=== PATIENT | male | born 1970 | race Caucasian/White ===

== ENCOUNTER 2024-03-01 21:15 | Emergency (ER) | payer OTHER, SELFPAY ==
[2024-03-01 21:24] VITALS: BP 170/100; PULSE 75; TEMP 37; O2SAT 98; BMI 40.7
--- NOTE | 2024-03-01 21:37 | ECG_ITS ---
[facility] Test Date: 2024-03-01 Pat Name: ANKIT BENITES Department: Room: - Gender: Male [employer] Man: : 1970 Requested By: [id number] Order Number: [id number] Reading MD: DANIEL WEAVER Measurements Intervals [place] Rate: 72 P: 50 CA: 170 QRS: 35 QRSD: 88 T: 45 QT: 350 QTc: 375 Interpretive Statements 1100 Sinus rhythm 9110 normal ECG No previous ECG available for comparison Electronically Signed On 03-02-2024 7:02:10 EDT by DANIEL WEAVER
--- NOTE | 2024-03-01 21:38 | ED_ITS ---
Documented by User: TIN Menon 03/01/24 21:42 HPI HPI - General Adult General Chief complaint: Upper Respiratory Infection Stated complaint: Upper Respiratory Infection Time Seen by Provider: 03/01/24 21:18 Source: patient Mode of arrival: walk-in Limitations: no limitations History of Present Illness HPI narrative: Patient is a 54-year-old male with a history of diabetes who presents to the emergency department for 3-day history of cough, congestion, sputum production, shortness of breath and chest pain. He denies any objective fevers, vomiting or diarrhea. He has no peripheral edema. He states his primary concern is that he cannot catch his breath. He denies any history of COPD, asthma or emphysema. No medications taken Prior to arrival except for Mucinex without improvement. He takes oral diabetic agents, no insulin. He denies any history of the symptoms previously. Related Data Home Medications ?Medication ?Instructions ?Recorded ?Confirmed glimepiride 2 mg tablet 2 mg PO DAILY 03/01/24 03/01/24 nabumetone 500 mg tablet 500 mg PO BID 03/01/24 03/01/24 sitagliptin phosphate 50 1 tab PO DAILY 03/01/24 03/01/24 mg-metformin 1,000 mg tablet (Janumet) Allergies Allergy/AdvReac Type Severity Reaction Status Date / Time Penicillins Allergy Intermediate Hives Verified 03/01/24 21:29 Opioid HPI Opioid Management Most Recent Opioid Data: Last Pain Scale 4 03/01/24 21:53 Last ED Pain Assessment 03/01/24 21:53 Review of Systems ROS Constitutional Denies: fever or chills Ears, nose, mouth, and throat Reports: nasal congestion; Denies: throat pain Cardiovascular Reports: chest pain Respiratory Reports: shortness of breath, cough, wheezing and change in phlegm color Gastrointestinal Denies: nausea, vomiting or diarrhea Musculoskeletal Denies: back pain Integumentary/Breast Denies: rash Neurological Denies: headache Hematologic/Lymphatic Denies: easy bruising or easy bleeding Exam Narrative Exam Narrative: Gen.: Awake, alert, in no distress Head: Normocephalic, atraumatic ENT: Moist mucous membranes Respiratory: No respiratory distress, Tachypnea with expiratory wheezing globally, scattered rhonchi Cardio: Regular rate and rhythm Extremities: Moves extremities equally, no pedal edema Psych: Normal mood and affect Neuro: No focal neuro deficit Skin: Warm, dry, intact Constitutional Vital Signs, click to edit/add: Last Vital Signs Temp 98.6 F 03/01/24 21:24 Pulse 77 03/01/24 22:04 Resp 20 03/01/24 22:04 BP 170/100 H 03/01/24 21:24 Pulse Ox 96 03/01/24 22:04 O2 Del Method Room Air 03/01/24 22:04 Course Vital Signs Vital signs: Vital Signs Temperature 98.6 F 03/01/24 21:24 Pulse Rate 75 03/01/24 21:24 Respiratory Rate 20 03/01/24 21:24 Blood Pressure 170/100 H 03/01/24 21:24 Pulse Oximetry 98 03/01/24 21:24 Oxygen Delivery Method Room Air 03/01/24 21:24 Temperature 98.6 F 03/01/24 21:24 Pulse Rate 77 03/01/24 22:04 Respiratory Rate 20 03/01/24 22:04 Blood Pressure 170/100 H 03/01/24 21:24 Pulse Oximetry 96 03/01/24 22:04 Oxygen Delivery Method Room Air 03/01/24 22:04 Medical Decision Making MDM Narrative Medical decision making narrative: 214: Patient with an unremarkable EKG, stable vital signs on arrival to the ER, he is not in any respiratory distress. Breathing treatments, IV Solu-Medrol, fluids were ordered for the patient in addition to lab studies, respiratory panel. Imaging is pending on results of D-dimer. Patient is turned over to attending physician at this time for lab results and disposition. Medical Records Medical records reviewed: Yes I reviewed the patient's medical records Lab Data Lab results reviewed: Yes I reviewed the patient's lab results Labs: Lab Results 03/01/24 03/01/24 Range/Units 21:39 21:55 WBC 14.9 H (4.0-11.0) 10^3/uL RBC 5.50 (4.70-6.10) 10^6/uL Hgb 15.2 (14.0-18.0) g/dL Hct 47.5 (42.0-54.0) % MCV 86.4 (80.0-94.0) fL MCH 27.6 (25.9-34.0) pg MCHC 32.0 (29.9-35.2) g/dL RDW 13.1 (11.0-15.0) % Plt Count 258 (150-450) 10^3/uL MPV 10.6 (9.5-13.5) fL Neut % (Auto) 77.5 H (43.0-75.0) % Lymph % (Auto) 8.0 L (20.5-60.0) % Cecil % (Auto) 9.9 (1.7-12.0) % Eos % (Auto) 4.0 (0.9-7.0) % Baso % (Auto) 0.3 (0.2-2.0) % Neut # (Auto) 11.6 H (1.4-6.5) 10^3/uL Lymph # (Auto) 1.2 (1.2-3.8) 10^3/uL Cecil # (Auto) 1.5 H (0.3-0.8) 10^3/uL Eos # (Auto) 0.6 (0.0-0.7) 10^3/uL Baso # (Auto) 0.1 (0.0-0.1) 10^3/uL Abs Immat Gran (auto) 0.05 H (0.00-0.03) 10^3/uL Imm/Tot Granulo (auto) 0.3 (0.0-0.5) % PT 10.5 (9.0-11.6) sec INR 0.99 D-Dimer 0.57 (<=0.59) mg/L FEU VBG pH 7.385 (7.330-7.430) VBG pCO2 46.9 (40.0-52.0) mmHg Sodium 139 (136-145) mmol/L Potassium 4.0 (3.5-5.1) mmol/L Chloride 103 (98-107) mmol/L Carbon Dioxide 28.2 (21.0-32.0) mmol/L Anion Gap 11.8 BUN 10.0 (7.0-18.0) mg/dL Creatinine 0.82 (0.70-1.30) mg/dL Est GFR ( Amer) >60 (>=60) Est GFR (Non-Af Amer) >60 (>=60) BUN/Creatinine Ratio 12.2 Glucose 131 H (74-106) mg/dL Lactate 1.3 (0.4-2.0) mmol/L Calcium 9.9 (8.5-10.1) mg/dL Total Bilirubin 0.6 (0.2-1.0) mg/dL AST 17 (15-37) U/L ALT 29 (16-63) U/L Alkaline Phosphatase 81 (46-116) U/L Troponin I High Sens 9.8 (4.0-76.1) pg/mL NT-Pro-B Natriuret Pep 61.0 (<=900.0) pg/mL Total Protein 7.8 (6.4-8.2) g/dL Albumin 4.1 (3.4-5.0) g/dL Globulin 3.7 g/dL Albumin/Globulin Ratio 1.1 Procalcitonin <0.05 (0.00-0.50) ng/mL Adenovirus (PCR) Not detected (NOT DETECTE) C. pneumoniae DNA (PCR) Not detected (NOT DETECTE) Coronavirus Type OC43 Not detected (NOT DETECTE) Coronavirus Type HKU1 Not detected (NOT DETECTE) Coronavirus Type 229E Not detected (NOT DETECTE) Coronavirus Type NL63 Not detected (NOT DETECTE) Human Metapneumovir PCR Not detected (NOT DETECTE) M. pneumoniae (PCR) Not detected (NOT DETECTE) Parainfluenza PCR Not detected (NOT DETECTE) Parainfluenza 2 (PCR) Not detected (NOT DETECTE) Parainfluenza 3 (PCR) Not detected (NOT DETECTE) Parainfluenza 4 (PCR) Not detected (NOT DETECTE) RSV (RT-PCR) Not detected (NOT DETECTE) Entero/Rhino (PCR) Detected A (NOT DETECTE) SARS-CoV-2 (PCR) Not detected (NOT DETECTE) Bordetella pertussis (PCR) Not detected (NOT DETECTE) B parapertussis DNA PCR Not detected (NOT DETECTE) Influenza Type A (PCR) Not detected (NOT DETECTE) Influenza Type B (PCR) Not detected (NOT DETECTE) ECG Data Attestation: I personally reviewed and interpreted this ECG as follows: (Normal sinus rhythm at a rate of 72, no acute ST elevation or ectopy. EKG reviewed by attending physician) Discharge Plan Discharge Stand Alone Forms: Portal Instructions Chief Complaint: Upper Respiratory Infection Clinical Impression: Shortness of breath, Upper respiratory infection Patient Disposition: Home, Self-Care Time of Disposition Decision: 23:38 Condition: Good Prescriptions / Home Meds: No Action glimepiride 2 mg tablet 2 mg PO DAILY nabumetone 500 mg tablet 500 mg PO BID Janumet 50-1,000 mg tablet 1 tab PO DAILY Print Language: Armenian Additional Instructions: Your respiratory panel was positive for Rhino/Entero virus. Use medications as directed until gone. Drink plenty of fluids, return to the ER for worsening symptoms, increasing shortness of breath or any concerns. Referrals: Physician,Non-Staff, [Primary Care Provider] - 1 week Documented by User: Malissa Chacko MD 03/01/24 23:45 HPI HPI - General Adult General Chief complaint: Upper Respiratory Infection Stated complaint: Upper Respiratory Infection Time Seen by Provider: 03/01/24 21:18 Related Data Home Medications ?Medication ?Instructions ?Recorded ?Confirmed glimepiride 2 mg tablet 2 mg PO DAILY 03/01/24 03/01/24 nabumetone 500 mg tablet 500 mg PO BID 03/01/24 03/01/24 sitagliptin phosphate 50 1 tab PO DAILY 03/01/24 03/01/24 mg-metformin 1,000 mg tablet (Janumet) Allergies Allergy/AdvReac Type Severity Reaction Status Date / Time Penicillins Allergy Intermediate Hives Verified 03/01/24 21:29 Opioid HPI Opioid Management Most Recent Opioid Data: Last Pain Scale 4 03/01/24 21:53 Last ED Pain Assessment 03/01/24 21:53 Exam Constitutional Vital Signs, click to edit/add: Last Vital Signs Temp 98.6 F 03/01/24 21:24 Pulse 77 03/01/24 22:04 Resp 20 03/01/24 22:04 BP 170/100 H 03/01/24 21:24 Pulse Ox 96 03/01/24 22:04 O2 Del Method Room Air 03/01/24 22:04 Course Vital Signs Vital signs: Vital Signs Temperature 98.6 F 03/01/24 21:24 Pulse Rate 75 03/01/24 21:24 Respiratory Rate 20 03/01/24 21:24 Blood Pressure 170/100 H 03/01/24 21:24 Pulse Oximetry 98 03/01/24 21:24 Oxygen Delivery Method Room Air 03/01/24 21:24 Temperature 98.6 F 03/01/24 21:24 Pulse Rate 77 03/01/24 22:04 Respiratory Rate 20 03/01/24 22:04 Blood Pressure 170/100 H 03/01/24 21:24 Pulse Oximetry 96 03/01/24 22:04 Oxygen Delivery Method Room Air 03/01/24 22:04 Medical Decision Making MDM Narrative Medical decision making narrative: 2140: Patient with an unremarkable EKG, stable vital signs on arrival to the ER, he is not in any respiratory distress. Breathing treatments, IV Solu-Medrol, fluids were ordered for the patient in addition to lab studies, respiratory panel. Imaging is pending on results of D-dimer. Patient is turned over to attending physician at this time for lab results and disposition. This 54-year-old male, nonsmoker, was seen and evaluated in conjunction with the physician assistant speech language pathologist. Please refer to her full H and P. In brief he presents for evaluation of 3 days of cough, chest congestion with productive greenish phlegm. He has some mild discomfort in the left side of his chest. This is a 72 bpm with no acute changes. An IV was placed and he was medicated with IV fluids and steroids. He received a breathing treatment. On reevaluation he states he is feeling better and is breathing better than he has been able to breathe in the past several days. He has an elevated white count of 14.9 with a stable hemoglobin. He has a normal lactic acid. He has a normal blood gas. Troponin and d-dimer are both normal. Chest x-ray was ordered after the d-dimer result was normal. Chest x-ray was reviewed by radiology and is negative for acute findings. A respiratory panel was positive for rhino/enterovirus. This was discussed with the patient and his . He will be discharged home after being given an albuterol MDI in the emergency department with prescriptions for Bromfed-DM, prednisone for the next 5 days and Zithromax Z-ARLYN. Lab Data Labs: Lab Results 03/01/24 03/01/24 Range/Units 21:39 21:55 WBC 14.9 H (4.0-11.0) 10^3/uL RBC 5.50 (4.70-6.10) 10^6/uL Hgb 15.2 (14.0-18.0) g/dL Hct 47.5 (42.0-54.0) % MCV 86.4 (80.0-94.0) fL MCH 27.6 (25.9-34.0) pg MCHC 32.0 (29.9-35.2) g/dL RDW 13.1 (11.0-15.0) % Plt Count 258 (150-450) 10^3/uL MPV 10.6 (9.5-13.5) fL Neut % (Auto) 77.5 H (43.0-75.0) % Lymph % (Auto) 8.0 L (20.5-60.0) % Cecil % (Auto) 9.9 (1.7-12.0) % Eos % (Auto) 4.0 (0.9-7.0) % Baso % (Auto) 0.3 (0.2-2.0) % Neut # (Auto) 11.6 H (1.4-6.5) 10^3/uL Lymph # (Auto) 1.2 (1.2-3.8) 10^3/uL Cecil # (Auto) 1.5 H (0.3-0.8) 10^3/uL Eos # (Auto) 0.6 (0.0-0.7) 10^3/uL Baso # (Auto) 0.1 (0.0-0.1) 10^3/uL Abs Immat Gran (auto) 0.05 H (0.00-0.03) 10^3/uL Imm/Tot Granulo (auto) 0.3 (0.0-0.5) % PT 10.5 (9.0-11.6) sec INR 0.99 D-Dimer 0.57 (<=0.59) mg/L FEU VBG pH 7.385 (7.330-7.430) VBG pCO2 46.9 (40.0-52.0) mmHg Sodium 139 (136-145) mmol/L Potassium 4.0 (3.5-5.1) mmol/L Chloride 103 (98-107) mmol/L Carbon Dioxide 28.2 (21.0-32.0) mmol/L Anion Gap 11.8 BUN 10.0 (7.0-18.0) mg/dL Creatinine 0.82 (0.70-1.30) mg/dL Est GFR ( Amer) >60 (>=60) Est GFR (Non-Af Amer) >60 (>=60) BUN/Creatinine Ratio 12.2 Glucose 131 H (74-106) mg/dL Lactate 1.3 (0.4-2.0) mmol/L Calcium 9.9 (8.5-10.1) mg/dL Total Bilirubin 0.6 (0.2-1.0) mg/dL AST 17 (15-37) U/L ALT 29 (16-63) U/L Alkaline Phosphatase 81 (46-116) U/L Troponin I High Sens 9.8 (4.0-76.1) pg/mL NT-Pro-B Natriuret Pep 61.0 (<=900.0) pg/mL Total Protein 7.8 (6.4-8.2) g/dL Albumin 4.1 (3.4-5.0) g/dL Globulin 3.7 g/dL Albumin/Globulin Ratio 1.1 Procalcitonin <0.05 (0.00-0.50) ng/mL Adenovirus (PCR) Not detected (NOT DETECTE) C. pneumoniae DNA (PCR) Not detected (NOT DETECTE) Coronavirus Type OC43 Not detected (NOT DETECTE) Coronavirus Type HKU1 Not detected (NOT DETECTE) Coronavirus Type 229E Not detected (NOT DETECTE) Coronavirus Type NL63 Not detected (NOT DETECTE) Human Metapneumovir PCR Not detected (NOT DETECTE) M. pneumoniae (PCR) Not detected (NOT DETECTE) Parainfluenza PCR Not detected (NOT DETECTE) Parainfluenza 2 (PCR) Not detected (NOT DETECTE) Parainfluenza 3 (PCR) Not detected (NOT DETECTE) Parainfluenza 4 (PCR) Not detected (NOT DETECTE) RSV (RT-PCR) Not detected (NOT DETECTE) Entero/Rhino (PCR) Detected A (NOT DETECTE) SARS-CoV-2 (PCR) Not detected (NOT DETECTE) Bordetella pertussis (PCR) Not detected (NOT DETECTE) B parapertussis DNA PCR Not detected (NOT DETECTE) Influenza Type A (PCR) Not detected (NOT DETECTE) Influenza Type B (PCR) Not detected (NOT DETECTE) Discharge Plan Discharge Stand Alone Forms: Portal Instructions Chief Complaint: Upper Respiratory Infection Clinical Impression: Shortness of breath, Upper respiratory infection Patient Disposition: Home, Self-Care Time of Disposition Decision: 23:38 Condition: Good Prescriptions / Home Meds: No Action glimepiride 2 mg tablet 2 mg PO DAILY nabumetone 500 mg tablet 500 mg PO BID Janumet 50-1,000 mg tablet 1 tab PO DAILY Print Language: Armenian Additional Instructions: Your respiratory panel was positive for Rhino/Entero virus. Use medications as directed until gone. Drink plenty of fluids, return to the ER for worsening symptoms, increasing shortness of breath or any concerns. Referrals: Physician,Non-Staff, MD [Primary Care Provider] - 1 week
[2024-03-01 21:54] VITALS: O2SAT 97
[2024-03-01] MEDS: 0.9 % SODIUM CHLORIDE 1,000 ML 999 ML IV (21:56)
[2024-03-01] MEDS: METHYLPREDNISOLONE SOD SUCC PF 125 MG/2 ML VIAL IVP (21:56)
[2024-03-01] MEDS: ALBUTEROL SULFATE 2.5 MG/3 ML VIAL NEB IH (22:03)
[2024-03-01 22:04] VITALS: PULSE 77; O2SAT 96
[2024-03-01 22:11] LABS: Adenovirus NOT DETECTED (NOT DETECTE); Bordetella parapertussis NOT DETECTED (NOT DETECTE); Coronavirus 229E NOT DETECTED (NOT DETECTE); Coronavirus HKU1 NOT DETECTED (NOT DETECTE); Coronavirus NL63 NOT DETECTED (NOT DETECTE); Coronavirus OC43 NOT DETECTED (NOT DETECTE); Human Metapneumovirus NOT DETECTED (NOT DETECTE); Influenza A NOT DETECTED (NOT DETECTE); Influenza B NOT DETECTED (NOT DETECTE); Mycoplasma pneumoniae NOT DETECTED (NOT DETECTE); Parainfluenza Virus 1 NOT DETECTED (NOT DETECTE); Parainfluenza Virus 2 NOT DETECTED (NOT DETECTE); Parainfluenza Virus 3 NOT DETECTED (NOT DETECTE); Parainfluenza Virus 4 NOT DETECTED (NOT DETECTE); Respiratory Syncytial Virus NOT DETECTED (NOT DETECTE); SARS-CoV-2 NOT DETECTED (NOT DETECTE)
[2024-03-01 22:17] LABS: PCO2 VBG 46.9 mmHg (40.0-52.0); pH VBG 7.385 (7.330-7.430)
[2024-03-01 22:17] LABS: Basophils Absolute Auto 0.1 10^3/uL (0.0-0.1); Basophils Percent Auto 0.3 % (0.2-2.0); Eosinophils Absolute Auto 0.6 10^3/uL (0.0-0.7); Hematocrit 47.5 % (42.0-54.0); Hemoglobin 15.2 g/dL (14.0-18.0); Immature Granulocytes Abs Auto 0.05 10^3/uL (0.00-0.03); Immature Granulocytes Pct Auto 0.3 % (0.0-0.5); Lymphocytes Absolute Auto 1.2 10^3/uL (1.2-3.8); Mean Corpuscular Hemoglobin 27.6 pg (25.9-34.0); Mean Corpuscular Volume 86.4 fL (80.0-94.0); Mean Platelet Volume 10.6 fL (9.5-13.5); Monocytes Absolute Auto 1.5 10^3/uL (0.3-0.8); Monocytes Percent Auto 9.9 % (1.7-12.0); Neutrophils Absolute Auto 11.6 10^3/uL (1.4-6.5); Neutrophils Percent Auto 77.5 % (43.0-75.0); Platelet Count 258 10^3/uL (150-450); Red Cell Distribution Width 13.1 % (11.0-15.0); White Blood Count 14.9 10^3/uL (4.0-11.0)
[2024-03-01 22:33] LABS: D Dimer 0.57 mg/L FEU (<=0.59); INR 0.99; Prothrombin Time 10.5 sec (9.0-11.6)
[2024-03-01 22:35] LABS: Lactate/Lactic Acid 1.3 mmol/L (0.4-2.0)
--- NOTE | 2024-03-01 22:47 | XR_ITS ---
[address] [address] Patient Name: ANKIT BENITES MRN: [id number] date: 1970 Sex: M Assigned Patient Location: ER Current Patient Location: ER Accession/Order Number: [id number] Exam Date: 03/01/2024 23:00 Report Date: 03/01/2024 23:21 At the request of: RAMIREZ MARKER Procedure: XR chest 2V EXAM: XR chest 2V HISTORY: cpugh, sob COMPARISON: None FINDINGS/IMPRESSION: 1. Lungs are clear 2. No pneumothorax. No pleural effusion. 3. Heart size and mediastinal contours are normal 4. No acute osseous abnormality 5. Upper abdominal bowel gas pattern is nonspecific. Electronically authenticated by: FAY WILLIAM Date: 03/01/2024 23:21
[2024-03-01 22:59] LABS: Alanine Aminotransferase 29 U/L (16-63); Albumin Globulin Ratio 1.1; Albumin Level 4.1 g/dL (3.4-5.0); Alkaline Phosphatase 81 U/L (46-116); Anion Gap 11.8; Aspartate Amino Transferase 17 U/L (15-37); BUN Creatinine Ratio 12.2; Bilirubin Total 0.6 mg/dL (0.2-1.0); Calcium 9.9 mg/dL (8.5-10.1); Carbon Dioxide 28.2 mmol/L (21.0-32.0); Chloride 103 mmol/L (98-107); Estimated GFR (African America >60 (>=60); Estimated GFR (Non-African Ame >60 (>=60); Globulin 3.7 g/dL; Glucose 131 mg/dL (74-106); Sodium 139 mmol/L (136-145); Total Protein 7.8 g/dL (6.4-8.2); Troponin I High Sensitivity 9.8 pg/mL (4.0-76.1)
[2024-03-01 23:02] LABS: PROCALCITONIN <0.05 ng/mL (0.00-0.50)
[2024-03-01 23:16] LABS: Human Rhinovirus/Enterovirus DETECTED (NOT DETECTE)
[2024-03-01] MEDS: ALBUTEROL SULFATE 200 PUFF/6.7 GM INHALER IH (23:48)
== END 2024-03-02 00:02 | disposition home or self-care (01) ==
PROVIDERS: Physician Assistant; Emergency Provider Emergency Medicine
DX: J06.9 Acute upper respiratory infection, unspecified (principal); R06.02 Shortness of breath; Z20.822 Contact with and (suspected) exposure to COVID-19; E11.9 Type 2 diabetes mellitus without complications; Z79.899 Other long term (current) drug therapy
CPT/HCPCS: 0202U; 36415; 71046; 80053; 82800; 83605; 83880; 84145; 84484; 85025; 85378; 85610; 87040; 93005; 94640; 96374; 99285; J2919

== ENCOUNTER 2024-07-04 11:22 | Outpatient (OUT) | payer SELFPAY ==
--- NOTE | 2024-07-04 11:27 | XR_ITS ---
[address] [address] Patient Name: ANKIT BENITES MRN: [id number] date: 1970 Sex: M Assigned Patient Location: [facility] Current Patient Location: [facility] Accession/Order Number: [id number] Exam Date: 07/04/2024 11:40 Report Date: 07/04/2024 13:06 At the request of: KATERINA STONE Procedure: XR chest 2V EXAM: CHEST 2 VIEWS HISTORY: Left Sided Chest Pain, Left Arm Pain TECHNIQUE: PA and lateral views chest. COMPARISON: 03/01/2024. FINDINGS: Low lung volumes. There is no focal lung consolidation, pleural effusion or pneumothorax. Pulmonary vasculature is within normal limits. The cardiomediastinal silhouette is normal. Degenerative changes of the thoracic spine. XR/XR chest 2V IMPRESSION: 1. Expiratory chest without acute cardiopulmonary disease. 2. Normal heart size. Electronically authenticated by: TIGRE KELLY Date: 07/04/2024 13:06
== END 2024-07-04 11:23 | disposition home or self-care (01) ==
LOC: RAD 11:24
PROVIDERS: PCP Nurse Practitioner; Visit Provider Nurse Practitioner
DX: R07.89 Other chest pain (principal); M79.622 Pain in left upper arm
CPT/HCPCS: 71046

== ENCOUNTER 2024-10-19 08:16 | Outpatient (OUT) | payer OTHER, SELFPAY ==
--- NOTE | 2024-10-19 | ECG_ITS ---
[facility] Test Date: 2024-10-19 Pat Name: ANKIT BENITES Department: Room: - Gender: Male [employer]: : 1970 Requested By: [id number] Order Number: [id number] Reading MD: DANIEL WEAVER Measurements Intervals [place] Rate: 69 P: 58 SC: 180 QRS: 60 QRSD: 90 T: 60 QT: 350 QTc: 375 Interpretive Statements SINUS RHYTHM LOW QRS VOLTAGE IN PRECORDIAL LEADS [QRS DEFLECTION < 1.0 mV IN CHEST LEADS] Compared to ECG 03/01/2024 21:32:16 Low QRS voltage now present Electronically Signed On 10-20-2024 8:53:04 EST by DANIEL WEAVER
--- OUTSIDE RECORDS SUMMARY | 2024-10-19 08:22 | XMS_ITS | CCD ---
Author Organization [facility] Care Team Providers Care Supervisor Hydrochloric Area Name Role Phone HOUSE, DR ROBERTS Primary Care Unavailable [place], DR JACQUES Montes Consulting Unavailable LINN, DR ROBERTS Admitting Unavailable LINN, DR ROBERTS Attending Unavailable LINN, DR ROBERTS Consulting Unavailable LINN, DR ROBERTS Primary Care Unavailable LINN, DR ROBERTS Admitting Unavailable HOUSE, DR ROBERTS Attending Unavailable HOUSE, DR ROBERTS Consulting Unavailable Brittney, Brianna L Primary Care Physician [phone] Brittney, Brianna L Attending Unavailable Brittney, Brianna L Admitting Unavailable Brittney, DANCE HALL HOST/HOSTESS Brianna L Attending Unavailable Brittney, DANCE HALL HOST/HOSTESS Brianna L Attending Unavailable Brittney, DANCE HALL HOST/HOSTESS Brinana L Attending Unavailable Brittney, DANCE HALL HOST/HOSTESS Brianna L Attending Unavailable Brittney, DANCE HALL HOST/HOSTESS Brianna L Admitting Unavailable Brittney, Brianna L Attending Unavailable Brittney, Brianna L Attending Unavailable Brittney, Brianna L Attending Unavailable Brittney, Brianna L Attending Unavailable Brittney, Brianna L Admitting Unavailable Brittney, Brianna L Attending Unavailable Brittney, Brianna L Attending Unavailable Brittney, Brianna L Attending Unavailable Allergies Allergy Classification Reported Allergen(s) Allergy Type Date of Onset Reaction(s) Facility Penicillins (antibiotic) (1 source) Penicillins; Translations: [penicillins] Drug Allergy Bleeding from nose (finding) [facility] [place] (1 source) Aspirin Drug Allergy [facility] (4 sources) Penicillins; Translations: [penicillins] Propensity to adverse reactions (disorder) Bleeding from nose (finding) [facility] Repository Medications Current Medications Medication Drug Class(es) Dates Sig (Normalized) Sig (Original) atorvastatin 40 mg oral tablet (1 source) HMG-CoA Reductase Inhibitor Start: 05-11-2024 take 1 tablet by mouth once daily atorvastatin 40 mg Tab 40 mg = 1 tab(s), Oral, Daily, # 90 tab(s), Refills(s) 1, Pharmacy: [facility], 177.5, cm, 05/07/24 13:15:00 EDT, Height/Length Dosing, 152.2, kg, 05/07/24 13:15:00 EDT, Weight Dosing Start Date: 05/11/24 Status: Ordered glimepiride 2 mg oral tablet (2 sources) Sulfonylurea Start: 05-07-2024 take 1 tablet by mouth twice daily glimepiride 2 mg Tab 2 mg = 1 tab(s), Oral, BID, # 180 tab(s), Refills(s) 1, Pharmacy: [facility], 177.5, cm, 05/07/24 13:15:00 EDT, Height/Length Dosing, 152.2, kg, 05/07/24 13:15:00 EDT, Weight Dosing Start Date: 05/07/24 Status: Ordered meloxicam 15 mg oral tablet (2 sources) Nonsteroidal Anti-inflammatory Drug Start: 08-29-2024 take 1 tablet by mouth once daily meloxicam 15 mg Tab 15 mg = 1 tab(s), Oral, Daily, # 30 tab(s), Refills(s) 3, Pharmacy: [facility], 178, cm, 08/29/24 17:23:00 EDT, Height/Length Dosing, 151.2, kg, 08/29/24 17:23:00 EDT, Weight Dosing Start Date: 08/29/24 Status: Ordered Start: 05-07-2024 take 1 tablet by [facility] once daily meloxicam 15 mg Tab 15 mg = 1 tab(s), Oral, Daily, # 30 tab(s), Refills(s) 0, Pharmacy: [facility], 177.5, cm, 05/07/24 13:15:00 EDT, Height/Length Dosing, 152.2, kg, 05/07/24 13:15:00 EDT, Weight Dosing Start Date: 05/07/24 Status: Ordered metFORMIN hydrochloride 1000 mg oral tablet (1 source) Biguanide Start: 08-29-2024 End: 08-24-2025 take 1 tablet by mouth twice daily metformin 1000 mg Tab 1,000 mg = 1 tab(s), Oral, BID, X 90 day(s), # 180 tab(s), Refills(s) 3, Pharmacy: [facility], 178, cm, 08/29/24 17:23:00 EDT, Height/Length Dosing, 151.2, kg, 08/29/24 17:23:00 EDT, Weight Dosing Start Date: 08/29/24 Stop Date: 08/24/25 Status: Ordered metFORMIN hydrochloride 1000 mg / SITagliptin 50 mg oral tablet (1 source) Biguanide, Dipeptidyl Peptidase 4 Inhibitor Start: 05-07-2024 Janumet 50 mg/1000 mg oral tablet 1 tab(s), Oral, BID, 90 tab(s), Refill(s) 1, TAKE 1 TABLET BY MOUTH TWICE DAILY, [facility], 177.5, cm, 05/07/24 13:15:00 EDT, Height/Length Dosing, 152.2, kg, 05/07/24 13:15:00 EDT, Weight Dosing Start Date: 05/07/24 Status: Ordered methylPREDNISolone 4 mg oral tablet (1 source) Corticosteroid Start: 05-07-2024 End: 05-13-2024 Medrol 4 mg Tab = 1 packet(s), Oral, As Directed, as directed on package labeling, X 6 day(s), # 21 tab(s), Refills(s) 0, Pharmacy: [facility], 177.5, cm, 05/07/24 13:15:00 EDT, Height/Length Dosing, 152.2, kg, 05/07/24 13:15:00 EDT, Weight Dosing Start Date: 05/07/24 Stop Date: 05/13/24 Status: Ordered Completed/Discontinued Medications Medication Drug Class(es) Dates Sig (Normalized) Sig (Original) fluconazole 150 mg oral tablet (1 source) Azole Antifungal Start: 05-07-2024 take 4 tablets by mouth once Diflucan 150 mg Tab 150 mg = 1 tab(s), Oral, Once, take 1 tab on day 1 and one tab on day 4, # 2 tab(s), Refills(s) 1, Pharmacy: [facility], 177.5, cm, 05/07/24 13:15:00 EDT, Height/Length Dosing, 152.2, kg, 05/07/24 13:15:00 EDT, Weight Dosing Start Date: 05/07/24 Status: Ordered nystatin [id number] unt/ml topical cream (2 sources) Polyene Antifungal Start: 07-23-2024 nystatin Top 100,000 units/g Crm 15 gram See Instructions, 30 gm, Refill(s) 1, APPLY TO THE AFFECTED AREA(S) topically TWICE DAILY, [facility], 178, cm, 07/09/24 8:51:00 EDT, Height/Length Dosing, 150, kg, 07/09/24 8:51:00 EDT, Weight Dosing Start Date: 07/23/24 Status: Ordered Start: 05-07-2024 nystatin Top 1 00,000 units/g Crm 15 gram 1 marie, Topical, BID, 30 gram, Refill(s) 1, [facility], 177.5, cm, 05/07/24 13:15:00 EDT, Height/Length Dosing, 152.2, kg, 05/07/24 13:15:00 EDT, Weight Dosing Start Date: 05/07/24 Status: Ordered Problems Problem Classification Problem Date Documented Date Episodic/Chronic Diabetes mellitus without complication (6 sources) Type 2 diabetes mellitus without complications; Translations: [Type 2 diabetes mellitus] Onset: 01-29-2022 Chronic Essential hypertension (1 source) Essential (primary) hypertension; Translations: [ESSENTIAL PRIMARY HYPERTENSION] Onset: 02-03-2022 Chronic Mycoses (2 sources) Candidiasis 05-07-2024 Episodic Nonspecific chest pain (2 sources) Chest pain 05-07-2024 Episodic Osteoarthritis (2 sources) Bilateral primary osteoarthritis of knee; Translations: [Unspecified osteoarthritis, unspecified site] Onset: 02-03-2022 Chronic Other non-traumatic joint disorders (4 sources) Pain in right knee; Translations: [PAIN IN RIGHT KNEE] Onset: 10-22-2022 Episodic Other non-traumatic joint disorders (1 source) Pain in left knee; Translations: [PAIN IN LEFT KNEE] Onset: 10-27-2022 Episodic Other nutritional; endocrine; and metabolic disorders (2 sources) Body mass index 40+ - severely obese 05-07-2024 Chronic Other nutritional; endocrine; and metabolic disorders (1 source) Weight gain 07-09-2024 Episodic Other skin disorders (2 sources) Eruption 05-07-2024 Episodic Unclassified (2 sources) Pain of left shoulder region 05-07-2024 Unclassified (5 sources) Patient encounter status 05-07-2024 Results Test Name Value Interpretation Reference Range Facility [facility] Medicine Office/Clini c Noteon 09-26-2024 Family Medicine Office/Clinic Note [facility] Medicine Office/Clinic Note HPI Staff Ankit is a 54 year old male presenting with SOB Onset: A few weeks Pt states he will have tightness to upper left chest with tingling feeling going up into left shoulder. Feeling short of breath often with doing little to no exertion. Has chest x-rays on 07/04/24 History of Present Illness pt c/o tightness of left upper chest and shortness of breath Review of Systems PHQ Score Initial Depression Screen Score: 1 SCORE Physical Exam Vitals & Measurements HR: 70(Peripheral) RR: 18 BP: 140/88 SpO2: 98% HT: 67 in HT: 170.0 cm WT: 158.1 kg WT: 348.55 lb BMI: 54.71 General: alert, no acute distress ENMT: oral mucosa moist, no pharyngeal erythema or exudate Cardiovascular: regular rate and rhythm, normal peripheral perfusion Respiratory: Lungs CTA, respirations non labored Extremities: no deformity, no trauma Neurological: oriented x 4, LOC appropriate for age, CN II-XII intact, motor strength equal & normal bilaterally, speech normal Assessment/Plan 1. Left-sided chest pain (R07.9: Chest pain, unspecified) pt still having left sided chest pain that shoots up his left shoulder. will order EKG and ECHO. will refer to cardiology. pt states I know I am over weight but this shortness of breath is nothing he has ever experienced before. would like to discuss weight loss at next visit. Ordered: fluconazole, 150 mg = 1 tab(s), Oral, Once, take 1 tab on day one and 1 tab on day four, # 2 tab(s), Refills(s) 1, Pharmacy: [facility], 170, cm, 09/26/24 8:58:00 EST, Height/Length Dosing, 158.1, kg, 09/26/24 8:58:00 EST, Weight Dosing [facility] [place] 2. Shortness of breath (R06.02: Shortness of breath) pt c/o worsening SOB. he can not do anything without getting short of breath. if he is cleared by cardiology . may consider referral to pulmonology Ordered: fluconazole, 150 mg = 1 tab(s), Oral, Once, take 1 tab on day one and 1 tab on day four, # 2 tab(s), Refills(s) 1, Pharmacy: [facility], 170, cm, 09/26/24 8:58:00 EST, Height/Length Dosing, 158.1, kg, 09/26/24 8:58:00 EST, Weight Dosing [facility] [place] 3. BMI 50.0-59.9, adult (Z68.43: Body mass index [BMI] 50.0-59.9, adult) BMI education given Ordered: fluconazole, 150 mg = 1 tab(s), Oral, Once, take 1 tab on day one and 1 tab on day four, # 2 tab(s), Refills(s) 1, Pharmacy: [facility], 170, cm, 09/26/24 8:58:00 EST, Height/Length Dosing, 158.1, kg, 09/26/24 8:58:00 EST, Weight Dosing [facility] [place] 4. Non-smoker (Z78.9: Other specified health status) continue not smokiing Ordered: fluconazole, 150 mg = 1 tab(s), Oral, Once, take 1 tab on day one and 1 tab on day four, # 2 tab(s), Refills(s) 1, Pharmacy: [facility], 170, cm, 09/26/24 8:58:00 EST, Height/Length Dosing, 158.1, kg, 09/26/24 8:58:00 EST, Weight Dosing [facility] [place] Orders: nystatin topical, See Instructions, 30 gm, Refill(s) 1, APPLY TO THE AFFECTED AREA(S) topically TWICE DAILY, [facility], 178, cm, 07/09/24 8:51:00 EDT, Height/Length Dosing, 150, kg, 07/09/24 8:51:00 EDT, Weight Dosing predniSONE, See Instructions, TAKE 1 TABLET BY MOUTH TWICE DAILY FOR 5 DAYS, # 10 EA, Refills(s) 1, Pharmacy: [facility], 170, cm, 09/26/24 8:58:00 EST, Height/Length Dosing, 158.1, kg, 09/26/24 8:58:00 EST, Weight Dosing Follow-up No qualifying data available Problem List/Past Medical History Ongoing Candidiasis Constricting chest pain often radiating down left arm Diabetes type 2, controlled Encounter for weight management Left shoulder pain Left-sided chest pain Morbid obesity with BMI of 45.0-49.9, adult Prostate cancer screening Rash Screening for hyperlipidemia Shortness of breath Weight gain Historical No qualifying data Procedure/Surgical History Surgery. Medications atorvastatin 40 mg Tab, 40 mg= 1 tab(s), Oral, Daily, 1 refills Diflucan 150 mg Tab, 150 mg= 1 tab(s), Oral, Once, 1 refills glimepiride 2 mg Tab, 2 mg= 1 tab(s), Oral, BID, 1 refills meloxicam 15 mg Tab, 15 mg= 1 tab(s), Oral, Daily, 3 refills metformin 1000 mg Tab, 1000 mg= 1 tab(s), Oral, BID, 3 refills phentermine 37.5 mg Tab, 1 tab(s), Oral, Daily, Not taking: would like to discuss restarting meidcation predniSONE 20 mg Tab, See Instructions, 1 refills Allergies penicillins (Epistaxis) Social History Alcohol Never., 08/29/2024 Substance Abuse Never., 08/29/2024 Tobacco Never (less than 100 in lifetime) Tobacco Use:. Never Smokeless Tobacco Use:., 08/29/2024 Family History Diabetes mellitus type 2: Sister. Normal [facility] Comment on above: Result Comment: Elec tronically Signed By: Brianna Li\.br\Date and Time Signed: 09/26/24 09:59 EST Reminderson 08-31-2024 Reminders Reminders From: Brianna Li To: B - Clinical; Sent: 08/31/2024 08:36:32 EDT Show up: 08/31/2024 08:36:00 EDT Subject: Ambulatory Reminder Due Date/Time: 09/01/2024 08:35:00 EDT HGAB1C is 7.1 he would benefit from taking injectables that we talked about at his last visit. did he find out if his insurance will cover any of them? This will help with weight loss as well. Results: Date Result Name Ind Value Ref Range 08/29/2024 17:53 Hgb A1C % ((H)) 7.1 % ( - <=5.9) From: Jessica Wallace M.A. ([facility] - Clinical) To: Brianna Li; Sent: 08/31/2024 11:48:25 EDT Show up: 08/31/2024 11:45:00 EDT Subject: RE: Ambulatory Reminder Verbalizes understanding, he said he is still waiting to hear back from the insurance for the injectables Normal [facility] Family Medicine Office/Clini c Noteon 08-30-2024 Family Medicine Office/Clinic Note Family Medicine Office/Clinic Note Chief Complaint Medication Refills HPI Staff Pt presents today for medication refills. Patient is here for follow up on Diabetes. How often are you checking your blood sugars? _yes? What are your average readings?_? 126 Are you compliant with your diet? yes? Do you exercise? yes? Are you compliant with your medications or having difficulty affording your medications? no? Do you have any of the following symptoms? Vision problems? no? Lightheadedness? no? Paresthesias, Ulcerations or sores? no? Refill on metformin & meloxicam History of Present Illness pt presents today for DM follow up. will check HGAB1C today Review of Systems PHQ Score Initial Depression Screen Score: 1 SCORE Physical Exam Vitals & Measurements T: 36.2 ?C(Tympanic) HR: 76(Peripheral) RR: 16 BP: 128/76 SpO2: 97% HT: 70 in HT: 178 cm WT: 151.2 kg WT: 332.64 lb BMI: 47.72 General: alert, no acute distress ENMT: oral mucosa moist, no pharyngeal erythema or exudate Cardiovascular: regular rate and rhythm, normal peripheral perfusion Respiratory: Lungs CTA, respirations non labored Extremities: no deformity, no trauma Neurological: oriented x 4, LOC appropriate for age, CN II-XII intact, motor strength equal & normal bilaterally, speech normal Assessment/Plan 1. Diabetes type 2, controlled (E11.9: Type 2 diabetes mellitus without complications) will check HGBA1C today. had to stop janumet at last visit and start metformin. pt will call insurance to see if they will cover any injectable meds. to help control BS. Will send refills. pt is considering referral to diabetic education for guidance for diabetic diet while working [place] the road. RTC 3 months Ordered: fluconazole, 150 mg = 1 tab(s), Oral, Once, take 1 tab on day 1 and one tab on day 4, # 2 tab(s), Refills(s) 1, Pharmacy: [facility], 177.5, cm, 05/07/24 13:15:00 EDT, Height/Length Dosing, 152.2, kg, 05/07/24 13:15:00 EDT, Weight Dosing meloxicam, 15 mg = 1 tab(s), Oral, Daily, # 30 tab(s), Refills(s) 3, Pharmacy: [facility], 178, cm, 08/29/24 17:23:00 EDT, Height/Length Dosing, 151.2, kg, 08/29/24 17:23:00 EDT, Weight Dosing meloxicam, 15 mg = 1 tab(s), Oral, Daily, # 30 tab(s), Refills(s) 0, Pharmacy: [facility], 178, cm, 07/09/24 8:51:00 EDT, Height/Length Dosing, 150, kg, 07/09/24 8:51:00 EDT, Weight Dosing metformin, 1,000 mg = 1 tab(s), Oral, BID, # 180 tab(s), Refills(s) 0, Pharmacy: [facility], 178, cm, 07/09/24 8:51:00 EDT, Height/Length Dosing, 150, kg, 07/09/24 8:51:00 EDT, Weight Dosing metformin, 1,000 mg = 1 tab(s), Oral, BID, X 90 day(s), # 180 tab(s), Refills(s) 3, Pharmacy: [facility], 178, cm, 08/29/24 17:23:00 EDT, Height/Length Dosing, 151.2, kg, 08/29/24 17:23:00 EDT, Weight Dosing phentermine, 37.5 mg = 1 tab(s), Oral, Daily, # 30 tab(s), Refills(s) 0, Pharmacy: [facility], 178, cm, 07/09/24 8:51:00 EDT, Height/Length Dosing, 150, kg, 07/09/24 8:51:00 EDT, Weight Dosing HgbA1c 2. Body mass index [BMI] 45.0-49.9, adult (Z68.42: Body mass index [BMI] 45.0-49.9, adult) BMI education given Ordered: fluconazole, 150 mg = 1 tab(s), Oral, Once, take 1 tab on day 1 and one tab on day 4, # 2 tab(s), Refills(s) 1, Pharmacy: [facility], 177.5, cm, 05/07/24 13:15:00 EDT, Height/Length Dosing, 152.2, kg, 05/07/24 13:15:00 EDT, Weight Dosing meloxicam, 15 mg = 1 tab(s), Oral, Daily, # 30 tab(s), Refills(s) 3, Pharmacy: [facility], 178, cm, 08/29/24 17:23:00 EDT, Height/Length Dosing, 151.2, kg, 08/29/24 17:23:00 EDT, Weight Dosing meloxicam, 15 mg = 1 tab(s), Oral, Daily, # 30 tab(s), Refills(s) 0, Pharmacy: [facility], 178, cm, 07/09/24 8:51:00 EDT, Height/Length Dosing, 150, kg, 07/09/24 8:51:00 EDT, Weight Dosing metformin, 1,000 mg = 1 tab(s), Oral, BID, # 180 tab(s), Refills(s) 0, Pharmacy: [facility], 178, cm, 07/09/24 8:51:00 EDT, Height/Length Dosing, 150, kg, 07/09/24 8:51:00 EDT, Weight Dosing metformin, 1,000 mg = 1 tab(s), Oral, BID, X 90 day(s), # 180 tab(s), Refills(s) 3, Pharmacy: [facility], 178, cm, 08/29/24 17:23:00 EDT, Height/Length Dosing, 151.2, kg, 08/29/24 17:23:00 EDT, Weight Dosing phentermine, 37.5 mg = 1 tab(s), Oral, Daily, # 30 tab(s), Refills(s) 0, Pharmacy: [facility], 178, cm, 07/09/24 8:51:00 EDT, Height/Length Dosing, 150, kg, 07/09/24 8:51:00 EDT, Weight Dosing 3. Morbid obesity with BMI of 45.0-49.9, adult (E66.01: Morbid (severe) obesity due to excess calories) see above Ordered: fluconazole, 150 mg = 1 tab(s), Oral, Once, take 1 tab on day 1 and one tab on day 4, # 2 tab(s), Refills(s) 1, Pharmacy: [facility], 177.5, cm, 05/07/24 13:15:00 EDT, Height/Length Dosing, 152.2, kg, 05/07/24 13:15:00 EDT, Weight Dosing meloxicam, 15 mg = 1 tab(s), Oral, Daily, # 30 tab(s), Refills(s) 3, Pharmacy: [facility] (more content not included)... Normal [facility] Comment on above: Result Comment: Elec tronically Signed By: Brianna Li\.br\Date and Time Signed: 08/30/24 14:37 EDT [id number] 08-30-2024 HbA1c (Bld) [Mass fraction] 7.1 % High <=5.9 [facility] Comment on above: Performed By: #### [id number] #### [facility] [address] [place] [address] Ambulatory Visit Summaryon 0 07-09-2024 Ambulatory Visit Summary Ambulatory Visit Summary ANKIT BENITES :1970 Visit Date:07/09/2024 Ambulatory Visit Instructions Your Diagnosis Diabetes type 2, controlled Weight gain Your Care Team Attending Physician - Brianna Li Primary Care Physician - Brianna Li This Is Your Medications List atorvastatin (atorvastatin 40 mg Tab) fluconazole (Diflucan 150 mg Tab) glimepiride (glimepiride 2 mg Tab) meloxicam (meloxicam 15 mg Tab) nystatin topical (nystatin Top 100,000 units/g Crm 15 gram) [Image Removed: STOP]Stop taking these medications metformin-sitagliptin (Janumet 50 mg/1000 mg oral tablet) Procedures Performed Surgery. Discharge Vitals Temperature (Oral) 35.9 ?C Heart Rate (Peripheral) 74 Respiratory Rate 16 Blood Pressure 138/88 Height 178 cm Height 70 in Weight 150 kg Weight 330 lb BMI 47.34 What to do next Scheduled Follow-Up Appointments Tuesday 8:40 AM EDT With: Brianan Li Where: [place] [id number]- Medications What How Much When Why Instructions Unchanged atorvastatin (atorvastatin 40 mg Tab) 1 Tablets By Mouth Every day Unchanged fluconazole (Diflucan 150 mg Tab) 1 Tablets By Mouth Once Diabetes type 2, controlled Constricting chest pain often radiating down left arm Rash Candidiasis Left shoulder pain Prostate cancer screening Screening for hyperlipidemia BMI 45.0-49.9, adult Morbid obesity with BMI of 45.0-49.9, adult Non-smoker take 1 tab on day 1 and one tab on day 4 Unchanged glimepiride (glimepiride 2 mg Tab) 1 Tablets By Mouth 2 times a day Unchanged meloxicam (meloxicam 15 mg Tab) 1 Tablets By Mouth Every day Diabetes type 2, controlled Constricting chest pain often radiating down left arm Rash Candidiasis Left shoulder pain Prostate cancer screening Screening for hyperlipidemia BMI 45.0-49.9, adult Morbid obesity with BMI of 45.0-49.9, adult Non-smoker Unchanged nystatin topical (nystatin Top 100,000 units/ g Crm 15 gram) 1 Application Topical 2 times a day Diabetes type 2, controlled Constricting chest pain often radiating down left arm Rash Candidiasis Left shoulder pain Prostate cancer screening Screening for hyperlipidemia BMI 45.0-49.9, adult Morbid obesity with BMI of 45.0-49.9, adult Non-smoker What How Much When Comments Stop Taking metformin-sitagliptin (Janumet 50 mg/ 1000 mg oral tablet) 1 Tablets By Mouth 2 times a day TAKE 1 TABLET BY MOUTH TWICE DAILY Allergies penicillins (Epistaxis) Problems Ongoing - Any problem that you are currently receiving treatment for. Candidiasis Constricting chest pain often radiating down left arm Diabetes type 2, controlled Left shoulder pain Morbid obesity with BMI of 45.0-49.9, adult Prostate cancer screening Rash Screening for hyperlipidemia Weight gain Patient Survey You may receive a survey via text or e-mail asking about your office visit. Please share your experience with us by completing your survey. We appreciate your feedback and thank you for choosing us for your care. Normal [facility] Family Medicine Office/Clini c Noteon 07-09-2024 Family Medicine Office/Clinic Note Family Medicine Office/Clinic Note Chief Complaint Med Refills HPI Staff Pt presents today for medication refills. Hgb A1C %: 6.7 % High (05/07/24 13:56:00) Started on atorvastatin at time of last encounter. Pt states he is losing health insurance & would like cheaper option of Janumet. NEG CXR 07/04/24 History of Present Illness pt presents today needing refills on diabetes meds. would also like to discuss weight gain Review of Systems PHQ Score Initial Depression Screen Score: 0 SCORE Physical Exam Vitals & Measurements T: 35.9 ?C(Oral) HR: 74(Peripheral) RR: 16 BP: 138/88 SpO2: 97% HT: 70 in HT: 178 cm WT: 150 kg WT: 330 lb BMI: 47.34 General: alert, no acute distress ENMT: oral mucosa moist, no pharyngeal erythema or exudate Cardiovascular: regular rate and rhythm, normal peripheral perfusion Respiratory: Lungs CTA, respirations non labored Extremities: no deformity, no trauma Neurological: oriented x 4, LOC appropriate for age, CN II-XII intact, motor strength equal & normal bilaterally, speech normal Assessment/Plan 1. Diabetes type 2, controlled (E11.9: Type 2 diabetes mellitus without complications) pt is not able to afford janumet. will send in metformin. will be due for HGBA1C in 3 months. Ordered: metformin, 1,000 mg = 1 tab(s), Oral, BID, # 180 tab(s), Refills(s) 0, Pharmacy: [facility], 178, cm, 07/09/24 8:51:00 EDT, Height/Length Dosing, 150, kg, 07/09/24 8:51:00 EDT, Weight Dosing phentermine, 37.5 mg = 1 tab(s), Oral, Daily, # 30 tab(s), Refills(s) 0, Pharmacy: [facility], 178, cm, 07/09/24 8:51:00 EDT, Height/Length Dosing, 150, kg, 07/09/24 8:51:00 EDT, Weight Dosing E&M of Est. Patient Straight Fwd 10-19 Min [id number] 2. Weight gain (R63.5: Abnormal weight gain) discussed starting adipex to help with weight gain. medication agreement signed. OARRS report reviewed. RTC 4 weeks Ordered: metformin, 1,000 mg = 1 tab(s), Oral, BID, # 180 tab(s), Refills(s) 0, Pharmacy: [facility], 178, cm, 07/09/24 8:51:00 EDT, Height/Length Dosing, 150, kg, 07/09/24 8:51:00 EDT, Weight Dosing phentermine, 37.5 mg = 1 tab(s), Oral, Daily, # 30 tab(s), Refills(s) 0, Pharmacy: [facility], 178, cm, 07/09/24 8:51:00 EDT, Height/Length Dosing, 150, kg, 07/09/24 8:51:00 EDT, Weight Dosing E&M of Est. Patient Straight Fwd 10-19 Min [id number] 3. BMI 45.0-49.9, adult, (Z68.42: Body mass index [BMI] 45.0-49.9, adult)Body mass index [BMI] 45.0-49.9, adult BMI education given Ordered: metformin, 1,000 mg = 1 tab(s), Oral, BID, # 180 tab(s), Refills(s) 0, Pharmacy: [facility], 178, cm, 07/09/24 8:51:00 EDT, Height/Length Dosing, 150, kg, 07/09/24 8:51:00 EDT, Weight Dosing phentermine, 37.5 mg = 1 tab(s), Oral, Daily, # 30 tab(s), Refills(s) 0, Pharmacy: [facility], 178, cm, 07/09/24 8:51:00 EDT, Height/Length Dosing, 150, kg, 07/09/24 8:51:00 EDT, Weight Dosing 4. Morbid obesity with BMI of 45.0-49.9, adult (E66.01: Morbid (severe) obesity due to excess calories) see above Ordered: metformin, 1,000 mg = 1 tab(s), Oral, BID, # 180 tab(s), Refills(s) 0, Pharmacy: [facility], 178, cm, 07/09/24 8:51:00 EDT, Height/Length Dosing, 150, kg, 07/09/24 8:51:00 EDT, Weight Dosing phentermine, 37.5 mg = 1 tab(s), Oral, Daily, # 30 tab(s), Refills(s) 0, Pharmacy: [facility], 178, cm, 07/09/24 8:51:00 EDT, Height/Length Dosing, 150, kg, 07/09/24 8:51:00 EDT, Weight Dosing 5. Non-smoker (Z78.9: Other specified health status) continue not smoking Ordered: metformin, 1,000 mg = 1 tab(s), Oral, BID, # 180 tab(s), Refills(s) 0, Pharmacy: [facility], 178, cm, 07/09/24 8:51:00 EDT, Height/Length Dosing, 150, kg, 07/09/24 8:51:00 EDT, Weight Dosing phentermine, 37.5 mg = 1 tab(s), Oral, Daily, # 30 tab(s), Refills(s) 0, Pharmacy: [facility], 178, cm, 07/09/24 8:51:00 EDT, Height/Length Dosing, 150, kg, 07/09/24 8:51:00 EDT, Weight Dosing Follow-up No qualifying data available Problem List/Past Medical History Ongoing Candidiasis Constricting chest pain often radiating down left arm Diabetes type 2, controlled Left shoulder pain Morbid obesity with BMI of 45.0-49.9, adult Prostate cancer screening Rash Screening for hyperlipidemia Weight gain Historical No qualifying data Procedure/Surgical History Surgery. Medications atorvastatin 40 mg Tab, 40 mg= 1 tab(s), Oral, Daily, 1 refills Diflucan 150 mg Tab, 150 mg= 1 tab(s), Oral, Once, 1 refills glimepiride 2 mg Tab, 2 mg= 1 tab(s), Oral, BID, 1 refills meloxicam 15 mg Tab, 15 mg= 1 tab(s), Oral, Daily metformin 1000 mg Tab, 1000 mg= 1 tab(s), Oral, BID nystatin Top 100,000 units/g Crm 15 gram, 1 marie, Topical, BID, 1 refills phentermine 37.5 mg Tab, 37.5 mg= 1 tab(s), Oral, Daily Allergies penicillins (Epistaxis) Social History Tobacco Never (less than 100 in lifetime) Tobacco Use: (more content not included)... Normal [facility] Comment on above: Result Comment: Elec tronically Signed By: Brianna Li\.br\Date and Time Signed: 07/09/24 10:07 EDT Reminderson 05-11-2024 Reminders Reminders From: Brianna Li To: B - Clinical; Sent: 05/08/2024 07:47:31 EDT Show up: 05/08/2024 07:47:00 EDT Subject: Ambulatory Reminder Due Date/Time: 05/09/2024 07:46:00 EDT HGBA1C is 6.7. Cholesterol and triglycerides are elevated. should consider starting a statin. If he is ok with starting it, I will send to pharmacy Results: Date Result Name Ind Value Ref Range 05/07/2024 13:56 WBC 8.2 E9/L (4.0 - 11.0) 05/07/2024 13:56 RBC 5.3 E12/L (4.3 - 5.9) 05/07/2024 13:56 HGB 15.0 gm/dL (13.5 - 17.5) 05/07/2024 13:56 Hct 44.3 % (37.7 - 49.0) 05/07/2024 13:56 MCV 83.2 fL (80.0 - 100.0) 05/07/2024 13:56 MCH 28.2 pg (27.0 - 34.0) 05/07/2024 13:56 MCHC 33.9 gm/dL (31.4 - 36.0) 05/07/2024 13:56 RDW 13.3 % (10.9 - 14.2) 05/07/2024 13:56 Platelet 242.0 E9/L (150.0 - 500.0) 05/07/2024 13:56 MPV 9.0 fL (6.4 - 10.8) 05/07/2024 13:56 Neutro Auto 65.7 % (36.0 - 75.0) 05/07/2024 13:56 Lymph Auto 20.9 % (14.0 - 50.0) 05/07/2024 13:56 Pima Auto 8.1 % (4.0 - 14.0) 05/07/2024 13:56 Eos Auto 4.8 % (0.0 - 8.0) 05/07/2024 13:56 Basophil Auto 0.5 % (0.0 - 2.0) 05/07/2024 13:56 Neutro Absolute 5.4 E9/L (2.0 - 7.5) 05/07/2024 13:56 Lymph Absolute 1.7 E9/L (1.0 - 4.0) 05/07/2024 13:56 Pima Absolute 0.7 E9/L (0.2 - 1.0) 05/07/2024 13:56 Eos Absolute 0.4 E9/L (0.0 - 0.5) 05/07/2024 13:56 Basophil Absolute 0.0 E9/L (0.0 - 0.2) 05/07/2024 13:56 Glucose Lvl 174 mg/dL (55 - 199) 05/07/2024 13:56 BUN 15 mg/dL (5 - 21) 05/07/2024 13:56 Creatinine 0.8 mg/dL (0.5 - 1.3) 05/07/2024 13:56 eGFR 105 mL/min/1.73 m2 (>=59 - ) 05/07/2024 13:56 BUN/Creat Ratio 19 (10 - 20) 05/07/2024 13:56 Sodium Lvl 138 mmol/L (135 - 145) 05/07/2024 13:56 Potassium Lvl 4.2 mmol/L (3.5 - 5.3) 05/07/2024 13:56 Chloride 102 mmol/L (101 - 111) 05/07/2024 13:56 CO2 29 mmol/L (21 - 31) 05/07/2024 13:56 AGAP 11 mEq/L (6 - 16) 05/07/2024 13:56 Calcium Lvl 9.5 mg/dL (8.9 - 11.1) 05/07/2024 13:56 Alk Phos 65 Int._Unit/L (21 - 98) 05/07/2024 13:56 ALT 21 Int._Unit/L (6 - 46) 05/07/2024 13:56 AST 17 Int._Unit/L (5 - 43) 05/07/2024 13:56 Total Protein 7.0 gm/dL (6.0 - 7.8) 05/07/2024 13:56 Albumin Lvl 4.4 gm/dL (3.3 - 5.0) 05/07/2024 13:56 Globulin 2.6 gm/dL (1.4 - 4.0) 05/07/2024 13:56 A/G Ratio 1.7 (1.1 - 2.2) 05/07/2024 13:56 Bili Total 0.6 mg/dL (0.0 - 1.1) 05/07/2024 13:56 Hgb A1C % ((H)) 6.7 % ( - <=5.9) 05/07/2024 13:56 Chol ((H)) 248 mg/dL (120 - 200) 05/07/2024 13:56 Trig ((H)) 288 mg/dL ( - <=149) 05/07/2024 13:56 HDL 39 mg/dL 05/07/2024 13:56 LDL Direct ((H)) 164 mg/dL ( - <=129) 05/07/2024 13:56 VLDL ((H)) 58 mg/dL (7 - 40) 05/07/2024 13:56 TSH 1.20 mcIU/mL (0.34 - 5.60) 05/07/2024 13:56 PSA Scrn Tot. 0.4 ng/mL (0.1 - 3.5) 05/07/2024 16:17 CRP 0.4 mg/dL ( - <=1.9) LVM for patient to return call, please advise patient of message below LVM for patient to return call Pt called back. he is aware and agreeable to taking a statin drug. Would like a 90 day supply sent to [facility] in [place]. Please advise if you would like for me to propose a med. From: La Krause (B - Clinical) To: Brianna Li; Sent: 05/11/2024 14:28:31 EDT Show up: 05/11/2024 14:28:00 EDT Subject: RE: Ambulatory Reminder Normal [facility] UZIEL w/Reflex if POSon 2023 Nuclear Ab Ql (S) Negative Invalid Interpretation Code Negative [facility] Comment on above: Result Comment: Perf ormed at: [facility] [address] [id number] PhD Brett Thompson Performed By: #### 1 [id number] #### [facility] [address] [place] [address] [id number] 05-08-2024 HbA1c (Bld) [Mass fraction] 6.7 % High <=5.9 [facility] Comment on above: Performed By: #### 7 [id number] #### [facility] [address] [place] [address] Reminderson 05-08-2024 Reminders - From: Brianna Li To: [facility] - Clinical; Sent: 05/08/2024 07:47:31 EDT Show up: 05/08/2024 07:47:00 EDT Subject: Ambulatory Reminder Due Date/Time: 05/09/2024 07:46:00 EDT HGBA1C is 6.7. Cholesterol and triglycerides are elevated. should consider starting a statin. If he is ok with starting it, I will send to pharmacy Results: Date Result Name Ind Value Ref Range 05/07/2024 13:56 WBC 8.2 E9/L (4.0 - 11.0) 05/07/2024 13:56 RBC 5.3 E12/L (4.3 - 5.9) 05/07/2024 13:56 HGB 15.0 gm/dL (13.5 - 17.5) 05/07/2024 13:56 Hct 44.3 % (37.7 - 49.0) 05/07/2024 13:56 MCV 83.2 fL (80.0 - 100.0) 05/07/2024 13:56 MCH 28.2 pg (27.0 - 34.0) 05/07/2024 13:56 MCHC 33.9 gm/dL (31.4 - 36.0) 05/07/2024 13:56 RDW 13.3 % (10.9 - 14.2) 05/07/2024 13:56 Platelet 242.0 E9/L (150.0 - 500.0) 05/07/2024 13:56 MPV 9.0 fL (6.4 - 10.8) 05/07/2024 13:56 Neutro Auto 65.7 % (36.0 - 75.0) 05/07/2024 13:56 Lymph Auto 20.9 % (14.0 - 50.0) 05/07/2024 13:56 Pima Auto 8.1 % (4.0 - 14.0) 05/07/2024 13:56 Eos Auto 4.8 % (0.0 - 8.0) 05/07/2024 13:56 Basophil Auto 0.5 % (0.0 - 2.0) 05/07/2024 13:56 Neutro Absolute 5.4 E9/L (2.0 - 7.5) 05/07/2024 13:56 Lymph Absolute 1.7 E9/L (1.0 - 4.0) 05/07/2024 13:56 Pima Absolute 0.7 E9/L (0.2 - 1.0) 05/07/2024 13:56 Eos Absolute 0.4 E9/L (0.0 - 0.5) 05/07/2024 13:56 Basophil Absolute 0.0 E9/L (0.0 - 0.2) 05/07/2024 13:56 Glucose Lvl 174 mg/dL (55 - 199) 05/07/2024 13:56 BUN 15 mg/dL (5 - 21) 05/07/2024 13:56 Creatinine 0.8 mg/dL (0.5 - 1.3) 05/07/2024 13:56 eGFR 105 mL/min/1.73 m2 (>=59 - ) 05/07/2024 13:56 BUN/Creat Ratio 19 (10 - 20) 05/07/2024 13:56 Sodium Lvl 138 mmol/L (135 - 145) 05/07/2024 13:56 Potassium Lvl 4.2 mmol/L (3.5 - 5.3) 05/07/2024 13:56 Chloride 102 mmol/L (101 - 111) 05/07/2024 13:56 CO2 29 mmol/L (21 - 31) 05/07/2024 13:56 AGAP 11 mEq/L (6 - 16) 05/07/2024 13:56 Calcium Lvl 9.5 mg/dL (8.9 - 11.1) 05/07/2024 13:56 Alk Phos 65 Int._Unit/L (21 - 98) 05/07/2024 13:56 ALT 21 Int._Unit/L (6 - 46) 05/07/2024 13:56 AST 17 Int._Unit/L (5 - 43) 05/07/2024 13:56 Total Protein 7.0 gm/dL (6.0 - 7.8) 05/07/2024 13:56 Albumin Lvl 4.4 gm/dL (3.3 - 5.0) 05/07/2024 13:56 Globulin 2.6 gm/dL (1.4 - 4.0) 05/07/2024 13:56 A/G Ratio 1.7 (1.1 - 2.2) 05/07/2024 13:56 Bili Total 0.6 mg/dL (0.0 - 1.1) 05/07/2024 13:56 Hgb A1C % ((H)) 6.7 % ( - <=5.9) 05/07/2024 13:56 Chol ((H)) 248 mg/dL (120 - 200) 05/07/2024 13:56 Trig ((H)) 288 mg/dL ( - <=149) 05/07/2024 13:56 HDL 39 mg/dL 05/07/2024 13:56 LDL Direct ((H)) 164 mg/dL ( - <=129) 05/07/2024 13:56 VLDL ((H)) 58 mg/dL (7 - 40) 05/07/2024 13:56 TSH 1.20 mcIU/mL (0.34 - 5.60) 05/07/2024 13:56 PSA Scrn Tot. 0.4 ng/mL (0.1 - 3.5) 05/07/2024 16:17 CRP 0.4 mg/dL ( - <=1.9) LVM for patient to return call, please advise patient of message below Normal [facility] CBC w/ Auto Diffon 4 Basophils/100 WBC (Bld) 0.5 % Normal 0.0-2.0 [facility] Comment on above: Performed By: #### 2 [id number] #### [facility] [address] [place] [address] Basophils/Leukocytes Auto (Bld) [Pure # fraction] 0.0 E9/L Normal 0.0-0.2 [facility] Comment on above: Performed By: #### 2 [id number] #### [facility] [address] [place] [address] Eosinophils (Bld) [#/Vol] 0.4 E9/L Normal 0.0-0.5 [facility] Comment on above: Performed By: #### 2 [id number] #### [facility] [address] [place] [address] Eosinophils/100 WBC (Bld) 4.8 % Normal 0.0-8.0 [facility] Comment on above: Performed By: #### 2 [id number] #### [facility] [address] [place] [address] Erythrocyte distribution width (RBC) [Ratio] 13.3 % Normal 10.9-14.2 [facility] Comment on above: Performed By: #### 2 [id number] #### [facility] [address] [place] [address] Hematocrit (Bld) [Volume fraction] 44.3 % Normal 37.7-49.0 [facility] Comment on above: Performed By: #### 2 [id number] #### [facility] [address] [place] [address] Hemoglobin (Bld) [Mass/Vol] 15.0 g/dL Normal 13.5-17.5 [facility] Comment on above: Performed By: #### 2 [id number] #### [facility] [address] [place] [address] Lymphocytes (Bld) [#/Vol] 1.7 E9/L Normal 1.0-4.0 [facility] Comment on above: Performed By: #### 2 [id number] #### [facility] [address] [place] [address] Lymphocytes/100 WBC (Bld) 20.9 % Normal 14.0-50.0 [facility] Comment on above: Performed By: #### 2 [id number] #### [facility] [address] [place] [address] MCH (RBC) [Entitic mass] 28.2 pg Normal 27.0-34.0 [facility] Comment on above: Performed By: #### 2 [id number] #### [facility] [address] [place] [address] MCHC (RBC) [Mass/Vol] 33.9 g/dL Normal 31.4-36.0 [facility] Comment on above: Performed By: #### 2 [id number] #### [facility] [address] [place] [address] MCV (RBC) [Entitic vol] 83.2 fL Normal 80.0-100.0 [facility] Comment on above: Performed By: #### 2 [id number] #### [facility] [address] [place] [address] Monocytes (Bld) [#/Vol] 0.7 E9/L Normal 0.2-1.0 [facility] Comment on above: Performed By: #### 2 [id number] #### [facility] [address] [place] [address] Neutrophils (Bld) [#/Vol] 5.4 E9/L Normal 2.0-7.5 [facility] Comment on above: Performed By: #### 2 [id number] #### [facility] [address] [place] [address] Neutrophils/100 WBC (Bld) 65.7 % Normal 36.0-75.0 [facility] Comment on above: Performed By: #### 2 [id number] #### [facility] [address] [place] [address] Platelet mean volume (Bld) [Entitic vol] 9.0 fL Normal 6.4-10.8 [facility] Comment on above: Performed By: #### 2 [id number] #### [facility] [address] [place] [address] Platelets (Bld) [#/Vol] 242.0 E9/L Normal 150.0-500.0 [facility] Comment on above: Performed By: #### 2 [id number] #### [facility] [address] [place] [address] RBC (Bld) [#/Vol] 5.3 E12/L Normal 4.3-5.9 [facility] Comment on above: Performed By: #### 2 [id number] #### [facility] [address] [place] [address] WBC corrected for nucl RBC Auto (Bld) [#/Vol] 8.2 E9/L Normal 4.0-11.0 [facility] Comment on above: Performed By: #### 2 [id number] #### [facility] [address] [place] [address] CHEMISTRYOrdered By: SYSTEM SYSTEM on 05-07-2024 CRP [Mass/Vol] 0.4 mg/dL Normal <=1.9mg/dL [facility] em Albumin [Mass/Vol] 4.4 g/dL Normal 3.3 - 5.0 gm/dL [facility] Albumin/Globulin [Mass ratio] 1.7 {ratio} Normal 1.1 - 2.2 [facility] ALP [Catalytic activity/Vol] 65 [iU]/d Normal 21 - 98 Int._Unit/L [facility] ALT No additional P-5'-P [Catalytic activity/Vol] 21 [iU]/d Normal 6 - 46 Int._Unit/L [facility] Anion gap [Moles/Vol] 11 mmol/L Normal 6 - 16 mEq/L R emisol Chem AST [Catalytic activity/Vol] 17 [iU]/d Normal 5 - 43 Int._Unit/L [facility] Bilirubin [Mass/Vol] 0.6 mg/dL Normal 0.0 - 1 .1 mg/dL [facility] Calcium [Mass/Vol] 9.5 mg/dL Normal 8.9 - 11. 1 mg/dL [facility] Chloride [Moles/Vol] 102 mmol/L Normal 101 - 1 11 mmol/L [facility] Cholesterol [Mass/Vol] 248 mg/dL High 120 - 200 mg/dL [facility] Cholesterol in HDL [Mass/Vol] 39 mg/dL Invalid Interpretation Code [facility] Comment on above: Result Comment: '>= 60 LOW RISK' '<= 40 HIGH RISK' Cholesterol in LDL [Mass/Vol] 164 mg/dL High <=129mg/dL [facility] Cholesterol in VLDL [Mass/Vol] 58 mg/dL High 7 - 40 mg/dL [facility] CO2 [Moles/Vol] 29 mmol/L Normal 21 - 31 mmol/L [facility] Creatinine [Mass/Vol] 0.8 mg/dL Normal 0.5 - 1.3 mg/dL [facility] eGFR 105 mL/min/1.73 m2 Normal >=59mL/mi n/1 .73 m2 [facility] Globulin (S) [Mass/Vol] 2.6 g/dL Normal 1.4 - 4.0 gm/dL [facility] Glucose [Mass/Vol] 174 mg/dL Normal 55 - 199 mg/dL [facility] Potassium [Moles/Vol] 4.2 mmol/L Normal 3.5 - 5.3 mmol/L [facility] Prostate specific Ag [Mass/Vol] 0.4 ng/mL Normal 0.1 - 3.5 ng/mL [facility] Comment on above: Interpretive Data: T he concentration of PSA determined by different manufacturers can vary due to differences in assay methods and reagent specificity. Values obtained from different assay methods cannot be used interchangeably. The methodology used for this result was chemiluminescence using [employer] PSA reagent. Protein [Mass/Vol] 7.0 g/dL Normal 6.0 - 7.8 gm/dL [facility] Sodium [Moles/Vol] 138 mmol/L Normal 135 - 145 mmol/L [facility] Triglyceride [Mass/Vol] 288 mg/dL High <=149mg/dL [facility] TSH Qn 1.20 m[IU]/L Normal 0.34 - 5.60 mcIU/mL [facility] Urea nitrogen [Mass/Vol] 15 mg/dL Normal 5 - 21 mg/dL [facility] Urea nitrogen/Creatinine [Mass ratio] 19 mg/mg Normal 10 - 20 [facility] CHEMISTRYOrdered By: Edmund booker on 05-07-2024 HbA1c (Bld) [Mass fraction] 6.7 % High <=5.9% [facility] ChemAutoSS CMPon 05-07-2024 Albumin [Mass/Vol] 4.4 g/dL Normal 3.3-5.0 [facility] Comment on above: Performed By: #### 2 [id number] #### [facility] [address] [place] [address] Albumin/Globulin (S) [Mass conc ratio] 1.7 Normal 1.1-2.2 [facility] Comment on above: Performed By: #### 2 [id number] #### [facility] [address] [place] [address] ALP [Catalytic activity/Vol] 65 Int._Unit/L Normal 21-98 [facility] Comment on above: Performed By: #### 2 [id number] #### [facility] [address] [place] [address] ALT No additional P-5'-P [Catalytic activity/Vol] 21 Int._Unit/L Normal 6-46 [facility] Comment on above: Performed By: #### 2 [id number] #### [facility] [address] [place] [address] Anion gap [Moles/Vol] 11 mmol/L Normal 6-16 [facility] Comment on above: Performed By: #### 2 [id number] #### [facility] [address] [place] [address] AST [Catalytic activity/Vol] 17 Int._Unit/L Normal 5-43 [facility] Comment on above: Performed By: #### 2 [id number] #### [facility] [address] [place] [address] Bilirubin [Mass/Vol] 0.6 mg/dL Normal 0.0-1.1 [facility] Comment on above: Performed By: #### 2 [id number] #### [facility] [address] [place] [address] Calcium [Mass/Vol] 9.5 mg/dL Normal 8.9-11.1 [facility] Comment on above: Performed By: #### 2 [id number] #### [facility] [address] [place] [address] Chloride [Moles/Vol] 102 mmol/L Normal 101-111 [facility] Comment on above: Performed By: #### 2 [id number] #### [facility] [address] [place] [address] CO2 [Moles/Vol] 29 mmol/L Normal 21-31 [facility] Comment on above: Performed By: #### 2 [id number] #### [facility] [address] [place] [address] Creatinine [Mass/Vol] 0.8 mg/dL Normal 0.5-1.3 [facility] Comment on above: Performed By: #### 2 [id number] #### [facility] [address] [place] [address] Globulin (S) [Mass/Vol] 2.6 g/dL Normal 1.4-4.0 [facility] Comment on above: Performed By: #### 2 [id number] #### [facility] [address] [place] [address] Glucose [Mass/Vol] 174 mg/dL Normal 55-199 [facility] Comment on above: Performed By: #### 2 [id number] #### [facility] [address] [place] [address] Potassium [Moles/Vol] 4.2 mmol/L Normal 3.5-5.3 [facility] Comment on above: Performed By: #### 2 [id number] #### [facility] [address] [place] [address] Protein [Mass/Vol] 7.0 g/dL Normal 6.0-7.8 [facility] Comment on above: Performed By: #### 2 [id number] #### [facility] [address] [place] [address] Sodium [Moles/Vol] 138 mmol/L Normal 135-145 [facility] Comment on above: Performed By: #### 2 [id number] #### [facility] [address] [place] [address] Urea nitrogen [Mass/Vol] 15 mg/dL Normal 5-21 [facility] Comment on above: Performed By: #### 2 [id number] #### [facility] [address] [place] [address] Urea nitrogen/Creatinine [Mass ratio] 19 No Units Normal 10-20 [facility] Comment on above: Performed By: #### 2 [id number] #### [facility] [address] [place] [address] CRPon 05-07-2024 CRP [Mass/Vol] 0.4 mg/dL Normal <=1.9 [facility] Comment on above: Performed By: #### 2 [id number] #### [facility] [address] [place] [address] Family Medicine Office/Clini c Noteon 05-07-2024 Family Medicine Office/Clinic Note HPI Staff Ankit is a 54 year old male presenting to establish care Establish Care: History: Any previous diagnosis: Diabetes History of seeing any specialist: When was your last doctors visit: Last provider: Dr Flores Any recent labs: over a year ago Health Maintenance UTD: Colonoscopy: no PSA: no Acute: Current issues/complaints: Pt was in [facility] 1.5-2 months ago Dx Rhinovirus he had left chest pain would radiate up and then down into left arm he was told not to worry about it. Pt continues to have intermittent pain with numbness Pt has been without all medication for 3 weeks. He states had got OTC metformin from [place] taking 250mg daily. pt states check blood sugar once a week History of Present Illness pt presents today to establish care. needs refills on DM meds Review of Systems PHQ Score Initial Depression Screen Score: 0 SCORE Physical Exam Vitals & Measurements HR: 78(Peripheral) RR: 18 BP: 128/84 HT: 70 in HT: 177.5 cm WT: 152.2 kg WT: 334.84 lb BMI: 48.31 General: alert, no acute distress ENMT: oral mucosa moist, no pharyngeal erythema or exudate Cardiovascular: regular rate and rhythm, normal peripheral perfusion Respiratory: Lungs CTA, respirations non labored Extremities: no deformity, no trauma Neurological: oriented x 4, LOC appropriate for age, CN II-XII intact, motor strength equal & normal bilaterally, speech normal Assessment/Plan 1. Diabetes type 2, controlled (E11.9: Type 2 diabetes mellitus without complications) pt has been out of diabetes meds for 3-4 weeks. will check labs today. pt is not sure what his last HGAB1C was. BS run 120-130 at home. pt did get metformin from [place] and has been taking that for the last couple of weeks. Ordered: fluconazole, 150 mg = 1 tab(s), Oral, Once, take 1 tab on day 1 and one tab on day 4, # 2 tab(s), Refills(s) 1, Pharmacy: [facility], 177.5, cm, 05/07/24 13:15:00 EDT, Height/Length Dosing, 152.2, kg, 05/07/24 13:15:00 EDT, Weight Dosing meloxicam, 15 mg = 1 tab(s), Oral, Daily, # 30 tab(s), Refills(s) 0, Pharmacy: [facility], 177.5, cm, 05/07/24 13:15:00 EDT, Height/Length Dosing, 152.2, kg, 05/07/24 13:15:00 EDT, Weight Dosing methylPREDNISolone, = 1 packet(s), Oral, As Directed, as directed on package labeling, X 6 day(s), # 21 tab(s), Refills(s) 0, Pharmacy: [facility], 177.5, cm, 05/07/24 13:15:00 EDT, Height/Length Dosing, 152.2, kg, 05/07/24 13:15:00 EDT, Weight Dosing nystatin topical, 1 marie, Topical, BID, 30 gram, Refill(s) 1, [facility], 177.5, cm, 05/07/24 13:15:00 EDT, Height/Length Dosing, 152.2, kg, 05/07/24 13:15:00 EDT, Weight Dosing UZIEL w/Reflex if POS C-Reactive Protein CBC w/ Auto Diff Comprehensive Metabolic Panel HgbA1c Lab Specimen Collect [id number] Lipid Panel PSA Screen, Total Thyroid Stimulating Hormone 2. Constricting chest pain often radiating down left arm (R07.89: Other chest pain) chest x ray. pt was cleared for heart attack in ER 1 month ago. will obtain those records to review Ordered: fluconazole, 150 mg = 1 tab(s), Oral, Once, take 1 tab on day 1 and one tab on day 4, # 2 tab(s), Refills(s) 1, Pharmacy: [facility], 177.5, cm, 05/07/24 13:15:00 EDT, Height/Length Dosing, 152.2, kg, 05/07/24 13:15:00 EDT, Weight Dosing meloxicam, 15 mg = 1 tab(s), Oral, Daily, # 30 tab(s), Refills(s) 0, Pharmacy: [facility], 177.5, cm, 05/07/24 13:15:00 EDT, Height/Length Dosing, 152.2, kg, 05/07/24 13:15:00 EDT, Weight Dosing methylPREDNISolone, = 1 packet(s), Oral, As Directed, as directed on package labeling, X 6 day(s), # 21 tab(s), Refills(s) 0, Pharmacy: [facility], 177.5, cm, 05/07/24 13:15:00 EDT, Height/Length Dosing, 152.2, kg, 05/07/24 13:15:00 EDT, Weight Dosing nystatin topical, 1 marie, Topical, BID, 30 gram, Refill(s) 1, [facility], 177.5, cm, 05/07/24 13:15:00 EDT, Height/Length Dosing, 152.2, kg, 05/07/24 13:15:00 EDT, Weight Dosing UZIEL w/Reflex if POS C-Reactive Protein CBC w/ Auto Diff Comprehensive Metabolic Panel [id number] Lab Specimen Collect [id number] Lipid Panel PSA Screen, Total Thyroid Stimulating Hormone 3. Rash (R21: Rash and other nonspecific skin eruption) pt states when he travels to places where it is cold, he will get hives on his lips, face, hands and abdomen. he usually takes Benadryl and when he warms up it goes away. may consider referral to hematology, uziel and crp ordered today Ordered: fluconazole, 150 mg = 1 tab(s), Oral, Once, take 1 tab on day 1 and one tab on day 4, # 2 tab(s), Refills(s) 1, Pharmacy: [facility], 177.5, cm, 05/07/24 13:15:00 EDT, Height/Length Dosing, 152.2, kg, 05/07/24 13:15:00 EDT, Weight Dosing meloxicam, 15 mg = 1 tab(s), Oral, Daily, # 30 tab(s), Refills(s) 0, Pharmacy: [facility], 177.5, cm, 05/07/24 13:15:00 EDT, Height/Length Dosing, 152.2, kg, 05/07/24 13:15:00 EDT, Weight Dosing methyl (more content not included)... Normal [facility] Comment on above: Result Comment: Elec tronically Signed By: Brittney BARRERA, Brianna Perla\.br\Date and Time Signed: 05/07/24 14:27 EDT HEMATOLOGYOrdered By: SYSTEM SYSTEM on 05-07-2024 Basophils/100 WBC (Bld) 0.5 % Normal 0.0 - 2.0 % Remisol Heme Basophils/Leukocytes Auto (Bld) [Pure # fraction] 0.0 E9/L Normal 0.0 - 0.2 E9/L Remisol Heme Eosinophils (Bld) [#/Vol] 0.4 E9/L Normal 0.0 - 0.5 E9/L Remisol Heme Eosinophils/100 WBC (Bld) 4.8 % Normal 0.0 - 8.0 % [facility] Erythrocyte distribution width (RBC) [Ratio] 13.3 % Normal 10.9 - 14.2 % [facility] Hematocrit (Bld) [Volume fraction] 44.3 % Normal 37.7 - 49.0 % [facility] Hemoglobin (Bld) [Mass/Vol] 15.0 g/dL Normal 13.5 - 17.5 gm/dL [facility] Lymphocytes (Bld) [#/Vol] 1.7 E9/L Normal 1.0 - 4.0 E9/L [facility] Lymphocytes/100 WBC (Bld) 20.9 % Normal 14.0 - 50.0 % [facility] MCH (RBC) [Entitic mass] 28.2 pg Normal 27.0 - 34.0 pg [facility] MCHC (RBC) [Mass/Vol] 33.9 g/dL Normal 31.4 - 36.0 gm/dL [facility] MCV (RBC) [Entitic vol] 83.2 fL Normal 80.0 - 100.0 fL [facility] Monocytes (Bld) [#/Vol] 0.7 E9/L Normal 0.2 - 1.0 E9/L [facility] Monocytes/100 WBC (Bld) 8.1 % Normal 4.0 - 14.0 % [facility] Neutrophils (Bld) [#/Vol] 5.4 E9/L Normal 2.0 - 7.5 E9/L [facility] Neutrophils/100 WBC (Bld) 65.7 % Normal 36.0 - 75.0 % [facility] Platelet mean volume (Bld) [Entitic vol] 9.0 fL Normal 6.4 - 10.8 fL [facility] Platelets (Bld) [#/Vol] 242.0 E9/L Normal 150.0 - 500.0 E9/L [facility] RBC (Bld) [#/Vol] 5.3 E12/L Normal 4.3 - 5.9 E12/L [facility] WBC corrected for nucl RBC Auto (Bld) [#/Vol] 8.2 E9/L Normal 4.0 - 11.0 E9/L [facility] Lipid Panelon 05-07-2024 Cholesterol [Mass/Vol] 248 mg/dL High 120-200 [facility] Comment on above: Performed By: #### 2 [id number] #### [facility] [address] [place] [address] Cholesterol in HDL [Mass/Vol] 39 mg/dL Invalid Interpretation Code [facility] Comment on above: Result Comment: '>= 60 LOW RISK' '<= 40 HIGH RISK' Performed By: #### 2 [id number] #### [facility] [address] [place] [address] Cholesterol in LDL [Mass/Vol] 164 mg/dL High <=129 [facility] Comment on above: Performed By: #### 2 [id number] #### [facility] [address] [place] [address] Cholesterol in VLDL [Mass/Vol] 58 mg/dL High 7-40 [facility] Comment on above: Performed By: #### 2 [id number] #### [facility] [address] [place] [address] Triglyceride [Mass/Vol] 288 mg/dL High <=149 [facility] Comment on above: Performed By: #### 2 [id number] #### [facility] [address] [place] [address] PSA Screen, Totalon 05-07-20 Prostate specific Ag [Mass/Vol] 0.4 ng/mL Normal 0.1-3.5 [facility] Comment on above: Result Comment: The concentration of PSA determined by different manufacturers can vary due to differences in assay methods and reagent specificity. Values obtained from different assay methods cannot be used interchangeably. The methodology used for this result was chemiluminescence using [employer]'s Access Hybritech PSA reagent. Performed By: #### 1 [id number] #### [facility] [address] [place] [address] Patient Educationon 05-07-20 Patient Education Orthopedics Shoulder Range of Motion Exercises Shoulder range of motion (ROM) exercises are done to keep the shoulder moving freely or to increase movement. They are recommended for people who have shoulder pain or stiffness or who are recovering from a shoulder surgery. Ask your health care provider which exercises are safe for you. Do exercises exactly as told by your health care provider and adjust them as directed. It is normal to feel mild stretching, pulling, tightness, or discomfort as you do these exercises. Stop right away if you feel sudden pain or your pain gets worse. Do not begin these exercises until told by your health care provider. Phase 1 exercise When you are able, do this exercise 1?2 times a day for 30?60 seconds in each direction, or as directed by your health care provider. Pendulum exercise To do this exercise while sittin. Sit in a chair or at the edge of your bed with your feet flat on the floor. 2. Let your affected arm hang down in front of you over the edge of the bed or chair. 3. Relax your shoulder, arm, and hand. 4. Rock your body so your arm gently swings in small circles. You can also use your unaffected arm to start the motion. 5. Repeat, changing the direction of the circles, swinging your arm left and right, and swinging your arm forward and back. To do this exercise while standin. Stand next to a sturdy chair or table, and hold on to it with your hand on your unaffected side. 2. Bend forward at the waist. 3. Bend your knees slightly. 4. Relax your shoulder, arm, and hand. 5. While keeping your shoulder relaxed, use body motion to swing your arm in small circles. 6. Repeat, changing the direction of the circles, swinging your arm left and right, and swinging your arm forward and back. 7. Between exercises, stand up tall and take a short break to relax your lower back. Phase 2 exercises Do these exercises 1?2 times a day or as told by your health care provider. Hold each stretch for 30 seconds, and repeat 3 times. Do the exercises with one or both arms as instructed by your health care provider. For these exercises, sit at a table with your hand and arm supported by the table. A chair that slides easily or has wheels can be helpful. External rotation 1. Turn your chair so that your affected side is nearest to the table. 2. Place your forearm on the table to your side. Bend your arm to about a 90-degree angle (right angle) at the elbow, and place your hand palm-down on the table. Your elbow should be about 6 inches (15 cm) away from your side. 3. Keeping your arm on the table, lean your body forward. Abduction 1. Turn your chair so that your affected side is nearest to the table. 2. Place your forearm and hand on the table so that your thumb points toward the ceiling and your arm is straight out to your side. 3. Slide your hand out to the side and away from you. 4. To increase the stretch, you can slide your chair away from the table. Flexion: forward stretch 1. Sit facing the table. Place your hand and elbow on the table in front of you. 2. Slide your hand forward and away from you, using your unaffected arm to do the work. 3. To increase the stretch, you can slide your chair backward. Phase 3 exercises Do these exercises 1?2 times a day or as told by your health care provider. Hold each stretch for 30 seconds, and repeat 3 times. Do the exercises with one or both arms as instructed by your health care provider. You will need a cane, a piece of PVC pipe, or a sturdy wooden dowel for the wand exercises. Cross-body stretch: posterior capsule stretch 1. Lift your arm straight out in front of you. 2. Bend your arm in a 90-degree angle (right angle) at the elbow so your forearm moves across your body. 3. Use your other arm to gently pull the elbow across your body, toward your other shoulder. Wall climbs 1. Stand with your affected arm extended out to the side with your hand resting on a door frame. 2. Slide your hand slowly up the door frame. 3. To increase the stretch, step through the door frame. Keep your body upright and do not lean. Flexion To do this exercise while standin. Hold the wand with both of your hands, palms-down. 2. Lift the wand up and over your head, if able. Lift mostly with your affected arm, and use the other arm to help. 3. Push upward with your other arm to gently increase the stretch. To do this exercise while lying down: 1. Lie on your back with your elbows resting on the floor and the wand in both your hands. Your hands will be palm-down, or pointing toward your feet. 2. Lift your hands toward (more content not included)... Normal [facility] Physician Orderon 05-07-2024 Physician Order [id number] Normal [facility] TSHon 05-07-2024 TSH Qn 1.20 m[IU]/L Normal 0.34-5.60 [facility] Comment on above: Performed By: #### 2 [id number] #### [facility] [address] [place] [address] eGFRon 05-07-2024 eGFR 105 mL/min/1.73 m2 Normal >=59 [facility] Comment on above: Order Comment: Order added by Discern Expert. Performed By: #### 1 [id number] #### [facility] [address] [place] [address] XR KNEE DE 4V or >on 2021 XR KNEE DE 4V or > EXAMINATION: XR KNEE DE 4V or > HISTORY: Pain of bilateral knee regions COMPARISON: No relevant comparison available. FINDINGS: RIGHT FINDINGS: BONES: No acute fracture or dislocation. Moderate to severe tricompartmental osteoarthropathy with marginal osteophyte formation. Moderate to severe narrowing of the medial joint space SOFT TISSUES: Negative. No visible soft tissue swelling. OTHER: Negative. LEFT FINDINGS: BONES: Moderate to severe tricompartmental osteoarthritis with [id number] articulation of the medial compartment. SOFT TISSUES: Negative. No visible soft tissue swelling. OTHER: Moderate suprapatellar joint effusion IMPRESSION: RIGHT CONCLUSION: Moderate to severe osteoarthritis LEFT CONCLUSION: Moderate to severe osteoarthritis with joint effusion Electronically authenticated by: JACQUES ADAN Date: 2022-10-22 12:35 Normal [facility] CBC AUTO DIFFon 01-29-2022 BASO # 0.0 103/ul Normal 0.0-0.1 [facility] Comment on above: Performed By: #### C BC #### [facility] [address] [place] [address] Dr. Arben Marcial Basophils/100 WBC (Bld) 0.5 % Normal 0.2-2.0 [facility] Comment on above: Performed By: #### C BC #### [facility] [address] [place] [address] Dr. Arben Marcial EO # 0.3 103/ul Normal 0.0-0.7 [facility] Comment on above: Performed By: #### C BC #### [facility] [address] [place] [address] Dr. Arben Marcial Eosinophils/100 WBC (Bld) 4.0 % Normal 0.9-7.0 [facility] Comment on above: Performed By: #### C BC #### [facility] [address] [place] [address] Dr. Arben Marcial Erythrocyte distribution width (RBC) [Ratio] 13.0 % Normal 11.0-15.0 [facility] Comment on above: Performed By: #### C BC #### [facility] [address] [place] [address] Dr. Arben Marcial Hematocrit (Bld) [Volume fraction] 44.0 % Normal 42.0-54.0 [facility] Comment on above: Performed By: #### C BC #### [facility] [address] [address] [address] Arben Marcial Hemoglobin (Bld) [Mass/Vol] 14.5 g/dL Normal 14.0-18.0 [facility] Comment on above: Performed By: #### C BC #### [facility] [address] [place] [address] Dr. Arben Marcial IG # 0.03 10e3/ul Normal 0.00-0.03 [facility] Comment on above: Performed By: #### C BC #### [facility] [address] [place] [address] Dr. Arben Marcial IG % 0.4 % Normal 0.0-0.5 [facility] Comment on above: Performed By: #### C BC #### [facility] [address] [place] [address] Dr. Arben Marcial LYMPH # 1.5 103/ul Normal 1.2-3.8 [facility] Comment on above: Performed By: #### C BC #### [facility] [address] [place] [address] Dr. Arben Marcial Lymphocytes/100 WBC (Bld) 18.8 % Critically low 20.5-60.0 [facility] Comment on above: Performed By: #### C BC #### [facility] [address] [place] [address] Dr. Arben Marcial MANUAL DIFF REQ NO Normal [facility] Comment on above: Performed By: #### C BC #### [facility] [address] [place] [address] Dr. Arben Marcial MCH (RBC) [Entitic mass] 27.8 pg Normal 25.9-34.0 [facility] Comment on above: Performed By: #### C BC #### [facility] [address] [place] [address] Dr. Arben Marcial MCHC (RBC) [Mass/Vol] 33.0 g/dL Normal 29.9-35.2 [facility] Comment on above: Performed By: #### C BC #### [facility] [address] [place] [address] Dr. Arben Marcial MCV (RBC) [Entitic vol] 84.5 fL Normal 80.0-94.0 [facility] Comment on above: Performed By: #### C BC #### [facility] [address] [place] [address] Dr. Arben Marcial MONO # 0.6 103/ul Normal 0.3-0.8 [facility] Comment on above: Performed By: #### C BC #### [facility] [address] [place] [address] Dr. Arben Marcial Monocytes/100 WBC (Bld) 7.4 % Normal 1.7-12.0 [facility] Comment on above: Performed By: #### C BC #### [facility] [address] [place] [address] Dr. Arben Marcial NEUT # 5.5 103/ul Normal 1.4-6.5 [facility] Comment on above: Performed By: #### C BC #### [facility] [address] [place] [address] Dr. Arben Marcial Neutrophils/100 WBC (Bld) 68.9 % Normal 43.0-75.0 [facility] Comment on above: Performed By: #### C BC #### [facility] [address] [place] [address] Dr. Arben Marcial Platelet mean volume (Bld) [Entitic vol] 9.9 fL Normal 9.5-13.5 [facility] Comment on above: Performed By: #### C BC #### [facility] [address] [place] [address] Dr. Arben Marcial PLT 246 103/ul Normal 150-450 [facility] Comment on above: Performed By: #### C BC #### [facility] [address] [place], [place] [id number] Dr. Arben Marcial RBC 5.21 106/ul Normal 4.70-6.10 [facility] Comment on above: Performed By: #### C BC #### [facility] [address] [place] [address] Dr. Arben Marcial WBC 8.0 103/ul Normal 4.0-11.0 [facility] Comment on above: Performed By: #### C BC #### [facility] [address] [place] [address] Dr. Arben Marcial GLYCOHEMOGLOBIN A1Con 2021 ADA RECOMMENDATION ADA THERAPEUTIC TARGET 6.0 - 7.0 ACTION SUGGESTED > 7.0 Normal [facility] Comment on above: Performed By: #### A 1C #### [facility] [address] [place] [address] Dr. Arben Marcial Glucose [Mass/Vol] 166 mg/dL Normal [facility] Comment on above: Performed By: #### A 1C #### [facility] [address] [place] [address] Dr. Arben Marcial HbA1c (Bld) [Mass fraction] 7.4 % Critically high <=6.0 [facility] Comment on above: Performed By: #### A 1C #### [facility] [address] [place] [address] Dr. Arben Marcial MICROALBUMIN, RAND URon 01-12 mALB 2.3 mg/L Normal <=30.0 [facility] Comment on above: Performed By: #### M ALBR #### [facility] [address] [place] [address] Dr. Arben Marcial PROF 14(COMP METB)on 022 Albumin [Mass/Vol] 3.9 g/dL Normal 3.4-5.0 [facility] Comment on above: Performed By: #### C MP #### [facility] [address] [place] [address] Dr. Arben Marcial Albumin/Globulin [Mass ratio] 1.1 {ratio} Normal [facility] Comment on above: Performed By: #### C MP #### [facility] [address] [place] [address] Dr. Arben Marcial ALP [Catalytic activity/Vol] 69 U/L Normal 46-116 [facility] Comment on above: Performed By: #### C MP #### [facility] [address] [address] [address] Arben Marcial ALT [Catalytic activity/Vol] 64 U/L Critically high 16-63 [facility] Comment on above: Performed By: #### C MP #### [facility] [address] [place] [address] Dr. Arben Marcial Anion gap [Moles/Vol] 12.2 mmol/L Normal [facility] Comment on above: Performed By: #### C MP #### [facility] [address] [address] [address] Arben Marcial AST [Catalytic activity/Vol] 34 U/L Normal 15-37 [facility] Comment on above: Performed By: #### C MP #### [facility] [address] [place] [address] Dr. Arben Marcial Bilirubin [Mass/Vol] 0.5 mg/dL Normal 0.2-1.3 [facility] Comment on above: Performed By: #### C MP #### [facility] [address] [place] [address] Dr. Arben Marcial Calcium [Mass/Vol] 9.2 mg/dL Normal 8.5-10.1 [facility] Comment on above: Performed By: #### C MP #### [facility] [address] [place] [address] Dr. Arben Marcial Chloride [Moles/Vol] 102 mmol/L Normal 98-107 [facility] Comment on above: Performed By: #### C MP #### [facility] [address] [address] [address] Arben Marcial CO2 [Moles/Vol] 29.6 mmol/L Normal 22.0-30.0 [facility] Comment on above: Performed By: #### C MP #### [facility] [address] [place] [address] Dr. Arben Marcial Creatinine [Mass/Vol] 1.00 mg/dL Normal 0.66-1.25 [facility] Comment on above: Performed By: #### C MP #### [facility] [address] [place] [address] Dr. Arben Marcial EGFR-AF BERMUDIAN >60 Normal >=60 [facility] Comment on above: Performed By: #### C MP #### [facility] [address] [address] [address] Arben Marcial EGFR-NON AF BERMUDIAN >60 Normal >=60 [facility] Comment on above: Performed By: #### C MP #### [facility] [address] [address] [address] Arben Marcial Globulin (S) [Mass/Vol] 3.4 g/dL Normal [facility] Comment on above: Performed By: #### C MP #### [facility] [address] [address] [address] Arben Marcial Glucose [Mass/Vol] 205 mg/dL Critically high 74-106 [facility] Comment on above: Performed By: #### C MP #### [facility] [address] [address] [address] Arben Marcial Potassium [Moles/Vol] 4.8 mmol/L Normal 3.4-5.0 [facility] Comment on above: Performed By: #### C MP #### [facility] [address] [address] [address] Arben Marcial Protein [Mass/Vol] 7.3 g/dL Normal 6.1-8.2 [facility] Comment on above: Performed By: #### C MP #### [facility] [address] [address] [address] Arben Marcial Sodium [Moles/Vol] 139 mmol/L Normal 137-145 [facility] Comment on above: Performed By: #### C MP #### [facility] [address] [address] [address] Arben Marcial Urea nitrogen [Mass/Vol] 15.0 mg/dL Normal 7.0-18.0 [facility] Comment on above: Performed By: #### C MP #### [facility] [address] [address] [address] Arben Marcial Urea nitrogen/Creatinine [Mass ratio] 15.0 mg/mg Normal [facility] Comment on above: Performed By: #### C MP #### [facility] [address] [address] [address] Arben Marcial Encounters Encounter Date Encounter Type Care Provider Facility Start: 10-24-2024 ambulatory Brianna L Brittney [facility] Start: 09-26-2024 End: 09-26-2024 ambulatory Brianna L Brittney Facility: [facility] Start: 08-29-2024 End: 08-29-2024 Lab Drop off Brianna L Brittney [facility] Start: 08-29-2024 End: 08-29-2024 ambulatory Brianna L Brittney [place] Start: 08-13-2024 End: 08-13-2024 ambulatory Brianna L Brittney Facility:[facility] Sandy leslie Start: 07-09-2024 End: 07-09-2024 ambulatory Brianna L Brittney Facility:[facility] Danica leslie Start: 06-29-2024 End: 06-29-2024 ambulatory [employer] Brianna L Brittney Facility:[facility] Sandy leslie Start: 05-07-2024 End: 05-07-2024 Lab Drop off Brianna L Brittney [facility] Start: 05-07-2024 End: 05-07-2024 ambulatory Brianna L Brittney [place] Start: 05-01-2024 End: 05-01-2024 ambulatory [employer] Brianna L Brittney Facility:[facility] Danica leslie Start: 04-26-2024 ambulatory [employer] Brianna Brittney [facility] Start: 10-22-2022 End: 10-23-[address] ALEJANDRA FLORES Facility:[facility] Start: 01-29-2022 End: 01-30-[address] ALEJANDRA FLORES Facility:[facility] Procedures Date Procedure Procedure Detail Performing Clinician Surgical procedure Brianna Schw ab Plan of Treatment Date Care Activity Detail Author Start: 11-28-2024 ambulatory Ambulatory Facility:[facility] Jeni Payers Date Payer Category Payer Unknown [id number] 2024 Self-pay 2024 Private Health Insurance [id number] 1970 Unknown [id number] 2.16.84 [id number] 1970 Unknown [id number] 2.16.84 [id number] 1970 Unknown [id number] 2.16.8 [id number] 1970 Unknown [id number] 2.16.8 [id number] 1970 Unknown [id number] 2.16.8 [id number] 1970 Unknown [id number] 2.16.8 [id number] 1970 Unknown [id number] 2.16.8 [id number] 1970 Unknown [id number] 2.16.8 [id number] 1970 Unknown [id number] 2.16.8 [id number] 1970 Unknown [id number] 2.16.8 [id number] 1970 Unknown [id number] 2.16.8 [id number] 1970 Unknown [id number] 2.16.8 [id number] 1970 Unknown [id number] 2.16.8 [id number] 1959 Private Health Insurance [id number] Social History Date Type Detail Facility Start: 05-07-2024 End: 08-29-2024 Tobacco smoking status Never smoked tobacco (finding) [facility] Sex Assigned At Male [facility] Tobacco smoking status Never Kerline [facility] Evaluation + Plan note Note Date & Type Note Facility Evaluation + Plan note Future Appointments Appointment Date:06/15/2024 01:40:00 PM Scheduled Provider:Brianna Li Location:[facility] Appointment Type:FM Open Diagnostic Tests PendingANA w/Reflex if POS 05/07/24 [facility] Evaluation + Plan note Note Date & Type Note Facility Evaluation + Plan note Future Appointments Appointment Date:11/28/2024 05:00:00 PM Scheduled Provider:Brianna Li Location:[facility] Appointment Type:FM Open Diagnostic Tests [id number] 08/29/24 [facility] Hospital course Narrative Note Date & Type Note Facility Hospital course Narrative No data available for this section [facility] Hospital Discharge instructions Note Date & Type Note Facility Hospital Discharge instructions No data available for this section [facility] Progress note Note Date & Type Note Facility Progress note No data available for this section [facility] Summary Purpose Family History No Family History Records Found No data available for this section No Family History Records FoundNo Family History Records FoundNo Family History Records FoundNo Family History Records FoundNo Family History Records FoundNo Family History Records FoundNo Family History Records FoundNo Family History Records FoundNo Family History Records FoundNo Family History Records Found No data available for this section No Family History Records Found Advance Directives No Advanced Directives Records FoundNo Advanced Directives Records FoundNo Advanced Directives Records FoundNo Advanced Directives Records FoundNo Advanced Directives Records FoundNo Advanced Directives Records FoundNo Advanced Directives Records FoundNo Advanced Directives Records FoundNo Advanced Directives Records FoundNo Advanced Directives Records FoundNo Advanced Directives Records FoundNo Advanced Directives Records Found Additional Source Comments (unrecognized sect ion and content) No Status Records FoundNo Status Records FoundNo Status Records FoundNo Status Records FoundNo Status Records FoundNo Status Records FoundNo Status Records FoundNo Status Records FoundNo Status Records FoundNo Status Records FoundNo Status Records FoundNo Status Records Found INFORMATION SOURCE (unrecogn ized section and content) DATE CREATED AUTHOR 11/03/2022 [facility] DATE CREATED AUTHOR AUTHOR'S ORGANIZ ATION 05/08/2024 [facility] DATE CREATED AUTHOR AUTHOR'S ORGANIZ ATION 05/09/2024 [facility] DATE CREATED AUTHOR AUTHOR'S ORGANIZ ATION 06/30/2024 [facility] DATE CREATED AUTHOR AUTHOR'S ORGANIZ ATION 08/30/2024 [facility] DATE CREATED AUTHOR AUTHOR'S ORGANIZ ATION 09/27/2024 [facility] Patient Care team informatio n (unrecognized section and content) Personnel Name: Brittney HOLLYSangeetadi Pan Address: Address: [address] [place] [id number]- Personnel Name: Brittney HOLLY Brianna L Address: Address: [address] [place] [id number]- FOR RECORDS PERTAINING TO PATIENTS WHO ARE OR HAVE BEEN ENROLLED IN A CHEMICAL DEPENDENCY/SUBSTANCEABUSE PROGRAM, SOME INFORMATION MAY BE OMITTED. This clinical summary was aggregated from multiple sources. Caution should be exercised in using it in the provision of clinical care. This summary normalizes information from multiple sources, and as a consequence, information in this document may materially change the coding, format and clinical context of patient data. In addition, data may be omitted in some cases. CLINICAL DECISIONS SHOULD BE BASED ON THE PRIMARY CLINICAL RECORDS. [facility] [employer] [facility]. provides no warranty or guarantee of the accuracy or completeness of information in this document.
== END 2024-10-19 08:17 | disposition home or self-care (01) ==
PROVIDERS: PCP Nurse Practitioner; Visit Provider Nurse Practitioner
DX: R06.02 Shortness of breath (principal); R07.89 Other chest pain
CPT/HCPCS: 93005

== ENCOUNTER 2024-10-30 06:56 | Outpatient (OUT) | payer OTHER, SELFPAY ==
--- OUTSIDE RECORDS SUMMARY | 2024-10-30 06:58 | XMS_ITS | CCD ---
Author Organization [facility] Care Team Providers Care Retail Administrative Assistant Name Role Phone HOUSE, DR ROBERTS Primary Care Unavailable FRANKFORT, DR JACQUES Montes Consulting Unavailable SCOTTSBURG, DR ROBERTS Admitting Unavailable SCOTTS[place]G, DR ROBERTS Attending Unavailable [place]OTTS[place]G, DR ROBERTS Consulting Unavailable [place]TS[place]G, DR ROBERTS Primary Care Unavailable [place]OTTS[place]G, DR ROBERTS Admitting Unavailable HOUSE, DR ROBERTS Attending Unavailable HOUSE, DR ROBERTS Consulting Unavailable Brittney, Brianna L Primary Care Physician Brittney, Brianna L Attending Unavailable Brtitney, Brianna L Admitting Unavailable Brittney, SPLITTER HEAD Brianna L Attending Unavailable Brittney, SPLITTER HEAD Brianna L Attending Unavailable Brittney, SPLITTER HEAD Brianna L Attending Unavailable Brittney, SPLITTER HEAD Brianna L Attending Unavailable Brittney, SPLITTER HEAD Brianna L Admitting Unavailable Brittney, Brianna L [...] [penicillins] Drug Allergy Bleeding from nose (finding) [facility] Medicine [place] (1 source) Aspirin Drug Allergy [facility] Repository (4 sources) Penicillins; Translations: [penicillins] Propensity to adverse reactions (disorder) Bleeding from nose (finding) [facility] Repository Medications Current Medications Medication Drug Class(es) Dates Sig (Normalized) Sig (Original) atorvastatin 40 mg oral tablet (1 source) HMG-CoA Reductase Inhibitor Start: 05-11-2024 take 1 tablet by mouth once daily atorvastatin 40 mg Tab 40 mg = 1 tab(s), Oral, Daily, # 90 tab(s), Refills(s) 1, Pharmacy: [facility], 177.5, cm, 05/07/24 13:15:00 EDT, Height/Length Dosing, 152.2, kg, 05/07/24 13:15:00 EDT, Weight Dosing Start Date: 05/11/24 Status: Ordered glimepiride 2 mg oral tablet (2 sources) Sulfonylurea Start: 05-07-2024 take 1 tablet by mouth twice daily glimepiride 2 mg Tab 2 mg = 1 tab(s), Oral, BID, # 180 tab(s), Refills(s) 1, Pharmacy: [facility], 177.5, cm, 05/07/24 13:15:00 EDT, Height/Length Dosing, 152.2, kg, 05/07/24 13:15:00 EDT, Weight Dosing Start Date: 05/07/24 Status: Ordered meloxicam 15 mg oral tablet (2 sources) Nonsteroidal Anti-inflammatory Drug Start: 08-29-2024 take 1 tablet by mouth once daily meloxicam 15 mg Tab 15 mg = 1 tab(s), Oral, Daily, # 30 tab(s), Refills(s) 3, Pharmacy: [facility], 178, cm, 08/29/24 17:23:00 EDT, Height/Length Dosing, 151.2, kg, 08/29/24 17:23:00 EDT, Weight Dosing Start Date: 08/29/24 Status: Ordered Start: 05-07-2024 take 1 tablet by [facility] once daily meloxicam 15 mg Tab 15 mg = 1 tab(s), Oral, Daily, # 30 tab(s), Refills(s) 0, Pharmacy: [facility], 177.5, cm, 05/07/24 13:15:00 EDT, Height/Length Dosing, 152.2, kg, 05/07/24 13:15:00 EDT, Weight Dosing Start Date: 05/07/24 Status: Ordered metFORMIN hydrochloride 1000 mg oral tablet (1 source) Biguanide Start: 08-29-2024 End: 08-24-2025 take 1 tablet by mouth twice daily metformin 1000 mg Tab 1,000 mg = 1 tab(s), Oral, BID, X 90 day(s), # 180 tab(s), Refills(s) 3, Pharmacy: [facility], 178, cm, 08/29/24 17:23:00 EDT, Height/Length Dosing, 151.2, kg, 08/29/24 17:23:00 EDT, Weight Dosing Start Date: 08/29/24 Stop Date: 08/24/25 Status: Ordered metFORMIN hydrochloride 1000 mg / SITagliptin 50 mg oral tablet (1 source) Biguanide, Dipeptidyl Peptidase 4 Inhibitor Start: 05-07-2024 Janumet 50 mg/1000 mg oral tablet 1 tab(s), Oral, BID, 90 tab(s), Refill(s) 1, TAKE 1 TABLET BY MOUTH TWICE DAILY, [facility], 177.5, cm, 05/07/24 13:15:00 EDT, Height/Length Dosing, 152.2, kg, 05/07/24 13:15:00 EDT, Weight Dosing Start Date: 05/07/24 Status: Ordered methylPREDNISolone 4 mg oral tablet (1 source) Corticosteroid Start: 05-07-2024 End: 05-13-2024 Medrol 4 mg Tab = 1 packet(s), Oral, As Directed, as directed on package labeling, X 6 day(s), # 21 tab(s), Refills(s) 0, Pharmacy: [facility], 177.5, cm, 05/07/24 13:15:00 EDT, Height/Length [...] 4, # 2 tab(s), Refills(s) 1, Pharmacy: [facility], 177.5, cm, 05/07/24 13:15:00 EDT, Height/Length Dosing, 152.2, kg, 05/07/24 13:15:00 EDT, Weight Dosing Start Date: 05/07/24 Status: Ordered nystatin 125265 unt/ml topical cream (2 sources) Polyene Antifungal Start: 07-23-2024 nystatin Top 100,000 units/g Crm 15 gram See Instructions, 30 gm, Refill(s) 1, APPLY TO THE AFFECTED AREA(S) topically TWICE DAILY, [facility], 178, cm, 07/09/24 8:51:00 EDT, Height/Length Dosing, 150, kg, 07/09/24 8:51:00 EDT, Weight Dosing Start Date: 07/23/24 Status: Ordered Start: 05-07-2024 nystatin Top 1 00,000 units/g Crm 15 gram 1 marie, Topical, BID, 30 gram, Refill(s) 1, [facility], 177.5, cm, 05/07/24 13:15:00 EDT, [...] Test Name Value Interpretation Reference Range Facility [facility] Medicine Office/Clini c Noteon 09-26-2024 Family Medicine Office/Clinic Note Family Medicine Office/Clinic Note HPI Staff Ankit [...] four, # 2 tab(s), Refills(s) 1, Pharmacy: [facility], 170, cm, 09/26/24 8:58:00 EST, Height/Length Dosing, 158.1, kg, 09/26/24 8:58:00 EST, Weight Dosing [facility] Internal Ambulatory Referral 2. Shortness of breath [...] four, # 2 tab(s), Refills(s) 1, Pharmacy: [facility], 170, cm, 09/26/24 8:58:00 EST, Height/Length Dosing, 158.1, kg, 09/26/24 8:58:00 EST, Weight Dosing [facility] Internal Ambulatory Referral 3. BMI 50.0-59.9, adult (Z68.43: Body mass index [BMI] 50.0-59.9, adult) BMI education given Ordered: fluconazole, 150 mg = 1 tab(s), Oral, Once, take 1 tab on day one and 1 tab on day four, # 2 tab(s), Refills(s) 1, Pharmacy: [facility], 170, cm, 09/26/24 8:58:00 EST, Height/Length Dosing, 158.1, kg, 09/26/24 8:58:00 EST, Weight Dosing [facility] Internal Ambulatory Referral 4. Non-smoker (Z78.9: Other specified health status) continue not smokiing Ordered: fluconazole, 150 mg = 1 tab(s), Oral, Once, take 1 tab on day one and 1 tab on day four, # 2 tab(s), Refills(s) 1, Pharmacy: [facility], 170, cm, 09/26/24 8:58:00 EST, Height/Length Dosing, 158.1, kg, 09/26/24 8:58:00 EST, Weight Dosing [facility] Internal Ambulatory Referral Orders: nystatin topical, See Instructions, 30 gm, Refill(s) 1, APPLY TO THE AFFECTED AREA(S) topically TWICE DAILY, [facility], 178, cm, 07/09/24 8:51:00 EDT, Height/Length Dosing, 150, kg, 07/09/24 8:51:00 EDT, Weight Dosing predniSONE, See Instructions, TAKE 1 TABLET BY MOUTH TWICE DAILY FOR 5 DAYS, # 10 EA, Refills(s) 1, Pharmacy: [facility], 170, cm, 09/26/24 8:58:00 EST, Height/Length [...] History Diabetes mellitus type 2: Sister. Normal [facility] Comment on above: Result Comment: Elec tronically Signed By: Brianna Li\.br\Date and Time Signed: 09/26/24 09:59 EST Reminderson 08-31-2024 Reminders Reminders From: Brianna Li To: [facility] - Clinical; Sent: 08/31/2024 08:36:32 EDT Show [...] ( - <=5.9) From: Jessica Wallace M.A. (B - Clinical) To: Brianna Li; Sent: 08/31/2024 11:48:25 EDT Show up: 08/31/2024 11:45:00 EDT Subject: RE: Ambulatory Reminder Verbalizes understanding, he said he is still waiting to hear back from the insurance for the injectables Normal [facility] Family Medicine Office/Clini c Noteon 08-30-2024 Family [...] 4, # 2 tab(s), Refills(s) 1, Pharmacy: [facility], 177.5, cm, 05/07/24 13:15:00 EDT, Height/Length Dosing, 152.2, kg, 05/07/24 13:15:00 EDT, Weight Dosing meloxicam, 15 mg = 1 tab(s), Oral, Daily, # 30 tab(s), Refills(s) 3, Pharmacy: [facility], 178, cm, 08/29/24 17:23:00 EDT, Height/Length Dosing, 151.2, kg, 08/29/24 17:23:00 EDT, Weight Dosing meloxicam, 15 mg = 1 tab(s), Oral, Daily, # 30 tab(s), Refills(s) 0, Pharmacy: [facility], 178, cm, 07/09/24 8:51:00 EDT, Height/Length Dosing, 150, kg, 07/09/24 8:51:00 EDT, Weight Dosing metformin, 1,000 mg = 1 tab(s), Oral, BID, # 180 tab(s), Refills(s) 0, Pharmacy: [facility], 178, cm, 07/09/24 8:51:00 EDT, Height/Length Dosing, 150, kg, 07/09/24 8:51:00 EDT, Weight Dosing metformin, 1,000 mg = 1 tab(s), Oral, BID, X 90 day(s), # 180 tab(s), Refills(s) 3, Pharmacy: [facility], 178, cm, 08/29/24 17:23:00 EDT, Height/Length Dosing, 151.2, kg, 08/29/24 17:23:00 EDT, Weight Dosing phentermine, 37.5 mg = 1 tab(s), Oral, Daily, # 30 tab(s), Refills(s) 0, Pharmacy: [facility], 178, cm, 07/09/24 8:51:00 EDT, Height/Length Dosing, 150, kg, 07/09/24 8:51:00 EDT, Weight Dosing HgbA1c 2. Body mass index [BMI] 45.0-49.9, adult (Z68.42: Body mass index [BMI] 45.0-49.9, adult) BMI education given Ordered: fluconazole, 150 mg = 1 tab(s), Oral, Once, take 1 tab on day 1 and one tab on day 4, # 2 tab(s), Refills(s) 1, Pharmacy: [facility], 177.5, cm, 05/07/24 13:15:00 EDT, Height/Length Dosing, 152.2, kg, 05/07/24 13:15:00 EDT, Weight Dosing meloxicam, 15 mg = 1 tab(s), Oral, Daily, # 30 tab(s), Refills(s) 3, Pharmacy: [facility], 178, cm, 08/29/24 17:23:00 EDT, Height/Length Dosing, 151.2, kg, 08/29/24 17:23:00 EDT, Weight Dosing meloxicam, 15 mg = 1 tab(s), Oral, Daily, # 30 tab(s), Refills(s) 0, Pharmacy: [facility], 178, cm, 07/09/24 8:51:00 EDT, Height/Length Dosing, 150, kg, 07/09/24 8:51:00 EDT, Weight Dosing metformin, 1,000 mg = 1 tab(s), Oral, BID, # 180 tab(s), Refills(s) 0, Pharmacy: [facility], 178, cm, 07/09/24 8:51:00 EDT, Height/Length Dosing, 150, kg, 07/09/24 8:51:00 EDT, Weight Dosing metformin, 1,000 mg = 1 tab(s), Oral, BID, X 90 day(s), # 180 tab(s), Refills(s) 3, Pharmacy: [facility], 178, cm, 08/29/24 17:23:00 EDT, Height/Length Dosing, 151.2, kg, 08/29/24 17:23:00 EDT, Weight Dosing phentermine, 37.5 mg = 1 tab(s), Oral, Daily, # 30 tab(s), Refills(s) 0, Pharmacy: [facility], 178, cm, 07/09/24 8:51:00 EDT, Height/Length Dosing, 150, kg, 07/09/24 8:51:00 EDT, Weight Dosing 3. Morbid obesity with BMI of 45.0-49.9, adult (E66.01: Morbid (severe) obesity due to excess calories) see above Ordered: fluconazole, 150 mg = 1 tab(s), Oral, Once, take 1 tab on day 1 and one tab on day 4, # 2 tab(s), Refills(s) 1, Pharmacy: [facility], 177.5, cm, 05/07/24 13:15:00 EDT, Height/Length Dosing, 152.2, kg, 05/07/24 13:15:00 EDT, Weight Dosing meloxicam, 15 mg = 1 tab(s), Oral, Daily, # 30 tab(s), Refills(s) 3, Pharmacy: [facility] (more content not included)... Normal [facility] Comment on above: Result Comment: Elec tronically Signed By: Brianna Li\.br\Date and Time Signed: 08/30/24 14:37 EDT [id number] 08-30-2024 HbA1c (Bld) [Mass fraction] 7.1 % High <=5.9 [facility] Comment on above: Performed By: #### [id number] #### [facility] [address] [place] [address] Ambulatory Visit Summaryon 0 07-09-2024 Ambulatory Visit [...] Follow-Up Appointments Tuesday 8:40 AM EDT With: Brianna Li Where: [place] [id number]- Medications What How Much When Why Instructions [...] for choosing us for your care. Normal [facility] Family Medicine Office/Clini c Noteon 07-09-2024 Family [...] BID, # 180 tab(s), Refills(s) 0, Pharmacy: [facility], 178, cm, 07/09/24 8:51:00 EDT, Height/Length Dosing, 150, kg, 07/09/24 8:51:00 EDT, Weight Dosing phentermine, 37.5 mg = 1 tab(s), Oral, Daily, # 30 tab(s), Refills(s) 0, Pharmacy: [facility], 178, cm, 07/09/24 8:51:00 EDT, Height/Length Dosing, 150, kg, 07/09/24 8:51:00 EDT, Weight Dosing E&M of Est. Patient Straight Fwd 10-19 Min 09482 2. Weight gain (R63.5: Abnormal weight gain) discussed starting adipex to help with weight gain. medication agreement signed. OARRS report reviewed. RTC 4 weeks Ordered: metformin, 1,000 mg = 1 tab(s), Oral, BID, # 180 tab(s), Refills(s) 0, Pharmacy: [facility], 178, cm, 07/09/24 8:51:00 EDT, Height/Length Dosing, 150, kg, 07/09/24 8:51:00 EDT, Weight Dosing phentermine, 37.5 mg = 1 tab(s), Oral, Daily, # 30 tab(s), Refills(s) 0, Pharmacy: [facility], 178, cm, 07/09/24 8:51:00 EDT, Height/Length Dosing, 150, kg, 07/09/24 8:51:00 EDT, Weight Dosing E&M of Est. Patient Straight Fwd 10-19 Min 67014 3. BMI 45.0-49.9, adult, (Z68.42: Body mass index [BMI] 45.0-49.9, adult)Body mass index [BMI] 45.0-49.9, adult BMI education given Ordered: metformin, 1,000 mg = 1 tab(s), Oral, BID, # 180 tab(s), Refills(s) 0, Pharmacy: [facility], 178, cm, 07/09/24 8:51:00 EDT, Height/Length Dosing, 150, kg, 07/09/24 8:51:00 EDT, Weight Dosing phentermine, 37.5 mg = 1 tab(s), Oral, Daily, # 30 tab(s), Refills(s) 0, Pharmacy: [facility], 178, cm, 07/09/24 8:51:00 EDT, Height/Length Dosing, 150, kg, 07/09/24 8:51:00 EDT, Weight Dosing 4. Morbid obesity with BMI of 45.0-49.9, adult (E66.01: Morbid (severe) obesity due to excess calories) see above Ordered: metformin, 1,000 mg = 1 tab(s), Oral, BID, # 180 tab(s), Refills(s) 0, Pharmacy: [facility], 178, cm, 07/09/24 8:51:00 EDT, Height/Length Dosing, 150, kg, 07/09/24 8:51:00 EDT, Weight Dosing phentermine, 37.5 mg = 1 tab(s), Oral, Daily, # 30 tab(s), Refills(s) 0, Pharmacy: [facility], 178, cm, 07/09/24 8:51:00 EDT, Height/Length Dosing, 150, kg, 07/09/24 8:51:00 EDT, Weight Dosing 5. Non-smoker (Z78.9: Other specified health status) continue not smoking Ordered: metformin, 1,000 mg = 1 tab(s), Oral, BID, # 180 tab(s), Refills(s) 0, Pharmacy: [facility], 178, cm, 07/09/24 8:51:00 EDT, Height/Length Dosing, 150, kg, 07/09/24 8:51:00 EDT, Weight Dosing phentermine, 37.5 mg = 1 tab(s), Oral, Daily, # 30 tab(s), Refills(s) 0, Pharmacy: [facility], 178, cm, 07/09/24 8:51:00 EDT, Height/Length [...] Tobacco Use: (more content not included)... Normal [facility] Comment on above: Result Comment: Elec tronically [...] 20.9 % (14.0 - 50.0) 05/07/2024 13:56 [place] Auto 8.1 % (4.0 - 14.0) 05/07/2024 13:56 Eos Auto 4.8 % (0.0 - 8.0) 05/07/2024 13:56 Basophil Auto 0.5 % (0.0 - 2.0) 05/07/2024 13:56 Neutro Absolute 5.4 E9/L (2.0 - 7.5) 05/07/2024 13:56 Lymph Absolute 1.7 E9/L (1.0 - 4.0) 05/07/2024 13:56 [place] Absolute 0.7 E9/L (0.2 - 1.0) 05/07/2024 [...] like a 90 day supply sent to [facility] in [place]. Please advise if you would like for me to propose a med. From: [place] (B - Clinical) To: Brianna Li; Sent: 05/11/2024 14:28:31 EDT Show up: 05/11/2024 14:28:00 EDT Subject: RE: Ambulatory Reminder Normal [facility] UZIEL w/Reflex if POSon 2023 Nuclear Ab Ql (S) Negative Invalid Interpretation Code Negative [facility] Comment on above: Result Comment: Perf ormed at: [facility] [address] [id number] PhD Brett Thompson Performed By: #### 1 [id number] #### [facility] [address] [place] [address] [id number] 05-08-2024 HbA1c (Bld) [Mass fraction] 6.7 % High <=5.9 [facility] Comment on above: Performed By: #### 7 [id number] #### [facility] [address] [place] [address] Reminderson 05-08-2024 Reminders - From: Brianna Li [...] 20.9 % (14.0 - 50.0) 05/07/2024 13:56 [place] Auto 8.1 % (4.0 - 14.0) 05/07/2024 13:56 Eos Auto 4.8 % (0.0 - 8.0) 05/07/2024 13:56 Basophil Auto 0.5 % (0.0 - 2.0) 05/07/2024 13:56 Neutro Absolute 5.4 E9/L (2.0 - 7.5) 05/07/2024 13:56 Lymph Absolute 1.7 E9/L (1.0 - 4.0) 05/07/2024 13:56 [place] Absolute 0.7 E9/L (0.2 - 1.0) 05/07/2024 [...] please advise patient of message below Normal [facility] CBC w/ Auto Diffon 4 Basophils/100 WBC (Bld) 0.5 % Normal 0.0-2.0 [facility] Comment on above: Performed By: #### 2 [id number] #### [facility] [address] [place] [address] Basophils/Leukocytes Auto (Bld) [Pure # fraction] 0.0 E9/L Normal 0.0-0.2 [facility] Comment on above: Performed By: #### 2 [id number] #### [facility] [address] [place] [address] Eosinophils (Bld) [#/Vol] 0.4 E9/L Normal 0.0-0.5 [facility] Comment on above: Performed By: #### 2 [id number] #### [facility] [address] [place] [address] Eosinophils/100 WBC (Bld) 4.8 % Normal 0.0-8.0 [facility] Comment on above: Performed By: #### 2 [id number] #### [facility] [address] [place] [address] Erythrocyte distribution width (RBC) [Ratio] 13.3 % Normal 10.9-14.2 [facility] Comment on above: Performed By: #### 2 [id number] #### [facility] [address] [place] [address] Hematocrit (Bld) [Volume fraction] 44.3 % Normal 37.7-49.0 [facility] Comment on above: Performed By: #### 2 [id number] #### [facility] [address] [place] [address] Hemoglobin (Bld) [Mass/Vol] 15.0 g/dL Normal 13.5-17.5 [facility] Comment on above: Performed By: #### 2 [id number] #### [facility] [address] [place] [address] Lymphocytes (Bld) [#/Vol] 1.7 E9/L Normal 1.0-4.0 [facility] Comment on above: Performed By: #### 2 [id number] #### [facility] [address] [place] [address] Lymphocytes/100 WBC (Bld) 20.9 % Normal 14.0-50.0 [facility] Comment on above: Performed By: #### 2 [id number] #### [facility] [address] [place] [address] MCH (RBC) [Entitic mass] 28.2 pg Normal 27.0-34.0 [facility] Comment on above: Performed By: #### 2 [id number] #### [facility] [address] [place] [address] MCHC (RBC) [Mass/Vol] 33.9 g/dL Normal 31.4-36.0 [facility] Comment on above: Performed By: #### 2 [id number] #### [facility] [address] [place] [address] MCV (RBC) [Entitic vol] 83.2 fL Normal 80.0-100.0 [facility] Comment on above: Performed By: #### 2 [id number] #### [facility] [address] [place] [address] Monocytes (Bld) [#/Vol] 0.7 E9/L Normal 0.2-1.0 [facility] Comment on above: Performed By: #### 2 [id number] #### [facility] [address] [place] [address] Neutrophils (Bld) [#/Vol] 5.4 E9/L Normal 2.0-7.5 [facility] Comment on above: Performed By: #### 2 [id number] #### [facility] [address] [place] [address] Neutrophils/100 WBC (Bld) 65.7 % Normal 36.0-75.0 [facility] Comment on above: Performed By: #### 2 [id number] #### [facility] [address] [place] [address] Platelet mean volume (Bld) [Entitic vol] 9.0 fL Normal 6.4-10.8 [facility] Comment on above: Performed By: #### 2 [id number] #### [facility] [address] [place] [address] Platelets (Bld) [#/Vol] 242.0 E9/L Normal 150.0-500.0 [facility] Comment on above: Performed By: #### 2 [id number] #### [facility] [address] [place] [address] RBC (Bld) [#/Vol] 5.3 E12/L Normal 4.3-5.9 [facility] Comment on above: Performed By: #### 2 [id number] #### [facility] [address] [place] [address] WBC corrected for nucl RBC Auto (Bld) [#/Vol] 8.2 E9/L Normal 4.0-11.0 [facility] Comment on above: Performed By: #### 2 [id number] #### [facility] [address] [place] [address] CHEMISTRYOrdered By: SYSTEM SYSTEM on 05-07-2024 CRP [...] for this result was chemiluminescence using [employer] PSA reagent. Protein [Mass/Vol] 7.0 [...] (Bld) [Mass fraction] 6.7 % High <=5.9% [facility] ChemAutoSS CMPon 05-07-2024 Albumin [Mass/Vol] 4.4 g/dL Normal 3.3-5.0 [facility] Comment on above: Performed By: #### 2 [id number] #### [facility] [address] [place] [address] Albumin/Globulin (S) [Mass conc ratio] 1.7 Normal 1.1-2.2 [facility] Comment on above: Performed By: #### 2 [id number] #### [facility] [address] [place] [address] ALP [Catalytic activity/Vol] 65 Int._Unit/L Normal 21-98 [facility] Comment on above: Performed By: #### 2 [id number] #### [facility] [address] [place] [address] ALT No additional P-5'-P [Catalytic activity/Vol] 21 Int._Unit/L Normal 6-46 [facility] Comment on above: Performed By: #### 2 [id number] #### [facility] [address] [place] [address] Anion gap [Moles/Vol] 11 mmol/L Normal 6-16 [facility] Comment on above: Performed By: #### 2 [id number] #### [facility] [address] [place] [address] AST [Catalytic activity/Vol] 17 Int._Unit/L Normal 5-43 [facility] Comment on above: Performed By: #### 2 [id number] #### [facility] [address] [place] [address] Bilirubin [Mass/Vol] 0.6 mg/dL Normal 0.0-1.1 [facility] Comment on above: Performed By: #### 2 [id number] #### [facility] [address] [place] [address] Calcium [Mass/Vol] 9.5 mg/dL Normal 8.9-11.1 [facility] Comment on above: Performed By: #### 2 [id number] #### [facility] [address] [place] [address] Chloride [Moles/Vol] 102 mmol/L Normal 101-111 [facility] Comment on above: Performed By: #### 2 [id number] #### [facility] [address] [place] [address] CO2 [Moles/Vol] 29 mmol/L Normal 21-31 [facility] Comment on above: Performed By: #### 2 [id number] #### [facility] [address] [place] [address] Creatinine [Mass/Vol] 0.8 mg/dL Normal 0.5-1.3 [facility] Comment on above: Performed By: #### 2 [id number] #### [facility] [address] [place] [address] Globulin (S) [Mass/Vol] 2.6 g/dL Normal 1.4-4.0 [facility] Comment on above: Performed By: #### 2 [id number] #### [facility] [address] [place] [address] Glucose [Mass/Vol] 174 mg/dL Normal 55-199 [facility] Comment on above: Performed By: #### 2 [id number] #### [facility] [address] [place] [address] Potassium [Moles/Vol] 4.2 mmol/L Normal 3.5-5.3 [facility] Comment on above: Performed By: #### 2 [id number] #### [facility] [address] [place] [address] Protein [Mass/Vol] 7.0 g/dL Normal 6.0-7.8 [facility] Comment on above: Performed By: #### 2 [id number] #### [facility] [address] [place] [address] Sodium [Moles/Vol] 138 mmol/L Normal 135-145 [facility] Comment on above: Performed By: #### 2 [id number] #### [facility] [address] [place] [address] Urea nitrogen [Mass/Vol] 15 mg/dL Normal 5-21 [facility] Comment on above: Performed By: #### 2 [id number] #### [facility] [address] [place] [address] Urea nitrogen/Creatinine [Mass ratio] 19 No Units Normal 10-20 [facility] Comment on above: Performed By: #### 2 [id number] #### [facility] [address] [place] [address] CRPon 05-07-2024 CRP [Mass/Vol] 0.4 mg/dL Normal <=1.9 [facility] Comment on above: Performed By: #### 2 [id number] #### [facility] [address] [facility] [place] [address] Family Medicine Office/Clini c Noteon 05-07-2024 Family [...] 4, # 2 tab(s), Refills(s) 1, Pharmacy: [facility], 177.5, cm, 05/07/24 13:15:00 EDT, Height/Length Dosing, 152.2, kg, 05/07/24 13:15:00 EDT, Weight Dosing meloxicam, 15 mg = 1 tab(s), Oral, Daily, # 30 tab(s), Refills(s) 0, Pharmacy: [facility], 177.5, cm, 05/07/24 13:15:00 EDT, Height/Length Dosing, 152.2, kg, 05/07/24 13:15:00 EDT, Weight Dosing methylPREDNISolone, = 1 packet(s), Oral, As Directed, as directed on package labeling, X 6 day(s), # 21 tab(s), Refills(s) 0, Pharmacy: [facility], 177.5, cm, 05/07/24 13:15:00 EDT, Height/Length Dosing, 152.2, kg, 05/07/24 13:15:00 EDT, Weight Dosing nystatin topical, 1 marie, Topical, BID, 30 gram, Refill(s) 1, [facility], 177.5, cm, 05/07/24 13:15:00 EDT, Height/Length Dosing, 152.2, kg, 05/07/24 13:15:00 EDT, Weight Dosing UZIEL w/Reflex if POS C-Reactive Protein CBC w/ Auto Diff Comprehensive Metabolic Panel HgbA1c Lab Specimen Collect [id number] Lipid Panel PSA Screen, Total Thyroid Stimulating [...] 4, # 2 tab(s), Refills(s) 1, Pharmacy: [facility], 177.5, cm, 05/07/24 13:15:00 EDT, Height/Length Dosing, 152.2, kg, 05/07/24 13:15:00 EDT, Weight Dosing meloxicam, 15 mg = 1 tab(s), Oral, Daily, # 30 tab(s), Refills(s) 0, Pharmacy: [facility], 177.5, cm, 05/07/24 13:15:00 EDT, Height/Length Dosing, 152.2, kg, 05/07/24 13:15:00 EDT, Weight Dosing methylPREDNISolone, = 1 packet(s), Oral, As Directed, as directed on package labeling, X 6 day(s), # 21 tab(s), Refills(s) 0, Pharmacy: [facility], 177.5, cm, 05/07/24 13:15:00 EDT, Height/Length Dosing, 152.2, kg, 05/07/24 13:15:00 EDT, Weight Dosing nystatin topical, 1 marie, Topical, BID, 30 gram, Refill(s) 1, [facility], 177.5, cm, 05/07/24 13:15:00 EDT, Height/Length Dosing, 152.2, kg, 05/07/24 13:15:00 EDT, Weight Dosing UZIEL w/Reflex if POS C-Reactive Protein CBC w/ Auto Diff Comprehensive Metabolic Panel HgbA1c Lab Specimen Collect [id number] Lipid Panel PSA Screen, Total Thyroid Stimulating [...] 4, # 2 tab(s), Refills(s) 1, Pharmacy: [facility], 177.5, cm, 05/07/24 13:15:00 EDT, Height/Length Dosing, 152.2, kg, 05/07/24 13:15:00 EDT, Weight Dosing meloxicam, 15 mg = 1 tab(s), Oral, Daily, # 30 tab(s), Refills(s) 0, Pharmacy: [facility], 177.5, cm, 05/07/24 13:15:00 EDT, Height/Length Dosing, 152.2, kg, 05/07/24 13:15:00 EDT, Weight Dosing methyl (more content not included)... Normal [facility] Comment on above: Result Comment: Elec tronically [...] 05-07-2024 Cholesterol [Mass/Vol] 248 mg/dL High 120-200 [facility] Comment on above: Performed By: #### 2 [id number] #### [facility] [address] [place] [address] Cholesterol in HDL [Mass/Vol] 39 mg/dL Invalid Interpretation Code [facility] Comment on above: Result Comment: '>= 60 LOW RISK' '<= 40 HIGH RISK' Performed By: #### 2 [id number] #### [facility] [address] [place] [address] Cholesterol in LDL [Mass/Vol] 164 mg/dL High <=129 [facility] Comment on above: Performed By: #### 2 [id number] #### [facility] [address] [place] [address] Cholesterol in VLDL [Mass/Vol] 58 mg/dL High 7-40 [facility] Comment on above: Performed By: #### 2 [id number] #### [facility] [address] [place] [address] Triglyceride [Mass/Vol] 288 mg/dL High <=149 [facility] Comment on above: Performed By: #### 2 [id number] #### [facility] [address] [place] [address] PSA Screen, Totalon 05-07-20 Prostate specific Ag [Mass/Vol] 0.4 ng/mL Normal 0.1-3.5 [facility] Comment on above: Result Comment: The concentration of PSA determined by different manufacturers can vary due to differences in assay methods and reagent specificity. Values obtained from different assay methods cannot be used interchangeably. The methodology used for this result was chemiluminescence using [employer]'s Access Hybritech PSA reagent. Performed By: #### 1 [id number] #### [facility] [address] [place] [address] Patient Educationon 05-07-20 Patient Education Orthopedics Shoulder [...] hands toward (more content not included)... Normal [facility] Physician Orderon 05-07-2024 Physician Order [id number]. 00TIFF Normal [facility] TSHon 05-07-2024 TSH Qn 1.20 m[IU]/L Normal 0.34-5.60 [facility] Comment on above: Performed By: #### 2 [id number] #### [facility] [address] [place] [address] eGFRon 05-07-2024 eGFR 105 mL/min/1.73 m2 Normal >=59 [facility] Comment on above: Order Comment: Order added by Discern Expert. Performed By: #### 1 [id number] #### [facility] [address] [place] [address] XR KNEE DE 4V or >on 2021 [...] BONES: Moderate to severe tricompartmental osteoarthritis with [id number] articulation of the medial compartment. SOFT TISSUES: Negative. No visible soft tissue swelling. OTHER: Moderate suprapatellar joint effusion IMPRESSION: RIGHT CONCLUSION: Moderate to severe osteoarthritis LEFT CONCLUSION: Moderate to severe osteoarthritis with joint effusion Electronically authenticated by: JACQUES ADAN Date: 2022-10-22 12:35 Normal [facility] CBC AUTO DIFFon 01-29-2022 BASO # 0.0 103/ul Normal 0.0-0.1 [facility] Comment on above: Performed By: #### C BC #### [facility] [address] [place] [address] Dr. Arben Marcial Basophils/100 WBC (Bld) 0.5 % Normal 0.2-2.0 [facility] Comment on above: Performed By: #### C BC #### [facility] [address] [place] [address] Dr. Arben Marcial EO # 0.3 103/ul Normal 0.0-0.7 [facility] Comment on above: Performed By: #### C BC #### [facility] [address] [place] [address] Dr. Arben Marcial Eosinophils/100 WBC (Bld) 4.0 % Normal 0.9-7.0 [facility] Comment on above: Performed By: #### C BC #### [facility] [address] [place] [address] Dr. Arben Marcial Erythrocyte distribution width (RBC) [Ratio] 13.0 % Normal 11.0-15.0 [facility] Comment on above: Performed By: #### C BC #### [facility] [address] [place] [address] Dr. Arben Marcial Hematocrit (Bld) [Volume fraction] 44.0 % Normal 42.0-54.0 [facility] Comment on above: Performed By: #### C BC #### [facility] [address] [place] [address] Dr. Arben Marcial Hemoglobin (Bld) [Mass/Vol] 14.5 g/dL Normal 14.0-18.0 [facility] Comment on above: Performed By: #### C BC #### [facility] [address] [place] [address] Dr. Arben Marcial IG # 0.03 10e3/ul Normal 0.00-0.03 [facility] Comment on above: Performed By: #### C BC #### [facility] [address] [place] [address] Dr. Arben Marcial IG % 0.4 % Normal 0.0-0.5 [facility] Comment on above: Performed By: #### C BC #### [facility] [address] [place] [address] Dr. Arben Marcial LYMPH # 1.5 103/ul Normal 1.2-3.8 [facility] Comment on above: Performed By: #### C BC #### [facility] [address] [place] [address] Dr. Arben Marcial Lymphocytes/100 WBC (Bld) 18.8 % Critically low 20.5-60.0 [facility] Comment on above: Performed By: #### C BC #### [facility] [address] [place] [address] Dr. Arben Marcial MANUAL DIFF REQ NO Normal [facility] Comment on above: Performed By: #### C BC #### [facility] [address] [place] [address] Dr. Arben Marcial MCH (RBC) [Entitic mass] 27.8 pg Normal 25.9-34.0 [facility] Comment on above: Performed By: #### C BC #### [facility] [address] [place] [address] Dr. Arben Marcial MCHC (RBC) [Mass/Vol] 33.0 g/dL Normal 29.9-35.2 [facility] Comment on above: Performed By: #### C BC #### [facility] [address] [address] [address] Arben Marcial MCV (RBC) [Entitic vol] 84.5 fL Normal 80.0-94.0 [facility] Comment on above: Performed By: #### C BC #### [facility] [address] [address] [address] Arben Marcial MONO # 0.6 103/ul Normal 0.3-0.8 [facility] Comment on above: Performed By: #### C BC #### [facility] [address] [address] [address] Arben Marcial Monocytes/100 WBC (Bld) 7.4 % Normal 1.7-12.0 [facility] Comment on above: Performed By: #### C BC #### [facility] [address] [place] [address] Dr. Arben Marcial NEUT # 5.5 103/ul Normal 1.4-6.5 [facility] Comment on above: Performed By: #### C BC #### [facility] [address] [place] [address] Dr. Arben Marcial Neutrophils/100 WBC (Bld) 68.9 % Normal 43.0-75.0 [facility] Comment on above: Performed By: #### C BC #### [facility] [address] [place] [address] Dr. Arben Marcial Platelet mean volume (Bld) [Entitic vol] 9.9 fL Normal 9.5-13.5 [facility] Comment on above: Performed By: #### C BC #### [facility] [address] [place] [address] Dr. Arben Marcial PLT 246 103/ul Normal 150-450 [facility] Comment on above: Performed By: #### C BC #### [facility] [address] [place] [address] Dr. Arben Marcial RBC 5.21 106/ul Normal 4.70-6.10 [facility] Comment on above: Performed By: #### C BC #### [facility] [address] [place] [address] Dr. Arben Marcial WBC 8.0 103/ul Normal 4.0-11.0 [facility] Comment on above: Performed By: #### C BC #### [facility] [address] [address] [address] Arben Marcial GLYCOHEMOGLOBIN A1Con 2021 ADA RECOMMENDATION ADA THERAPEUTIC TARGET 6.0 - 7.0 ACTION SUGGESTED > 7.0 Normal [facility] Comment on above: Performed By: #### A 1C #### [facility] [address] [place] [address] Dr. Arben Marcial Glucose [Mass/Vol] 166 mg/dL Normal [facility] Comment on above: Performed By: #### A 1C #### [facility] [address] [place] [address] Dr. Arben Marcial HbA1c (Bld) [Mass fraction] 7.4 % Critically high <=6.0 [facility] Comment on above: Performed By: #### A 1C #### [facility] [address] [place] [address] Dr. Arben Marcial MICROALBUMIN, RAND URon 01-12 mALB 2.3 mg/L Normal <=30.0 [facility] Comment on above: Performed By: #### M ALBR #### [facility] [address] [place] [address] Dr. Arben Marcial PROF 14(COMP METB)on 022 Albumin [Mass/Vol] 3.9 g/dL Normal 3.4-5.0 [facility] Comment on above: Performed By: #### C MP #### [facility] [address] [place] [address] Dr. Arben Marcial Albumin/Globulin [Mass ratio] 1.1 {ratio} Normal [facility] Comment on above: Performed By: #### C MP #### [facility] [address] [place] [address] Dr. Arben Marcial ALP [Catalytic activity/Vol] 69 U/L Normal 46-116 [facility] Comment on above: Performed By: #### C MP #### [facility] [address] [address] [address] Arben Marcial ALT [Catalytic activity/Vol] 64 U/L Critically high 16-63 [facility] Comment on above: Performed By: #### C MP #### [facility] [address] [address] [address] Arben Marcial Anion gap [Moles/Vol] 12.2 mmol/L Normal [facility] Comment on above: Performed By: #### C MP #### [facility] [address] [address] [address] Arben Marcial AST [Catalytic activity/Vol] 34 U/L Normal 15-37 [facility] Comment on above: Performed By: #### C MP #### [facility] [address] [place] [address] Dr. Arben Marcial Bilirubin [Mass/Vol] 0.5 mg/dL Normal 0.2-1.3 [facility] Comment on above: Performed By: #### C MP #### [facility] [address] [address] [address] Arben Marcial Calcium [Mass/Vol] 9.2 mg/dL Normal 8.5-10.1 [facility] Comment on above: Performed By: #### C MP #### [facility] [address] [place] [address] Dr. Arben Marcial Chloride [Moles/Vol] 102 mmol/L Normal 98-107 [facility] Comment on above: Performed By: #### C MP #### [facility] [address] [address] [address] Arben Marcial CO2 [Moles/Vol] 29.6 mmol/L Normal 22.0-30.0 [facility] Comment on above: Performed By: #### C MP #### [facility] [address] [address] [address] Arben Marcial Creatinine [Mass/Vol] 1.00 mg/dL Normal 0.66-1.25 [facility] Comment on above: Performed By: #### C MP #### [facility] [address] [address] [address] Arben Marcial EGFR-AF PORTUGUESE >60 Normal >=60 [facility] Comment on above: Performed By: #### C MP #### [facility] [address] [address] [address] Arben Marcial EGFR-NON AF PORTUGUESE >60 Normal >=60 [facility] Comment on above: Performed By: #### C MP #### [facility] [address] [address] [address] Arben Marcial Globulin (S) [Mass/Vol] 3.4 g/dL Normal [facility] Comment on above: Performed By: #### C MP #### [facility] [address] [address] [address] Arben Marcial Glucose [Mass/Vol] 205 mg/dL Critically high 74-106 T [facility] Comment on above: Performed By: #### C MP #### [facility] [address] [place] [address] Dr. Arben Marcial Potassium [Moles/Vol] 4.8 mmol/L Normal 3.4-5.0 [facility] Comment on above: Performed By: #### C MP #### [facility] [address] [place] [address] Dr. Arben Marcial Protein [Mass/Vol] 7.3 g/dL Normal 6.1-8.2 [facility] Comment on above: Performed By: #### C MP #### [facility] [address] [place] [address] Dr. Arben Marcial Sodium [Moles/Vol] 139 mmol/L Normal 137-145 [facility] Comment on above: Performed By: #### C MP #### [facility] [address] [address] [address] Arben Marcial Urea nitrogen [Mass/Vol] 15.0 mg/dL Normal 7.0-18.0 [facility] Comment on above: Performed By: #### C MP #### [facility] [address] [place] [address] Dr. Arben Marcial Urea nitrogen/Creatinine [Mass ratio] 15.0 mg/mg Normal [facility] Comment on above: Performed By: #### C MP #### [facility] [address] [place] [address] Dr. Arben Marcial Encounters Encounter Date Encounter Type Care Provider Facility Start: 10-30-2024 ambulatory Brianna L Brittney Facility: [facility] Start: 10-24-2024 End: 10-24-2024 ambulatory Brianna L Brittney Facility: [facility] Start: 09-26-2024 End: 09-26-2024 ambulatory Brianna L Brittney [facility]: [facility] Start: 08-29-2024 End: 08-29-2024 Lab Drop off Brianna L Brittney [facility] Start: 08-29-2024 End: 08-29-2024 ambulatory Brianna L Brittney Facility:[facility] Start: 08-13-2024 End: 08-13-2024 ambulatory Brianna L Brittney Facility: [facility] Start: 07-09-2024 End: 07-09-2024 ambulatory Brianna L Brittney Facility: [facility] Start: 06-29-2024 End: 06-29-2024 ambulatory [place] Brianna L Brittney Facility: [facility] Start: 05-07-2024 End: 05-07-2024 Lab Drop off Brianna L Brittney [facility] Start: 05-07-2024 End: 05-07-2024 ambulatory Brianna L Brittney Facility:[facility] Start: 05-01-2024 End: 05-01-2024 ambulatory [place] Brianna L Brittney Facility: [facility] Start: 04-26-2024 ambulatory [place] Brianna Brittney Facilit y:[facility] Start: 10-22-2022 End: 10-23-[address] ALEJANDRA FLORES Facility:[facility] Start: 01-29-2022 End: 01-30-[address] ALEJANDRA FLORES Facility:[facility] Procedures Date Procedure Procedure Detail Performing Clinician Surgical procedure Brianna Schw ab Plan of Treatment Date Care Activity Detail Author Start: 11-28-2024 ambulatory Ambulatory Facility:[facility] Payers Date Payer Category Payer Unknown [id number] 2024 Self-pay 2024 Private Health Insurance [id number] 1970 Unknown [id number] 2.16.84 [id number] 1970 Unknown [id number] 2.16.84 [id number] 1970 Unknown [id number] 2.16.8 [id number] 1970 Unknown [id number] 2.16.8 [id number] 1970 Unknown [id number] 2.16.8 [id number] 1970 Unknown [id number] 2.16.8 [id number] 1970 Unknown [id number] 2.16.8 [id number] 1970 Unknown [id number] 2.16.8 [id number] 1970 Unknown [id number] 2.16.8 [id number] 1970 Unknown [id number] 2.16.8 [id number] 1970 Unknown [id number] 2.16.8 [id number] 1970 Unknown [id number] 2.16.8 [id number] 1970 Unknown [id number] 2.16.8 [id number] 1970 Unknown [id number] 2.16.8 [id number] 1959 Private Health Insurance [id number] Social History Date Type Detail Facility Start: 05-07-2024 End: 08-29-2024 Tobacco smoking status Never smoked tobacco (finding) [facility] Sex Assigned At Male [facility] Tobacco smoking status Never [facility] Evaluation + Plan note Note Date & Type Note Facility Evaluation + Plan note Future Appointments Appointment Date:06/15/2024 01:40:00 PM Scheduled Provider:Brianna Li Location:[facility] Appointment Type:FM Open Diagnostic Tests PendingANA w/Reflex if POS 05/07/24 [facility] Evaluation + Plan note Note Date & Type Note Facility Evaluation + Plan note Future Appointments Appointment Date:11/28/2024 05:00:00 PM Scheduled Provider:Brianna Li Location:[facility] Appointment Type:FM Open Diagnostic Tests [id number] 08/29/24 [facility] Hospital course Narrative Note Date & Type Note Facility Hospital course Narrative No data available for this section [facility] Hospital Discharge instructions Note Date & Type Note Facility Hospital Discharge instructions No data available for this section [facility] Progress note Note Date & Type Note Facility Progress note No data available for this section [facility] Summary Purpose Family History No Family History [...] CREATED AUTHOR AUTHOR'S ORGANIZ ATION 05/08/2024 [facility] DATE CREATED AUTHOR AUTHOR'S ORGANIZ ATION 05/09/2024 [facility] DATE CREATED AUTHOR AUTHOR'S ORGANIZ ATION 06/30/2024 [facility] DATE CREATED AUTHOR AUTHOR'S ORGANIZ ATION 08/30/2024 [facility] DATE CREATED AUTHOR AUTHOR'S ORGANIZ ATION 10/26/2024 [facility] Patient Care team informatio n (unrecognized section and content) Personnel Name: Brianna Li Address: Address: [address] [place] [address]- Personnel Name: Brianna Li Address: Address: [address] [place] [address]- FOR RECORDS PERTAINING TO PATIENTS WHO ARE [...] BE BASED ON THE PRIMARY CLINICAL RECORDS. [facility]. provides no warranty or guarantee of the accuracy or completeness of information in this document.
--- NOTE | 2024-10-30 07:04 | CA_ITS ---
Patient Name: ANKIT BENITES MR#: [id number] : 1970 Exam Date: 10/30/2024 Ordering Doctor: KATERINA STONE . ECHOCARDIOGRAM REPORT PROCEDURE: CA ECHO DOPPLER COMPLETE INDICATIONS: Shortness of breath, Left chest pain COMPARISON: None. DESCRIPTION: COMPLETE ECHOCARDIOGRAM Real-time transthoracic echocardiography with 2D, M-mode, spectral and color flow Doppler performed. QUALITY: Technical quality was adequate. LEFT VENTRICLE: Normal chamber size. Moderate concentric left ventricular hypertrophy. LV EF: Global left ventricular systolic function is normal. Calculated left ventricular ejection fraction is 65%. DIASTOLIC: Normal diastolic function. ATRIAL SEPTUM: Inadequately seen. LEFT ATRIUM: Mild dilatation. RIGHT ATRIUM: Mild dilatation. RIGHT VENTRICLE: Mild dilatation. Normal right ventricular systolic function. TRICUSPID VALVE: Normal mobility and thickness. No stenosis with trivial regurgitation. No evidence of pulmonary hypertension. RVSP 31mmHg. MITRAL VALVE: Normal mobility and thickness. No evidence of mitral valve stenosis. There is no mitral annular calcification. Trivial mitral regurgitation. AORTIC VALVE: Normal trileaflet appearance. No visible sclerosis. Normal leaflet mobility. No evidence of aortic valve stenosis. No aortic regurgitation. AORTIC ROOT: Normal diameter and appearance. PULMONIC VALVE: Normal thickness and mobility. No stenosis. PERICARDIUM: No evidence of pericardial effusion. IVC: Collapses with inspirations. Mild dilatation measuring 2.3cm. CONCLUSION: 1. Global left ventricular systolic function is normal; visually estimated ejection fraction is 65% 2. Moderate left ventricular hypertrophy 3. The right ventricle is mildly dilated with normal systolic function 4. Normal diastolic function 5. Biatrial dilatation 6. No significant valvular abnormalities Adult Echocardiography Procedure Report Left Ventricle LVEDD (3.7 - 5.6 cm): 4.45 cm LVESD (2.2 - 4.0 cm): 3.16 cm LVIVS thickness (0.6 - 1.2 cm): 1.57 cm LVPW thickness (0.5 - 1.0 cm): 1.52 cm e': 0.12 m/s E - e': 6.45 LVOT Max Gradient: 4.22 mm[Hg] LVOT Area (cm2): 1.03 m/s Peak Velocity (LVOT): 1.03 m/s Mean Velocity (LVOT): 0.74 m/s LVOT Diameter 2.29 cm Left Ventricular Ejection Fraction: 64.67 % Left Atrium LA Volume Index (2D A2C): 38.14 ml/m2 Left Atrium Systolic Dimension: 4.59 cm Mitral Valve MV E to A Ratio: 0.98 Mitral Valve A-Wave Peak Velocity: 0.77 m/s Mitral Valve E-Wave Peak Velocity: 0.76 m/s Right Ventricle RV Internal Diastolic Dimension: 4.41 cm Aorta AO Root Diam: 3.06 cm Ascending Ao Diam: 2.77 cm Aortic Valve AoV Area (Peak Braulio): 2.57 cm2, 2.57 cm2 AoV Area (VTI): 2.79 cm2, 2.79 cm2 Peak Velocity(Antegrade Flow): 1.64 m/s Peak Gradient(Antegrade Flow): 10.72 mm[Hg] Mean Velocity(Antegrade Flow): 1.05 m/s Mean Gradient(Antegrade Flow): 5.14 mm[Hg] Velocity Time Integral: 31.85 cm Tricuspid Valve Peak Velocity (Regurgitant Flow): 2.39 m/s, 2.00 m/s, 2.17 m/s Pulmonic Valve Peak Velocity: 1.21 m/s Peak Gradient: 6.10 mm[Hg], 5.66 mm[Hg] Right Atrium Right Atrium Systolic Pressure: 107.83 ml, 107.83 ml Dictated by: Lisa Lee M.D. on 10/30/2024 at 11:43 Approved by: Lisa Lee M.D. on 10/30/2024 at 11:45
== END 2024-10-30 06:57 | disposition home or self-care (01) ==
LOC: CARD 06:56
PROVIDERS: PCP Nurse Practitioner; Visit Provider Nurse Practitioner
DX: R06.02 Shortness of breath (principal); R07.89 Other chest pain
CPT/HCPCS: 93306

== ENCOUNTER 2024-11-30 11:37 | Outpatient (OUT) | payer OTHER, SELFPAY ==
--- OUTSIDE RECORDS SUMMARY | 2024-11-30 11:43 | XMS_ITS | CCD ---
Author Organization [facility] Care Team Providers Care Aviation Electrician Name Role Phone [place], DR ROBERTS Primary Care Unavailable PALMYRA, DR JACQUES Montes Consulting Unavailable M[place] HO[place], DR ROBERTS Admitting Unavailable [place] HO[place], DR ROBERTS Attending Unavailable [place] HO[place], DR ROBERTS Consulting Unavailable [place] HO[place], DR ROBERTS Primary Care Unavailable M[place] HO[place], DR ROBERTS Admitting Unavailable [place] HO[place], DR ROBERTS Attending Unavailable [place], DR ROBERTS Consulting Unavailable Brittney, Brianna Perla Primary Care Physician Brittney, Brianna Perla Attending Unavailable Brittney, Brianna Perla Admitting Unavailable Brittney, TICKET WRITER Brianna Perla Attending Unavailable Brittney, TICKET WRITER Brianna Perla Attending Unavailable Brittney, TICKET WRITER Brianna Perla Attending Unavailable Brittney, TICKET WRITER Brianna Perla Attending Unavailable Brittney, TICKET WRITER Brianna Perla Admitting Unavailable Brittney, Brianna Perla Attending Unavailable Brittney, Brianna Perla Attending Unavailable Brittney, Brianna Perla Attending Unavailable Brittney, Brianna Perla Attending Unavailable Brittney, Brianna Perla Admitting Unavailable Brittney, Brianna Perla Attending Unavailable Brittney, Brianna Perla Attending Unavailable Brittney, Brianna Perla Admitting Unavailable Brittney, Brianna Perla Admitting Unavailable Brittney, Brianna Perla Attending Unavailable Brittney, Brianna Perla Attending Unavailable Brittney, Brianna Perla Attending Unavailable Brittney, Brianna Perla Attending Unavailable MD Luis Carlos Pineda Attending Unavailable Brittney, Brianna Perla Referring Unavailable Brittney, Brianna Perla Attending Unavailable Brittney, Brianna L Admitting Unavailable Brittney, Brianna Perla Attending Unavailable MD Luis Carlos Pineda Attending Unavailable MD Luis Carlos Pineda Referring Unavailable MD Luis Carlos Pineda Admitting Unavailable Brittney, rBianna Perla Admitting Unavailable Brittney, Brianna Perla Attending Unavailable Chau, Zeb Attending Unavailable Allergies Allergy Classification Reported Allergen(s) Allergy Type Date of Onset Reaction(s) Facility Penicillins (antibiotic) (1 source) Penicillins; Translations: [penicillins] Drug Allergy Bleeding from nose (finding) [facility] [place] (1 source) Aspirin Drug Allergy [facility] (11 sources) Penicillins; Translations: [penicillins] Propensity to adverse reactions (disorder) Bleeding from nose (finding) [facility] Repository Medications Current Medications Medication Drug Class(es) Dates Sig (Normalized) Sig (Original) 120 ACTUAT albuterol 0.09 MG/ACTUAT / budesonide 0.08 MG/ACTUAT Metered Dose Inhaler [Airsupra] (5 sources) Start: 10-19-2024 Airsupra 90 mcg-80 mcg/inh inhalation aerosol 2 inh, Inhalation, QID, 1 EA, Refill(s) 5, [facility], 170, cm, 09/26/24 8:58:00 EST, Height/Length Dosing, 158.1, kg, 09/26/24 8:58:00 EST, Weight Dosing Start Date: 10/19/24 Status: Ordered Albuterol (Eqv-ProAir HFA) 90 mcg/inh inhalation aerosol (1 source) Start: 11-25-2024 take 2 puff(s) by inhalation every six hours Albuterol (Eqv-ProAir HFA) 90 mcg/inh inhalation aerosol 2 puff(s), Inhalation, q6hr Wheezing, 8.5 gm, Refill(s) 0, [facility], 170, cm, 11/25/24 11:49:00 EST, Height/Length Dosing, 154, kg, 11/25/24 11:49:00 EST, Weight Dosing Start Date: 11/25/24 Status: Ordered amLODIPine 5 mg oral tablet (2 sources) Dihydropyridine Calcium Channel Trudy Start: 11-23-2024 take 1 tablet by mouth once daily amLODIPine 5 mg Tab 5 mg = 1 tab(s), Oral, Daily, # 90 tab(s), Refills(s) 0, Pharmacy: [facility], 170, cm, 11/23/24 7:51:00 EST, Height/Length Dosing, 154, kg, 11/23/24 7:51:00 EST, Weight Dosing Start Date: 11/23/24 Status: Ordered aspirin 81 mg delayed release oral tablet (3 sources) Platelet Aggregation Inhibitor, Nonsteroidal Anti-inflammatory Drug Start: 11-23-2024 take 1 tablet by mouth once daily aspirin 81 mg Oral EC Tab 81 mg = 1 tab(s), Oral, Daily, # 90 tab(s), Refills(s) 3, Pharmacy: [facility], 170, cm, 11/23/24 7:51:00 EST, Height/Length Dosing, 154, kg, 11/23/24 7:51:00 EST, Weight Dosing Start Date: 11/23/24 Status: Ordered Start: 11-08-2024 aspirin 81 mg Oral EC Tab Refills(s) 0 Start Date: 11/08/24 Status: Ordered atorvastatin 40 mg oral tablet (6 sources) HMG-CoA Reductase Inhibitor Start: 05-11-2024 take 1 tablet by mouth once daily atorvastatin 40 mg Tab See Instructions, TAKE 1 TABLET BY MOUTH DAILY, # 90 tab(s), Refills(s) 1, Pharmacy: [facility], 170, cm, 11/02/24 14:23:00 EST, Height/Length Dosing, 154.5, kg, 11/02/24 14:23:00 EST, Weight Dosing Start Date: 11/20/24 Status: Ordered azithromycin 250 mg Tab 5-day Dose Pack (Z-Douglas) (1 source) Start: 11-25-2024 End: 11-30-2024 azithromycin 250 mg Tab 5-day Dose Pack (Z-Douglas) = 1 packet(s), Oral, As Directed, as directed on package labeling, X 5 day(s), # 6 tab(s), Refills(s) 0, Pharmacy: [facility], 170, cm, 11/25/24 11:49:00 EST, Height/Length Dosing, 154, kg, 11/25/24 11:49:00 EST, Weight Dosing Start Date: 11/25/24 Stop Date: 11/30/24 Status: Ordered clopidogrel 75 mg oral tablet (2 sources) [id number] Platelet Inhibitor Start: 11-23-2024 take 1 tablet by mouth once daily Plavix 75 mg Tab 75 mg = 1 tab(s), Oral, Daily, # 90 tab(s), Refills(s) 3, Pharmacy: [facility], 170, cm, 11/23/24 7:51:00 EST, Height/Length Dosing, 154, kg, 11/23/24 7:51:00 EST, Weight Dosing Start Date: 11/23/24 Status: Ordered glimepiride 2 mg oral tablet (7 sources) Sulfonylurea Start: 05-07-2024 take 1 tablet by mouth twice daily glimepiride 2 mg Tab See Instructions, TAKE 1 TABLET BY MOUTH TWICE DAILY, # 180 tab(s), Refills(s) 1, Pharmacy: [facility], 170, cm, 11/02/24 14:23:00 EST, Height/Length Dosing, 154.5, kg, 11/02/24 14:23:00 EST, Weight Dosing Start Date: 11/20/24 Status: Ordered losartan potassium 50 mg oral tablet (2 sources) Angiotensin 2 Receptor Trudy Start: 11-23-2024 take 1 tablet by mouth once daily losartan 50 mg Tab 50 mg = 1 tab(s), Oral, Daily, # 90 tab(s), Refills(s) 0, Pharmacy: [facility], 170, cm, 11/23/24 7:51:00 EST, Height/Length Dosing, 154, kg, 11/23/24 7:51:00 EST, Weight Dosing Start Date: 11/23/24 Status: Ordered meloxicam 15 mg oral tablet (5 sources) Nonsteroidal Anti-inflammatory Drug Start: 08-29-2024 take 1 tablet by mouth once daily meloxicam 15 mg Tab 15 mg = 1 tab(s), Oral, Daily, # 30 tab(s), Refills(s) 3, Pharmacy: [facility], 178, cm, 08/29/24 17:23:00 EDT, Height/Length Dosing, 151.2, kg, 08/29/24 17:23:00 EDT, Weight Dosing Start Date: 08/29/24 Status: Ordered Start: 05-07-2024 take 1 tablet by anushka th once daily meloxicam 15 mg Tab 15 mg = 1 tab(s), Oral, Daily, # 30 tab(s), Refills(s) 0, Pharmacy: [facility], 177.5, cm, 05/07/24 13:15:00 EDT, Height/Length Dosing, 152.2, kg, 05/07/24 13:15:00 EDT, Weight Dosing Start Date: 05/07/24 Status: Ordered metFORMIN hydrochloride 1000 mg oral tablet (6 sources) Biguanide Start: 08-29-2024 End: 08-24-2025 take 1 tablet by mouth twice daily metformin 1000 mg Tab 1,000 mg = 1 tab(s), Oral, BID, X 90 day(s), # 180 tab(s), Refills(s) 3, Pharmacy: [facility], 178, cm, 08/29/24 17:23:00 EDT, Height/Length Dosing, 151.2, kg, 08/29/24 17:23:00 EDT, Weight Dosing Start Date: 08/29/24 Stop Date: 08/24/25 Status: Ordered metFORMIN hydrochloride 1000 mg / SITagliptin 50 mg oral tablet (1 source) Biguanide, Dipeptidyl Peptidase 4 Inhibitor Start: 05-07-2024 Janumet 50 mg/1000 mg oral tablet 1 tab(s), Oral, BID, 90 tab(s), Refill(s) 1, TAKE 1 TABLET BY MOUTH TWICE DAILY, [facility], 177.5, cm, 05/07/24 13:15:00 EDT, Height/Length Dosing, 152.2, kg, 05/07/24 13:15:00 EDT, Weight Dosing Start Date: 05/07/24 Status: Ordered methylPREDNISolone 4 mg oral tablet (1 source) Corticosteroid Start: 05-07-2024 End: 05-13-2024 Medrol 4 mg Tab = 1 packet(s), Oral, As Directed, as directed on package labeling, X 6 day(s), # 21 tab(s), Refills(s) 0, Pharmacy: [facility], 177.5, cm, 05/07/24 13:15:00 EDT, Height/Length Dosing, 152.2, kg, 05/07/24 13:15:00 EDT, Weight Dosing Start Date: 05/07/24 Stop Date: 05/13/24 Status: Ordered predniSONE 20 mg oral tablet (1 source) Start: 11-25-2024 End: 11-30-2024 take 3 tablets by mouth once daily predniSONE 20 mg Tab 60 mg = 3 tab(s), Oral, Daily, X 5 day(s), # 15 tab(s), Refills(s) 0, Pharmacy: [facility], 170, cm, 11/25/24 11:49:00 EST, Height/Length Dosing, 154, kg, 11/25/24 11:49:00 EST, Weight Dosing Start Date: 11/25/24 Stop Date: 11/30/24 Status: Ordered Completed/Discontinued Medications Medication Drug Class(es) Dates Sig (Normalized) Sig (Original) fluconazole 150 mg oral tablet (1 source) Azole Antifungal Start: 05-07-2024 take 4 tablets by mouth once Diflucan 150 mg Tab 150 mg = 1 tab(s), Oral, Once, take 1 tab on day 1 and one tab on day 4, # 2 tab(s), Refills(s) 1, Pharmacy: [facility], 177.5, cm, 05/07/24 13:15:00 EDT, Height/Length Dosing, 152.2, kg, 05/07/24 13:15:00 EDT, Weight Dosing Start Date: 05/07/24 Status: Ordered nystatin [id number] unt/ml topical cream (7 sources) Polyene Antifungal Start: 10-24-2024 nystatin Top 100,000 units/g Crm 15 gram Refill(s) 0 Start Date: 10/24/24 Status: Ordered Start: 07-23-2024 nystatin Top 1 00,000 units/g Crm 15 gram See Instructions, 30 gm, Refill(s) 1, APPLY TO THE AFFECTED AREA(S) topically TWICE DAILY, [facility], 178, cm, 07/09/24 8:51:00 EDT, Height/Length Dosing, 150, kg, 07/09/24 8:51:00 EDT, Weight Dosing Start Date: 07/23/24 Status: Ordered Start: 05-07-2024 nystatin Top 1 00,000 units/g Crm 15 gram 1 marie, Topical, BID, 30 gram, Refill(s) 1, [facility], 177.5, cm, 05/07/24 13:15:00 EDT, Height/Length Dosing, 152.2, kg, 05/07/24 13:15:00 EDT, Weight Dosing Start Date: 05/07/24 Status: Ordered Vitamin D 50,000 intl units (1.25 mg) oral capsule (4 sources) Start: 11-01-2024 take 1 capsule by mouth every week Vitamin D 50,000 intl units (1.25 mg) oral capsule 50,000 International_Unit = 1 cap(s), Oral, qWeek, # 12 cap(s), Refills(s) 3, Pharmacy: [facility], 170, cm, 10/30/24 8:55:00 EST, Height/Length Dosing, 153.8, kg, 10/30/24 8:55:00 EST, Weight Dosing Start Date: 11/01/24 Status: Ordered Problems Problem Classification Problem Date Documented Date Episodic/Chronic Conditions associated with dizziness or vertigo (5 sources) Dizziness 10-30-2024 Episodic Diabetes mellitus without complication (17 sources) Type 2 diabetes mellitus without complications; Translations: [Type 2 diabetes mellitus] Onset: 2 Chronic Disorders of lipid metabolism (5 sources) Hypercholesterolemia 10-30-2024 Chronic Essential hypertension (1 source) Essential (primary) hypertension; Translations: [ESSENTIAL PRIMARY HYPERTENSION] Onset: 2 Chronic Malaise and fatigue (5 sources) Fatigue 10-30-2024 Episodic Mycoses (7 sources) Candidiasis 05-07-2024 Episodic Nonspecific chest pain (13 sources) Chest pain; Translations: [Left sided chest pain] Onset: 4 05-07-2024 Episodic Osteoarthritis (2 sources) Bilateral primary osteoarthritis of knee; Translations: [Unspecified osteoarthritis, unspecified site] Onset: 2 Chronic Other lower respiratory disease (5 sources) Dyspnea 09-26-2024 Episodic Other lower respiratory disease (1 source) Cough; Translations: [Cough, unspecified] Onset: 5 Episodic Other non-traumatic joint disorders (4 sources) Pain in right knee; Translations: [PAIN IN RIGHT KNEE] Onset: 2 Episodic Other non-traumatic joint disorders (1 source) Pain in left knee; Translations: [PAIN IN LEFT KNEE] Onset: 2 Episodic Other nutritional; endocrine; and metabolic disorders (12 sources) Body mass index 40+ - severely obese 05-07-2024 Chronic Other nutritional; endocrine; and metabolic disorders (6 sources) Weight gain 07-09-2024 Episodic Other skin disorders (7 sources) Eruption 05-07-2024 Episodic Other upper respiratory disease (1 source) Bronchospasm; Translations: [Acute bronchospasm] Onset: Episodic Unclassified (7 sources) Pain of left shoulder region 05-07-2024 Unclassified (20 sources) Patient encounter status 05-07-2024 Results Test Name Value Interpretation Reference Range Facility ED Clinical Summaryon 2024 ED Clinical Summary ED Clinical Summary [place] [id number] ED Clinical Summary Person Information [facility] Age[facility] 54 Years : 1970 Sex: Male Language: Pashto PCP: Brianna Li Marital Status: Single Visit Id: Visit Reason: Shortness of breath; Sinus Pain/Congestion; Cough; SOB, CONGESTION Speciality: Acuity: 3 Enc Type: Emergency Med Service: Emergency Arrival: 11/25/2024 11:38:02 Discharge: 11/25/2024 13:41:57 LOS: 000 02:03 Checkin: 11/25/2024 11:38:02 Checkout: 11/25/2024 13:41:57 Dispo Type: Home (Routine DC) EVENTS: Event Name Event Status Request Date/Time Start Date/Time Complete Date/Time Arrive Complete 11/25/2024 11:38:02 11/25/2024 11:38:02 11/25/2024 11:38:02 Document Home Meds Request 11/25/2024 11:38:02 Triage Complete 11/25/2024 11:38:02 11/25/2024 11:49:56 11/25/2024 11:49:56 Bed Assign Complete 11/25/2024 11:43:57 11/25/2024 11:43:57 11/25/2024 11:43:57 Dr Exam Complete 11/25/2024 11:43:57 11/25/2024 11:46:22 11/25/2024 11:46:22 RN Exam Complete 11/25/2024 11:43:57 11/25/2024 12:14:08 11/25/2024 12:14:08 Registration Complete 11/25/2024 11:46:22 11/25/2024 11:50:13 11/25/2024 12:00:11 EKG Complete 11/25/2024 11:48:33 11/25/2024 11:58:17 Dr Exam Complete 11/25/2024 11:53:42 11/25/2024 11:53:42 11/25/2024 11:53:42 X-Ray Complete 11/25/2024 11:54:35 11/25/2024 12:03:46 11/25/2024 12:18:26 Reg Complete Request 11/25/2024 12:00:11 Reg Bed Request Complete 11/25/2024 12:00:11 11/25/2024 12:00:11 11/25/2024 12:00:11 Wet Read Request 11/25/2024 12:18:26 Meds Admin Complete 11/25/2024 13:16:22 11/25/2024 13:25:39 RT Tx/ABG Request 11/25/2024 13:16:22 RT Tx/ABG Request 11/25/2024 13:16:22 Dr Exam Complete 11/25/2024 13:24:40 11/25/2024 13:24:40 11/25/2024 13:24:40 Registration Request 11/25/2024 13:24:40 Discharge Complete 11/25/2024 13:35:26 11/25/2024 13:42:02 11/25/2024 13:42:02 Transfer Complete 11/25/2024 13:42:02 11/25/2024 13:42:02 11/25/2024 13:42:02 ADDRESS: [address] [place] [id number] PHYS DOC NOTES: MEDICAL INFORMATION: Prescriptions Given: New Medications [facility], [address], [place] [id number], [phone] albuterol (Albuterol (Eqv-ProAir HFA) 90 mcg/inh inhalation aerosol) 2 Puffs Inhalation every 6 hours as needed Wheezing. Refills: 0. azithromycin (azithromycin 250 mg Tab 5-day Dose Pack (Z-Douglas)) 1 Packets By Mouth As Directed for 5 Days. as directed on package labeling. Refills: 0. predniSONE (predniSONE 20 mg Tab) 3 Tablets By Mouth every day for 5 Days. Refills: 0. Medications to Continue with No Changes Other Medications albuterol-budesonide (Airsupra 90 mcg-80 mcg/inh inhalation aerosol) 2 Inhalation Inhalation 4 times a day. Refills: 5. amlodipine (amLODIPine 5 mg Tab) 1 Tablets By Mouth every day. Refills: 0. aspirin (aspirin 81 mg Oral EC Tab) 1 Tablets By Mouth every day. Refills: 3. atorvastatin (atorvastatin 40 mg Tab) TAKE 1 TABLET BY MOUTH DAILY. Refills: 1. clopidogrel (Plavix 75 mg Tab) 1 Tablets By Mouth every day. Refills: 3. ergocalciferol (Vitamin D 50,000 intl units (1.25 mg) oral capsule) 1 Capsules By Mouth every week. Refills: 3. glimepiride (glimepiride 2 mg Tab) TAKE 1 TABLET BY MOUTH TWICE DAILY. Refills: 1. losartan (losartan 50 mg Tab) 1 Tablets By Mouth every day. Refills: 0. metformin (metformin 1000 mg Tab) 1 Tablets By Mouth 2 times a day for 90 Days. Refills: 3. nystatin topical (nystatin Top 100,000 units/g Crm 15 gram) PATIENT EDUCATION INFORMATION: Instructions: Cough, Adult; Bronchospasm, Adult Follow up: With: Address: When: Brianna Lugo [address] [place] [address] Business (1) In 3 days 11/28/2024 DIAGNOSIS: Acute bronchospasm; Cough [facility] ED Patient Summaryon 025 ED Patient Summary ED Patient Summary [address] [address] Patient Discharge Instructions Person Information Name: ANKIT BENITES Age: 54 Years Arrival Date: 11/25/2024 11:38:02 Discharge Diagnosis: Acute bronchospasm; Cough Primary Care Physician: Brianna Li Provider Information Primary Provider: Zeb Ritchie MD Advanced Photoengra[employer] Proofer Apprentice:Anthony Michele PA-C The exam and treatment you received in the Emergency Department were for an urgent problem and are not intended as complete care. It is important that you follow up with a doctor, nurse practitioner, or physician???s assistant director of nursing for ongoing care. If your symptoms become worse or you do not improve as expected and you are unable to reach your usual health care provider, you should return to the Emergency Department. We are available 24 hours a day. ANKIT BENITES has been given the following list of patient education materials, prescriptions and follow-up instructions: Follow-up Instructions: With: Address: When: Brianna Lugo [address] [place] [address] Business (1) In 3 days 11/28/2024 In the event that this physician does not participate in your insurance network, please consult with your insurance company to find a nearby participating provider. Patient Education Materials: Cough, Adult; Bronchospasm, Adult A MESSAGE TO ALL PATIENTS REGARDING OPIOIDS PRESCRIPTION OPIOIDS: WHAT YOU NEED TO KNOW Prescription opioids can be used to help relieve eheyjaud-ts-[id number] pain and are often prescribed following a surgery or injury, or for certain health conditions. These medications can be an important part of the treatment but also come with serious risks. It is important to work with your healthcare provider to make sure you are getting the safest, most effective care. WHAT ARE THE RISKS AND SIDE EFFECTS OF OPIOID USE? Prescription opioids carry serious risks of addiction and overdose, especially with prolonged use. An opioid overdose, often marked by slowed breathing, can cause sudden . The use of prescription opioids can have a number of side effects as well, even when taken as directed: ??? Tolerance???meaning you might need to take more of the medication for the same pain relief ??? Physical dependence???meaning you have symptoms of withdrawal when a medication is stopped ??? Increased sensitivity to pain ??? Constipation ??? Nausea, vomiting, and dry mouth ??? Sleepiness and dizziness ??? Confusion ??? Depression ??? Low levels of testosterone that can result in lower sex drive, energy, and strength ??? Itching and sweating RISKS ARE GREATER WITH: ??? History of drug misuse, substance use disorder, or overdose ??? Mental health conditions (such as depression or anxiety) ??? Sleep apnea ??? Older age (65 years and older) ??? Avoid alcohol while taking prescription opioids. Also, unless specifically advised by your health care provider, medications to avoid include: ??? Benzodiazepines (such as Xanax or Valium) ??? Muscle relaxants (such as Soma or Flexeril) ??? Hypnotics (such as Ambien or Lunesta) ??? Other prescription opioids KNOW YOUR OPTIONS Talk to your health care provider about ways to manage your pain that don???t involve prescription opioids. Some of these options may actually work better and have fewer risks and side effects. Options may include: ??? Pain relievers such as acetaminophen, ibuprofen, and naproxen ??? Some medication that are also used for depression or seizures ??? Physical therapy and exercise ??? Cognitive behavioral therapy, a psychological, goal-directed approach, in which patients learn how to modify physical, behavioral, and emotional triggers of pain and stress. IF YOU ARE PRESCRIBED OPIOIDS FOR PAIN: ??? Never take opioids in greater amounts or more often than prescribed. ??? Follow up with your primary health care provider. o Work together to create a plan on how to manage your pain. o Talk about ways to help manage your pain that don???t involve prescription opioids. o Talk about any and all concerns and side effects. ??? Help prevent misuse and abuse o Never sell or share prescription opioids. o Never use another person???s prescription opioids. ??? Store prescription opioids in a secure place and out of reach of others (this may include visitors, children, friends, and family). ??? Safely dispose of unused prescription opioids: Find your community drug take-back program or your pharmacy mail-back program, or flush them down the toilet, following guidance from the Food and Drug Administration (www.fda.gov/Drugs/Res ourcesForYou). ??? Visit www.cdc.gov/drugoverdo se to learn about the risks of opioids abuse and overdose. ??? If you believe you may be struggling with addiction, tell your health care pro (more content not included)... [facility] XR Chest 2 Viewson XR Chest 2 Views Exam Date/Time: 11/25/2024 12:18 EST Reason for Exam: Cough Report IMPRESSION: NO EVIDENCE OF ACTIVE CARDIOPULMONARY DISEASE. EXAM: XR Chest 2 Views DATE: 11/25/2024 12:03 PM CLINICAL HISTORY: Cough. COMPARISON: None available. TECHNIQUE: Upright PA and lateral radiographs of the chest were obtained. FINDINGS: There are shallow inspiratory volumes, without significant infiltrate, cardiomegaly, vascular congestion, pleural effusion, pneumothorax, or other acute findings identified. Moderate degenerative changes of the thoracic spine and mild chronic-appearing probable T6 compression fracture. Ordering Provider: Anthony Michele FINAL REPORT Dictated: 11/25/2024 12:45 pm Vladimir Zarate MD Signed (Electronic Signature): 11/25/2024 12:45 pm Signed by: Vladimir Zarate MD Transcribed by: IVIS Technologist: GEOFF Technical Comments Radiation Dose: Ka,r in mGy = . DAP = . [facility] Inpatient Clinical Summaryon 11-23-2024 Inpatient Clinical Summary Inpatient Clinical Summary [place] [address] Clinical Summary Person Information: Name: ANKIT BENITES Age: 54 Years : 1970 Sex: Male PCP: Brianna Li Marital Status: Unknown Race: White Ethnicity: Non- or Language: Pashto Visit Id: Visit Reason: R07.9 I20.0 Speciality: Acuity: Enc Type: Ambulatory/Same Day Surgery Med Service: Cardiovascular Arrival: 11/23/2024 07:26:40 Discharge: Dispo Type: Address: [address] [place], [place] [address] [id number] Provider Notes: Diagnosis: Problems Active Dizziness Fatigue Hypercholesteremia Morbid obesity with BMI of 50.0-59.9, adult Type 2 diabetes mellitus Shortness of breath Left-sided chest pain Encounter for weight management Weight gain Morbid obesity with BMI of 45.0-49.9, adult Left shoulder pain Candidiasis Rash Screening for hyperlipidemia Prostate cancer screening Constricting chest pain often radiating down left arm Diabetes type 2, controlled Smoking Status: Never Smoker Functional Status: Sensory Deficits: History of Falls: Mobility Assistance Prior to Admission: Independent ADLs: Independent Current Level of Assistance for Self-Care/Mobility: Cognitive Status: Allergies penicillins (Epistaxis) Measurements: Height: 170 cm Weight: 154 kg Blood Pressure: 151 mmHg / 93 mmHg BMI: 53.29 kg/m2 Procedures Coronary artery stent (11/23/2024) Cardiac catheterization, left heart (11/23/2024) Immunizations No Immunizations Documented This Visit Final Med List: albuterol-budesonide (Airsupra 90 mcg-80 mcg/inh inhalation aerosol) 2 Inhalation Inhalation 4 times a day. Refills: 5. amlodipine (amLODIPine 5 mg Tab) 1 Tablets By Mouth every day. Refills: 0. aspirin (aspirin 81 mg Oral EC Tab) 1 Tablets By Mouth every day. Refills: 3. atorvastatin (atorvastatin 40 mg Tab) TAKE 1 TABLET BY MOUTH DAILY. Refills: 1. clopidogrel (Plavix 75 mg Tab) 1 Tablets By Mouth every day. Refills: 3. ergocalciferol (Vitamin D 50,000 intl units (1.25 mg) oral capsule) 1 Capsules By Mouth every week. Refills: 3. glimepiride (glimepiride 2 mg Tab) TAKE 1 TABLET BY MOUTH TWICE DAILY. Refills: 1. losartan (losartan 50 mg Tab) 1 Tablets By Mouth every day. Refills: 0. metformin (metformin 1000 mg Tab) 1 Tablets By Mouth 2 times a day for 90 Days. Refills: 3. nystatin topical (nystatin Top 100,000 units/g Crm 15 gram) Care Team Members: Attending Physician: Luis Carlos Pineda MD Consulting Physician: Referring Physician: Luis Carlos Pineda MD Follow up: With: Address: When: Luis Carlos Pineda [address] [place] [address] [phone] Business (1) 12/07/2024 2:00 PM With: Address: When: Brianna Coleman Location Start Finish State Open [facility] [place] 11/28/2024 5:00 PM 11/28/2024 5:20 PM Confirmed Patient Education Information: CV - Cardiovascular PCI Discharge Instructions (Custom) Plavix 75 mg Tab Normal [facility] Inpatient Patient Summaryon 11-23-2024 Inpatient Patient Summary Inpatient Patient Summary [address] [address] Patient Discharge Instructions PERSON INFORMATION Name: ANKIT BENITES Date of : 1970 Current Date: 11/23/2024 13:10:50 PHYSICIANS Admitting Physician: Luis Carlos Pineda MD Primary Care Physician: Brianna Li PCP Comment: Discharge Diagnosis: Condition at Discharge: Stable ANKIT BENITES has been given the following list of follow-up instructions, prescriptions, and patient education materials: PATIENT FOLLOW-UP INFORMATION Diet: Discharge Activity: Discharge Restrictions: No driving for 24 hrs, Do not operate machinery or tools, Do not make important decisions for 24 hours, Do not drink alcoholic beverages for 24 hours Wound Care Instructions: Remove dressing as instructed Remove Your Dressing In Days Call Your Doctor For: IF UNABLE TO CONTACT YOUR PHYSICIAN AND YOU FEEL IT IS AN EMERGENCY, GO TO THE NEAREST EMERGENCY ROOM OR CALL 911 Home Treatment: Blood glucose monitoring Devices/Equipment: Special Services: Additional Instructions: Primary Care Physician to provide the following pending test results: None Follow up: With: Address: When: Luis Carlos Pineda [address] [place] [address] [phone] Business (1) 12/07/2024 2:00 PM With: Address: When: Brianna Lugo In the event that this physician does not participate in your insurance network, please consult with your insurance company to find a nearby participating provider. Type Location Start [facility] 11/28/2024 5:00 PM 11/28/2024 5:20 PM Confirmed Comment: DELMIS Camacho JAMES, have received the attached patient education materials/instructions and have verbalized understanding: Patient Signature Date Clinican/Nurse Signature ___ Date HERE ARE THE MEDICATION CHANGES THAT OCCURRED DURING YOUR HOSPITAL STAY New Medications [employer] [facility] [place], [place] [phone], [phone] amlodipine (amLODIPine 5 mg Tab) 1 Tablets By Mouth every day. Refills: 0. Last Dose: ___Next Dose: ___ clopidogrel (Plavix 75 mg Tab) 1 Tablets By Mouth every day. Refills: 3. Last Dose: ___Next Dose: ___ losartan (losartan 50 mg Tab) 1 Tablets By Mouth every day. Refills: 0. Last Dose: ___Next Dose: ___ Medications to Continue Taking That Have Changed [employer] [facility] [place], [place] [phone], [phone] START: aspirin (aspirin 81 mg Oral EC Tab) 1 Tablets By Mouth every day. Refills: 3. Last Dose: ___Next Dose: ___ STOP: aspirin (aspirin 81 mg Oral EC Tab) Medications to Continue with No Changes Other Medications albuterol-budesonide (Airsupra 90 mcg-80 mcg/inh inhalation aerosol) 2 Inhalation Inhalation 4 times a day. Refills: 5. Last Dose: ___Next Dose: ___ atorvastatin (atorvastatin 40 mg Tab) TAKE 1 TABLET BY MOUTH DAILY. Refills: 1. Last Dose: ___Next Dose: ___ ergocalciferol (Vitamin D 50,000 intl units (1.25 mg) oral capsule) 1 Capsules By Mouth every week. Refills: 3. Last Dose: ___Next Dose: ___ glimepiride (glimepiride 2 mg Tab) TAKE 1 TABLET BY MOUTH TWICE DAILY. Refills: 1. Last Dose: ___Next Dose: ___ metformin (metformin 1000 mg Tab) 1 Tablets By Mouth 2 times a day for 90 Days. Refills: 3. Last Dose: ___Next Dose: ___ nystatin topical (nystatin Top 100,000 units/g Crm 15 gram) Last Dose: ___Next Dose: ___ No Longer Take the Following Medications meloxicam (meloxicam 15 mg Tab) 1 Tablets By Mouth every day. Refills: 3. Comment: MEDICATION LIST PROVIDED FOR YOU IS A LIST OF YOUR CURRENT MEDICATIONS. PLEASE CARRY THIS WITH YOU AT ALL TIMES. albuterol-budesonide (Airsupra 90 mcg-80 mcg/inh inhalation aerosol) 2 Inhalation Inhalation 4 times a day. Refills: 5. amlodipine (amLODIPine 5 mg Tab) 1 Tablets By Mouth every day. Refills: 0. aspirin (aspirin 81 mg Oral EC Tab) 1 Tablets By Mouth every day. Refills: 3. atorvastatin (atorvastatin 40 mg Tab) TAKE 1 TABLET BY MOUTH DAILY. Refills: 1. clopidogrel (Plavix 75 mg Tab) 1 Tablets By Mouth every day. Refills: 3. ergocalciferol (Vitamin D 50,000 intl units (1.25 mg) oral capsule) 1 Capsules By Mouth every week. Refills: 3. glimepiride (glimepiride 2 mg Tab) TAKE 1 TABLET BY MOUTH TWICE DAILY. Refills: 1. losartan (losartan 50 mg Tab) 1 Tablets By Mouth every day. Refills: 0. metformin (metformin 1000 mg Tab) 1 Tablets By Mouth 2 times a day f (more content not included)... Normal [facility] BMPon 11-19-2024 Anion gap [Moles/Vol] 12 mmol/L Normal 6-16 [facility] Comment on above: Performed By: #### 2 [id number] #### [facility] [address] [place] [address] Calcium [Mass/Vol] 9.4 mg/dL Normal 8.9-11.1 [facility] Comment on above: Performed By: #### 2 [id number] #### [facility] [address] [place] [address] Chloride [Moles/Vol] 103 mmol/L Normal 101-111 [facility] Comment on above: Performed By: #### 2 [id number] #### [facility] [address] [place] [address] CO2 [Moles/Vol] 26 mmol/L Normal 21-31 [facility] Comment on above: Performed By: #### 2 [id number] #### [facility] [address] [place] [address] Creatinine [Mass/Vol] 0.8 mg/dL Normal 0.5-1.3 [facility] Comment on above: Performed By: #### 2 [id number] #### [facility] [address] [place] [address] Glucose [Mass/Vol] 216 mg/dL High 55-199 [facility] Comment on above: Performed By: #### 2 [id number] #### [facility] [address] [place] [address] Potassium [Moles/Vol] 4.4 mmol/L Normal 3.5-5.3 [facility] Comment on above: Performed By: #### 2 [id number] #### [facility] [address] [place] [address] Sodium [Moles/Vol] 137 mmol/L Normal 135-145 [facility] Comment on above: Performed By: #### 2 [id number] #### [facility] [address] [place] [address] Urea nitrogen [Mass/Vol] 18 mg/dL Normal 5-21 [facility] Comment on above: Performed By: #### 2 [id number] #### [facility] [address] [place] [address] Urea nitrogen/Creatinine [Mass ratio] 22 No Units High 10-20 [facility] Comment on above: Performed By: #### 2 [id number] #### [facility] [address] [place] [address] CBC w/ Auto Diffon 5 Basophils/100 WBC (Bld) 0.3 % Normal 0.0-2.0 [facility] Comment on above: Performed By: #### 2 [id number] #### [facility] [address] [place] [address] Basophils/Leukocytes Auto (Bld) [Pure # fraction] 0.0 E9/L Normal 0.0-0.2 [facility] Comment on above: Performed By: #### 2 [id number] #### [facility] [address] [place] [address] Eosinophils (Bld) [#/Vol] 0.2 E9/L Normal 0.0-0.5 [facility] Comment on above: Performed By: #### 2 [id number] #### [facility] [address] [place] [address] Eosinophils/100 WBC (Bld) 2.4 % Normal 0.0-8.0 [facility] Comment on above: Performed By: #### 2 [id number] #### [facility] [address] [place] [address] Erythrocyte distribution width (RBC) [Ratio] 13.8 % Normal 10.9-14.2 [facility] Comment on above: Performed By: #### 2 [id number] #### [facility] [address] [place] [address] Hematocrit (Bld) [Volume fraction] 44.9 % Normal 37.7-49.0 [facility] Comment on above: Performed By: #### 2 [id number] #### [facility] [address] [place] [address] Hemoglobin (Bld) [Mass/Vol] 15.1 g/dL Normal 13.5-17.5 [facility] Comment on above: Performed By: #### 2 [id number] #### [facility] [address] [place] [address] Lymphocytes (Bld) [#/Vol] 1.6 E9/L Normal 1.0-4.0 [facility] Comment on above: Performed By: #### 2 [id number] #### [facility] [address] [place] [address] Lymphocytes/100 WBC (Bld) 21.6 % Normal 14.0-50.0 [facility] Comment on above: Performed By: #### 2 [id number] #### [facility] [address] [place] [address] MCH (RBC) [Entitic mass] 28.7 pg Normal 27.0-34.0 [facility] Comment on above: Performed By: #### 2 [id number] #### [facility] [address] [place] [address] MCHC (RBC) [Mass/Vol] 33.7 g/dL Normal 31.4-36.0 [facility] Comment on above: Performed By: #### 2 [id number] #### [facility] [address] [place] [address] MCV (RBC) [Entitic vol] 85.0 fL Normal 80.0-100.0 [facility] Comment on above: Performed By: #### 2 [id number] #### [facility] [address] [place] [address] Monocytes (Bld) [#/Vol] 0.5 E9/L Normal 0.2-1.0 [facility] Comment on above: Performed By: #### 2 087004 #### [facility] [address] [place] [address] Neutrophils (Bld) [#/Vol] 5.3 E9/L Normal 2.0-7.5 [facility] Comment on above: Performed By: #### 2 [id number] #### [facility] [address] [place] [address] Neutrophils/100 WBC (Bld) 69.2 % Normal 36.0-75.0 [facility] Comment on above: Performed By: #### 2 [id number] #### [facility] [address] [place] [address] Platelet mean volume (Bld) [Entitic vol] 8.9 fL Normal 6.4-10.8 [facility] Comment on above: Performed By: #### 2 [id number] #### [facility] [address] [place] [address] Platelets (Bld) [#/Vol] 212.0 E9/L Normal 150.0-500.0 [facility] Comment on above: Performed By: #### 2 [id number] #### [facility] [address] [place] [address] RBC (Bld) [#/Vol] 5.3 E12/L Normal 4.3-5.9 [facility] Comment on above: Performed By: #### 2 [id number] #### [facility] [address] [place] [address] WBC corrected for nucl RBC Auto (Bld) [#/Vol] 7.6 E9/L Normal 4.0-11.0 [facility] Comment on above: Performed By: #### 2 [id number] #### [facility] [address] [place] [address] CHEMISTRYOrdered By: SYSTEM SYSTEM on 11-19-2024 Anion gap [Moles/Vol] 12 mmol/L Normal 6 - 16 mEq/L R emisol Chem Calcium [Mass/Vol] 9.4 mg/dL Normal 8.9 - 11. 1 mg/dL Rem[facility] Chem Chloride [Moles/Vol] 103 mmol/L Normal 101 - 1 11 mmol/L [facility] CO2 [Moles/Vol] 26 mmol/L Normal 21 - 31 mmol/L [facility] Creatinine [Mass/Vol] 0.8 mg/dL Normal 0.5 - 1.3 mg/dL [facility] Chem eGFR 105 mL/min/1.73 m2 Normal >=59mL/mi n/1 .73 m2 [facility] Glucose [Mass/Vol] 216 mg/dL High 55 - 199 mg/dL [facility] Potassium [Moles/Vol] 4.4 mmol/L Normal 3.5 - 5.3 mmol/L [facility] Sodium [Moles/Vol] 137 mmol/L Normal 135 - 145 mmol/L [facility] Urea nitrogen [Mass/Vol] 18 mg/dL Normal 5 - 21 mg/dL [facility] Urea nitrogen/Creatinine [Mass ratio] 22 mg/mg High 10 - 20 [facility] HEMATOLOGYOrdered By: SYSTEM SYSTEM on 11-19-2024 Basophils/100 WBC (Bld) 0.3 % Normal 0.0 - 2.0 % Remisol Heme Basophils/Leukocytes Auto (Bld) [Pure # fraction] 0.0 E9/L Normal 0.0 - 0.2 E9/L [facility]e Eosinophils (Bld) [#/Vol] 0.2 E9/L Normal 0.0 - 0.5 E9/L [facility]e Eosinophils/100 WBC (Bld) 2.4 % Normal 0.0 - 8.0 % Rem[facility] Heme Erythrocyte distribution width (RBC) [Ratio] 13.8 % Normal 10.9 - 14.2 % [facility] Hematocrit (Bld) [Volume fraction] 44.9 % Normal 37.7 - 49.0 % [facility]e Hemoglobin (Bld) [Mass/Vol] 15.1 g/dL Normal 13.5 - 17.5 gm/dL [facility] Lymphocytes (Bld) [#/Vol] 1.6 E9/L Normal 1.0 - 4.0 E9/L [facility]e Lymphocytes/100 WBC (Bld) 21.6 % Normal 14.0 - 50.0 % Rem[facility]e MCH (RBC) [Entitic mass] 28.7 pg Normal 27.0 - 34.0 pg Rem[facility]e MCHC (RBC) [Mass/Vol] 33.7 g/dL Normal 31.4 - 36.0 gm/dL [facility]e MCV (RBC) [Entitic vol] 85.0 fL Normal 80.0 - 100.0 fL [facility]e Monocytes (Bld) [#/Vol] 0.5 E9/L Normal 0.2 - 1.0 E9/L [facility] Monocytes/100 WBC (Bld) 6.5 % Normal 4.0 - 14.0 % [facility] Neutrophils (Bld) [#/Vol] 5.3 E9/L Normal 2.0 - 7.5 E9/L [facility] Neutrophils/100 WBC (Bld) 69.2 % Normal 36.0 - 75.0 % [facility] Platelet mean volume (Bld) [Entitic vol] 8.9 fL Normal 6.4 - 10.8 fL [facility]e Platelets (Bld) [#/Vol] 212.0 E9/L Normal 150.0 - 500.0 E9/L [facility]e RBC (Bld) [#/Vol] 5.3 E12/L Normal 4.3 - 5.9 E12/L [facility] WBC corrected for nucl RBC Auto (Bld) [#/Vol] 7.6 E9/L Normal 4.0 - 11.0 E9/L [facility] eGFRon 11-19-2024 eGFR 105 mL/min/1.73 m2 Normal >=59 [facility] Comment on above: Performed By: #### 1 [id number] #### [facility] [address] [place] [address] Heart and Vascular Office/Cl inic Noteon 11-02-2024 Heart and Vascular Office/Clinic Note Heart and Vascular Office/Clinic Note Chief Complaint here to establish care History of Present Illness The patient is a 54-year-old male with past medical history of diabetes mellitus type 2, dyslipidemia, presents for cardiac evaluation due to issues with chest discomfort. He describes the pain as feelings of some tightness and discomfort in his left side of the chest, clearly provoked by exertion and relieved by rest. This has been going on for quite a while. It is associated with some shortness of breath. Over the course of the past month or 2, the patient noted that shortness of breath has become significantly worse, limiting his physical activities. His prior cardiac workup included pretty unremarkable ECG. Transthoracic echocardiogram was performed as well, and showed normal EF in the range of 65%, moderate LVH, right ventricular dilatation with normal systolic function, biatrial dilatation He was diagnosed with diabetes mellitus type 2 around 10 years ago. He denies family history of precocious CAD. Review of Systems PHQ Score Initial Depression Screen Score: 0 SCORE ROS - Provider Constitutional: no fever, no chills, no fatigue Skin:no rash, no lesions ENMT: no ear pain, no sore throat, no congestion. Respiratory: yes shortness of breath, no cough, no wheezing. Cardiovascular: yes chest pain, no palpitations, no edema. Gastrointestinal: no nausea, no vomiting, no diarrhea, no GI bleeding. Genitourinary: no dysuria, no frequencyno hematuria Musculoskeletal: no back pain, no trauma. Neurologic: no headache, no dizziness, no numbness, no weakness. Psychiatric: no sleeping problems, no irritability, no mood swings/depression. Heme/Lymph: no bleeding tendency, no bruising tendency, no petechiae, Allergy/Immuno logic: no seasonal allergies, no food allergies, no recurrent infections Physical Exam Vitals & Measurements HR: 75(Peripheral) RR: 16 BP: 146/86 SpO2: 94% HT: 67 in HT: 170 cm WT: 154.5 kg WT: 340.614 lb BMI: 53.46 General: alert, no acute distress Neck: Supple, noJVD nocarotid bruit Cardiovascular: regular rate and rhythm, no murmur normal peripheral perfusion Respiratory: Lungs CTAB, respirations non labored Extremities: no edema left lower extremity. no edema right lower extremity Neurological: oriented x 4, LOC appropriate for age, speech normal Skin: Warm, dry, intact- no rash or concerning lesions Assessment/Plan 1. Left-sided chest pain (R07.9: Chest pain, unspecified) The presentation is consistent with typical unstable angina. At this juncture, recommendations are for invasive assessment with a left heart catheterization. Risks and benefits of the procedure, with risks including but not limited to, myocardial infarction, stroke, , emergent transfer to higher level facility for possible coronary artery bypass grafting surgery, radiation exposure, kidney failure, blood vessel injury, prolonged hospitalization were explained to the patient in detail, the patient agreed to proceed. Compliance with dual antiplatelet therapy, if necessary, was stressed with the patient, who verbalized understanding. Further management will be determined at the cardiac catheterization, based on anatomy and physiology. I will start the patient on aspirin 81 mg daily. Continue statin. 2. Diabetes type 2, controlled (E11.9: Type 2 diabetes mellitus without complications) 3. Hypertension. Blood pressure is elevated today. I would not address it, pending cardiac catheterization. Follow-up No qualifying data available Problem List/Past Medical History Ongoing Candidiasis Constricting chest pain often radiating down left arm Diabetes type 2, controlled Dizziness Encounter for weight management Fatigue Hypercholesteremia Left shoulder pain Left-sided chest pain Morbid obesity with BMI of 45.0-49.9, adult Morbid obesity with BMI of 50.0-59.9, adult Prostate cancer screening Rash Screening for hyperlipidemia Shortness of breath Type 2 diabetes mellitus Weight gain Historical No qualifying data Procedure/Surgical History Surgery. Medications Airsupra 90 mcg-80 mcg/inh inhalation aerosol, 2 inh, Inhalation, QID, 5 refills atorvastatin 40 mg Tab, 40 mg= 1 tab(s), Oral, Daily, 1 refills glimepiride 2 mg Tab, 2 mg= 1 tab(s), Oral, BID, 1 refills meloxicam 15 mg Tab, 15 mg= 1 tab(s), Oral, Daily, 3 refills metformin 1000 mg Tab, 1000 mg= 1 tab(s), Oral, BID, 3 refills nystatin Top 100,000 units/g Crm 15 gram Vitamin D 50,000 intl units (1.25 mg) oral capsule, [address] International_Unit= 1 cap(s), Oral, qWeek, 3 refills Allergies penicillins (Epistaxis) Social History Alcohol Never., 08/29/2024 Substance Abuse Never., 08/29/2024 Tobacco Never (less than 100 in lifetime) Tobacco Use:. Never Smokeless Tobacco Use:. Household tobacco concerns: No. Yes, 11/02/2024 Family History Diabetes mellitus type 2: Sister. Normal [facility] Comment on above: Result Comment: Elec tronically Signed By: Edwin RHOADES, Luis Carlos Salvador\.cassie\Date and Time Signed: 11/02/24 14:43 EST Reminderson 11-01-2024 Reminders Reminders From: Brianna Li To: B - Clinical; Sent: 11/01/2024 09:10:16 EST Show up: 11/01/2024 09:10:00 EST Subject: Ambulatory Reminder Due Date/Time: 11/02/2024 09:09:00 EST all labs are normal except vitamin d is very low. I sent in prescription for him. 1 tab weekly Results: Date Result Name Ind Value Ref Range 10/30/2024 9:53 Chol 192 mg/dL (120 - 200) 10/30/2024 9:53 Trig 137 mg/dL ( - <=149) 10/30/2024 9:53 HDL 49 mg/dL 10/30/2024 9:53 LDL Direct 125 mg/dL ( - <=129) 10/30/2024 9:53 VLDL 27 mg/dL (7 - 40) 10/30/2024 9:53 Vitamin D 25 Hydroxy ((L)) 20.6 ng/mL (30.0 - 100.0) 10/30/2024 9:53 Testoster Tot 320 ng/dL ([phone] - ) Pt has been notified. Normal [facility] Testost Totalon 11-01-2024 Testosterone [Mass/Vol] 320 ng/dL Invalid Interpretation Code [id number] [facility] Comment on above: Result Comment: Adul t male reference interval is based on a population of healthy nonobese males (BMI <30) between 19 and 39 years old. Kaycee et.al. JCEM 2017,102;7636-7774. PMID: [id number]. Performed at: [facility] [address], [place] [id number] PhD Brett Thompson Performed By: #### 2 [id number] #### [facility] [address] [place] [address] Ambulatory Visit Summaryon 1 2-17-2024 Ambulatory Visit Summary Ambulatory Visit Summary ANKIT BENITES :1970 Visit Date:10/30/2024 Ambulatory Visit Instructions Your Diagnosis Constricting chest pain often radiating down left arm Type 2 diabetes mellitus BMI 50.0-59.9, adult, Body mass index [BMI] 50.0-59.9, adult Morbid obesity with BMI of 50.0-59.9, adult Non-smoker Hypercholesteremia Fatigue Dizziness Your Care Team Attending Physician - Brianna Li Primary Care Physician - Brianna Li This Is Your Medications List albuterol-budesonide (Airsupra 90 mcg-80 mcg/inh inhalation aerosol) atorvastatin (atorvastatin 40 mg Tab) glimepiride (glimepiride 2 mg Tab) meloxicam (meloxicam 15 mg Tab) metformin (metformin 1000 mg Tab) nystatin topical (nystatin Top 100,000 units/g Crm 15 gram) Procedures Performed Surgery. Discharge Vitals Temperature (Tympanic) 36.6 ???C Heart Rate (Peripheral) 75 Respiratory Rate 20 Blood Pressure 150/88 Height 170 cm Height 67 in Weight 153.8 kg Weight 339.071 lb BMI 53.22 What to do next Scheduled Follow-Up Appointments Tuesday 2:15 PM EST With: Luis Carlos Pineda MD Where: [facility] [place] Tuesday 5:00 PM EST With: Brianna Li Where: [facility] [address] [address]- Medications What How Much When Why Instructions Unchanged albuterol-budesonide (Airsupra 90 mcg-80 mcg/ inh inhalation aerosol) 2 Inhalation Inhalation 4 times a day Unchanged atorvastatin (atorvastatin 40 mg Tab) 1 Tablets By Mouth Every day Unchanged glimepiride (glimepiride 2 mg Tab) 1 Tablets By Mouth 2 times a day Unchanged meloxicam (meloxicam 15 mg Tab) 1 Tablets By Mouth Every day Diabetes type 2, controlled Constricting chest pain often radiating down left arm Rash Candidiasis Left shoulder pain Prostate cancer screening Screening for hyperlipidemia BMI 45.0-49.9, adult Morbid obesity with BMI of 45.0-49.9, adult Non-smoker Unchanged metformin (metformin 1000 mg Tab) 1 Tablets By Mouth 2 times a day Diabetes type 2, controlled Weight gain Morbid obesity with BMI of 45.0-49.9, adult BMI 45.0-49.9, adult Non-smoker Duration: 90 Days Unchanged nystatin topical (nystatin Top 100,000 units/ g Crm 15 gram) Allergies penicillins (Epistaxis) Problems Ongoing - Any problem that you are currently receiving treatment for. Candidiasis Constricting chest pain often radiating down left arm Diabetes type 2, controlled Dizziness Encounter for weight management Fatigue Hypercholesteremia Left shoulder pain Left-sided chest pain Morbid obesity with BMI of 45.0-49.9, adult Morbid obesity with BMI of 50.0-59.9, adult Prostate cancer screening Rash Screening for hyperlipidemia Shortness of breath Type 2 diabetes mellitus Weight gain Patient Survey You may receive a survey via text or e-mail asking about your office visit. Please share your experience with us by completing your survey. We appreciate your feedback and thank you for choosing us for your care. [facility] Ambulatory Visit Summary Ambulatory Visit Summary ANKIT BENITES :1970 Visit Date:10/30/2024 Ambulatory Visit Instructions Your Diagnosis Constricting chest pain often radiating down left arm Type 2 diabetes mellitus BMI 50.0-59.9, adult, Body mass index [BMI] 50.0-59.9, adult Morbid obesity with BMI of 50.0-59.9, adult Non-smoker Hypercholesteremia Fatigue Dizziness Your Care Team Attending Physician - Brianna Li Primary Care Physician - Brianna Li This Is Your Medications List albuterol-budesonide (Airsupra 90 mcg-80 mcg/inh inhalation aerosol) atorvastatin (atorvastatin 40 mg Tab) glimepiride (glimepiride 2 mg Tab) meloxicam (meloxicam 15 mg Tab) metformin (metformin 1000 mg Tab) nystatin topical (nystatin Top 100,000 units/g Crm 15 gram) Procedures Performed Surgery. Discharge Vitals Temperature (Tympanic) 36.6 ???C Heart Rate (Peripheral) 75 Respiratory Rate 20 Blood Pressure 150/88 Height 170 cm Height 67 in Weight 153.8 kg Weight 339.071 lb BMI 53.22 What to do next Scheduled Follow-Up Appointments Tuesday 2:15 PM EST With: Luis Carlos Pineda MD Where: [facility] [place] Tuesday 5:00 PM EST With: Brianna Li Where: [facility] [place] [id number]- Medications What How Much When Why Instructions Unchanged albuterol-budesonide (Airsupra 90 mcg-80 mcg/ inh inhalation aerosol) 2 Inhalation Inhalation 4 times a day Unchanged atorvastatin (atorvastatin 40 mg Tab) 1 Tablets By Mouth Every day Unchanged glimepiride (glimepiride 2 mg Tab) 1 Tablets By Mouth 2 times a day Unchanged meloxicam (meloxicam 15 mg Tab) 1 Tablets By Mouth Every day Diabetes type 2, controlled Constricting chest pain often radiating down left arm Rash Candidiasis Left shoulder pain Prostate cancer screening Screening for hyperlipidemia BMI 45.0-49.9, adult Morbid obesity with BMI of 45.0-49.9, adult Non-smoker Unchanged metformin (metformin 1000 mg Tab) 1 Tablets By Mouth 2 times a day Diabetes type 2, controlled Weight gain Morbid obesity with BMI of 45.0-49.9, adult BMI 45.0-49.9, adult Non-smoker Duration: 90 Days Unchanged nystatin topical (nystatin Top 100,000 units/ g Crm 15 gram) Allergies penicillins (Epistaxis) Problems Ongoing - Any problem that you are currently receiving treatment for. Candidiasis Constricting chest pain often radiating down left arm Diabetes type 2, controlled Dizziness Encounter for weight management Fatigue Hypercholesteremia Left shoulder pain Left-sided chest pain Morbid obesity with BMI of 45.0-49.9, adult Morbid obesity with BMI of 50.0-59.9, adult Prostate cancer screening Rash Screening for hyperlipidemia Shortness of breath Type 2 diabetes mellitus Weight gain Patient Survey You may receive a survey via text or e-mail asking about your office visit. Please share your experience with us by completing your survey. We appreciate your feedback and thank you for choosing us for your care. [facility] CHEMISTRYOrdered By: SYSTEM SYSTEM on 10-30-2024 25-hydroxyvitamin D3 [Mass/Vol] 20.6 ng/mL Low 30.0 - 100.0 ng/mL Remisol Chem Cholesterol [Mass/Vol] 192 mg/dL Normal 120 - 200 mg/dL Remisol Chem Cholesterol in HDL [Mass/Vol] 49 mg/dL Invalid Interpretation Code Remisol Chem Comment on above: Result Comment: '>= 60 LOW RISK' '<= 40 HIGH RISK' Cholesterol in LDL [Mass/Vol] 125 mg/dL Normal <=129mg/dL Rem[facility] Cholesterol in VLDL [Mass/Vol] 27 mg/dL Normal 7 - 40 mg/dL [facility] Triglyceride [Mass/Vol] 137 mg/dL Normal <=149mg/dL Remisol Chem Family Medicine Office/Clini c Noteon 10-30-2024 Family Medicine Office/Clinic Note Family Medicine Office/Clinic Note Chief Complaint 1m follow up HPI Staff 1m follow up to Lt sided chest pain. & to discuss weight management. Referred to Cardiology @ [facility] (if cleared by cardio, then possible referral to pulmonology due to SOB) EKG done 1-2wks ago. Echo done this morning Cardio appt scheduled 11/02/24. States he would like to discuss weight management. Did take addipex for 1m & does believe it helped with weight management at that time. History of Present Illness pt presents today to discuss weight loss. follow up on left sided chest pain and SOB Review of Systems PHQ Score Initial Depression Screen Score: 0 SCORE Physical Exam Vitals & Measurements T: 36.6 ???C(Tympanic) HR: 75(Peripheral) RR: 20 BP: 150/88 SpO2: 96% HT: 67 in HT: 170 cm WT: 153.8 kg WT: 339.071 lb BMI: 53.22 General: alert, no acute distress ENMT: oral mucosa moist, no pharyngeal erythema or exudate Cardiovascular: regular rate and rhythm, normal peripheral perfusion Respiratory: Lungs CTA, respirations non labored Extremities: no deformity, no trauma Neurological: oriented x 4, LOC appropriate for age, CN II-XII intact, motor strength equal & normal bilaterally, speech normal Assessment/Plan 1. Constricting chest pain often radiating down left arm (R07.89: Other chest pain) pt had echo this morning. EKG showed sinus rhythm. is scheduled to see cardiology on Tuesday. pt is adamant that there is something wrong with his heart. If he is cleared through cardiology we will consider referral to pulmonology and possibly diagnostics to check shoulder or pectoral muscle injury. BP is slightly elevated in office today but his divorce hearing is this afternoon so he is a bit anxious this morning. pt will monitor BP at home. will have follow up with Edwin Camejo Tuesday. RTC 1 month Ordered: Lipid Panel Testosterone Level Total Vitamin D 25 Hydroxy 2. Type 2 diabetes mellitus (E11.9: Type 2 diabetes mellitus without complications) discussed injectable medication to control diabetes. would like to get HGBA1C below 7. will order through [facility] pharmacy Ordered: Lipid Panel Testosterone Level Total Vitamin D 25 Hydroxy 3. Hypercholesteremia (E78.00: Pure hypercholesterolemia, unspecified) lipid panel drawn in office today. pt stopped taking statin. encouraged him to re start that. Ordered: Lipid Panel Testosterone Level Total Vitamin D 25 Hydroxy 4. Dizziness (R42: Dizziness and giddiness) pt gets very dizzy with any exertion Ordered: Lipid Panel Testosterone Level Total Vitamin D 25 Hydroxy 5. Non-smoker (Z78.9: Other specified health status) continue not smoking Ordered: fluconazole, 150 mg = 1 tab(s), Oral, Once, take 1 tab on day one and 1 tab on day four, # 2 tab(s), Refills(s) 1, Pharmacy: [facility], 170, cm, 09/26/24 8:58:00 EST, Height/Length Dosing, 158.1, kg, 09/26/24 8:58:00 EST, Weight Dosing Lipid Panel Testosterone Level Total Vitamin D 25 Hydroxy 6. Fatigue (R53.83: Other fatigue) pt c/o severe fatigue and no energy Ordered: Lipid Panel Testosterone Level Total Vitamin D 25 Hydroxy 7. BMI 50.0-59.9, adult (Z68.43: Body mass index [BMI] 50.0-59.9, adult) BMI education. pt is down 9 pound since last visit. has changed his diet. Ordered: fluconazole, 150 mg = 1 tab(s), Oral, Once, take 1 tab on day one and 1 tab on day four, # 2 tab(s), Refills(s) 1, Pharmacy: [facility], 170, cm, 09/26/24 8:58:00 EST, Height/Length Dosing, 158.1, kg, 09/26/24 8:58:00 EST, Weight Dosing Lipid Panel Testosterone Level Total Vitamin D 25 Hydroxy 8. Morbid obesity with BMI of 50.0-59.9, adult (E66.01: Morbid (severe) obesity due to excess calories) see above Ordered: Lipid Panel Testosterone Level Total Vitamin D 25 Hydroxy Orders: predniSONE, See Instructions, TAKE 1 TABLET BY MOUTH TWICE DAILY FOR 5 DAYS, # 10 tab(s), Refills(s) 1, Pharmacy: [facility], 170, cm, 09/26/24 8:58:00 EST, Height/Length Dosing, 158.1, kg, 09/26/24 8:58:00 EST, Weight Dosing Follow-up No qualifying data available Problem List/Past Medical History Ongoing Candidiasis Constricting chest pain often radiating down left arm Diabetes type 2, controlled Dizziness Encounter for weight management Fatigue Hypercholesteremia Left shoulder pain Left-sided chest pain Morbid obesity with BMI of 45.0-49.9, adult Morbid obesity with BMI of 50.0-59.9, adult Prostate cancer screening Rash Screening for hyperlipidemia Shortness of breath Type 2 diabetes mellitus Weight gain Historical No qualifying data Procedure/Surgical History Surgery. Medications Airsupra 90 mcg-80 mcg/inh inhalation aerosol, 2 inh, Inhalation, QID, 5 refills atorvastatin 40 mg Tab, 40 mg= 1 tab(s), Oral, Daily, 1 refills glimepiride 2 mg Tab, 2 mg= 1 tab(s), Oral, BID, 1 refills meloxicam 15 mg Tab, 15 mg= 1 tab(s), Oral, Daily, 3 r (more content not included)... [facility] Comment on above: Result Comment: Elec tronically Signed By: Brianna Li\.br\Date and Time Signed: 10/30/24 12:33 EST Lipid Panelon 10-30-2024 Cholesterol [Mass/Vol] 192 mg/dL Normal 120-200 [facility] Comment on above: Performed By: #### 2 [id number] #### [facility] [address] [place] [address] Cholesterol in HDL [Mass/Vol] 49 mg/dL Invalid Interpretation Code [facility] Comment on above: Result Comment: '>= 60 LOW RISK' '<= 40 HIGH RISK' Performed By: #### 2 [id number] #### [facility] [address] [place] [address] Cholesterol in LDL [Mass/Vol] 125 mg/dL Normal <=129 [facility] Comment on above: Performed By: #### 2 [id number] #### [facility] [address] [place] [address] Cholesterol in VLDL [Mass/Vol] 27 mg/dL Normal 7-40 [facility] Comment on above: Performed By: #### 2 [id number] #### [facility] [address] [place] [address] Triglyceride [Mass/Vol] 137 mg/dL Normal <=149 [facility] Comment on above: Performed By: #### 2 [id number] #### [facility] [address] [place] [address] Vitamin D 25 Hydroxyon 10-30 25-hydroxyvitamin D3 [Mass/Vol] 20.6 ng/mL Low 30.0-100.0 [facility] Comment on above: Performed By: #### 5 [id number] #### [facility] [address] [place] [address] Family Medicine Office/Clini c Noteon 09-26-2024 Family Medicine [...] four, # 2 tab(s), Refills(s) 1, Pharmacy: [facility], 170, cm, 09/26/24 8:58:00 EST, Height/Length Dosing, 158.1, kg, 09/26/24 8:58:00 EST, Weight Dosing [facility] [place] 2. Shortness of breath [...] four, # 2 tab(s), Refills(s) 1, Pharmacy: [facility], 170, cm, 09/26/24 8:58:00 EST, Height/Length Dosing, 158.1, kg, 09/26/24 8:58:00 EST, Weight Dosing [facility] [place] 3. BMI 50.0-59.9, adult (Z68.43: Body mass index [BMI] 50.0-59.9, adult) BMI education given Ordered: fluconazole, 150 mg = 1 tab(s), Oral, Once, take 1 tab on day one and 1 tab on day four, # 2 tab(s), Refills(s) 1, Pharmacy: [facility], 170, cm, 09/26/24 8:58:00 EST, Height/Length Dosing, 158.1, kg, 09/26/24 8:58:00 EST, Weight Dosing [facility] [place] 4. Non-smoker (Z78.9: Other specified health status) continue not smokiing Ordered: fluconazole, 150 mg = 1 tab(s), Oral, Once, take 1 tab on day one and 1 tab on day four, # 2 tab(s), Refills(s) 1, Pharmacy: [facility], 170, cm, 09/26/24 8:58:00 EST, Height/Length Dosing, 158.1, kg, 09/26/24 8:58:00 EST, Weight Dosing [facility] [place] Orders: nystatin topical, See Instructions, 30 gm, Refill(s) 1, APPLY TO THE AFFECTED AREA(S) topically TWICE DAILY, [facility], 178, cm, 07/09/24 8:51:00 EDT, Height/Length Dosing, 150, kg, 07/09/24 8:51:00 EDT, Weight Dosing predniSONE, See Instructions, TAKE 1 TABLET BY MOUTH TWICE DAILY FOR 5 DAYS, # 10 EA, Refills(s) 1, Pharmacy: [facility], 170, cm, 09/26/24 8:58:00 EST, Height/Length [...] Family History Diabetes mellitus type 2: Sister. [facility] Comment on above: Result Comment: Elec tronically Signed By: Brianna Li\.br\Date and Time Signed: 09/26/24 09:59 EST Reminderson 08-31-2024 Reminders Reminders From: Brianna Li To: [facility] - Clinical; Sent: 08/31/2024 08:36:32 EDT Show [...] 7.1 % ( - <=5.9) From: Jessica aWllace M.A. ([facility] - Clinical) To: Brianna Li; Sent: 08/31/2024 11:48:25 EDT Show up: 08/31/2024 11:45:00 EDT Subject: RE: Ambulatory Reminder Verbalizes understanding, he said he is still waiting to hear back from the insurance for the injectables [facility] Family Medicine Office/Clini c Noteon 08-30-2024 [...] 4, # 2 tab(s), Refills(s) 1, Pharmacy: [facility], 177.5, cm, 05/07/24 13:15:00 EDT, Height/Length Dosing, 152.2, kg, 05/07/24 13:15:00 EDT, Weight Dosing meloxicam, 15 mg = 1 tab(s), Oral, Daily, # 30 tab(s), Refills(s) 3, Pharmacy: [facility], 178, cm, 08/29/24 17:23:00 EDT, Height/Length Dosing, 151.2, kg, 08/29/24 17:23:00 EDT, Weight Dosing meloxicam, 15 mg = 1 tab(s), Oral, Daily, # 30 tab(s), Refills(s) 0, Pharmacy: [facility], 178, cm, 07/09/24 8:51:00 EDT, Height/Length Dosing, 150, kg, 07/09/24 8:51:00 EDT, Weight Dosing metformin, 1,000 mg = 1 tab(s), Oral, BID, # 180 tab(s), Refills(s) 0, Pharmacy: [facility], 178, cm, 07/09/24 8:51:00 EDT, Height/Length Dosing, 150, kg, 07/09/24 8:51:00 EDT, Weight Dosing metformin, 1,000 mg = 1 tab(s), Oral, BID, X 90 day(s), # 180 tab(s), Refills(s) 3, Pharmacy: [facility], 178, cm, 08/29/24 17:23:00 EDT, Height/Length Dosing, 151.2, kg, 08/29/24 17:23:00 EDT, Weight Dosing phentermine, 37.5 mg = 1 tab(s), Oral, Daily, # 30 tab(s), Refills(s) 0, Pharmacy: [facility], 178, cm, 07/09/24 8:51:00 EDT, Height/Length Dosing, 150, kg, 07/09/24 8:51:00 EDT, Weight Dosing HgbA1c 2. Body mass index [BMI] 45.0-49.9, adult (Z68.42: Body mass index [BMI] 45.0-49.9, adult) BMI education given Ordered: fluconazole, 150 mg = 1 tab(s), Oral, Once, take 1 tab on day 1 and one tab on day 4, # 2 tab(s), Refills(s) 1, Pharmacy: [facility], 177.5, cm, 05/07/24 13:15:00 EDT, Height/Length Dosing, 152.2, kg, 05/07/24 13:15:00 EDT, Weight Dosing meloxicam, 15 mg = 1 tab(s), Oral, Daily, # 30 tab(s), Refills(s) 3, Pharmacy: [facility], 178, cm, 08/29/24 17:23:00 EDT, Height/Length Dosing, 151.2, kg, 08/29/24 17:23:00 EDT, Weight Dosing meloxicam, 15 mg = 1 tab(s), Oral, Daily, # 30 tab(s), Refills(s) 0, Pharmacy: [facility], 178, cm, 07/09/24 8:51:00 EDT, Height/Length Dosing, 150, kg, 07/09/24 8:51:00 EDT, Weight Dosing metformin, 1,000 mg = 1 tab(s), Oral, BID, # 180 tab(s), Refills(s) 0, Pharmacy: [facility], 178, cm, 07/09/24 8:51:00 EDT, Height/Length Dosing, 150, kg, 07/09/24 8:51:00 EDT, Weight Dosing metformin, 1,000 mg = 1 tab(s), Oral, BID, X 90 day(s), # 180 tab(s), Refills(s) 3, Pharmacy: [facility], 178, cm, 08/29/24 17:23:00 EDT, Height/Length Dosing, 151.2, kg, 08/29/24 17:23:00 EDT, Weight Dosing phentermine, 37.5 mg = 1 tab(s), Oral, Daily, # 30 tab(s), Refills(s) 0, Pharmacy: [facility], 178, cm, 07/09/24 8:51:00 EDT, Height/Length Dosing, 150, kg, 07/09/24 8:51:00 EDT, Weight Dosing 3. Morbid obesity with BMI of 45.0-49.9, adult (E66.01: Morbid (severe) obesity due to excess calories) see above Ordered: fluconazole, 150 mg = 1 tab(s), Oral, Once, take 1 tab on day 1 and one tab on day 4, # 2 tab(s), Refills(s) 1, Pharmacy: [facility], 177.5, cm, 05/07/24 13:15:00 EDT, Height/Length Dosing, 152.2, kg, 05/07/24 13:15:00 EDT, Weight Dosing meloxicam, 15 mg = 1 tab(s), Oral, Daily, # 30 tab(s), Refills(s) 3, Pharmacy: [facility] (more content not included)... [facility] Comment on above: Result Comment: Elec tronically Signed By: Brianna Li\.br\Date and Time Signed: 08/30/24 14:37 EDT [id number] 08-30-2024 HbA1c (Bld) [Mass fraction] 7.1 % High <=5.9 [facility] Comment on above: Performed By: #### 7 [id number] #### [facility] [address] [place] [address] Ambulatory Visit Summaryon 0 07-09-2024 Ambulatory Visit [...] 8:40 AM EDT With: Brianna Li Where: [place] [address]- Medications What How Much When Why Instructions [...] for choosing us for your care. [facility] Family Medicine Office/Clini c Noteon 07-09-2024 Family [...] BID, # 180 tab(s), Refills(s) 0, Pharmacy: [facility], 178, cm, 07/09/24 8:51:00 EDT, Height/Length Dosing, 150, kg, 07/09/24 8:51:00 EDT, Weight Dosing phentermine, 37.5 mg = 1 tab(s), Oral, Daily, # 30 tab(s), Refills(s) 0, Pharmacy: [facility], 178, cm, 07/09/24 8:51:00 EDT, Height/Length Dosing, 150, kg, 07/09/24 8:51:00 EDT, Weight Dosing E&M of Est. Patient Straight Fwd 10-19 Min 28631 2. Weight gain (R63.5: Abnormal weight gain) discussed starting adipex to help with weight gain. medication agreement signed. OARRS report reviewed. RTC 4 weeks Ordered: metformin, 1,000 mg = 1 tab(s), Oral, BID, # 180 tab(s), Refills(s) 0, Pharmacy: [facility], 178, cm, 07/09/24 8:51:00 EDT, Height/Length Dosing, 150, kg, 07/09/24 8:51:00 EDT, Weight Dosing phentermine, 37.5 mg = 1 tab(s), Oral, Daily, # 30 tab(s), Refills(s) 0, Pharmacy: [facility], 178, cm, 07/09/24 8:51:00 EDT, Height/Length Dosing, 150, kg, 07/09/24 8:51:00 EDT, Weight Dosing E&M of Est. Patient Straight Fwd 10-19 Min [id number] 3. BMI 45.0-49.9, adult, (Z68.42: Body mass index [BMI] 45.0-49.9, adult)Body mass index [BMI] 45.0-49.9, adult BMI education given Ordered: metformin, 1,000 mg = 1 tab(s), Oral, BID, # 180 tab(s), Refills(s) 0, Pharmacy: [facility], 178, cm, 07/09/24 8:51:00 EDT, Height/Length Dosing, 150, kg, 07/09/24 8:51:00 EDT, Weight Dosing phentermine, 37.5 mg = 1 tab(s), Oral, Daily, # 30 tab(s), Refills(s) 0, Pharmacy: [facility], 178, cm, 07/09/24 8:51:00 EDT, Height/Length Dosing, 150, kg, 07/09/24 8:51:00 EDT, Weight Dosing 4. Morbid obesity with BMI of 45.0-49.9, adult (E66.01: Morbid (severe) obesity due to excess calories) see above Ordered: metformin, 1,000 mg = 1 tab(s), Oral, BID, # 180 tab(s), Refills(s) 0, Pharmacy: [facility], 178, cm, 07/09/24 8:51:00 EDT, Height/Length Dosing, 150, kg, 07/09/24 8:51:00 EDT, Weight Dosing phentermine, 37.5 mg = 1 tab(s), Oral, Daily, # 30 tab(s), Refills(s) 0, Pharmacy: [facility], 178, cm, 07/09/24 8:51:00 EDT, Height/Length Dosing, 150, kg, 07/09/24 8:51:00 EDT, Weight Dosing 5. Non-smoker (Z78.9: Other specified health status) continue not smoking Ordered: metformin, 1,000 mg = 1 tab(s), Oral, BID, # 180 tab(s), Refills(s) 0, Pharmacy: [facility], 178, cm, 07/09/24 8:51:00 EDT, Height/Length Dosing, 150, kg, 07/09/24 8:51:00 EDT, Weight Dosing phentermine, 37.5 mg = 1 tab(s), Oral, Daily, # 30 tab(s), Refills(s) 0, Pharmacy: [facility], 178, cm, 07/09/24 8:51:00 EDT, Height/Length [...] Tobacco Use: (more content not included)... [facility] Comment on above: Result Comment: Elec [...] 20.9 % (14.0 - 50.0) 05/07/2024 13:56 Caswell Auto 8.1 % (4.0 - 14.0) 05/07/2024 13:56 Eos Auto 4.8 % (0.0 - 8.0) 05/07/2024 13:56 Basophil Auto 0.5 % (0.0 - 2.0) 05/07/2024 13:56 Neutro Absolute 5.4 E9/L (2.0 - 7.5) 05/07/2024 13:56 Lymph Absolute 1.7 E9/L (1.0 - 4.0) 05/07/2024 13:56 Caswell Absolute 0.7 E9/L (0.2 - 1.0) 05/07/2024 [...] like a 90 day supply sent to [facility] in [place]. Please advise if you would like for me to propose a med. From: [place] ([facility] - Clinical) To: Brianna Li; Sent: 05/11/2024 14:28:31 EDT Show up: 05/11/2024 14:28:00 EDT Subject: RE: Ambulatory Reminder [facility] UZIEL w/Reflex if POSon 2023 Nuclear Ab Ql (S) Negative Invalid Interpretation Code Negative [facility] Comment on above: Result Comment: Perf ormed at: [facility] [address] [id number] PhD Brett Thompson Performed By: #### 1 [id number] #### [facility] [address] [place] [address] [id number] 05-08-2024 HbA1c (Bld) [Mass fraction] 6.7 % High <=5.9 [facility] Comment on above: Performed By: #### 7 [id number] #### [facility] [address] [place] [address] Reminderson 05-08-2024 Reminders - From: Brianna Li [...] 20.9 % (14.0 - 50.0) 05/07/2024 13:56 Caswell Auto 8.1 % (4.0 - 14.0) 05/07/2024 13:56 Eos Auto 4.8 % (0.0 - 8.0) 05/07/2024 13:56 Basophil Auto 0.5 % (0.0 - 2.0) 05/07/2024 13:56 Neutro Absolute 5.4 E9/L (2.0 - 7.5) 05/07/2024 13:56 Lymph Absolute 1.7 E9/L (1.0 - 4.0) 05/07/2024 13:56 Caswell Absolute 0.7 E9/L (0.2 - 1.0) 05/07/2024 [...] please advise patient of message below [facility] CBC w/ Auto Diffon 4 Basophils/100 WBC (Bld) 0.5 % Normal 0.0-2.0 [facility] Comment on above: Performed By: #### 2 [id number] #### [facility] [address] [place] [address] Basophils/Leukocytes Auto (Bld) [Pure # fraction] 0.0 E9/L Normal 0.0-0.2 [facility] Comment on above: Performed By: #### 2 [id number] #### [facility] [address] [place] [address] Eosinophils (Bld) [#/Vol] 0.4 E9/L Normal 0.0-0.5 [facility] Comment on above: Performed By: #### 2 [id number] #### [facility] [address] [place] [address] Eosinophils/100 WBC (Bld) 4.8 % Normal 0.0-8.0 [facility] Comment on above: Performed By: #### 2 [id number] #### [facility] [address] [place] [address] Erythrocyte distribution width (RBC) [Ratio] 13.3 % Normal 10.9-14.2 [facility] Comment on above: Performed By: #### 2 [id number] #### [facility] [address] [place] [address] Hematocrit (Bld) [Volume fraction] 44.3 % Normal 37.7-49.0 [facility] Comment on above: Performed By: #### 2 [id number] #### [facility] [address] [place] [address] Hemoglobin (Bld) [Mass/Vol] 15.0 g/dL Normal 13.5-17.5 [facility] Comment on above: Performed By: #### 2 [id number] #### [facility] [address] [place] [address] Lymphocytes (Bld) [#/Vol] 1.7 E9/L Normal 1.0-4.0 [facility] Comment on above: Performed By: #### 2 [id number] #### [facility] [address] [place] [address] Lymphocytes/100 WBC (Bld) 20.9 % Normal 14.0-50.0 [facility] Comment on above: Performed By: #### 2 [id number] #### [facility] [address] [place] [address] MCH (RBC) [Entitic mass] 28.2 pg Normal 27.0-34.0 [facility] Comment on above: Performed By: #### 2 [id number] #### [facility] [address] [place] [address] MCHC (RBC) [Mass/Vol] 33.9 g/dL Normal 31.4-36.0 [facility] Comment on above: Performed By: #### 2 [id number] #### [facility] [address] [place] [address] MCV (RBC) [Entitic vol] 83.2 fL Normal 80.0-100.0 [facility] Comment on above: Performed By: #### 2 [id number] #### [facility] [address] [place] [address] Monocytes (Bld) [#/Vol] 0.7 E9/L Normal 0.2-1.0 [facility] Comment on above: Performed By: #### 2 [id number] #### [facility] [address] [place] [address] Neutrophils (Bld) [#/Vol] 5.4 E9/L Normal 2.0-7.5 [facility] Comment on above: Performed By: #### 2 [id number] #### [facility] [address] [place] [address] Neutrophils/100 WBC (Bld) 65.7 % Normal 36.0-75.0 [facility] Comment on above: Performed By: #### 2 [id number] #### [facility] [address] [place] [address] Platelet mean volume (Bld) [Entitic vol] 9.0 fL Normal 6.4-10.8 [facility] Comment on above: Performed By: #### 2 [id number] #### [facility] [address] [place] [address] Platelets (Bld) [#/Vol] 242.0 E9/L Normal 150.0-500.0 [facility] Comment on above: Performed By: #### 2 [id number] #### [facility] [address] [place] [address] RBC (Bld) [#/Vol] 5.3 E12/L Normal 4.3-5.9 [facility] Comment on above: Performed By: #### 2 [id number] #### [facility] [address] [place] [address] WBC corrected for nucl RBC Auto (Bld) [#/Vol] 8.2 E9/L Normal 4.0-11.0 [facility] Comment on above: Performed By: #### 2 [id number] #### [facility] [address] [place] [address] CHEMISTRYOrdered By: SYSTEM SYSTEM on 05-07-2024 CRP [...] used for this result was chemiluminescence using [employer]'s Access [employer] PSA reagent. Protein [Mass/Vol] 7.0 [...] (Bld) [Mass fraction] 6.7 % High <=5.9% [facility] ChemAutoSS CMPon 05-07-2024 Albumin [Mass/Vol] 4.4 g/dL Normal 3.3-5.0 [facility] Comment on above: Performed By: #### 2 [id number] #### [facility] [address] [place] [address] Albumin/Globulin (S) [Mass conc ratio] 1.7 Normal 1.1-2.2 [facility] Comment on above: Performed By: #### 2 [id number] #### [facility] [address] [place] [address] ALP [Catalytic activity/Vol] 65 Int._Unit/L Normal 21-98 [facility] Comment on above: Performed By: #### 2 [id number] #### [facility] [address] [place] [address] ALT No additional P-5'-P [Catalytic activity/Vol] 21 Int._Unit/L Normal 6-46 [facility] Comment on above: Performed By: #### 2 [id number] #### [facility] [address] [place] [address] Anion gap [Moles/Vol] 11 mmol/L Normal 6-16 [facility] Comment on above: Performed By: #### 2 [id number] #### [facility] [address] [place] [address] AST [Catalytic activity/Vol] 17 Int._Unit/L Normal 5-43 [facility] Comment on above: Performed By: #### 2 [id number] #### [facility] [address] [place] [address] Bilirubin [Mass/Vol] 0.6 mg/dL Normal 0.0-1.1 [facility] Comment on above: Performed By: #### 2 [id number] #### [facility] [address] [place] [address] Calcium [Mass/Vol] 9.5 mg/dL Normal 8.9-11.1 [facility] Comment on above: Performed By: #### 2 [id number] #### [facility] [address] [place] [address] Chloride [Moles/Vol] 102 mmol/L Normal 101-111 [facility] Comment on above: Performed By: #### 2 [id number] #### [facility] [address] [place] [address] CO2 [Moles/Vol] 29 mmol/L Normal 21-31 [facility] Comment on above: Performed By: #### 2 [id number] #### [facility] [address] [place] [address] Creatinine [Mass/Vol] 0.8 mg/dL Normal 0.5-1.3 [facility] Comment on above: Performed By: #### 2 [id number] #### [facility] [address] [place] [address] Globulin (S) [Mass/Vol] 2.6 g/dL Normal 1.4-4.0 [facility] Comment on above: Performed By: #### 2 [id number] #### [facility] [address] [place] [address] Glucose [Mass/Vol] 174 mg/dL Normal 55-199 [facility] Comment on above: Performed By: #### 2 [id number] #### [facility] [address] [place] [address] Potassium [Moles/Vol] 4.2 mmol/L Normal 3.5-5.3 [facility] Comment on above: Performed By: #### 2 [id number] #### [facility] [address] [place] [address] Protein [Mass/Vol] 7.0 g/dL Normal 6.0-7.8 [facility] Comment on above: Performed By: #### 2 [id number] #### [facility] [address] [place] [address] Sodium [Moles/Vol] 138 mmol/L Normal 135-145 [facility] Comment on above: Performed By: #### 2 [id number] #### [facility] [address] [place] [address] Urea nitrogen [Mass/Vol] 15 mg/dL Normal 5-21 [facility] Comment on above: Performed By: #### 2 [id number] #### [facility] [address] [place] [address] Urea nitrogen/Creatinine [Mass ratio] 19 No Units Normal 10-20 [facility] Comment on above: Performed By: #### 2 [id number] #### [facility] [address] [place] [address] CRPon 05-07-2024 CRP [Mass/Vol] 0.4 mg/dL Normal <=1.9 [facility] Comment on above: Performed By: #### 2 [id number] #### [facility] [address] [place] [address] Family Medicine Office/Clini c Noteon 05-07-2024 Family [...] at home. pt did get metformin from [facility] and has been taking that for the last couple of weeks. Ordered: fluconazole, 150 mg = 1 tab(s), Oral, Once, take 1 tab on day 1 and one tab on day 4, # 2 tab(s), Refills(s) 1, Pharmacy: [facility], 177.5, cm, 05/07/24 13:15:00 EDT, Height/Length Dosing, 152.2, kg, 05/07/24 13:15:00 EDT, Weight Dosing meloxicam, 15 mg = 1 tab(s), Oral, Daily, # 30 tab(s), Refills(s) 0, Pharmacy: [facility], 177.5, cm, 05/07/24 13:15:00 EDT, Height/Length Dosing, 152.2, kg, 05/07/24 13:15:00 EDT, Weight Dosing methylPREDNISolone, = 1 packet(s), Oral, As Directed, as directed on package labeling, X 6 day(s), # 21 tab(s), Refills(s) 0, Pharmacy: [facility], 177.5, cm, 05/07/24 13:15:00 EDT, Height/Length Dosing, 152.2, kg, 05/07/24 13:15:00 EDT, Weight Dosing nystatin topical, 1 marie, Topical, BID, 30 gram, Refill(s) 1, [facility], 177.5, cm, 05/07/24 13:15:00 EDT, Height/Length Dosing, 152.2, kg, 05/07/24 13:15:00 EDT, Weight Dosing UIZEL w/Reflex if POS C-Reactive Protein CBC w/ Auto Diff Comprehensive Metabolic Panel HgbA1c Lab Specimen Collect [id number] Lipid Panel PSA Screen, Total Thyroid Stimulating [...] 4, # 2 tab(s), Refills(s) 1, Pharmacy: [facility], 177.5, cm, 05/07/24 13:15:00 EDT, Height/Length Dosing, 152.2, kg, 05/07/24 13:15:00 EDT, Weight Dosing meloxicam, 15 mg = 1 tab(s), Oral, Daily, # 30 tab(s), Refills(s) 0, Pharmacy: [facility], 177.5, cm, 05/07/24 13:15:00 EDT, Height/Length Dosing, 152.2, kg, 05/07/24 13:15:00 EDT, Weight Dosing methylPREDNISolone, = 1 packet(s), Oral, As Directed, as directed on package labeling, X 6 day(s), # 21 tab(s), Refills(s) 0, Pharmacy: [facility], 177.5, cm, 05/07/24 13:15:00 EDT, Height/Length Dosing, 152.2, kg, 05/07/24 13:15:00 EDT, Weight Dosing nystatin topical, 1 marie, Topical, BID, 30 gram, Refill(s) 1, [facility], 177.5, cm, 05/07/24 13:15:00 EDT, Height/Length Dosing, 152.2, kg, 05/07/24 13:15:00 EDT, Weight Dosing UZIEL w/Reflex if POS C-Reactive Protein CBC w/ Auto Diff Comprehensive Metabolic Panel HgbA1c Lab Specimen Collect [id number] Lipid Panel PSA Screen, Total Thyroid Stimulating [...] 4, # 2 tab(s), Refills(s) 1, Pharmacy: [facility], 177.5, cm, 05/07/24 13:15:00 EDT, Height/Length Dosing, 152.2, kg, 05/07/24 13:15:00 EDT, Weight Dosing meloxicam, 15 mg = 1 tab(s), Oral, Daily, # 30 tab(s), Refills(s) 0, Pharmacy: [facility], 177.5, cm, 05/07/24 13:15:00 EDT, Height/Length Dosing, 152.2, kg, 05/07/24 13:15:00 EDT, Weight Dosing methyl (more content not included)... Normal [facility] Comment on above: Result Comment: Elec tronically Signed By: Brianna Li\.br\Date and Time Signed: 05/07/24 14:27 EDT HEMATOLOGYOrdered [...] 05-07-2024 Cholesterol [Mass/Vol] 248 mg/dL High 120-200 [facility] Comment on above: Performed By: #### 2 [id number] #### [facility] [address] [place] [address] Cholesterol in HDL [Mass/Vol] 39 mg/dL Invalid Interpretation Code [facility] Comment on above: Result Comment: '>= 60 LOW RISK' '<= 40 HIGH RISK' Performed By: #### 2 [id number] #### [facility] [address] [place] [address] Cholesterol in LDL [Mass/Vol] 164 mg/dL High <=129 [facility] Comment on above: Performed By: #### 2 [id number] #### [facility] [address] [place] [address] Cholesterol in VLDL [Mass/Vol] 58 mg/dL High 7-40 [facility] Comment on above: Performed By: #### 2 [id number] #### [facility] [address] [place] [address] Triglyceride [Mass/Vol] 288 mg/dL High <=149 [facility] Comment on above: Performed By: #### 2 [id number] #### [facility] [address] [place] [address] PSA Screen, Totalon 05-07-20 Prostate specific Ag [Mass/Vol] 0.4 ng/mL Normal 0.1-3.5 [facility] Comment on above: Result Comment: The concentration of PSA determined by different manufacturers can vary due to differences in assay methods and reagent specificity. Values obtained from different assay methods cannot be used interchangeably. The methodology used for this result was chemiluminescence using [employer]'s Access Hybritech PSA reagent. Performed By: #### 1 [id number] #### [facility] [address] [place] [address] Patient Educationon 05-07-20 Patient Education Orthopedics Shoulder [...] hands toward (more content not included)... Normal [facility] Physician Orderon 05-07-2024 Physician Order [id number]#[id number] TIFF Normal [facility] TSHon 05-07-2024 TSH Qn 1.20 m[IU]/L Normal 0.34-5.60 [facility] Comment on above: Performed By: #### 2 [id number] #### [facility] [address] [place] [address] eGFRon 05-07-2024 eGFR 105 mL/min/1.73 m2 Normal >=59 [facility] Comment on above: Order Comment: Order added by Discern Expert. Performed By: #### 1 [id number] #### [facility] [address] [place] [address] XR KNEE DE 4V or >on 2021 [...] BONES: Moderate to severe tricompartmental osteoarthritis with iafa-av-angi articulation of the medial compartment. SOFT TISSUES: Negative. No visible soft tissue swelling. OTHER: Moderate suprapatellar joint effusion IMPRESSION: RIGHT CONCLUSION: Moderate to severe osteoarthritis LEFT CONCLUSION: Moderate to severe osteoarthritis with joint effusion Electronically authenticated by: JACQUES ADAN Date: 2022-10-22 12:35 Normal [facility] CBC AUTO DIFFon 01-29-2022 BASO # 0.0 103/ul Normal 0.0-0.1 [facility] Comment on above: Performed By: #### C BC #### [facility] [address] [address] [address] Arben Marcial Basophils/100 WBC (Bld) 0.5 % Normal 0.2-2.0 [facility] Comment on above: Performed By: #### C BC #### [facility] [address] [place] [address] Dr. Arben Marcial EO # 0.3 103/ul Normal 0.0-0.7 [facility] Comment on above: Performed By: #### C BC #### [facility] [address] [place] [address] Dr. Arben Marcial Eosinophils/100 WBC (Bld) 4.0 % Normal 0.9-7.0 [facility] Comment on above: Performed By: #### C BC #### [facility] [address] [place] [address] Dr. Arben Marcail Erythrocyte distribution width (RBC) [Ratio] 13.0 % Normal 11.0-15.0 [facility] Comment on above: Performed By: #### C BC #### [facility] [address] [place] [address] Dr. Arben Marcial Hematocrit (Bld) [Volume fraction] 44.0 % Normal 42.0-54.0 [facility] Comment on above: Performed By: #### C BC #### [facility] [address] [place] [address] Dr. Arben Marcial Hemoglobin (Bld) [Mass/Vol] 14.5 g/dL Normal 14.0-18.0 [facility] Comment on above: Performed By: #### C BC #### [facility] [address] [place] [address] Dr. Arben Marcial IG # 0.03 10e3/ul Normal 0.00-0.03 [facility] Comment on above: Performed By: #### C BC #### [facility] [address] [place] [address] Dr. Arben Marcial IG % 0.4 % Normal 0.0-0.5 [facility] Comment on above: Performed By: #### C BC #### [facility] [address] [place] [address] Dr. Arben Marcial LYMPH # 1.5 103/ul Normal 1.2-3.8 [facility] Comment on above: Performed By: #### C BC #### [facility] [address] [address] [address] Arben Marcial Lymphocytes/100 WBC (Bld) 18.8 % Critically low 20.5-60.0 [facility] Comment on above: Performed By: #### C BC #### [facility] [address] [address] [address] Arben Marcial MANUAL DIFF REQ NO Normal [facility] Comment on above: Performed By: #### C BC #### [facility] [address] [place] [address] Dr. Arben Marcial MCH (RBC) [Entitic mass] 27.8 pg Normal 25.9-34.0 [facility] Comment on above: Performed By: #### C BC #### [facility] [address] [place] [address] Dr. Arben Marcial MCHC (RBC) [Mass/Vol] 33.0 g/dL Normal 29.9-35.2 [facility] Comment on above: Performed By: #### C BC #### [facility] [address] [place] [address] Dr. Arben Marcial MCV (RBC) [Entitic vol] 84.5 fL Normal 80.0-94.0 [facility] Comment on above: Performed By: #### C BC #### [facility] [address] [place] [address] Dr. Arben Marcial MONO # 0.6 103/ul Normal 0.3-0.8 [facility] Comment on above: Performed By: #### C BC #### [facility] [address] [place] [address] Dr. Arben Marcial Monocytes/100 WBC (Bld) 7.4 % Normal 1.7-12.0 [facility] Comment on above: Performed By: #### C BC #### [facility] [address] [place] [address] Dr. Arben Marcial NEUT # 5.5 103/ul Normal 1.4-6.5 [facility] Comment on above: Performed By: #### C BC #### [facility] [address] [address] [address] Arben Marcial Neutrophils/100 WBC (Bld) 68.9 % Normal 43.0-75.0 [facility] Comment on above: Performed By: #### C BC #### [facility] [address] [place] [address] Dr. Arben Marcial Platelet mean volume (Bld) [Entitic vol] 9.9 fL Normal 9.5-13.5 [facility] Comment on above: Performed By: #### C BC #### [facility] [address] [address] [address] Arben Marcial PLT 246 103/ul Normal 150-450 [facility] Comment on above: Performed By: #### C BC #### [facility] [address] [place] [address] Dr. Arben Marcial RBC 5.21 106/ul Normal 4.70-6.10 [facility] Comment on above: Performed By: #### C BC #### [facility] [address] [place] [address] Dr. Arben Marcial WBC 8.0 103/ul Normal 4.0-11.0 [facility] Comment on above: Performed By: #### C BC #### [facility] [address] [place] [address] Dr. Arben Marcial GLYCOHEMOGLOBIN A1Con 2021 ADA RECOMMENDATION ADA THERAPEUTIC TARG ET 6.0 - 7.0 ACTION SUGGESTED > 7.0 Normal [facility] Comment on above: Performed By: #### A 1C #### [facility] [address] [place] [address] Dr. Arben Marcial Glucose [Mass/Vol] 166 mg/dL Normal [facility] Comment on above: Performed By: #### A 1C #### [facility] [address] [place] [address] Dr. Arben Marcial HbA1c (Bld) [Mass fraction] 7.4 % Critically high <=6.0 [facility] Comment on above: Performed By: #### A 1C #### [facility] [address] [place] [address] Dr. Arben Marcial MICROALBUMIN, RAND URon 01-12 mALB 2.3 mg/L Normal <=30.0 [facility] Comment on above: Performed By: #### M ALBR #### [facility] [address] [place] [address] Dr. Arben Marcial PROF 14(COMP METB)on 022 Albumin [Mass/Vol] 3.9 g/dL Normal 3.4-5.0 [facility] Comment on above: Performed By: #### C MP #### [facility] [address] [place] [address] Dr. Arben Marcial Albumin/Globulin [Mass ratio] 1.1 {ratio} Normal [facility] Comment on above: Performed By: #### C MP #### [facility] [address] [place] [address] Dr. Arben Marcial ALP [Catalytic activity/Vol] 69 U/L Normal 46-116 [facility] Comment on above: Performed By: #### C MP #### [facility] [address] [place] [address] Dr. Arben Marcial ALT [Catalytic activity/Vol] 64 U/L Critically high 16-63 [facility] Comment on above: Performed By: #### C MP #### [facility] [address] [place] [address] Dr. Arben Marcial Anion gap [Moles/Vol] 12.2 mmol/L Normal [facility] Comment on above: Performed By: #### C MP #### [facility] [address] [place] [address] Dr. Arben Marcial AST [Catalytic activity/Vol] 34 U/L Normal 15-37 [facility] Comment on above: Performed By: #### C MP #### [facility] [address] [place] [address] Dr. Arben Marcial Bilirubin [Mass/Vol] 0.5 mg/dL Normal 0.2-1.3 [facility] Comment on above: Performed By: #### C MP #### [facility] [address] [place], [place] [address] Dr. Arben Marcial Calcium [Mass/Vol] 9.2 mg/dL Normal 8.5-10.1 [facility] Comment on above: Performed By: #### C MP #### [facility] [address] [place] [address] Dr. Arben Marcial Chloride [Moles/Vol] 102 mmol/L Normal 98-107 [facility] Comment on above: Performed By: #### C MP #### [facility] [address] [place] [address] Dr. Arben Marcial CO2 [Moles/Vol] 29.6 mmol/L Normal 22.0-30.0 [facility] Comment on above: Performed By: #### C MP #### [facility] [address] [place] [address] Dr. Arben Marcial Creatinine [Mass/Vol] 1.00 mg/dL Normal 0.66-1.25 [facility] Comment on above: Performed By: #### C MP #### [facility] [address] [place] [address] Dr. Arben Marcial EGFR-AF [place]OREAN >60 Normal >=60 [facility] Comment on above: Performed By: #### C MP #### [facility] [address] [place] [address] Dr. Arben Marcial EGFR-NON AF [place] >60 Normal >=60 [facility] Comment on above: Performed By: #### C MP #### [facility] [address] [place] [address] Dr. Arben Marcial Globulin (S) [Mass/Vol] 3.4 g/dL Normal [facility] Comment on above: Performed By: #### C MP #### [facility] [address] [place] [address] Dr. Arben Marcial Glucose [Mass/Vol] 205 mg/dL Critically high 74-106 [facility] Comment on above: Performed By: #### C MP #### [facility] [address] [place] [address] Dr. Arben Marcial Potassium [Moles/Vol] 4.8 mmol/L Normal 3.4-5.0 [facility] Comment on above: Performed By: #### C MP #### [facility] [address] [address] [address] Arben Marcial Protein [Mass/Vol] 7.3 g/dL Normal 6.1-8.2 [facility] Comment on above: Performed By: #### C MP #### [facility] [address] [address] [address] Arben Marcial Sodium [Moles/Vol] 139 mmol/L Normal 137-145 [facility] Comment on above: Performed By: #### C MP #### [facility] [address] [address] [address] Arben Marcial Urea nitrogen [Mass/Vol] 15.0 mg/dL Normal 7.0-18.0 [facility] Comment on above: Performed By: #### C MP #### [facility] [address] [address] [address] Arben Marcial Urea nitrogen/Creatinine [Mass ratio] 15.0 mg/mg Normal [facility] Comment on above: Performed By: #### C MP #### [facility] [address] [address] [address] Arben Marcial Vital Signs Date Time Vital Sign Value Performing Clinician Concepción jackson 11-25-2024 13:41-0500 Heart rate 72 /min Zeb Ritchie [facility] 11-25-2024 13:41-0500 SaO2% (BldA) [Mass fraction] 96 % Zeb Ritchie [facility] 11-25-2024 13:33-0500 Heart rate 70 /min Zeb Ritchie [facility] 11-25-2024 13:33-0500 Respiratory rate 16 /min Zeb Ritchie [facility] 11-25-2024 13:33-0500 SaO2% (BldA) [Mass fraction] 96 % Zeb Ritchie [facility] 11-25-2024 13:25-0500 Diastolic blood pressure 82 mm[Hg] Zeb Chau [facility] 11-25-2024 13:25-0500 Heart rate 72 /min Zeb Chau [facility] 11-25-2024 13:25-0500 Heart rate 69 /min Zeb Chau [facility] 11-25-2024 13:25-0500 Hourly Rounding Zeb Chau [facility] 11-25-2024 13:25-0500 Mean blood pressure 98 mm[Hg] Zeb Chau [facility] 11-25-2024 13:25-0500 Respiratory rate 23 /min Zeb Chau [facility] 11-25-2024 13:25-0500 Respiratory rate 16 /min Zeb Chau [facility] 11-25-2024 13:25-0500 SaO2% (BldA) [Mass fraction] 94 % Zeb Chau [facility] 11-25-2024 13:25-0500 SaO2% (BldA) [Mass fraction] 93 % Zeb Chau [facility] 11-25-2024 13:25-0500 Systolic blood pressure 130 mm[Hg] Zeb Chau [facility] 11-25-2024 12:17-0500 Respiratory rate 23 /min Zeb Chau [facility] 11-25-2024 11:45-0500 Body temperature 98.06 [degF] Ezb Chau [facility] 11-25-2024 11:45-0500 Diastolic blood pressure 94 mm[Hg] Zeb Chau [facility] 11-25-2024 11:45-0500 Heart rate 73 /min Zeb Chau [facility] 11-25-2024 11:45-0500 Respiratory rate 16 /min Zeb Chau [facility] 11-25-2024 11:45-0500 Systolic blood pressure 163 mm[Hg] Zeb Chau [facility] 11-23-2024 07:39-0500 Blood Pressure Location Luis Carlos Kirnus [facility] 11-23-2024 07:39-0500 Diastolic blood pressure 93 mm[Hg] Luis Carlos Kirnus [facility] 11-23-2024 07:39-0500 Heart rate 75 /min Luis Carlos Kirnus [facility] 11-23-2024 07:39-0500 Respiratory rate 16 /min Luis Carlos Kirnus [facility] 11-23-2024 07:39-0500 SaO2% (BldA) [Mass fraction] 97 % Luis Carlos Kirnus [facility] 11-23-2024 07:39-0500 Systolic blood pressure 151 mm[Hg] Luis Carlos Kirnus [facility] 11-02-2024 14:16-0500 Diastolic blood pressure 86 mm[Hg] Luis Carlos Kirnus [facility] 11-02-2024 14:16-0500 Heart rate 75 /min Luis Carlos Kirnus [facility] 11-02-2024 14:16-0500 Respiratory rate 16 /min Luis Carlos Kirnus [facility] 11-02-2024 14:16-0500 SaO2% (BldA) [Mass fraction] 94 % Luis Carlos Kirnus [facility] 11-02-2024 14:16-0500 Systolic blood pressure 146 mm[Hg] Luis Carlos Pineda [facility] Encounters Encounter Date Encounter Type Care Provider Facility Start: 11-25-2024 End: 11-25-2024 Emergency department patient visit Zeb Ritchie [facility] Start: 11-23-2024 End: 11-23-2024 Admission to same day surgery center Luis Carlos Pineda [facility] Start: 11-23-2024 End: 11-23-2024 ambulatory MD Luis Carlos Pineda [place]: 11-19-2024 End: 11-19-2024 Lab Drop off Brianna L Brittney [facility] Start: 11-19-2024 End: 11-19-2024 ambulatory Brianna L Brittney Facility:[facility] Start: 11-02-2024 End: 11-02-2024 ambulatory MD Luis Carlos Pineda [place] Start: 11-02-2024 End: 11-02-2024 Patient encounter procedure Luis Carlos Pineda [facility] Start: 10-30-2024 End: 10-30-2024 ambulatory Brianna L Brittney [place] Start: 10-30-2024 End: 10-30-2024 Lab Drop off Brianna L Brittney [facility] Start: 10-30-2024 End: 10-30-2024 ambulatory Brianna L Brittney Facility:[facility] Start: 10-24-2024 End: 10-24-2024 ambulatory Brianna L Brittney Facility:[facility] [place] Start: 09-26-2024 End: 09-26-2024 ambulatory Brianna L Brittney Facility:[facility] [place] Start: 08-29-2024 End: 08-29-2024 Lab Drop off Brianna L Brittney [facility] Start: 08-29-2024 End: 08-29-2024 ambulatory Brianna L Brittney [place] Start: 08-13-2024 End: 08-13-2024 ambulatory Brianna L Brittney Facility:[facility] Start: 07-09-2024 End: 07-09-2024 ambulatory Brianna L Brittney Facility:[facility] [place] Start: 06-29-2024 End: 06-29-2024 ambulatory TICKET WRITER Brianna L Brittney Facility:[facility] [place] Start: 05-07-2024 End: 05-07-2024 Lab Drop off Brianna L Brittney [facility] Start: 05-07-2024 End: 05-07-2024 ambulatory Brianna L Brittney [place] Start: 05-01-2024 End: 05-01-2024 ambulatory TICKET WRITER Brianna L Brittney Facility:[facility] Start: 04-26-2024 ambulatory TICKET WRITER Brianna Brittney Facilit y:[facility] [place] Start: 10-22-2022 End: 10-23-[address] ALEJANDRA FLORES Facility:[facility] Start: 01-29-2022 End: 01-30-[address] ALEJANDRA FLORES Facility:[facility] Procedures Date Procedure Procedure Detail Performing Clinician Start: 11-23-2024 Catheterization of l eft heart Luis Carlos Pineda Start: 11-23-2024 Coronary artery sten t (physical object) Luis Carlos Davenportus Comment on above: STent to LAD Surgical procedure Brianna Schw ab Plan of Treatment Date Care Activity Detail Author Start: 11-28-2024 ambulatory Ambulatory Facility:[facility] Jeni Payers Date Payer Category Payer Unknown [id number] 2024 Self-pay 2024 Private Health Insurance [id number] 1970 Unknown [id number] 2.16.84 [id number] 1970 Unknown [id number] 2.16.84 [id number] 1970 Unknown [id number] 2.16.8 40.1.783352.3.579.2.727 1970 Unknown [id number] 2.16.8 40.1.669701.3.579.2.727 1970 Unknown [id number] 2.16.8 40.1.783732.3.579.2.727 1970 Unknown [id number] 2.16.8 40.1.917645.3.579.2.727 1970 Unknown [id number] 2.16.8 40.1.802921.3.579.2.727 1970 Unknown [id number] 2.16.8 40.1.772509.3.579.2.727 1970 Unknown [id number] 2.16.8 40.1.729020.3.579.2.727 1970 Unknown [id number] 2.16.8 40.1.067641.3.579.2.727 1970 Unknown [id number] 2.16.8 40.1.414099.3.579.2.727 1970 Unknown [id number] 2.16.8 40.1.103199.3.579.2.727 1970 Unknown [id number] 2.16.8 40.1.843669.3.579.2.727 1970 Unknown [id number] 2.16.8 40.1.518725.3.579.2.727 1970 Unknown [id number] 2.16.8 40.1.651973.3.579.2.727 1970 Unknown [id number] 2.16.8 40.1.078551.3.579.2.727 1970 Unknown [id number] 2.16.8 40.1.729389.3.579.2.727 1970 Unknown [id number] 2.16.8 40.1.180256.3.579.2.727 1970 Unknown [id number] 2.16.8 40.1.738426.3.579.2.727 1970 Unknown [id number] 2.16.8 40.1.632620.3.579.2.727 1959 Private Health Insurance [id number] Social History Date Type Detail Facility Start: 05-07-2024 End: 11-02-2024 Tobacco smoking status Never smoked tobacco (finding) [facility] Sex Assigned At Male [facility] Tobacco smoking status Never [facility] Medical Equipment Procedure Code Equipment Code Equipment Origin al Text Equipment Identifier Dates PTCA of LAD Unkn own 11/23/24 Unknown Left Anterior Descending Coronary Artery FDA Start: 11-23-2024 PTCA of LAD Unkn own 11/23/24 Unknown Left Anterior Descending Coronary Artery FDA Start: 11-23-2024 Functional Status Date Assessment Result Facility 11-25-2024 Functional Status N/A [facility] 11-23-2024 Functional Status No [facility] 11-02-2024 Functional Status N/A [facility] Clinical Notes 11-14-2024 to 11-25-2024 Note Date & Type Note Facility 11-25-2024 Hospital Discharge instructions Patient Education 11/25/2024 13:42:02 Cough, Adult Cough, Adult Coughing is a reflex that clears your throat and airways (respiratory system). It helps heal and protect your lungs. It is normal to cough from time to time. A cough that happens with other symptoms or that lasts a long time may be a sign of a condition that needs treatment. A short-term (acute) cough may only last 2 3 weeks. A long-term (chronic) cough may last 8 or more weeks. Coughing is often caused by: Diseases, such as: ?An infection of the respiratory system. ?Asthma or other heart or lung diseases. ?Gastroesophageal reflux. This is when acid comes back up from the stomach. Breathing in things that irritate your lungs. Allergies. Postnasal drip. This is when mucus runs down the back of your throat. Smoking. Some medicines. Follow these instructions at home: Medicines Take yhll-zbw-gnxyccc and prescription medicines only as told by your health care provider. Talk with your provider before you take cough medicine (cough suppressants). Eating and drinking Do not drink alcohol. Avoid caffeine. Drink enough fluid to keep your pee (urine) pale yellow. Lifestyle Avoid cigarette smoke. Do not use any products that contain nicotine or tobacco. These products include cigarettes, chewing tobacco, and vaping devices, such as e-cigarettes. If you need help quitting, ask your provider. Avoid things that make you cough. These may include perfumes, candles, cleaning products, or campfire smoke. General instructions Watch for any changes to your cough. Tell your provider about them. Always cover your mouth when you cough. If the air is dry in your bedroom or home, use a cool mist vaporizer or humidifier. If your cough is worse at night, try to sleep in a semi-upright position. Rest as needed. Contact a health care provider if: You have new symptoms, or your symptoms get worse. You cough up pus. You have a fever that does not go away or a cough that does not get better after 2 3 weeks. You cannot control your cough with medicine, and you are losing sleep. You have pain that gets worse or is not helped with medicine. You lose weight for no clear reason. You have night sweats. Get help right away if: You cough up blood. You have trouble breathing. Your heart is beating very fast. These symptoms may be an emergency. Get help right away. Call 911. Do not wait to see if the symptoms will go away. Do not drive yourself to the hospital. This information is not intended to replace advice given to you by your health care provider. Make sure you discuss any questions you have with your health care provider. Document Revised: 07/01/2023 Document Reviewed: 07/01/2023 [employer] Patient Education 2023 [employer]. 11/25/2024 13:42:02 Bronchospasm, Adult Bronchospasm, Adult Bronchospasm is a tightening of the smooth muscle that wraps around the small airways in the lungs. When the muscle tightens, the small airways narrow. Narrowed airways limit the air you breathe in or out of your lungs. Inflammation (swelling) and more mucus (sputum) than usual can further irritate the airways. This can make it very hard to breathe. Bronchospasm can happen suddenly or over a period of time. What are the causes? Common causes of this condition include: An infection, such as a cold or sinus drainage. Exercise. Strong odors from aerosol sprays, and fumes from perfume, candles, and household senior revenue accountant. Cold air. Stress or strong emotions such as crying or laughing. What increases the risk? The following factors may make you more likely to develop this condition: Having asthma. Smoking or being around someone who smokes (secondhand smoke). Seasonal allergies, such as pollen or mold. Allergic reaction (anaphylaxis) to food, medicine, or insect bites or stings. What are the signs or symptoms? Symptoms of this condition include: Making a high-pitched whistling sound when you breathe, most often when you breathe out (wheezing). Coughing. Chest tightness. Shortness of breath. Decreased ability to exercise. Noisy breathing or a high-pitched cough. How is this diagnosed? This condition may be diagnosed based on your medical history and a physical exam. Your health care provider may also perform tests, including: A chest X-ray. Lung function tests. How is this treated? This condition may be treated by: Using inhaled medicines. These open up (relax) the airways and help you breathe. They can be taken with a metered dose inhaler or a nebulizer device. Taking corticosteroid medicines. These may be given to reduce inflammation and swelling. Removing the irritant or trigger that started the bronchospasm. Follow these instructions at home: Medicines Take saoy-xeb-knsoqlq and prescription medicines only as told by your health care provider. If you need to use an inhaler or nebulizer to take your medicine, ask your health care provider how to use it correctly. You may be given a spacer to use with your inhaler. This makes it easier to get the medicine from the inhaler into your lungs. Lifestyle Do not use any products that contain nicotine or tobacco. These products include cigarettes, chewing tobacco, and vaping devices, such as e-cigarettes. If you need help quitting, ask your health care provider. Keep track of things that trigger your bronchospasm. Avoid these if possible. When pollen, air pollution, or humidity levels are bad, keep windows closed and use an air conditioner or go to places that have air conditioning. Find ways to manage stress and your emotions, such as mindfulness, relaxation, or breathing exercises. Activity Some people have bronchospasm when they exercise. This is called exercise-induced bronchoconstriction (EIB). If you have this problem, talk with your health care provider about how to manage EIB. Some tips include: Using your fast-acting inhaler before exercise. Exercising indoors if it is very cold or humid, or if the pollen and mold counts are high. Warming up and cool down before and after exercise. Stopping exercising right away if your symptoms start or get worse. General instructions If you have asthma, make sure you have an asthma action plan. Stay up to date on your immunizations. Keep all follow-up visits. This is important. Get help right away if: You have trouble breathing. Your wheezing and coughing do not get better after taking your medicine. You have chest pain. You have trouble speaking more than one-word sentences. These symptoms may be an emergency. Get help right away. Call 911. Do not wait to see if the symptoms will go away. Do not drive yourself to the hospital. Summary Bronchospasm is a tightening of the smooth muscle that wraps around the small airways in the lungs. Some people have bronchospasm when they exercise. This is called exercise-induced bronchoconstriction (EIB). If you have this problem, talk with your health care provider about how to manage EIB. Do not use any products that contain nicotine or tobacco. These products include cigarettes, chewing tobacco, and vaping devices, such as e-cigarettes. If you need help quitting, ask your health care provider. Get help right away if your wheezing and coughing do not get better after taking your medicine. This information is not intended to replace advice given to you by your health care provider. Make sure you discuss any questions you have with your health care provider. Document Revised: 05/24/2022 Document Reviewed: 05/24/2022 Else[employer] Patient Education 2023 [employer]. Follow Up Care 11/25/2024 11:39:05 With:Brianna Lugo Address: [address] [place] [address] Business (1) When:11/28/2024 13:35:21 [facility] 11-25-2024 Note ED Patient Education Note ENT Cough, Adult Coughing is a reflex that clears your throat and airways (respiratory system). It helps heal and protect your lungs. It is normal to cough from time to time. A cough that happens with other symptoms or that lasts a long time may be a sign of a condition that needs treatment. A short-term (acute) cough may only last 2?3 weeks. A long-term (chronic) cough may last 8 or more weeks. Coughing is often caused by: ??? Diseases, such as: ? An infection of the respiratory system. ? Asthma or other heart or lung diseases. ? Gastroesophageal reflux. This is when acid comes back up from the stomach. ??? Breathing in things that irritate your lungs. ??? Allergies. ??? Postnasal drip. This is when mucus runs down the back of your throat. ??? Smoking. ??? Some medicines. Follow these instructions at home: Medicines ??? Take vbre-cyi-jlnaozm and prescription medicines only as told by your health care provider. ??? Talk with your provider before you take cough medicine (cough suppressants). Eating and drinking ??? Do not drink alcohol. ??? Avoid caffeine. ??? Drink enough fluid to keep your pee (urine) pale yellow. Lifestyle ??? Avoid cigarette smoke. ??? Do not use any products that contain nicotine or tobacco. These products include cigarettes, chewing tobacco, and vaping devices, such as e-cigarettes. If you need help quitting, ask your provider. ??? Avoid things that make you cough. These may include perfumes, candles, cleaning products, or campfire smoke. General instructions ??? Watch for any changes to your cough. Tell your provider about them. ??? Always cover your mouth when you cough. ??? If the air is dry in your bedroom or home, use a cool mist vaporizer or humidifier. ??? If your cough is worse at night, try to sleep in a semi-upright position. ??? Rest as needed. Contact a health care provider if: ??? You have new symptoms, or your symptoms get worse. ??? You cough up pus. ??? You have a fever that does not go away or a cough that does not get better after 2?3 weeks. ??? You cannot control your cough with medicine, and you are losing sleep. ??? You have pain that gets worse or is not helped with medicine. ??? You lose weight for no clear reason. ??? You have night sweats. Get help right away if: ??? You cough up blood. ??? You have trouble breathing. ??? Your heart is beating very fast. These symptoms may be an emergency. Get help right away. Call 911. ??? Do not wait to see if the symptoms will go away. ??? Do not drive yourself to the hospital. This information is not intended to replace advice given to you by your health care provider. Make sure you discuss any questions you have with your health care provider. Document Revised: 07/01/2023 Document Reviewed: 07/01/2023 [employer] Patient Education ? 2023 [employer] Pulmonary Medicine Bronchospasm, Adult Bronchospasm is a tightening of the smooth muscle that wraps around the small airways in the lungs. When the muscle tightens, the small airways narrow. Narrowed airways limit the air you breathe in or out of your lungs. Inflammation (swelling) and more mucus (sputum) than usual can further irritate the airways. This can make it very hard to breathe. Bronchospasm can happen suddenly or over a period of time. What are the causes? Common causes of this condition include: ??? An infection, such as a cold or sinus drainage. ??? Exercise. ??? Strong odors from aerosol sprays, and fumes from perfume, candles, and household senior revenue accountant. ??? Cold air. ??? Stress or strong emotions such as crying or laughing. What increases the risk? The following factors may make you more likely to develop this condition: ??? Having asthma. ??? Smoking or being around someone who smokes (secondhand smoke). ??? Seasonal allergies, such as pollen or mold. ??? Allergic reaction (anaphylaxis) to food, medicine, or insect bites or stings. What are the signs or symptoms? Symptoms of this condition include: ??? Making a high-pitched whistling sound when you breathe, most often when you breathe out (wheezing). ??? Coughing. ??? Chest tightness. ??? Shortness of breath. ??? Decreased ability to exercise. ??? Noisy breathing or a high-pitched cough. How is this diagnosed? This condition may be diagnosed based on your medical history and a physical exam. Your health care provider may also perform tests, including: ??? A chest X-ray. ??? Lung function tests. How is this treated? This condition may be treated by: ??? Using inhaled medicines. These open up (relax) the airways and help you breathe. They can be taken with a metered dose inhaler or a nebulizer device. ??? Taking corticosteroid medicines. These may be given to reduce inflammation and swelling. ??? Removing the irritant or t (more content not included)... [facility] 11-23-2024 Hospital Discharge instructions Patient Education 11/23/2024 12:32:21 CV - Cardiovascular PCI Discharge Instructions (Custom) [place], [place] Cardiovascular PCI DISCHARGE INSTRUCTIONS Diet: Resume pre-procedure diet. Increase water intake the next 2 days to flush dye out of the body. Activity: If radial access: Limit your activity today. Do not operate a vehicle, machinery or power tools. NO LIFTING OVER 3 POUNDS for 3 days. Do not bend your wrist for 24 hours. May resume driving in 24 hours. Let pain/discomfort guide your activity. If you are having pain, stop. No sexual activity for 1 week. Return to the Emergency Room if you have trouble breathing, walking or nausea and vomiting. Medications: Resume pre-procedure medication, unless otherwise directed. Hold the following medications for 48 hours post procedure: Actoplus MetGlucophageGlucophage XR GlucovanceAvandametFortamet Jip-elmownkuaPacdwmHoih-tgeplddin GlumetzaJanumetMetaglip RiometGlycomet Minimal pain, soreness and/or discomfort is expected. If you are prescribed an aspirin and/or antiplatelet (such as Plavix, Brilinta or Effient) do NOT stop taking these medications for any reason without talking to your biochemist Site Care: Do not remove dressing for 24 hours unless it becomes saturated, then replace. Keep site clean and dry; inspect site daily. Do not use any lotions, powders, or ointments at the groin or wrist site for 1 week. May shower 24 hours after the procedure. Clean site with soap and water. Pat dry and apply band aid. No tub baths, swimming or hot tubs for 3 days. Post Procedure: Soreness and tenderness to the site can last up to one week. Bruising may occur to site. A responsible adult should be with you for the first 24 hours after you arrive home. Keep follow-up appointment. Carry your stent card with you at all times. This provides information about your heart disease for any doctor who cares for you. No smoking for 24 hours as it increases the risk of developing blood clots. If you are interested in smoking cessation, contact [facility] at [phone], ext. [phone]. In the event you are unable to reach your physician, please call [facility] at [phone] and the angle shear set up operator will assist you. Seek Medicare Care for: Bleeding: Apply continuous pressure to the site and Call 911. Should the arm or leg become cold, numb, blue or white call your physician immediately. Signs of infection are redness, warmth, swelling, getting more sore, colored drainage, fever or chills Chest pain Blood in your urine or stool Black tarry stools Follow Up Care 11/08/2024 14:19:09 With:Luis Carlos Pineda Address: [address] [place] [phone] Business (1) When:12/07/2024 14:00:00 With:Brianna Lugo Address:Unknown When: Unknown [facility] 11-23-2024 Evaluation + Plan note Extrac patel from: Title:Procedure Note Heart & Vascular Author:Jerrod quinonez MD, Luis Carlos Salvador Date:11/23/24 Ordered: acetaminophen, 325 mg = 1 tab(s), Tab, Oral, q6hr PRN Pain 1-3 for 24 hour(s), Stop date 11/24/24 11:59:00 EST, Routine, Start date 11/23/24 12:00:00 EST, 11/23/24 12:00:00 EST acetaminophen, 650 mg = 2 tab(s), Tab, Oral, q6hr PRN Pain 1-3 for 24 hour(s), Stop date 11/24/24 11:59:00 EST, Routine, Start date 11/23/24 12:00:00 EST, 11/23/24 12:00:00 EST aspirin, 324 mg = 4 tab(s), Tab-Chew, Chewed, Once, Stop date 11/23/24 6:00:00 EST, Routine, Start date 11/23/24 6:00:00 EST, Chew and swallow if not allergic Sodium Chloride 0.9% intravenous solution 1,000 mL, 1,000 mL, IV, 250 mL/hr, Routine, Start date 11/23/24 12:00:00 EST, 4 hour(s), Total volume (mL): 1,000, 154 kg, 2.7, m2 Basic Metabolic Panel Cardiac Diet Cardiac Rehab Assessment CBC w/ Indices Circulation Check Communication Order Communication Order Communication Order Communication Order Communication Order Communication Order Communication Order Communication Order Communication Order Communication Order Communication Order Physician to Nursing Communication Order Physician to Nursing ECG 12 Lead Adult ECG 12 Lead Adult Follow Up Appointment Follow Up Appointment Magnesium Level Notify Provider Notify Provider Notify Provider Notify Provider Vital Signs Oxygen Protocol Patient Education Patient Education Site Check Troponin Up ad Aneta Vital Signs Future Appointments Appointment Date:11/28/2024 05:00:00 PM Scheduled Provider:Brianna Li Location:[facility] Appointment Type: Open Appointment Date:12/07/2024 02:00:00 PM Scheduled Provider:Luis Carlos Pineda MD [facility]:Cardiology Follow Up (FT) Diagnostic Tests Pending * CBC w/ Indices 11/24/24 * Basic Metabolic Panel 11/24/24 * Magnesium Level 11/24/24 * Troponin 11/24/24 [facility] 01-10-2025 NoteOperative Report Procedure Left heart catheterization procedure report DATE OF PROCEDURE: 11/23/2024 VOCATIONAL CHILDCARE TEACHER Luis Carlos Pineda MD [facility] INDICATION: Chest pain, consistent with typical unstable angina BRIEF HISTORY: The patient is a 54-year-old male with past medical history of diabetes and hypertension, who presents for elective cardiac catheterization due to all of the above PROCEDURE(S) PERFORMED: Left Heart Catheterization Selective Coronary Angiography IVUS LAD Coronary lithotripsy of the mid LAD PCI to the mid LAD with 1 MAHENDRA Moderate Sedation PRE-PROCEDURAL INFORMED CONSENT: The procedure and conscious sedation were discussed in detail withthe patient/next of kin/durable power of including the indications, expected outcomes, potential treatment options based upon the results, alternative treatment options and benefits, risks and possible complications associated with the procedure. The patient/next of kin/durable power of expressed an understanding of the information provided and willingness to proceed. Signed, informed consent forthe procedure was obtained for all of the above. DESCRIPTION OF THE PROCEDURE: In the postabsorptive state, the patient was brought to the Adult Cardiac Intervention Teacher and placed on the table. The planned puncture sites/areas were prepped and draped in usual sterile fashion and a safety time-out was performed. Moderate Sedation was given by the Cardiac Intervention Teacher RN. RIGHT RADIAL ARTERY ACCESS: The puncture site was infiltrated with 1% lidocaine. The modified Seldinger technique was performed to access the right radial artery using a 21G needle radial access kit.A wire was threaded into the radial artery followed by upsizing to a 5/6F slender 10cm sheath. Verapamil 5 mg was administered into the sheath. The sheath was then flushed with heparinized saline andIV UFH was administered via peripheral IV by the shellfish processing laborer RN after the catheter crossed into the ascending aorta. Selective left and right coronary artery angiography : Under fluoroscopic guidance, a 5 F JR4 diagnostic catheter was then advanced over the 0.035 260cm J-tipped guidewire to the level of the aorticvalve. 5 F JR4 diagnostic catheter was advanced over the guidewire across the Aortic valve and intothe left ventricle. Hemodynamic measurements were then obtained. Left ventriculography was performed. The JR4 catheter was then pulled back into the ascending aorta for assessment of LV-Ao gradient. The JR4 diagnostic catheter was then exchanged for a JR 5 diagnostic catheter, which was used to selectively engage the RCA ostium and angiographic images under multiple projections were obtained. Then the JR5 catheter was exchanged for a 5 F JL3.5 diagnostic catheter over guidewire. Under fluoroscopic guidance, the JL3.5 diagnostic catheter was then be used to selectively engage the LCA ostium and angiographic images under multiple projections were obtained. This was followed by procedures, described below. The procedure was concluded by removal of all the catheters, wires and sheaths. Accesses were managed as outlined below. No immediate complications COMPLICATIONS: None ESTIMATED BLOOD LOSS: <50cc CONTRAST ADMINISTERED: Please see Adult Cardiac Intervention Teacher Log for further details FINDINGS: SELECTIVE CORONARY ANGIOGRAPHY: Right dominant System Left Main: Free of significant disease LAD: Large vessel, which wraps around the apex, it it is significantly calcified in its mid segment. It gives off a large diagonal artery 1 of its mid segment. The mid LAD has evidence of a napkin ring stenosis in the range of 40 to 50% just proximal to the diagonal artery 1 takeoff. More distally,there is significant stenosis of approximately 70%, long, diffuse, heavily calcified D1: Large vessel with evidence of moderate ostial disease, mild to moderate diffuse disease LCx: Relatively small vessel with evidence of stenosis in its mid segment of approximately 70% OM1: Small, tortuous Ramus Intermedius: Moderate-sized vessel with evidence of moderate disease in its proximal segment RCA: Large, anatomically dominant vessel with evidence of approximately 60% stenosis, eccentric, inits mid segment. Mid distal RCA severely diffusely diseased. rPDA: Severe diffuse disease rPLB: Large vessel with evidence of moderate to severe disease in its proximal part LEFT HEART CATHETERIZATION: LVEDP: 19 mmHg LV EJECTION FRACTION and WALL MOTION: Estimated EF in the range of 60%. There is no evidence of regional wall motion abnormalities. Following assessment of the diagnostic angiogram, I felt that mid LAD is likely the culprit for thepatient's presentation. We elected to perform PCI to the mid LAD. I felt that the rest of the coronary vasculature may be managed medically, at least at this point in time. Percutaneous coronary intervention note The patient was heparinized. Target ACT was achieved. The patient was loaded with Plavix 600 mg on the table. We u (more content not included)...[facility]: Result Comment: Electronically Signed By: Edwin RHOADES, Luis Carlos Salvador\.cassie\Date and Time Signed: 11/23/24 12:33 [id number] NotePatient Education - Text [place], [place] Cardiovascular PCI DISCHARGE INSTRUCTIONS Diet: ??? Resume pre-procedure diet. ??? Increase water intake the next 2 days to flush dye out of the body. Activity: If radial access: ??? Limit your activity today. Do not operate a vehicle, machinery or power tools. ??? NO LIFTING OVER 3 POUNDS for 3 days. ??? Do not bend your wrist for 24 hours. ??? May resume driving in 24 hours. ??? Let pain/discomfort guide your activity. If you are having pain, stop. ??? No sexual activity for 1 week. ??? Return to the Emergency Room if you have trouble breathing, walking or nausea and vomiting. Medications: ??? Resume pre-procedure medication, unless otherwise directed. ??? Hold the following medications for 48 hours post procedure: Actoplus Met Glucophage Glucophage XR Glucovance Avandamet Fortamet Apo-metformin Glycon Snehal-metformin Glumetza Janumet Metaglip Riomet Glycomet ??? Minimal pain, soreness and/or discomfort is expected. ??? If you are prescribed an aspirin and/or antiplatelet (such as Plavix, Brilinta or Effient) do NOT stop taking these medications for any reason without talking to your biochemist Site Care: ??? Do not remove dressing for 24 hours unless it becomes saturated, then replace. ??? Keep site clean and dry; inspect site daily. ??? Do not use any lotions, powders, or ointments at the groin or wrist site for 1 week. ??? May shower 24 hours after the procedure. Clean site with soap and water. Pat dry and apply bandaid. No tub baths, swimming or hot tubs for 3 days. Post Procedure: ??? Soreness and tenderness to the site can last up to one week. ??? Bruising may occur to site. ??? A responsible adult should be with you for the first 24 hours after you arrive home. ??? Keep follow-up appointment. ??? Carry your stent card with you at all times. This provides information about your heart diseasefor any doctor who cares for you. ??? No smoking for 24 hours as it increases the risk of developing blood clots. ??? If you are interested in smoking cessation, contact [facility] [place] [phone], ext. [phone]. ??? In the event you are unable to reach your physician, please call Ryanne Castro at [phone] and the angle shear set up operator will assist you. Seek Medicare Care for: ??? Bleeding: Apply continuous pressure to the site and Call 911. ??? Should the arm or leg become cold, numb, blue or white call your physician immediately. ??? Signs of infection are redness, warmth, swelling, getting more sore, colored drainage, fever orchills ??? Chest pain ??? Blood in your urine or stool ??? Black tarry stools ??? clopidogrel (kloe PID oh grel) Plavix What is the most important information I should know about clopidogrel? You should not use this medicine if you have any active bleeding such as a stomach ulcer or bleeding in the brain. Clopidogrel increases your risk of bleeding, which can be severe or life- threatening. Call your doctor or seek emergency medical attention if you have bleeding that will not stop, if you have blood in your urine, black or bloody stools, or if you cough up blood or vomit that looks like coffee grounds. Do not stop taking clopidogrel without first talking to your doctor, even if you have signs of bleeding. Stopping clopidogrel may increase your risk of a heart attack or stroke. What is clopidogrel? Clopidogrel is used to lower your risk of having a stroke, blood clot, or serious heart problem after you've had a heart attack, severe chest pain (angina), or circulation problems. Clopidogrel may also be used for purposes not listed in this medication guide. What should I discuss with my healthcare provider before taking clopidogrel? You should not use clopidogrel if you are allergic to it, or if you have: ? any active bleeding; or ??? a stomach ulcer or bleeding in the brain (such as from a head injury). Tell your doctor if you have ever had: ? an ulcer in your stomach or intestines; or ??? a bleeding disorder or blood clotting disorder. Clopidogrel may not work as well if you have certain genetic factors that affect the breakdown of this medicine in your body. Your doctor may perform a blood test to make sure clopidogrel is right for you. This medicine is not expected to harm an unborn baby. However, taking clopidogrel within 1 week before childbirth can cause bleeding in the mother. Tell your doctor if you are or plan to become . You should not breastfeed while using this medicine. How should I take clopidogrel? Follow all directions on your prescription label and read all medication guides or instruction sheets. Use these medicines exactly as directed. Clopidogrel can be taken with or without food. Clopidogrel is sometimes taken together with aspirin. Take aspirin only if your doctor tells you to. Clopidogrel keeps your blood from coagulating (clotting) and c (more content not included)...[facility]01-[facility]25 NoteNurse Consultation Note Reason for Visit Patient came in for lab draw Medications Airsupra 90 mcg-80 mcg/inh inhalation aerosol, 2 inh, Inhalation, QID, 5 refills aspirin 81 mg Oral EC Tab atorvastatin 40 mg Tab, 40 mg= 1 tab(s), Oral, Daily, 1 refills glimepiride 2 mg Tab, 2 mg= 1 tab(s), Oral, BID, 1 refills meloxicam 15 mg Tab, 15 mg= 1 tab(s), Oral, Daily, 3 refills metformin 1000 mg Tab, 1000 mg= 1 tab(s), Oral, BID, 3 refills nystatin Top 100,000 units/g Crm 15 gram Vitamin D 50,000 intl units (1.25 mg) oral capsule, 84344 International_Unit= 1 cap(s), Oral, qWeek, 3 refills Allergies penicillins (Epistaxis)[facility]01-01-2025 Evaluation + Plan note Future Appointments Appointment Date:11/23/2024 09:00:00 AM Scheduled [facility] Heart Cath (FT) Appointment Date:11/28/2024 05:00:00 PM Scheduled Provider:Brianna Li Location:[facility] Appointment Type: Open Future Scheduled Tests Radiology* CV Cardiovascular 11/23/24 [facility] Evaluation + Plan note Future Appointments Appointment Date:06/15/2024 01:40:00 PM Scheduled Provider:Brianna Li Location:[facility] Appointment Type: Open Diagnostic Tests Pending * UZIEL w/Reflex if POS [facility] Appointment Date:11/28/2024 05:00:00 PM Scheduled Provider:Brianna Li Location:[facility] Appointment Type: Open Diagnostic Tests Pending * HgbA1c 08/29/24 [facility] Evaluation + Plan note Future Appointments Appointment Date:11/02/2024 02:15:00 PM Scheduled Provider:Luis Carlos Pineda MD [facility] [place] [facility] Type:Cardiology New Patient (FT) Appointment Date:11/28/2024 05:00:00 PM Scheduled Provider:Brianna Li Location:[facility] Appointment Type: Open Diagnostic Tests Pending * Testosterone Level Total 10/30/24 [facility] Evaluation + Plan note Future Appointments Appointment Date:11/28/2024 05:00:00 PM Scheduled Provider:Brianna Li Location:[facility] Appointment Type:FM Open [facility] Evaluation + Plan note Future Appointments Appointment Date:11/28/2024 05:00:00 PM Scheduled Provider:Brianna Li Location:[facility] Appointment Type:FM Open Appointment Date:12/07/2024 02:00:00 PM Scheduled Provider:Luis Carlos Pineda MD [facility] Type:Cardiology Follow Up (FT) [facility] Hospital course Narrative No data available for this section [facility] No data available for this section [facility] No data available for this section [facility] Summary Purpose Family History No Family [...] No data available for this section No data available for this section No Family History Records FoundNo Family History Records Found No data available for this section No Family History Records Found No data available for this section No data available for this section No [...] CREATED AUTHOR AUTHOR'S ORGANIZ ATION 05/09/2024 [facility] DATE CREATED AUTHOR AUTHOR'S ORGANIZ ATION 06/30/2024 [facility] DATE CREATED AUTHOR AUTHOR'S ORGANIZ ATION 08/30/2024 [facility] DATE CREATED AUTHOR AUTHOR'S ORGANIZ ATION 11/03/2024 [facility] DATE CREATED AUTHOR AUTHOR'S ORGANIZ ATION 11/11/2024 [facility] DATE CREATED AUTHOR AUTHOR'S ORGANIZ ATION 11/25/2024 [facility] DATE CREATED AUTHOR AUTHOR'S ORGANIZ ATION 11/29/2024 [facility] Patient Care team informatio n (unrecognized section and content) Personnel Name: Brianna Li Address: Address: [address] [place] [address]- Personnel Name: Brianna Li Address: Address: [address] [place] [address]- Personnel Name: Brianna Li Address: Address: [address] [place] [address]- Personnel Name: Brianna Li Address: Address: [address] [place] [address]- Personnel Name: Brianna Li Address: Address: [address] [place] [address]- Personnel Name: Brianna Li Address: Address: [address] [place] [address]- Personnel Name: Brianna Li Address: Address: [address] [place] [address]- FOR RECORDS PERTAINING TO PATIENTS WHO ARE [...] BE BASED ON THE PRIMARY CLINICAL RECORDS. [facility]. provides no warranty or guarantee of the accuracy or completeness of information in this document.
--- NOTE | 2024-11-30 11:45 | XR_ITS ---
The [address] [address] Patient Name: ANKIT BENITES MRN: [id number] date: 1970 Sex: M Assigned Patient Location: [facility] Current Patient Location: Accession/Order Number: [id number] Exam Date: 11/30/2024 11:50 Report Date: 12/02/2024 08:50 At the request of: KATERINA STONE Procedure: XR thoracic spine 2V Exam: Radiographs: XR thoracic spine 2V, XR cervical spine 5V Reason for exam: T-6 Compression Fracture Comparison: None XR/XR thoracic spine 2V IMPRESSION: No radiographically evident cervical spine fractures or malalignment. Chronic compression fracture of an upper thoracic vertebrae, possibly T6 with minimal height loss. No radiographically evident acute or subacute thoracic spine fractures. No thoracic spine malalignment. Degenerative changes throughout the cervical and thoracic spine with relatively preserved intervertebral disc heights. Remainder unremarkable. Electronically authenticated by: DAVID SANDERS Date: 12/02/2024 08:50
--- NOTE | 2024-11-30 11:45 | XR_ITS ---
The [address] [address] Patient Name: ANKIT BENITES MRN: [id number] date: 1970 Sex: M Assigned Patient Location: [facility] Current Patient Location: Accession/Order Number: [id number] Exam Date: 11/30/2024 11:50 Report Date: 12/02/2024 08:50 At the request of: KATERINA STONE Procedure: XR cervical spine 5V Exam: Radiographs: XR thoracic spine 2V, XR cervical spine 5V Reason for exam: T-6 Compression Fracture Comparison: None XR/XR cervical spine 5V IMPRESSION: No radiographically evident cervical spine fractures or malalignment. Chronic compression fracture of an upper thoracic vertebrae, possibly T6 with minimal height loss. No radiographically evident acute or subacute thoracic spine fractures. No thoracic spine malalignment. Degenerative changes throughout the cervical and thoracic spine with relatively preserved intervertebral disc heights. Remainder unremarkable. Electronically authenticated by: DAVID SANDERS Date: 12/02/2024 08:50
== END 2024-11-30 11:38 | disposition home or self-care (01) ==
LOC: RAD 11:39
PROVIDERS: PCP Nurse Practitioner; Visit Provider Nurse Practitioner
DX: M48.54XA Collapsed vertebra, not elsewhere classified, thoracic region, initial encounter for fracture (principal); M54.2 Cervicalgia; M51.34 Other intervertebral disc degeneration, thoracic region
CPT/HCPCS: 72050; 72070

== ENCOUNTER 2025-06-07 10:51 | Emergency (ER) | payer OTHER, SELFPAY ==
[2025-06-07] VITALS (8 sets, daily range): BP systolic 142–153; BP diastolic 89–113; PULSE 73–85; TEMP 36.6; O2SAT 96–99; BMI 40.7
--- OUTSIDE RECORDS SUMMARY | 2025-06-07 11:03 | XMS_ITS | CCD ---
Author Organization [facility] Care Team Providers Care Stick Welder Name Role Phone ELMORA, DR ROBERTS Primary Care Unavailable [place], DR JACQUES Montes Consulting Unavailable ELMORA, DR ROBERTS Admitting Unavailable ELMORA, DR ROBERTS Attending Unavailable ELMORA, DR ROBERTS Consulting Unavailable ELMORA, DR ROBERTS Primary Care Unavailable ELMORA, DR ROBERTS Admitting Unavailable ELMORA, DR ROBERTS Attending Unavailable HOUSE, DR ROBERTS Consulting Unavailable Brittney, Brianna Perla Primary Care Physician Brittney, Brianna Perla Attending Unavailable Brittney, Brianna Perla Admitting Unavailable Brittney, PLANNING FEEDER Brianna Perla Attending Unavailable Brittney, PLANNING FEEDER Brianna Perla Attending Unavailable Brittney, PLANNING FEEDER Brianna Perla Attending Unavailable Brittney, PLANNING FEEDER Brianna Perla Attending Unavailable Brittney, PLANNING FEEDER Brianna Perla Admitting Unavailable Brittney, Brianna Perla Attending Unavailable Brittney, Brianna Perla Admitting Unavailable Brittney, Brianna Perla Admitting Unavailable Brittney, Brianna Perla Attending Unavailable Brittney, Brianna Perla Attending Unavailable Brittney, Brianna Perla Attending Unavailable Brittney, Brianna Perla Attending Unavailable Kirnus, MD Luis Carlos Salvador Attending Unavailable Brittney, Brianna L Referring Unavailable Brittney, PLANNING FEEDER Brianna Perla Attending Unavailable Brittney, PLANNING FEEDER Brianna L Attending Unavailable Brittney, PLANNING FEEDER Brianna L Attending Unavailable Brittney, PLANNING FEEDER Brianna L Attending Unavailable Brittney, PLANNING FEEDER Brianna L Admitting Unavailable Brittney, PLANNING FEEDER Brianna Perla Attending Unavailable Brittney, Brianna Perla Admitting Unavailable Brittney, Brianna Perla Attending Unavailable Brittney, Brianna Perla Attending Unavailable KirnLuis Carlos khan Attending Unavailable KirnusLuis Carlos Admitting Unavailable NONE, XXXX Referring Unavailable Brittney, PLANNING FEEDER Brianna Perla Attending Unavailable KirnLuis Carlos khan Attending Unavailable NONE, XXXX Referring Unavailable Luis Carlos Pineda Admitting Unavailable KirLuis Carlos quinonez Admitting Unavailable Kirnus, Luis Carlos Salvador Attending Unavailable Luis Carlos Pineda Referring Unavailable Brittney, PLANNING FEEDER Brianna L Admitting Unavailable Brittney, PLANNING FEEDER Brianna L Attending Unavailable Brittney, PLANNING FEEDER Brianna L Admitting Unavailable Brittney, PLANNING FEEDER Brianna L Attending Unavailable Chau, Zeb Attending Unavailable Jerrodn, Luis Carlos aSlvador Attending Unavailable Jerrodnus, Luis Carlos D Admitting Unavailable NONE, XXXX Referring Unavailable Brittney, Brianna L Attending Unavailable Brittney, Brianna L Admitting Unavailable Brittney, Brianna L Attending Unavailable Brittney, Brianna L Attending Unavailable Brittney, Brianna L Attending Unavailable Brittney, Brianna L Admitting Unavailable Brittney, Brianna L Attending Unavailable Brittney, Brianna L Attending Unavailable Brittney, Brianna L Admitting Unavailable NONE, XXXX Referring Unavailable JAMAL Patton Attending Unavailable Allergies Allergy Classification Reported Allergen(s) Allergy Type Date of Onset Reaction(s) Facility Penicillins (antibiotic) (1 source) Penicillins; Translations: [penicillins] Drug Allergy Bleeding from nose (finding) [facility] [place] (1 source) Aspirin Drug Allergy 1 [facility] Rep[facility] (17 sources) Penicillins; Translations: [penicillins] Propensity to adverse reactions (disorder) Bleeding from nose (finding) [facility] Medications Current Medications Medication Drug Class(es) Dates Sig (Normalized) Sig (Original) 120 ACTUAT albuterol 0.09 MG/ACTUAT / budesonide 0.08 MG/ACTUAT Metered Dose Inhaler [Airsupra] (8 sources) Start: 10-19-2024 Airsupra 90 mcg-80 mcg/inh inhalation aerosol 2 inh, Inhalation, QID, 1 EA, Refill(s) 5, [facility], 170, cm, 09/26/24 8:58:00 EST, Height/Length Dosing, 158.1, kg, 09/26/24 8:58:00 EST, Weight Dosing Start Date: 10/19/24 Status: Ordered Quantity: 1.0 Unit: EA Repeat number: 6 Start: 10-19-2024 Airsupra 90 mc g-80 mcg/inh inhalation aerosol 2 inh, Inhalation, QID, 1 EA, Refill(s) 5, [facility], 170, cm, 09/26/24 8:58:00 EST, Height/Length Dosing, 158.1, kg, 09/26/24 8:58:00 EST, Weight Dosing Start Date: 10/19/24 Status: Ordered Albuterol (Eqv-ProAir HFA) 90 mcg/inh inhalation aerosol (4 sources) Start: 11-25-2024 take 2 puff(s) by inhalation every six hours Albuterol (Eqv-ProAir HFA) 90 mcg/inh inhalation aerosol 2 puff(s), Inhalation, q6hr Wheezing, 8.5 gm, Refill(s) 0, [facility], 170, cm, 11/25/24 11:49:00 EST, Height/Length Dosing, 154, kg, 11/25/24 11:49:00 EST, Weight Dosing Start Date: 11/25/24 Status: Ordered Quantity: 8.5 Unit: g Repeat number: 1 Start: 11-25-2024 take 2 puff(s) by in halation every six hours Albuterol (Eqv-ProAir HFA) 90 mcg/inh inhalation aerosol 2 puff(s), Inhalation, q6hr Wheezing, 8.5 gm, Refill(s) 0, [facility], 170, cm, 11/25/24 11:49:00 EST, Height/Length Dosing, 154, kg, 11/25/24 11:49:00 EST, Weight Dosing Start Date: 11/25/24 Status: Ordered amLODIPine 5 mg oral tablet (5 sources) Dihydropyridine Calcium Channel Trudy Start: 02-18-2025 take 1 tablet by mouth once daily amLODIPine 5 mg Tab 5 mg = 1 tab(s), Oral, Daily, # 90 tab(s), Refills(s) 3, Pharmacy: [facility], 170, cm, 02/07/25 14:04:00 EDT, Height/Length Dosing, 151, kg, 02/07/25 14:04:00 EDT, Weight Dosing Start Date: 02/18/25 Status: Ordered Quantity: 90.0 Unit: tab(s) Repeat number: 4 Indications: Essential (primary) hypertension; Start: 11-23-2024 take 1 tablet by anushka th once daily amLODIPine 5 mg Tab 5 mg = 1 tab(s), Oral, Daily, # 90 tab(s), Refills(s) 0, Pharmacy: [facility], 170, cm, 11/23/24 7:51:00 EST, Height/Length Dosing, 154, kg, 11/23/24 7:51:00 EST, Weight Dosing Start Date: 11/23/24 Status: Ordered aspirin 81 mg delayed release oral tablet (6 sources) Platelet Aggregation Inhibitor, Nonsteroidal Anti-inflammatory Drug Start: 11-23-2024 take 1 tablet by mouth once daily aspirin 81 mg Oral EC Tab 81 mg = 1 tab(s), Oral, Daily, # 90 tab(s), Refills(s) 3, Pharmacy: [facility], 170, cm, 11/23/24 7:51:00 EST, Height/Length Dosing, 154, kg, 11/23/24 7:51:00 EST, Weight Dosing Start Date: 11/23/24 Status: Ordered Quantity: 90.0 Unit: tab(s) Repeat number: 4 Indications: Atherosclerotic heart disease of [place] coronary artery without angina pectoris; Start: 11-08-2024 aspirin 81 mg Oral EC Tab Refills(s) 0 Start Date: 11/08/24 Status: Ordered atorvastatin 80 mg oral tablet (10 sources) HMG-CoA Reductase Inhibitor Start: 02-07-2025 take 1 tablet by mouth once daily atorvastatin 80 mg Tab 80 mg = 1 tab(s), Oral, Daily, Refills(s) 0 Start Date: 02/07/25 Status: Ordered Repeat number: 1 Start: 05-11-2024 take 1 tablet by anushka th once daily atorvastatin 40 mg Tab See Instructions, TAKE 1 TABLET BY MOUTH DAILY, # 90 tab(s), Refills(s) 1, Pharmacy: [facility], 170, cm, 11/02/24 14:23:00 EST, Height/Length Dosing, 154.5, kg, 11/02/24 14:23:00 EST, Weight Dosing Start Date: 11/20/24 Status: Ordered Quantity: 90.0 Unit: tab(s) Repeat number: 1 azithromycin 250 mg Tab 5-day Dose Pack (Z-Douglas) (1 source) Start: 11-25-2024 End: 11-30-2024 azithromycin 250 mg Tab 5-day Dose Pack (Z-Douglas) = 1 packet(s), Oral, As Directed, as directed on package labeling, X 5 day(s), # 6 tab(s), Refills(s) 0, Pharmacy: [facility], 170, cm, 11/25/24 11:49:00 EST, Height/Length Dosing, 154, kg, 11/25/24 11:49:00 EST, Weight Dosing Start Date: 11/25/24 Stop Date: 11/30/24 Status: Ordered clopidogrel 75 mg oral tablet (5 sources) [id number] Platelet Inhibitor Start: 11-23-2024 take 1 tablet by mouth once daily Plavix 75 mg Tab 75 mg = 1 tab(s), Oral, Daily, # 90 tab(s), Refills(s) 3, Pharmacy: [facility], 170, cm, 11/23/24 7:51:00 EST, Height/Length Dosing, 154, kg, 11/23/24 7:51:00 EST, Weight Dosing Start Date: 11/23/24 Status: Ordered Quantity: 90.0 Unit: tab(s) Repeat number: 4 Indications: Atherosclerotic heart disease of [place] coronary artery without angina pectoris; fluconazole 150 mg oral tablet (2 sources) Azole Antifungal Start: 04-22-2025 fluconazole 150 mg Tab See Instructions, TAKE 1 TABLET BY MOUTH on day one and TAKE 1 TABLET on day FOUR, # 2 tab(s), Refills(s) 1, Pharmacy: [facility], 170, cm, 04/22/25 13:16:00 EDT, Height/Length Dosing, 150, kg, 04/22/25 13:16:00 EDT, Weight Dosing Start Date: 04/22/25 Status: Ordered Quantity: 2.0 Unit: tab(s) Repeat number: 2 Start: 05-07-2024 take 4 tablets by mouth once D iflucan 150 mg Tab 150 mg = 1 tab(s), Oral, Once, take 1 tab on day 1 and one tab on day 4, # 2 tab(s), Refills(s) 1, Pharmacy: [facility], 177.5, cm, 05/07/24 13:15:00 EDT, Height/Length Dosing, 152.2, kg, 05/07/24 13:15:00 EDT, Weight Dosing Start Date: 05/07/24 Status: Ordered glimepiride 2 mg oral tablet (10 sources) Sulfonylurea Start: 05-07-2024 take 1 tablet by mouth twice daily glimepiride 2 mg Tab See Instructions, TAKE 1 TABLET BY MOUTH TWICE DAILY, # 180 tab(s), Refills(s) 1, Pharmacy: [facility], 170, cm, 11/02/24 14:23:00 EST, Height/Length Dosing, 154.5, kg, 11/02/24 14:23:00 EST, Weight Dosing Start Date: 11/20/24 Status: Ordered Quantity: 180.0 Unit: tab(s) Repeat number: 1 hydroCHLOROthiazide 12.5 mg oral capsule (2 sources) Thiazide Diuretic Start: 12-17-2024 take 1 capsule by mouth once daily hydrochlorothiazide 12.5 mg Cap 12.5 mg = 1 cap(s), Oral, Daily, # 30 cap(s), Refills(s) 5, Pharmacy: [facility], 170, cm, 12/14/24 14:02:00 EST, Height/Length Dosing, 151.2, kg, 12/14/24 14:08:00 EST, Weight Dosing Start Date: 12/17/24 Status: Ordered Quantity: 30.0 Unit: cap(s) Repeat number: 6 losartan potassium 50 mg oral tablet (5 sources) Angiotensin 2 Receptor Trudy Start: 12-17-2024 take 1 tablet by mouth twice daily losartan 50 mg Tab 50 mg = 1 tab(s), Oral, BID, # 60 tab(s), Refills(s) 5, Pharmacy: [facility], 170, cm, 12/14/24 14:02:00 EST, Height/Length Dosing, 151.2, kg, 12/14/24 14:08:00 EST, Weight Dosing Start Date: 12/17/24 Status: Ordered Quantity: 60.0 Unit: tab(s) Repeat number: 6 Indications: Essential (primary) hypertension; Start: 11-23-2024 take 1 tablet by anushka th once daily losartan 50 mg Tab 50 mg = 1 tab(s), Oral, Daily, # 90 tab(s), Refills(s) 0, Pharmacy: [facility], 170, cm, 11/23/24 7:51:00 EST, Height/Length Dosing, 154, kg, 11/23/24 7:51:00 EST, Weight Dosing Start Date: 11/23/24 Status: Ordered metFORMIN hydrochloride 1000 mg oral tablet (9 sources) Biguanide Start: 08-29-2024 End: 02-13-2026 take 1 tablet by mouth twice daily metformin 1000 mg Tab 1,000 mg = 1 tab(s), Oral, BID, X 90 day(s), # 180 tab(s), Refills(s) 3, Pharmacy: [facility], 170, cm, 02/07/25 14:04:00 EDT, Height/Length Dosing, 151, kg, 02/07/25 14:04:00 EDT, Weight Dosing Start Date: 02/18/25 Stop Date: 02/13/26 Status: Ordered Quantity: 180.0 Unit: tab(s) Repeat number: 4 Indications: Body mass index [BMI] 45.0-49.9, adult; Other specified health status; Morbid (severe) obesity due to excess calories; Type 2 diabetes mellitus without complications; Abnormal weight gain; metFORMIN hydrochloride 1000 mg / SITagliptin 50 mg oral tablet (1 source) Biguanide, Dipeptidyl Peptidase 4 Inhibitor Start: 05-07-2024 Janumet 50 mg/1000 mg oral tablet 1 tab(s), Oral, BID, 90 tab(s), Refill(s) 1, TAKE 1 TABLET BY MOUTH TWICE DAILY, [facility], 177.5, cm, 05/07/24 13:15:00 EDT, Height/Length Dosing, 152.2, kg, 05/07/24 13:15:00 EDT, Weight Dosing Start Date: 05/07/24 Status: Ordered methylPREDNISolone 4 mg oral tablet (1 source) Corticosteroid Start: 05-07-2024 End: 05-13-2024 Medrol 4 mg Tab = 1 packet(s), Oral, As Directed, as directed on package labeling, X 6 day(s), # 21 tab(s), Refills(s) 0, Pharmacy: [facility], 177.5, cm, 05/07/24 13:15:00 EDT, Height/Length Dosing, 152.2, kg, 05/07/24 13:15:00 EDT, Weight Dosing Start Date: 05/07/24 Stop Date: 05/13/24 Status: Ordered 24 hr metoprolol succinate 25 mg extended release oral tablet (1 source) beta-Adrenergic Trudy Start: 02-08-2025 take 1 tablet by mouth once daily Toprol XL 25 mg Tab-ER 25 mg = 1 tab(s), Oral, Daily, # 30 tab(s), Refills(s) 2, Pharmacy: [facility], 170, cm, 02/07/25 14:04:00 EDT, Height/Length Dosing, 151, kg, 02/07/25 14:04:00 EDT, Weight Dosing Start Date: 02/08/25 Status: Ordered Quantity: 30.0 Unit: tab(s) Repeat number: 3 nystatin 140489 unt/ml topical cream (10 sources) Polyene Antifungal Start: 04-22-2025 nystatin Top 100,000 units/g Crm 15 gram 1 marie, Topical, BID, 30 gm, Refill(s) 0, [facility], 170, cm, 04/22/25 13:16:00 EDT, Height/Length Dosing, 150, kg, 04/22/25 13:16:00 EDT, Weight Dosing Start Date: 04/22/25 Status: Ordered Quantity: 30.0 Unit: g Repeat number: 1 Start: 10-24-2024 nystatin Top 1 00,000 units/g Crm 15 gram Refill(s) 0 Start Date: 10/24/24 Status: Ordered Start: 07-23-2024 nystatin Top 1 00,000 units/g Crm 15 gram See Instructions, 30 gm, Refill(s) 1, APPLY TO THE AFFECTED AREA(S) topically TWICE DAILY, [facility], 178, cm, 07/09/24 8:51:00 EDT, Height/Length Dosing, 150, kg, 07/09/24 8:51:00 EDT, Weight Dosing Start Date: 07/23/24 Status: Ordered Start: 05-07-2024 nystatin Top 1 00,000 units/g Crm 15 gram 1 marie, Topical, BID, 30 gram, Refill(s) 1, [facility], 177.5, cm, 05/07/24 13:15:00 EDT, Height/Length Dosing, 152.2, kg, 05/07/24 13:15:00 EDT, Weight Dosing Start Date: 05/07/24 Status: Ordered predniSONE 20 mg oral tablet (1 source) Start: 11-25-2024 End: 11-30-2024 take 3 tablets by mouth once daily predniSONE 20 mg Tab 60 mg = 3 tab(s), Oral, Daily, X 5 day(s), # 15 tab(s), Refills(s) 0, Pharmacy: [facility], 170, cm, 11/25/24 11:49:00 EST, Height/Length Dosing, 154, kg, 11/25/24 11:49:00 EST, Weight Dosing Start Date: 11/25/24 Stop Date: 11/30/24 Status: Ordered rOPINIRole 2 mg oral tablet (2 sources) Nonergot Dopamine Agonist Start: 11-28-2024 take 1 tablet by mouth at bedtime Requip 2 mg Tab 2 mg = 1 tab(s), Oral, Bedtime, 1 to 3 hours before bedtime, # 90 tab(s), Refills(s) 0, Pharmacy: [facility], 170, cm, 11/28/24 17:02:00 EST, Height/Length Dosing, 150.2, kg, 11/28/24 17:02:00 EST, Weight Dosing Start Date: 11/28/24 Status: Ordered Completed/Discontinued Medications Medication Drug Class(es) Dates Sig (Normalized) Sig (Original) albuterol 0.83 mg/ml inhalation solution (3 sources) beta2-Adrenergic Agonist Start: 11-30-2024 take 1 dose by mouth every six hours as needed for wheezing albuterol 0.083% Inh Delma 3 mL See Instructions, 60 mL, Refill(s) 0, INHALE 1 vial BY MOUTH EVERY 6 HOURS NEEDED FOR WHEEZING, [facility], 170, cm, 11/28/24 17:02:00 EST, Height/Length Dosing, 150.2, kg, 11/28/24 17:02:00 EST, Weight Dosing Start Date: 11/30/24 Status: Ordered Quantity: 60.0 Unit: mL Repeat number: 1 meloxicam 15 mg oral tablet (8 sources) Nonsteroidal Anti-inflammatory Drug Start: 01-07-2025 take 1 tablet by mouth once daily meloxicam 15 mg Tab 15 mg = 1 tab(s), Oral, Daily, TAKE 1 TABLET BY MOUTH EVERY DAY, # 90 tab(s), Refills(s) 4, Pharmacy: [facility], 170, cm, 12/14/24 14:02:00 EST, Height/Length Dosing, 151.2, kg, 12/14/24 14:08:00 EST, Weight Dosing Start Date: 01/07/25 Status: Ordered Quantity: 90.0 Unit: tab(s) Repeat number: 5 Start: 12-14-2024 take 1 tablet by anushka th once daily meloxicam 15 mg Tab TAKE 1 TABLET BY MOUTH EVERY DAY Start Date: 12/14/24 Status: Ordered Start: 08-29-2024 take 1 tablet by anushka th once daily meloxicam 15 mg Tab 15 mg = 1 tab(s), Oral, Daily, # 30 tab(s), Refills(s) 3, Pharmacy: [facility], 178, cm, 08/29/24 17:23:00 EDT, Height/Length Dosing, 151.2, kg, 08/29/24 17:23:00 EDT, Weight Dosing Start Date: 08/29/24 Status: Ordered Start: 05-07-2024 take 1 tablet by anushka th once daily meloxicam 15 mg Tab 15 mg = 1 tab(s), Oral, Daily, # 30 tab(s), Refills(s) 0, Pharmacy: [facility], 177.5, cm, 05/07/24 13:15:00 EDT, Height/Length Dosing, 152.2, kg, 05/07/24 13:15:00 EDT, Weight Dosing Start Date: 05/07/24 Status: Ordered Vitamin D 50,000 intl units (1.25 mg) oral capsule (7 sources) Start: 11-01-2024 take 1 capsule by mouth every week Vitamin D 50,000 intl units (1.25 mg) oral capsule 50,000 International_Unit = 1 cap(s), Oral, qWeek, # 12 cap(s), Refills(s) 3, Pharmacy: [facility], 170, cm, 10/30/24 8:55:00 EST, Height/Length Dosing, 153.8, kg, 10/30/24 8:55:00 EST, Weight Dosing Start Date: 11/01/24 Status: Ordered Quantity: 12.0 Unit: cap(s) Repeat number: 4 Indications: Other chest pain; Dizziness and giddiness; Type 2 diabetes mellitus without complications; Morbid (severe) obesity due to excess calories; Other specified health status; Body mass index [BMI] 50.0-59.9, adult; Pure hypercholesterolemia, unspecified; Other fatigue; Start: 11-01-2024 take 1 capsule by [facility] every week Vitamin D 50,000 intl units (1.25 mg) oral capsule 50,000 International_Unit = 1 cap(s), Oral, qWeek, # 12 cap(s), Refills(s) 3, Pharmacy: [facility], 170, cm, 10/30/24 8:55:00 EST, Height/Length Dosing, 153.8, kg, 10/30/24 8:55:00 EST, Weight Dosing Start Date: 11/01/24 Status: Ordered Problems Problem Classification Problem Date Documented Da te Episodic/Chronic Conditions associated with dizziness or vertigo (9 sources) Dizziness 10-30-2024 Episodic Coronary atherosclerosis and other heart disease (3 sources) Coronary atherosclerosis; Translations: [Atherosclerotic heart disease of [place] coronary artery without angina pectoris] Onset: 12-14-2024 Chronic Diabetes mellitus without complication (20 sources) Type 2 diabetes mellitus without complications; Translations: [Type 2 diabetes mellitus] Onset: 01-29-2022 Chronic Disorders of lipid metabolism (11 sources) Hypercholesterolemia ; Translations: [Hyperlipidemia] Onset: 12-14-2024 10-30-2024 Chronic Essential hypertension (3 sources) Essential (primary) hypertension; Translations: [Essential hypertension] Onset: 02-03-2022 Chronic Malaise and fatigue (9 sources) Fatigue 10-30-2024 Episodic Mycoses (11 sources) Candidiasis 05-07-2024 Episodic Nonspecific chest pain (20 sources) Chest pain; Translations: [Left sided chest pain] Onset: 11-02-2024 05-07-2024 Episodic Nutritional deficiencies (1 source) Vitamin D deficiency 04-22-2025 Chronic Osteoarthritis (2 sources) Bilateral primary osteoarthritis of knee; Translations: [Unspecified osteoarthritis, unspecified site] Onset: 02-03-2022 Chronic Other hereditary and degenerative nervous system conditions (4 sources) Restless legs 11-28-2024 Chronic Other lower respiratory disease (9 sources) Dyspnea 09-26-2024 Episodic Other lower respiratory disease (1 source) Cough; Translations: [Cough, unspecified] Onset: 11-25-2024 Episodic Other lower respiratory disease (4 sources) Wheezing 11-29-2024 Episodic Other non-traumatic joint disorders (4 sources) Pain in right knee; Translations: [PAIN IN RIGHT KNEE] Onset: 10-22-2022 Episodic Other non-traumatic joint disorders (1 source) Pain in left knee; Translations: [PAIN IN LEFT KNEE] Onset: 10-27-2022 Episodic Other nutritional; endocrine; and metabolic disorders (20 sources) Body mass index 40+ - severely obese 05-07-2024 Chronic Other nutritional; endocrine; and metabolic disorders (10 sources) Weight gain 07-09-2024 Episodic Other skin disorders (11 sources) Eruption 05-07-2024 Episodic Other upper respiratory disease (1 source) Bronchospasm; Translations: [Acute bronchospasm] Onset: 11-25-2024 Episodic Spondylosis; intervertebral disc disorders; other back problems (2 sources) Lumbago co-occurrent with right-side sciatica 01-10-2025 Episodic Unclassified (11 sources) Pain of left shoulder region 05-07-2024 Unclassified (20 sources) Patient encounter status 05-07-2024 Unclassified (1 source) Pain of knee region 04-22-2025 Results Test Name Value Interpretation Reference Range Facility [facility] Office/Cl inic Noteon 06-03-2025 [facility] Office/Clinic Note [facility]/Clinic Note Chief Complaint 3 Month follow up History of Present Illness The patient is a 55-year-old male with past history of diabetes mellitus type 2, hypertension, coronary artery disease with significant stenosis of the mid LAD, status post PCI with 1 MAHENDRA on 11/23/2024, moderate disease of the proximal LAD, RCA, PLV, significant disease of the circumflex artery, supplying a relatively small myocardial territory. He presents today for a scheduled follow-up appointment. Unfortunately, he did not undergo cardiac rehabilitation due to financial reasons. Patient comes in for 3-month follow-up today. Patient comes in with an adult female who provides some history today. Reviewed prior heart cath, echo. At last visit, I saw patient at which time he was continued on current medications. Patient reports that he has not been feeling great overall since last visit. Patient states that he has had some ongoing issues with fatigue that have not improved at all since last visit. Patient states that he is tired all the time and all all never feels like he has any energy. Patient reports that he has never had a sleep study in the past. He states that he is self-pay and does not have insurance and needs to look into what his sleep study cost prior to completing the test. Did instruct patient that I do believe this would be beneficial at accompanying female believes that he also has sleep apnea. Patient states that he is compliant with aspirin, Plavix, metoprolol for CAD. He states that he did discontinue atorvastatin on his own because of leg cramps. However, patient reports that he does not believe the leg cramps have really improved at all since discontinuing atorvastatin. He is on a higher dose of atorvastatin than he was previously, but previously had been taking 40 mg daily. Patient reports that he still has significant shortness of breath with any amount of activity. He states he does not have any associated chest discomfort, shortness of breath has not seemed like it is improved at all since patient had MAHENDRA placed in 11/2024. Patient has well-controlled blood pressure in the office today. He is currently taking amlodipine, hydrochlorothiazide, losartan, metoprolol that affect his blood pressure. Patient believes that he is on too many blood pressure medications and is wondering if that is contributing to some of his fatigue that he has been having. He states that his blood pressure is very well-controlled at this time and is wondering if it has been running too low and he would like to stop all blood pressure medication possible. Patient denies heart palpitations, dizziness/lightheadedn ess. REVIEWED PRIOR NOTE FROM 02/07/2025: He presents with complaints of shortness of breath, still, especially when bending over. In the end of the encounter, the patient told me that he has been having some mild nonexertional and exertional tightness in his left upper chest, brief, which apparently he has been having for quite a while. States compliance with the current treatment plan. Review of Systems ROS - Provider Constitutional: no fever, no chills, no sweats, no weakness, positive for fatigue Respiratory: yes shortness of breath with exertion, no cough Cardiovascular: no chest pain Neuro: no dizziness. no loss of consciousness Physical Exam Vitals & Measurements HR: 76(Peripheral) RR: 18 BP: 118/76 SpO2: 95% HT: 67 in HT: 170 cm WT: 332.898 lb WT: 151 kg BMI: 52.25 General: alert, no acute distress Cardiovascular: regular rate and rhythm, no murmur normal peripheral perfusion Respiratory: Lungs CTAB, respirations non labored Extremities: Trace edema left lower extremity. Trace edema right lower extremity Neurological: oriented x 4, LOC appropriate for age, speech normal Skin: Warm, dry, intact- no rash or concerning lesions Cardiac Diagnostics [facility] with Dr. Pineda on 11/23/2024: FINDINGS: SELECTIVE CORONARY ANGIOGRAPHY: Right dominant System [...] to the diagonal artery 1 takeoff. More distally, there is significant stenosis of approximately 70%, long, [...] with evidence of approximately 60% stenosis, eccentric, in its mid segment. Mid distal RCA severely diffusely diseased. rPDA: Severe diffuse disease rPLB: Large vessel with evidence of moderate to severe disease in its proxima (more content not included)... Normal [facility] Comment on above: Result Comment: Elec tronically Signed By: Abdi BERRY, Chau Tsai\chitra\Date and Time Signed: 06/03/25 07:57 EDT [id number] 05-02-2025 HbA1c (Bld) [Mass fraction] 6.4 % High <=5.9 [facility] Comment on above: Result Comment: Bryan ection date/time has been modified to: 13:36:00. Previous collection date/time: 17:12:00. Performed By: #### [id number] #### [facility] [address] [place] [address] Ambulatory Visit Summaryon 0 04-22-2025 Ambulatory Visit Summary Ambulatory Visit Summary ANKIT BENITES :1970 Visit Date:04/22/2025 Ambulatory Visit Instructions Your Diagnosis Type 2 diabetes mellitus Vitamin D deficiency Exertional angina Nonsmoker BMI 50.0-59.9, adult Your Care Team Attending Physician - Brianna Li Primary Care Physician - Brianna Li This Is Your Medications List albuterol (Albuterol (Eqv-ProAir HFA) 90 mcg/inh inhalation aerosol) albuterol (albuterol 0.083% Inh Delma 3 mL) albuterol-budesonide (Airsupra 90 mcg-80 mcg/inh inhalation aerosol) amlodipine (amLODIPine 5 mg Tab) aspirin (aspirin 81 mg Oral EC Tab) atorvastatin (atorvastatin 40 mg Tab) atorvastatin (atorvastatin 80 mg Tab) clopidogrel (Plavix 75 mg Tab) ergocalciferol (Vitamin D 50,000 intl units (1.25 mg) oral capsule) glimepiride (glimepiride 2 mg Tab) hydrochlorothiazide (hydrochlorothiazide 12.5 mg Cap) losartan (losartan 50 mg Tab) meloxicam (meloxicam 15 mg Tab) metformin (metformin 1000 mg Tab) metoprolol (Toprol XL 25 mg Tab-ER) nystatin topical (nystatin Top 100,000 units/g Crm 15 gram) Procedures Performed Cardiac catheterization, left heart (11/23/2024), Coronary artery stent (11/23/2024), Surgery. Discharge Vitals Heart Rate (Peripheral) 78 Blood Pressure 116/80 Height 170 cm Height 67 in Weight 150.0 kg Weight 330.693 lb BMI 51.9 What to do next Scheduled Follow-Up Appointments Tuesday 3:00 PM EDT With: Brianna Li Where: [place] [id number]- Medications What How Much When Why Instructions Unchanged albuterol (Albuterol (Eqv-ProAir HFA) 90 mcg/ inh inhalation aerosol) 2 Puffs Inhalation Every 6 hours as needed for Wheezing Unchanged albuterol (albuterol 0.083% Inh Delma 3 mL) See instructions INHALE 1 vial BY MOUTH EVERY 6 HOURS NEEDED FOR WHEEZING Unchanged albuterol-budesonide (Airsupra 90 mcg-80 mcg/ inh inhalation aerosol) 2 Inhalation Inhalation 4 times a day Unchanged amlodipine (amLODIPine 5 mg Tab) 1 Tablets By Mouth Every day HTN (hypertension) Unchanged aspirin (aspirin 81 mg Oral EC Tab) 1 Tablets By Mouth Every day CAD (coronary artery disease) Unchanged atorvastatin (atorvastatin 40 mg Tab) See instructions TAKE 1 TABLET BY MOUTH DAILY Unchanged atorvastatin (atorvastatin 80 mg Tab) 1 Tablets By Mouth Every day Unchanged clopidogrel (Plavix 75 mg Tab) 1 Tablets By Mouth Every day CAD (coronary artery disease) Unchanged ergocalciferol (Vitamin D 50,000 intl units (1.25 mg) oral capsule) 1 Capsules By Mouth Every week Constricting chest pain often radiating down left arm Type 2 diabetes mellitus Hypercholesteremia Dizziness Non-smoker Fatigue BMI 50.0-59.9, adult Morbid obesity with BMI of 50.0-59.9, adult Unchanged glimepiride (glimepiride 2 mg Tab) See instructions TAKE 1 TABLET BY MOUTH TWICE DAILY Unchanged hydrochlorothiazide (hydrochlorothiazide 12.5 mg Cap) 1 Capsules By Mouth Every day Unchanged losartan (losartan 50 mg Tab) 1 Tablets By Mouth 2 times a day HTN (hypertension) Unchanged meloxicam (meloxicam 15 mg Tab) 1 Tablets By Mouth Every day TAKE 1 TABLET BY MOUTH EVERY DAY Unchanged metformin (metformin 1000 mg Tab) 1 Tablets By Mouth 2 times a day Diabetes type 2, controlled Weight gain Morbid obesity with BMI of 45.0-49.9, adult BMI 45.0-49.9, adult Non-smoker Duration: 90 Days Unchanged metoprolol (Toprol XL 25 mg Tab-ER) 1 Tablets By Mouth Every day Unchanged nystatin topical (nystatin Top 100,000 units/ g Crm 15 gram) Allergies penicillins (Epistaxis) Problems Ongoing - Any problem that you are currently receiving treatment for. Candidiasis Constricting chest pain often radiating down left arm Diabetes type 2, controlled Dizziness Encounter for weight management Exertional angina Fatigue History of placement of stent in LAD coronary artery Hypercholesteremia Left shoulder pain Left-sided chest pain Low back pain with right-sided sciatica Morbid obesity with BMI of 45.0-49.9, adult Morbid obesity with BMI of 50.0-59.9, adult Morbid obesity with BMI of 50.0-59.9, adult Prostate cancer screening Rash Restless leg Screening for hyperlipidemia Shortness of breath Type 2 diabetes mellitus Vitamin D deficiency Weight gain Wheezing Patient Survey You may receive a survey via text or e-mail asking about your office visit. Please share your experience with us by completing your survey. We appreciate your feedback and thank you for choosing us for your care. Normal [facility] CHEMISTRYOrdered By: SYSTEM SYSTEM on 04-22-2025 25-hydroxyvitamin D3 [Mass/Vol] 29.7 ng/mL Low 30.0 - 100.0 ng/mL Remisol Chem CHEMISTRYOrdered By: Lucho Fenton on 04-22-2025 HbA1c (Bld) [Mass fraction] 6.4 % High <=5.9% [facility] [place] [facility] Family Medicine Office/Clini c Noteon 04-22-2025 Family Medicine Office/Clinic Note Family Medicine Office/Clinic Note Chief Complaint med refill HPI Staff Patient is a 55 year old man presenting for medication refill Concerns: pain in both knees SOB still since stent surgery Refills: meds and injectables History of Present Illness pt presents today for follow up. needs refills. Review of Systems PHQ Score Initial Depression Screen Score: 0 SCORE Physical Exam Vitals & Measurements HR: 78(Peripheral) BP: 116/80 SpO2: 97% HT: 67 in HT: 170 cm WT: 330.693 lb WT: 150.0 kg BMI: 51.9 General: alert, no acute distress ENMT: oral mucosa moist, no pharyngeal erythema or exudate Cardiovascular: regular rate and rhythm, normal peripheral perfusion Respiratory: Lungs CTA, respirations non labored Extremities: no deformity, no trauma Neurological: oriented x 4, LOC appropriate for age, CN II-XII intact, motor strength equal & normal bilaterally, speech normal Assessment/Plan 1. Type 2 diabetes mellitus (E11.9: Type 2 diabetes mellitus without complications) will check HGBA1C in office today. will increase dose to 1.2mg through [facility]. order faxed. RTC 3 months Ordered: ketorolac, 60 mg = 2 mL, Injection, IntraMuscular, Once, Stop date 04/22/25 14:33:00 EDT, Routine, Start date 04/22/25 14:33:00 EDT, 04/22/25 14:33:00 EDT HgbA1c Lab Specimen Collect [id number] Vitamin D 25 Hydroxy 2. Vitamin D deficiency (E55.9: Vitamin D deficiency, unspecified) will check Vitamin D today. Ordered: ketorolac, 60 mg = 2 mL, Injection, IntraMuscular, Once, Stop date 04/22/25 14:33:00 EDT, Routine, Start date 04/22/25 14:33:00 EDT, 04/22/25 14:33:00 EDT HgbA1c Lab Specimen Collect [id number] Vitamin D 25 Hydroxy 3. Exertional angina (I20.89: Other forms of angina pectoris) pt still c/o exertional angina since having stent placed. will have him follow up with cardiology. Ordered: ketorolac, 60 mg = 2 mL, Injection, IntraMuscular, Once, Stop date 04/22/25 14:33:00 EDT, Routine, Start date 04/22/25 14:33:00 EDT, 04/22/25 14:33:00 EDT triamcinolone, 60 mg = 1.5 mL, Injection, IntraMuscular, Once, Stop date 04/22/25 14:37:00 EDT, Routine, Start date 04/22/25 14:37:00 EDT, 04/22/25 14:37:00 EDT Lab Specimen Collect [id number] 4. Bilateral knee pain (M25.561: Pain in right knee) pt c/o DE knee pain. toradol and kenalog injection given in office today. 5. Nonsmoker (Z78.9: Other specified health status) continue not smoking Ordered: ketorolac, 60 mg = 2 mL, Injection, IntraMuscular, Once, Stop date 04/22/25 14:33:00 EDT, Routine, Start date 04/22/25 14:33:00 EDT, 04/22/25 14:33:00 EDT HgbA1c Lab Specimen Collect [id number] Vitamin D 25 Hydroxy 6. BMI 50.0-59.9, adult (Z68.43: Body mass index [BMI] 50.0-59.9, adult) BMI education given. ozempic increased to 1.2 mg Ordered: ketorolac, 60 mg = 2 mL, Injection, IntraMuscular, Once, Stop date 04/22/25 14:33:00 EDT, Routine, Start date 04/22/25 14:33:00 EDT, 04/22/25 14:33:00 EDT HgbA1c Lab Specimen Collect [id number] Vitamin D 25 Hydroxy Orders: fluconazole, See Instructions, TAKE 1 TABLET BY MOUTH on day one and TAKE 1 TABLET on day FOUR, # 2 tab(s), Refills(s) 1, Pharmacy: [id number], 170, cm, 04/22/25 13:16:00 EDT, Height/Length Dosing, 150, kg, 04/22/25 13:16:00 EDT, Weight Dosing nystatin topical, 1 marie, Topical, BID, 30 gm, Refill(s) 0, [id number], 170, cm, 04/22/25 13:16:00 EDT, Height/Length Dosing, 150, kg, 04/22/25 13:16:00 EDT, Weight Dosing Follow-up No qualifying data available Problem List/Past Medical History Ongoing Bilateral knee pain Candidiasis Constricting chest pain often radiating down left arm Diabetes type 2, controlled Dizziness Encounter for weight management Exertional angina Fatigue History of placement of stent in LAD coronary artery Hypercholesteremia Left shoulder pain Left-sided chest pain Low back pain with right-sided sciatica Morbid obesity with BMI of 45.0-49.9, adult Morbid obesity with BMI of 50.0-59.9, adult Morbid obesity with BMI of 50.0-59.9, adult Prostate cancer screening Rash Restless leg Screening for hyperlipidemia Shortness of breath Type 2 diabetes mellitus Vitamin D deficiency Weight gain Wheezing Historical No qualifying data Procedure/Surgical History Cardiac catheterization, left heart (11/23/2024), Coronary artery stent (11/23/2024), Surgery. Medications Airsupra 90 mcg-80 mcg/inh inhalation aerosol, 2 inh, Inhalation, QID, 5 refills Albuterol (Eqv-ProAir HFA) 90 mcg/inh inhalation aerosol, 2 puff(s), Inhalation, q6hr, PRN albuterol 0.083% Inh Delma 3 mL, See Instructions amLODIPine 5 mg Tab, 5 mg= 1 tab(s), Oral, Daily, 3 refills aspirin 81 mg Oral EC Tab, 81 mg= 1 tab(s), Oral, Daily, 3 refills atorvastatin 40 mg Tab, See Instructions atorvastatin 80 mg Tab, 80 mg= 1 tab(s), Oral, Daily fluconazole 150 mg Tab, See Instructions, 1 refills glimepiride 2 mg Tab, See Instructions hydrochlorothiazide 12.5 m (more content not included)... Normal [facility] Comment on above: Result Comment: Elec tronically Signed By: Brianna Li\.br\Date and Time Signed: 04/22/25 14:49 EDT [id number] 04-22-2025 HbA1c (Bld) [Mass fraction] 6.4 % High <=5.9 [facility] Comment on above: Performed By: #### [id number] #### [facility] [address] [place] [address] Vitamin D 25 Hydroxyon 04-22 Vitamin D 25 Hydroxy 29.7 ng/mL Low 30.0-100.0 [facility] Comment on above: Performed By: #### [id number] #### [facility] [address] [place] [address] Heart and Vascular Office/Cl inic Noteon 02-07-2025 Heart and Vascular Office/Clinic Note Heart and Vascular Office/Clinic Note Chief Complaint 2 month follow up History of Present Illness The patient is a 55-year-old male with past history of diabetes mellitus type 2, hypertension, coronary artery disease with significant stenosis of the mid LAD, status post PCI with 1 MAHENDRA on 11/23/2024, moderate disease of the proximal LAD, RCA, PLV, significant disease of the circumflex artery, supplying a relatively small myocardial territory. He presents today for a scheduled follow-up appointment. Unfortunately, he did not undergo cardiac rehabilitation due to financial reasons. He presents with complaints of shortness of breath, still, especially when bending over. In the end of the encounter, the patient told me that he has been having some mild nonexertional and exertional tightness in his left upper chest, brief, which apparently he has been having for quite a while. States compliance with the current treatment plan. Review of Systems PHQ Score Initial Depression [...] infections Physical Exam Vitals & Measurements HR: 79(Peripheral) RR: 16 BP: 130/85 SpO2: 97% HT: 67 in HT: 170 cm WT: 332.898 lb WT: 151 kg BMI: 52.25 General: alert, no acute distress Neck: Supple, noJVD nocarotid bruit Cardiovascular: regular rate and rhythm, no murmur normal peripheral perfusion Respiratory: Lungs CTAB, respirations non labored Extremities: no edema left lower extremity. no edema right lower extremity Neurological: oriented x 4, LOC appropriate for age, speech normal Skin: Warm, dry, intact- no rash or concerning lesions Procedure Left heart catheterization procedure report DATE OF PROCEDURE: 11/23/2024 SKID STRAPPER Luis Carlos Pineda MD [facility] INDICATION: Chest pain, consistent with [...] and conscious sedation were discussed in detail with the patient/next of kin/durable power of including the indications, expected outcomes, potential treatment options based upon the results, alternative treatment options and benefits, risks and possible complications associated with the procedure. The patient/next of kin/durable power of expressed an understanding of the information provided and willingness to proceed. Signed, informed consent for the procedure was obtained for all of the above. DESCRIPTION OF THE PROCEDURE: In the postabsorptive state, the patient was brought to the Adult Cardiac Pad Hand and placed on the table. The planned puncture sites/areas were prepped and draped in usual sterile fashion and a safety time-out was performed. Moderate Sedation was given by the Cardiac Pad Hand RN. RIGHT RADIAL ARTERY ACCESS: The puncture site was infiltrated with 1% lidocaine. The modified Seldinger technique was performed to access the right radial artery using a 21G needle radial access kit. A wire was threaded into the radial artery followed by upsizing to a 5/6F slender 10cm sheath. Verapamil 5 mg was administered into the sheath. The sheath was then flushed with heparinized saline and IV UFH was administered via peripheral IV by the laboratory chief RN after the catheter crossed into the ascending aorta. Selective left and right coronary artery angiography : Under fluoroscopic guidance, a 5 F JR4 diagnostic catheter was then advanced over the 0.035 260cm J-tipped guidewire to the level of the aortic valve. 5 F JR4 diagnostic catheter was advanced over the guidewire across the Aortic valve and into the left ventricle. Hemodynamic measurements were then obtained. Left ventriculography was performed. The JR4 catheter was then pulled back into the ascending aorta for assessment of LV-Ao gradient. The JR4 diagnostic catheter was then exchanged for a JR 5 diagnostic catheter, which was used to selectively engage the RCA ostium and angiographic images under multiple projections were obtained. (more content not included)... Normal [facility] Comment on above: Result Comment: Elec tronically Signed By: Edwin RHOADES, Luis Carlos Salvador\.cassie\Date and Time Signed: 02/07/25 14:25 EDT Ambulatory Visit Summaryon 0 01-10-2025 Ambulatory Visit Summary Ambulatory Visit Summary BENITES, JAMES :1970 Visit Date:01/10/2025 Ambulatory Visit Instructions Your Care Team Attending Physician - Brianna Li Primary Care Physician - BrittneyBrianna Nichols This Is Your Medications List albuterol (Albuterol (Eqv-ProAir HFA) 90 mcg/inh inhalation aerosol) albuterol (albuterol 0.083% Inh Delma 3 mL) albuterol-budesonide (Airsupra 90 mcg-80 mcg/inh inhalation aerosol) amlodipine (amLODIPine 5 mg Tab) aspirin (aspirin 81 mg Oral EC Tab) atorvastatin (atorvastatin 40 mg Tab) clopidogrel (Plavix 75 mg Tab) ergocalciferol (Vitamin D 50,000 intl units (1.25 mg) oral capsule) glimepiride (glimepiride 2 mg Tab) hydrochlorothiazide (hydrochlorothiazide 12.5 mg Cap) losartan (losartan 50 mg Tab) meloxicam (meloxicam 15 mg Tab) metformin (metformin 1000 mg Tab) nystatin topical (nystatin Top 100,000 units/g Crm 15 gram) ropinirole (Requip 2 mg Tab) Procedures Performed Cardiac catheterization, left heart (11/23/2024), Coronary artery stent (11/23/2024), Surgery. Discharge Vitals Heart Rate (Peripheral) 80 Respiratory Rate 18 Blood Pressure 142/84 Height 170.0 cm Height 67 in Weight 153.1 kg Weight 337.527 lb BMI 52.98 What to do next Scheduled Follow-Up Appointments 2024 1:45 PM EDT With: Edwin RHOADES, Luis Carlos Salvador Where: [facility] Medications What How Much When Why Instructions Unchanged albuterol (Albuterol (Eqv-ProAir HFA) 90 mcg/ inh inhalation aerosol) 2 Puffs Inhalation Every 6 hours as needed for Wheezing Unchanged albuterol (albuterol 0.083% Inh Delma 3 mL) See instructions INHALE 1 vial BY MOUTH EVERY 6 HOURS NEEDED FOR WHEEZING Unchanged albuterol-budesonide (Airsupra 90 mcg-80 mcg/ inh inhalation aerosol) 2 Inhalation Inhalation 4 times a day Unchanged amlodipine (amLODIPine 5 mg Tab) 1 Tablets By Mouth Every day HTN (hypertension) Unchanged aspirin (aspirin 81 mg Oral EC Tab) 1 Tablets By Mouth Every day CAD (coronary artery disease) Unchanged atorvastatin (atorvastatin 40 mg Tab) See instructions TAKE 1 TABLET BY MOUTH DAILY Unchanged clopidogrel (Plavix 75 mg Tab) 1 Tablets By Mouth Every day CAD (coronary artery disease) Unchanged ergocalciferol (Vitamin D 50,000 intl units (1.25 mg) oral capsule) 1 Capsules By Mouth Every week Constricting chest pain often radiating down left arm Type 2 diabetes mellitus Hypercholesteremia Dizziness Non-smoker Fatigue BMI 50.0-59.9, adult Morbid obesity with BMI of 50.0-59.9, adult Unchanged glimepiride (glimepiride 2 mg Tab) See instructions TAKE 1 TABLET BY MOUTH TWICE DAILY Unchanged hydrochlorothiazide (hydrochlorothiazide 12.5 mg Cap) 1 Capsules By Mouth Every day Unchanged losartan (losartan 50 mg Tab) 1 Tablets By Mouth 2 times a day HTN (hypertension) Unchanged meloxicam (meloxicam 15 mg Tab) 1 Tablets By Mouth Every day TAKE 1 TABLET BY MOUTH EVERY DAY Unchanged metformin (metformin 1000 mg Tab) 1 Tablets By Mouth 2 times a day Diabetes type 2, controlled Weight gain Morbid obesity with BMI of 45.0-49.9, adult BMI 45.0-49.9, adult Non-smoker Duration: 90 Days Unchanged nystatin topical (nystatin Top 100,000 units/ g Crm 15 gram) Unchanged ropinirole (Requip 2 mg Tab) 1 Tablets By Mouth At bedtime Morbid obesity with BMI of 50.0-59.9, adult Non-smoker Cough Restless leg 1 to 3 hours before bedtime Allergies penicillins (Epistaxis) Problems Ongoing - Any problem that you are currently receiving treatment for. Candidiasis Constricting chest pain often radiating down left arm Diabetes type 2, controlled Dizziness Encounter for weight management Fatigue History of placement of stent in LAD coronary artery Hypercholesteremia Left shoulder pain Left-sided chest pain Morbid obesity with BMI of 45.0-49.9, adult Morbid obesity with BMI of 50.0-59.9, adult Prostate cancer screening Rash Restless leg Screening for hyperlipidemia Shortness of breath Type 2 diabetes mellitus Weight gain Wheezing Patient Survey You may receive a survey via text or e-mail asking about your office visit. Please share your experience with us by completing your survey. We appreciate your feedback and thank you for choosing us for your care. [facility] Medicine Office/Clini c Noteon 01-10-2025 Family Medicine Office/Clinic Note Family Medicine Office/Clinic Note HPI Staff Ankit is a 54 year old male presenting for acute visit Pain characteristics: Pain location: Right hip to knee Intensity: 10/10 Onset: 3 days ago getting worse Medication used: ibuprofen, Bengay starts right buttock/hip to around to front side of thigh to knee. Pain is constant 10/10 most of the time. Pt went yesterday to chiropractor and was adjusted thought it was better went to work and the pain got a lot worse. no injury History of Present Illness pt presents today with severe low right back pain with sciatic pain to right knee Review of Systems PHQ Score Initial Depression Screen Score: 1 SCORE Physical Exam Vitals & Measurements HR: 80(Peripheral) RR: 18 BP: 142/84 SpO2: 96% HT: 67 in HT: 170.0 cm WT: 153.1 kg WT: 337.527 lb BMI: 52.98 General: alert, no acute distress ENMT: oral mucosa moist, no pharyngeal erythema or exudate Cardiovascular: regular rate and rhythm, normal peripheral perfusion Respiratory: Lungs CTA, respirations non labored Extremities: no deformity, no trauma Neurological: oriented x 4, LOC appropriate for age, CN II-XII intact, motor strength equal & normal bilaterally, speech normal Assessment/Plan 1. Low back pain with right-sided sciatica (M54.41: Lumbago with sciatica, right side) pt c/o severe right low back pain that shoots down his leg to inner knee. pt almost went to ER last night because pain was so bad. pt has a large project he has to finish in the next five days. will give 60mg of kenalolg and toradol . will send in a couple percoet and muscle relaxers. all questions answered. If pain continues will order MRI through [facility] imaging self pay program. Ordered: acetaminophen-oxycodon e, 1 tab(s), Oral, q6hr, 8 tab(s), Refill(s) 0, [id number], 170, cm, 01/10/25 11:38:00 EST, Height/Length Dosing, 153.1, kg, 01/10/25 11:38:00 EST, Weight Dosing cyclobenzaprine, 10 mg = 1 tab(s), Oral, TID, PRN for spasm, # 30 tab(s), Refills(s) 0, Pharmacy: [id number], 170, cm, 01/10/25 11:38:00 EST, Height/Length Dosing, 153.1, kg, 01/10/25 11:38:00 EST, Weight Dosing 2. Morbid obesity with BMI of 50.0-59.9, adult (E66.01: Morbid (severe) obesity due to excess calories) BMI education given Ordered: acetaminophen-oxycodon e, 1 tab(s), Oral, q6hr, 8 tab(s), Refill(s) 0, [facility], 170, cm, 01/10/25 11:38:00 EST, Height/Length Dosing, 153.1, kg, 01/10/25 11:38:00 EST, Weight Dosing cyclobenzaprine, 10 mg = 1 tab(s), Oral, TID, PRN for spasm, # 30 tab(s), Refills(s) 0, Pharmacy: [id number], 170, cm, 01/10/25 11:38:00 EST, Height/Length Dosing, 153.1, kg, 01/10/25 11:38:00 EST, Weight Dosing Body mass index [BMI] 50.0-59.9, adult (Z68.43: Body mass index [BMI] 50.0-59.9, adult) see above Follow-up No qualifying data available Problem List/Past Medical History Ongoing Candidiasis Constricting chest pain often radiating down left arm Diabetes type 2, controlled Dizziness Encounter for weight management Fatigue History of placement of stent in LAD coronary artery Hypercholesteremia Left shoulder pain Left-sided chest pain Low back pain with right-sided sciatica Morbid obesity with BMI of 45.0-49.9, adult Morbid obesity with BMI of 50.0-59.9, adult Prostate cancer screening Rash Restless leg Screening for hyperlipidemia Shortness of breath Type 2 diabetes mellitus Weight gain Wheezing Historical No qualifying data Procedure/Surgical History Cardiac catheterization, left heart (11/23/2024), Coronary artery stent (11/23/2024), Surgery. Medications Airsupra 90 mcg-80 mcg/inh inhalation aerosol, 2 inh, Inhalation, QID, 5 refills Albuterol (Eqv-ProAir HFA) 90 mcg/inh inhalation aerosol, 2 puff(s), Inhalation, q6hr, PRN albuterol 0.083% Inh Delma 3 mL, See Instructions amLODIPine 5 mg Tab, 5 mg= 1 tab(s), Oral, Daily aspirin 81 mg Oral EC Tab, 81 mg= 1 tab(s), Oral, Daily, 3 refills atorvastatin 40 mg Tab, See Instructions cyclobenzaprine 10 mg Tab, 10 mg= 1 tab(s), Oral, TID, PRN glimepiride 2 mg Tab, See Instructions hydrochlorothiazide 12.5 mg Cap, 12.5 mg= 1 cap(s), Oral, Daily, 5 refills losartan 50 mg Tab, 50 mg= 1 tab(s), Oral, BID, 5 refills meloxicam 15 mg Tab, 15 mg= 1 tab(s), Oral, Daily, 4 refills metformin 1000 mg Tab, 1000 mg= 1 tab(s), Oral, BID, 3 refills nystatin Top 100,000 units/g Crm 15 gram Percocet 5 mg-325 mg oral tablet, 1 tab(s), Oral, q6hr Plavix 75 mg Tab, 75 mg= 1 tab(s), Oral, Daily, 3 refills Requip 2 mg Tab, 2 mg= 1 tab(s), Oral, Bedtime Vitamin D 50,000 intl units (1.25 mg) oral capsule, [address] International_Unit= 1 cap(s), Oral, qWeek, 3 refills Allergies penicillins (Epistaxis) Social History Alcohol - Denies Alcohol Use, 11/25/2024 Never., 08/29/2024 Substance Abuse - Denies Substance Abuse, 11/25/2024 Never., 08/29/2024 Tobacco - Denies Tobacco Use, 11/25/2024 Never (less than 100 (more content not included)... Normal [facility] Comment on above: Result Comment: Elec tronically Signed By: Brianna Li\.br\Date and Time Signed: 01/10/25 12:35 EST BMPon 12-25-2024 Anion gap [Moles/Vol] 12 mmol/L Normal 6-16 [facility] Comment on above: Performed By: #### 2 [id number] #### [facility] [address] [place] [address] Calcium [Mass/Vol] 9.8 mg/dL Normal 8.9-11.1 [facility] Comment on above: Performed By: #### 2 [id number] #### [facility] [address] [place] [address] Chloride [Moles/Vol] 101 mmol/L Normal 101-111 [facility] Comment on above: Performed By: #### 2 [id number] #### [facility] [address] [place] [address] CO2 [Moles/Vol] 29 mmol/L Normal 21-31 [facility] Comment on above: Performed By: #### 2 [id number] #### [facility] [address] [place] [address] Creatinine [Mass/Vol] 0.8 mg/dL Normal 0.5-1.3 [facility] Comment on above: Performed By: #### 2 [id number] #### [facility] [address] [place] [address] Glucose [Mass/Vol] 147 mg/dL Normal 55-199 [facility] Comment on above: Performed By: #### 2 [id number] #### [facility] [address] [place] [address] Potassium [Moles/Vol] 4.5 mmol/L Normal 3.5-5.3 [facility] Comment on above: Performed By: #### 2 [id number] #### [facility] [address] [place] [address] Sodium [Moles/Vol] 137 mmol/L Normal 135-145 [facility] Comment on above: Performed By: #### 2 [id number] #### [facility] [address] [place] [address] Urea nitrogen [Mass/Vol] 20 mg/dL Normal 5-21 [facility] Comment on above: Performed By: #### 2 [id number] #### [facility] [address] [place] [address] Urea nitrogen/Creatinine [Mass ratio] 25 No Units High 10-20 [facility] Comment on above: Performed By: #### 2 [id number] #### [facility] [address] [place] [address] CHEMISTRYOrdered By: SYSTEM SYSTEM on 12-25-2024 Anion gap [Moles/Vol] 12 mmol/L Normal 6 - 16 mEq/L R emisol Chem Calcium [Mass/Vol] 9.8 mg/dL Normal 8.9 - 11. 1 mg/dL [facility] Chloride [Moles/Vol] 101 mmol/L Normal 101 - 1 11 mmol/L [facility] Cholesterol [Mass/Vol] 144 mg/dL Normal 120 - 200 mg/dL [facility] Cholesterol in HDL [Mass/Vol] 52 mg/dL Invalid Interpretation Code [facility] Comment on above: Result Comment: '>= 60 LOW RISK' '<= 40 HIGH RISK' Cholesterol in LDL [Mass/Vol] 83 mg/dL Normal <=129mg/dL [facility] Cholesterol in VLDL [Mass/Vol] 18 mg/dL Normal 7 - 40 mg/dL [facility] CO2 [Moles/Vol] 29 mmol/L Normal 21 - 31 mmol/L [facility] Creatinine [Mass/Vol] 0.8 mg/dL Normal 0.5 - 1.3 mg/dL [facility] eGFR 105 mL/min/1.73 m2 Normal >=59mL/mi n/1 .73 m2 [facility] Glucose [Mass/Vol] 147 mg/dL Normal 55 - 199 mg/dL [facility] Potassium [Moles/Vol] 4.5 mmol/L Normal 3.5 - 5.3 mmol/L [facility] Sodium [Moles/Vol] 137 mmol/L Normal 135 - 145 mmol/L [facility] Triglyceride [Mass/Vol] 90 mg/dL Normal <=149mg/dL [facility] Urea nitrogen [Mass/Vol] 20 mg/dL Normal 5 - 21 mg/dL [facility] Urea nitrogen/Creatinine [Mass ratio] 25 mg/mg High 10 - 20 [facility] CHEMISTRYOrdered By: Mari Sheriff on 12-25-2024 HbA1c (Bld) [Mass fraction] 7.4 % High <=5.9% [facility] ChemAutoSS [id number] 12-25-2024 HbA1c (Bld) [Mass fraction] 7.4 % High <=5.9 [facility] Comment on above: Performed By: #### 7 [id number] #### [facility] [address] [place] [address] Lipid Panelon 12-25-2024 Cholesterol [Mass/Vol] 144 mg/dL Normal 120-200 [facility] Comment on above: Performed By: #### 2 [id number] #### [facility] [address] [place] [address] Cholesterol in HDL [Mass/Vol] 52 mg/dL Invalid Interpretation Code [facility] Comment on above: Result Comment: '>= 60 LOW RISK' '<= 40 HIGH RISK' Performed By: #### 2 [id number] #### [facility] [address] [place] [address] Cholesterol in LDL [Mass/Vol] 83 mg/dL Normal <=129 [facility] Comment on above: Performed By: #### 2 [id number] #### [facility] [address] [place] [address] Cholesterol in VLDL [Mass/Vol] 18 mg/dL Normal 7-40 [facility] Comment on above: Performed By: #### 2 [id number] #### [facility] [address] [place] [address] Triglyceride [Mass/Vol] 90 mg/dL Normal <=149 [facility] Comment on above: Performed By: #### 2 [id number] #### [facility] [address] [place] [address] eGFRon 12-25-2024 eGFR 105 mL/min/1.73 m2 Normal >=59 [facility] Comment on above: Performed By: #### 1 [id number] #### [facility] [address] [place] [address] ED Note-Physicianon 12-21-19 ED Note-Physician ED Note-Physician Basic Information Time Seen: Anthony Michele PA-C 11/25/2024 11:46 Chief Complaint Cough and congestion since . Had cath placed on Tuesday here- stent placed for 100% blockage in LAD. Wheezing, SOB as well. History of Present Illness Patient is a 54 year old male with a PMH of T2DM who presents to the ED with cough that he describes as coughing up stuff and SOB for the past 3 days. He did have a stent placement of the LAD (100% blockage) on Tuesday with Dr. Love at [facility]. He states that directly after his procedure he felt well but is still experiencing some left shoulder tingling. He states that he has experienced some associated chills as well but denies fevers, palpitations, or ill contacts. He states that he did use his inhaler for his SOB but it is unclear if it improved his symptoms. No exacerbating factors were identified. He does note that prior to his procedure he could only walk very short distances before gasping for air. He has no known diagnosis of COPD. Patient is accompanied in the ED with his and they have no other questions or concerns at this time. Review of Systems A 10 point review of systems is negative except as noted above. Medical and Surgical History: Reviewed and noted Social history: Lives at home Tobacco: Denies Physical Exam Vitals & Measurements T: 36.7 ???C(Oral) HR: 77(Monitored) RR: 23 BP: 163/94 SpO2: 93% HT: 170 cm WT: 154 kg BMI: 53.29 General: alert, no acute distress Skin: warm, dry Head: no trauma, normocephalic Neck: Trachea midline, no adenopathy, no tenderness, thyroid not enlarged Eye: normal conjunctiva, sclera clear ENMT: oral mucosa moist, yes Cardiovascular: regular rate and rhythm, normal Respiratory: respirations non labored Wheezing is appreciated in all four lung quintanilla. Chest wall: no deformity. Gastrointestinal: soft, non distended, no tenderness Back: No tenderness Extremities: Trace bilateral ankle edema, no wound Neurological: awake, alert, oriented, speech normal Psychiatric: cooperative, affect appropriate for age Medical Decision Making Patient seen and evaluated with physician grants and contracts assistant student. I had a sctc-ta-[id number] interaction with the patient. I personally performed the physical exam and medical decision making. I have verified the documentation by the student is accurately representing the information obtained. Patient presents for evaluation of cough and congestion. Symptom started 3 days ago cough chills and wheezing. Denies any history of tobacco use or chronic lung disease. He did note some shortness of breath last night with worsening wheezing. He was given an inhaler by a friend which she took and seemed to help with his symptoms. He has no acute chest pain did have recent cardiac catheterization. Patient is well-appearing nontoxic examination. He is resting comfortably. He has no increased work of breathing. He is not hypoxic. Chest x-ray with no acute infiltrates. Given his acute wheezing with harsh cough we will cover him with azithromycin as well as prednisone albuterol. He was given breathing treatments here. He is discharged home with PCP follow-up. Patient was encouraged to return to the ED if symptoms worsen or change. Assessment/Plan Acute bronchospasm (J98.01: Acute bronchospasm) Cough (R05.9: Cough, unspecified) Orders: albuterol, 2 puff(s), Inhalation, q6hr Wheezing, 8.5 gm, Refill(s) 0, [facility], 170, cm, 11/25/24 11:49:00 EST, Height/Length Dosing, 154, kg, 11/25/24 11:49:00 EST, Weight Dosing albuterol-ipratropium, 3 mL, Soln-Inh, Inhalation, Once, Stop date 11/25/24 13:14:00 EST, STAT, Start date 11/25/24 13:14:00 EST azithromycin, = 1 packet(s), Oral, As Directed, as directed on package labeling, X 5 day(s), # 6 tab(s), Refills(s) 0, Pharmacy: [facility], 170, cm, 11/25/24 11:49:00 EST, Height/Length Dosing, 154, kg, 11/25/24 11:49:00 EST, Weight Dosing predniSONE, 60 mg = 3 tab(s), Tab, Oral, Once, Stop date 11/25/24 13:15:00 EST, STAT, Start date 11/25/24 13:15:00 EST, 11/25/24 13:15:00 EST predniSONE, 60 mg = 3 tab(s), Oral, Daily, X 5 day(s), # 15 tab(s), Refills(s) 0, Pharmacy: [facility], 170, cm, 11/25/24 11:49:00 EST, Height/Length Dosing, 154, kg, 11/25/24 11:49:00 EST, Weight Dosing XR Chest 2 Views Medications Administered Given DuoNeb 2.5 mg-0.5 mg/3 mL Soln-Inh, 3 mL, Inhalation predniSONE 20 mg Tab, 60 mg, Oral Disposition Plan Patient Discharge Condition Disposition: Discharged home Condition: Improved and stable Counseled: Patient and/or family were counseled to workup, results, treatment plan and follow-up recommendations Discharge Prescription List Prescriptions Albuterol (Eqv-ProAir HFA) 90 mcg/inh inhalation aerosol, 2 puff(s), Inhalation, q6hr, PRN azithromycin 250 mg Tab 5-day Dose Pack (Z-Douglas), 1 packet(s), Oral, As Directed predniSONE 20 mg Tab, 60 mg= 3 tab(s), Oral, Daily Follow-up With When Contac (more content not included)... Normal [facility] Comment on above: Result Comment: Elec tronically Signed By: Anthony Michele PA-C\.br\Date and Time Signed: 11/25/24 13:38 EST\.br\Electronically Co-Signed By: Zeb Ritchie MD\.br\Date and Time Co-Signed: 12/21/24 16:03 EST Heart and Vascular Office/Cl inic Noteon 12-14-2024 Heart and Vascular Office/Clinic Note Heart and Vascular Office/Clinic Note Chief Complaint 2 week F/U History of Present Illness The patient is a 54-year-old male with past history of diabetes mellitus type 2, hypertension, coronary artery disease with significant stenosis of the mid LAD, status post PCI with 1 MAHENDRA on 11/23/2024, moderate disease of the proximal LAD, RCA, PLV, significant disease of the circumflex artery, supplying a relatively small myocardial territory. He presents today for a scheduled follow-up appointment. He reports doing better after the PCI, reports no chest pain, just occasional tingling in his left upper chest. He states that shortness of breath is better. He states compliance with the current treatment plan. Denies any side effects. According to his , his systolic blood pressure is running at home in the range of 120s to 140s millimeters mercury. Review of Systems PHQ Score Initial Depression Screen Score: 0 SCORE ROS - Provider Constitutional: no fever, no chills, no fatigue Skin:no rash, no lesions ENMT: no ear pain, no sore throat, no congestion. Respiratory: no shortness of breath, no cough, no wheezing. Cardiovascular: no chest pain, no palpitations, no edema. Gastrointestinal: [...] infections Physical Exam Vitals & Measurements HR: 79(Peripheral) RR: 18 BP: 138/82 SpO2: 95% HT: 67 in HT: 170 cm WT: 151.2 kg WT: 333.339 lb BMI: 52.32 General: alert, no acute distress Neck: Supple, noJVD nocarotid bruit Cardiovascular: regular rate and rhythm, no murmur normal peripheral perfusion Respiratory: Lungs CTAB, respirations non labored Extremities: 1+ edema left lower extremity. +1 edema right lower extremity Neurological: oriented x 4, LOC appropriate for age, speech normal Skin: Warm, dry, intact- no rash or concerning lesions Procedure Left heart catheterization procedure report DATE OF PROCEDURE: 11/23/2024 SKID STRAPPER Luis Carlos Pineda MD [facility] INDICATION: Chest pain, consistent with [...] and conscious sedation were discussed in detail with the patient/next of kin/durable power of including the indications, expected outcomes, potential treatment options based upon the results, alternative treatment options and benefits, risks and possible complications associated with the procedure. The patient/next of kin/durable power of expressed an understanding of the information provided and willingness to proceed. Signed, informed consent for the procedure was obtained for all of the above. DESCRIPTION OF THE PROCEDURE: In the postabsorptive state, the patient was brought to the Adult Cardiac Pad Hand and placed on the table. The planned puncture sites/areas were prepped and draped in usual sterile fashion and a safety time-out was performed. Moderate Sedation was given by the Cardiac Pad Hand RN. RIGHT RADIAL ARTERY ACCESS: The puncture site was infiltrated with 1% lidocaine. The modified Seldinger technique was performed to access the right radial artery using a 21G needle radial access kit. A wire was threaded into the radial artery followed by upsizing to a 5/6F slender 10cm sheath. Verapamil 5 mg was administered into the sheath. The sheath was then flushed with heparinized saline and IV UFH was administered via peripheral IV by the laboratory chief RN after the catheter crossed into the ascending aorta. Selective left and right coronary artery angiography : Under fluoroscopic guidance, a 5 F JR4 diagnostic catheter was then advanced over the 0.035 260cm J-tipped guidewire to the level of the aortic valve. 5 F JR4 diagnostic catheter was advanced over the guidewire across the Aortic valve and into the left ventricle. Hemodynamic measurements were then obtained. [...] a 5 F JL3.5 diagnostic catheter over guide (more content not included)... Normal [facility] Comment on above: Result Comment: Elec tronically Signed By: Edwin RHOADES, Luis Carlos Salvador\.br\Date and Time Signed: 12/14/24 14:40 EST Family Medicine Office/Clini c Noteon 11-29-2024 Family Medicine Office/Clinic Note Family Medicine Office/Clinic Note HPI Staff Ankit is a 54 year old male presenting for 3 month follow up Patient is here for follow up on Diabetes. How often are you checking your blood sugars? _ times per day What are your average readings? _ Paresthesias, Ulcerations or sores? no Lisinopril, aspirin, statin therapy? Yes Foot Exam: Eye Exam: Last A1c: Hgb A1C %: 7.1 % High (08/29/24 17:53:00) Questions/Concerns: Pt has been sick recently and started tab and steroids on Tuesday. Has stent put in last Tuesday Pt states he has had RLS for a long time and has been taking OTC medication but doesn't seem to be helping anymore. Would like to try requip History of Present Illness pt presents today for follow up. is not feeling any better Review of Systems PHQ Score Initial Depression Screen Score: 1 SCORE Physical Exam Vitals & Measurements T: 35.9 ???C(Tympanic) HR: 80(Peripheral) RR: 18 BP: 124/82 SpO2: 92% HT: 67 in HT: 170.0 cm WT: 150.2 kg WT: 331.134 lb BMI: 51.97 General: alert, no acute distress ENMT: oral mucosa moist, no pharyngeal erythema or exudate Cardiovascular: regular rate and rhythm, normal peripheral perfusion Respiratory: Lungs expiratory wheezes, respirations non labored Extremities: no deformity, no trauma Neurological: oriented x 4, LOC appropriate for age, CN II-XII intact, motor strength equal & normal bilaterally, speech normal Assessment/Plan 1. Cough (R05.9: Cough, unspecified) cough is worsening. is almost done with greg douglas. will send in levofloxacin. nebulizer provided and albuterol sent to pharmacy Ordered: ropinirole, 2 mg = 1 tab(s), Oral, Bedtime, 1 to 3 hours before bedtime, # 90 tab(s), Refills(s) 0, Pharmacy: [facility], 170, cm, 11/28/24 17:02:00 EST, Height/Length Dosing, 150.2, kg, 11/28/24 17:02:00 EST, Weight Dosing triamcinolone, 60 mg = 1.5 mL, Injection, IntraMuscular, Once, Stop date 11/28/24 17:46:00 EST, Routine, Start date 11/28/24 17:46:00 EST, 11/28/24 17:46:00 EST 2. Diabetes type 2, controlled (E11.9: Type 2 diabetes mellitus without complications) will return for nurse visit in 3 weeks for Hgba1C Ordered: HgbA1c 3. Wheezing (R06.2: Wheezing) wheezing noted throughout all kristine quintanilla. will given 60mg kenalog in office today. levaquin sent 4. Restless leg (G25.81: Restless legs syndrome) will order requip Ordered: ropinirole, 2 mg = 1 tab(s), Oral, Bedtime, 1 to 3 hours before bedtime, # 90 tab(s), Refills(s) 0, Pharmacy: [facility], 170, cm, 11/28/24 17:02:00 EST, Height/Length Dosing, 150.2, kg, 11/28/24 17:02:00 EST, Weight Dosing 5. History of placement of stent in LAD coronary artery (Z95.5: Presence of coronary angioplasty implant and graft) Dr. Pineda placed stent on 11/23 6. Body mass index [BMI] 50.0-59.9, adult (Z68.43: Body mass index [BMI] 50.0-59.9, adult) BMI education 7. Morbid obesity with BMI of 50.0-59.9, adult (E66.01: Morbid (severe) obesity due to excess calories) see above Ordered: levofloxacin, 750 mg = 1 tab(s), Oral, Daily, X 5 day(s), # 5 tab(s), Refills(s) 0, Pharmacy: [facility], 170, cm, 11/28/24 17:02:00 EST, Height/Length Dosing, 150.2, kg, 11/28/24 17:02:00 EST, Weight Dosing ropinirole, 2 mg = 1 tab(s), Oral, Bedtime, 1 to 3 hours before bedtime, # 90 tab(s), Refills(s) 0, Pharmacy: [facility], 170, cm, 11/28/24 17:02:00 EST, Height/Length Dosing, 150.2, kg, 11/28/24 17:02:00 EST, Weight Dosing triamcinolone, 60 mg = 1.5 mL, Injection, IntraMuscular, Once, Stop date 11/28/24 17:46:00 EST, Routine, Start date 11/28/24 17:46:00 EST, 11/28/24 17:46:00 EST 8. Non-smoker (Z78.9: Other specified health status) continue not smoking Ordered: levofloxacin, 750 mg = 1 tab(s), Oral, Daily, X 5 day(s), # 5 tab(s), Refills(s) 0, Pharmacy: [facility], 170, cm, 11/28/24 17:02:00 EST, Height/Length Dosing, 150.2, kg, 11/28/24 17:02:00 EST, Weight Dosing ropinirole, 2 mg = 1 tab(s), Oral, Bedtime, 1 to 3 hours before bedtime, # 90 tab(s), Refills(s) 0, Pharmacy: [facility], 170, cm, 11/28/24 17:02:00 EST, Height/Length Dosing, 150.2, kg, 11/28/24 17:02:00 EST, Weight Dosing triamcinolone, 60 mg = 1.5 mL, Injection, IntraMuscular, Once, Stop date 11/28/24 17:46:00 EST, Routine, Start date 11/28/24 17:46:00 EST, 11/28/24 17:46:00 EST Orders: albuterol, See Instructions, 60 mL, Refill(s) 0, INHALE 1 vial BY MOUTH EVERY 6 HOURS NEEDED FOR WHEEZING, [facility], 170, cm, 11/28/24 17:02:00 EST, Height/Length Dosing, 150.2, kg, 11/28/24 17:02:00 EST, Weight Dosing Follow-up No qualifying data available Problem List/Past Medical History Ongoing Candidiasis Constricting chest pain often radiating down left arm Diabetes type 2, controlled Dizziness Encounter for weight management Fatigue History of placement of stent in LAD coronary artery Hypercholesteremia Left shoulder pain Left-sided (more content not included)... Normal [facility] Comment on above: Result Comment: Elec tronically Signed By: Brianna Li\.br\Date and Time Signed: 11/29/24 13:21 EST ED Clinical Summaryon 2024 ED Clinical Summary ED Clinical Summary [place] [id number] ED Clinical Summary Person Information Name: ANKIT BENITES/[facility] Age: 54 Years : 1970 Sex: Male Language: Slovak PCP: Brittney PLANNING FEEDER, Brianna L Marital Status: Single Visit Id: Visit Reason: [...] 11/25/2024 13:42:02 11/25/2024 13:42:02 11/25/2024 13:42:02 AD[address]ESS: [facility] [facility] [id number] PHYS DOC NOTES: MEDICAL INFORMATION: Prescriptions Given: New Medications [facility], [address] [place] [id number], [phone] albuterol (Albuterol (Eqv-ProAir HFA) 90 mcg/inh inhalation [...] Follow up: With: Address: When: Brianna Lugo [address] [place] [address] [facility] () In 3 days 11/28/2024 DIAGNOSIS: Acute bronchospasm; Cough Normal [facility] ED Patient Summaryon 025 ED Patient Summary ED Patient Summary [address] [address] Patient Discharge Instructions Person Information Name: ANKIT BENITES Age: 54 Years Arrival Date: 11/25/2024 11:38:02 Discharge Diagnosis: Acute bronchospasm; Cough Primary Care Physician: Brianna Li Provider Information Primary Provider: Zeb Ritchie MD Advanced Immigration Investigator:Anthony Michele PA-C The exam and treatment you received in the Emergency Department were for an urgent problem and are not intended as complete care. It is important that you follow up with a doctor, nurse practitioner, or physician???s grants and contracts assistant for ongoing care. If your symptoms become worse or you do not improve as expected and you are unable to reach your usual health care provider, you should return to the Emergency Department. We are available 24 hours a day. ANKIT BENITES has been given the following list of patient education materials, prescriptions and follow-up instructions: Follow-up Instructions: With: Address: When: Brianna Garciaab [address] [place] [address] [facility] () In 3 days 11/28/2024 In the event that this physician does not participate in your insurance network, please consult with your insurance company to find a nearby participating provider. Patient Education Materials: Cough, Adult; Bronchospasm, Adult A MESSAGE TO ALL PATIENTS REGARDING OPIOIDS PRESCRIPTION OPIOIDS: WHAT YOU NEED TO KNOW Prescription opioids can be used to help relieve yyonebpu-mj-ddnfuj pain and are often prescribed following a [...] care pro (more content not included)... Normal [facility] XR Chest 2 Viewson XR Chest [...] Vladimir Zarate MD Transcribed by: IVIS Technologist: JLW Technical Comments Radiation Dose: Ka,r in mGy = . DAP = . Normal [facility] Inpatient Clinical Summaryon 11-23-2024 Inpatient Clinical Summary Inpatient Clinical Summary [address] [address] Clinical Summary Person Information: Name: ANKIT BENITES Age: 54 Years : 1970 Sex: Male PCP: Brianna Li Marital Status: Unknown Race: White Ethnicity: Non- or Language: Slovak Visit Id: Visit Reason: R07.9 I20.0 Speciality: Acuity: Enc Type: Ambulatory/Same Day Surgery Med Service: Cardiovascular Arrival: 11/23/2024 07:26:40 Discharge: Dispo Type: Address: [address] [place] [id number] Provider Notes: Diagnosis: Problems Active Dizziness Fatigue [...] up: With: Address: When: Luis Carlos Pineda [address] [place], [place] [id number] [phone] Business (1) 12/07/2024 2:00 PM With: Address: When: Brianna Lugo Type Location Start [facility] 11/28/2024 5:00 PM 11/28/2024 5:20 PM Confirmed Patient Education Information: CV - Cardiovascular PCI Discharge Instructions (Custom) Plavix 75 mg Tab Normal [facility] Inpatient Patient Summaryon 11-23-2024 Inpatient Patient Summary Inpatient Patient Summary [address] [address] Patient Discharge Instructions PERSON INFORMATION Name: ANKIT [...] Follow up: With: Address: When: [place] [address] [phone] Business (1) 12/07/2024 2:00 PM With: Address: When: Brianna Lugo In the event that this physician does not participate in your insurance network, please consult with your insurance company to find a nearby participating provider. Type Location Start [facility] [place] 11/28/2024 5:00 PM 11/28/2024 5:20 PM Confirmed Comment: DELMIS Camacho JAMES, have received the attached patient education materials/instructions and have verbalized understanding: Patient Signature Date Clinican/Nurse Signature ___ Date HERE ARE THE MEDICATION CHANGES THAT OCCURRED DURING YOUR HOSPITAL STAY New Medications [facility], [address] [place], [place] [id number], [phone] amlodipine (amLODIPine 5 mg Tab) 1 Tablets By Mouth every day. Refills: 0. Last Dose: ___Next Dose: ___ clopidogrel (Plavix 75 mg Tab) 1 Tablets By Mouth every day. Refills: 3. Last Dose: ___Next Dose: ___ losartan (losartan 50 mg Tab) 1 Tablets By Mouth every day. Refills: 0. Last Dose: ___Next Dose: ___ Medications to Continue Taking That Have Changed [facility], [address] [place], [place] [id number], [phone] START: aspirin (aspirin 81 mg Oral EC [...] day f (more content not included)... Normal [facility] BMPon 11-19-2024 Anion gap [Moles/Vol] 12 mmol/L Normal 6-16 [facility] Comment on above: Performed By: #### 2 [id number] #### [facility] [address] [place] [address] Calcium [Mass/Vol] 9.4 mg/dL Normal 8.9-11.1 [facility] Comment on above: Performed By: #### 2 [id number] #### [facility] [address] [place] [address] Chloride [Moles/Vol] 103 mmol/L Normal 101-111 [facility] Comment on above: Performed By: #### 2 [id number] #### [facility] [address] [place] [address] CO2 [Moles/Vol] 26 mmol/L Normal 21-31 [facility] Comment on above: Performed By: #### 2 [id number] #### [facility] [address] [place] [address] Creatinine [Mass/Vol] 0.8 mg/dL Normal 0.5-1.3 [facility] Comment on above: Performed By: #### 2 [id number] #### [facility] [address] [place] [address] Glucose [Mass/Vol] 216 mg/dL High 55-199 [facility] Comment on above: Performed By: #### 2 [id number] #### [facility] [address] [place] [address] Potassium [Moles/Vol] 4.4 mmol/L Normal 3.5-5.3 [facility] Comment on above: Performed By: #### 2 [id number] #### [facility] [address] [place] [address] Sodium [Moles/Vol] 137 mmol/L Normal 135-145 [facility] Comment on above: Performed By: #### 2 [id number] #### [facility] [address] [place] [address] Urea nitrogen [Mass/Vol] 18 mg/dL Normal 5-21 [facility] Comment on above: Performed By: #### 2 [id number] #### [facility] [address] [place] [address] Urea nitrogen/Creatinine [Mass ratio] 22 No Units High 10-20 [facility] Comment on above: Performed By: #### 2 [id number] #### [facility] [address] [place] [address] CBC w/ Auto Diffon 5 Basophils/100 WBC (Bld) 0.3 % Normal 0.0-2.0 [facility] Comment on above: Performed By: #### 2 [id number] #### [facility] [address] [place] [address] Basophils/Leukocytes Auto (Bld) [Pure # fraction] 0.0 E9/L Normal 0.0-0.2 [facility] Comment on above: Performed By: #### 2 [id number] #### [facility] [address] [place] [address] Eosinophils (Bld) [#/Vol] 0.2 E9/L Normal 0.0-0.5 [facility] Comment on above: Performed By: #### 2 [id number] #### [facility] [address] [place] [address] Eosinophils/100 WBC (Bld) 2.4 % Normal 0.0-8.0 [facility] Comment on above: Performed By: #### 2 [id number] #### [facility] [address] [place] [address] Erythrocyte distribution width (RBC) [Ratio] 13.8 % Normal 10.9-14.2 [facility] Comment on above: Performed By: #### 2 [id number] #### [facility] [address] [place] [address] Hematocrit (Bld) [Volume fraction] 44.9 % Normal 37.7-49.0 [facility] Comment on above: Performed By: #### 2 [id number] #### [facility] [address] [place] [address] Hemoglobin (Bld) [Mass/Vol] 15.1 g/dL Normal 13.5-17.5 [facility] Comment on above: Performed By: #### 2 624302 #### [facility] [address] [place] [address] Lymphocytes (Bld) [#/Vol] 1.6 E9/L Normal 1.0-4.0 [facility] Comment on above: Performed By: #### 2 143396 #### [facility] [address] [place] [address] Lymphocytes/100 WBC (Bld) 21.6 % Normal 14.0-50.0 [facility] Comment on above: Performed By: #### 2 750250 #### [facility] [address] [place] [address] MCH (RBC) [Entitic mass] 28.7 pg Normal 27.0-34.0 [facility] Comment on above: Performed By: #### 2 300158 #### [facility] [address] [place] [address] MCHC (RBC) [Mass/Vol] 33.7 g/dL Normal 31.4-36.0 [facility] Comment on above: Performed By: #### 2 [id number] #### [facility] [address] [place] [address] MCV (RBC) [Entitic vol] 85.0 fL Normal 80.0-100.0 [facility] Comment on above: Performed By: #### 2 097162 #### [facility] [address] [place] [address] Monocytes (Bld) [#/Vol] 0.5 E9/L Normal 0.2-1.0 [facility] Comment on above: Performed By: #### 2 [id number] #### [facility] [address] [place] [address] Neutrophils (Bld) [#/Vol] 5.3 E9/L Normal 2.0-7.5 [facility] Comment on above: Performed By: #### 2 904405 #### [facility] [address] [place] [address] Neutrophils/100 WBC (Bld) 69.2 % Normal 36.0-75.0 [facility] Comment on above: Performed By: #### 2 [id number] #### [facility] [address] [place] [address] [place] [address] Platelet mean volume (Bld) [Entitic vol] 8.9 fL Normal 6.4-10.8 [facility] Comment on above: Performed By: #### 2 [id number] #### [facility] [address] [place] [address] Platelets (Bld) [#/Vol] 212.0 E9/L Normal 150.0-500.0 [facility] Comment on above: Performed By: #### 2 256939 #### [facility] [address] [place] [address] RBC (Bld) [#/Vol] 5.3 E12/L Normal 4.3-5.9 [facility] Comment on above: Performed By: #### 2 866617 #### [facility] [address] [place] [address] WBC corrected for nucl RBC Auto (Bld) [#/Vol] 7.6 E9/L Normal 4.0-11.0 [facility] Comment on above: Performed By: #### 2 [id number] #### [facility] [address] [place] [address] CHEMISTRYOrdered By: SYSTEM SYSTEM on 11-19-2024 Anion [...] 11-19-2024 eGFR 105 mL/min/1.73 m2 Normal >=59 [facility] Comment on above: Performed By: #### 1 [id number] #### [facility] [address] [place] [address] Heart and Vascular Office/Cl inic Noteon 11-02-2024 [...] 50,000 intl units (1.25 mg) oral capsule, [address] International_Unit= 1 cap(s), Oral, qWeek, 3 refills Allergies penicillins (Epistaxis) Social History Alcohol Never., 08/29/2024 Substance Abuse Never., 08/29/2024 Tobacco Never (less than 100 in lifetime) Tobacco Use:. Never Smokeless Tobacco Use:. Household tobacco concerns: No. Yes, 11/02/2024 Family History Diabetes mellitus type 2: Sister. Normal [facility] Comment on above: Result Comment: Elec tronically Signed By: Edwin RHOADES, Luis Carlos Salvador\.br\Date and Time Signed: 11/02/24 14:43 EST Reminderson 11-01-2024 Reminders Reminders From: Brianna Li To: [facility] - Clinical; Sent: 11/01/2024 09:10:16 EST Show [...] 100.0) 10/30/2024 9:53 Testoster Tot 320 ng/dL ([phone] - ) Pt has been notified. Normal [facility] Testost Totalon 11-01-2024 Testosterone [Mass/Vol] 320 ng/dL Invalid Interpretation Code 014-075 [facility] Comment on above: Result Comment: Adul t male reference interval is based on a population of healthy nonobese males (BMI <30) between 19 and 39 years old. joão [email or web address].al. JCEM 2017,102;3656-9640. PMID: [id number]. Performed at: [facility] [id number] PhD Brett Thompson Performed By: #### 2 [id number] #### [facility] [address] [place] [address] Ambulatory Visit Summaryon 1 12-31-2023 Ambulatory Visit Summary Ambulatory Visit Summary ANKIT [...] Follow-Up Appointments Tuesday 2:15 PM EST With: Edwin RHOADES, Luis Carlos Salvador Where[facility] [place] Tuesday 5:00 PM EST With: Brianna Li Where: [place] [id number]- Medications What How Much When Why Instructions [...] for choosing us for your care. Normal [facility] Ambulatory Visit Summary Ambulatory Visit Summary [...] Luis Carlos Pineda MD Where: [facility] [place] Tuesday 5:00 PM EST With: Brianna Li Where: [facility] [address] [address]- Medications What How Much When Why Instructions [...] for choosing us for your care. Normal [facility] CHEMISTRYOrdered By: SYSTEM SYSTEM on 10-30-2024 [...] discuss weight management. Referred to Cardiology @ [facility] (if cleared by cardio, then possible referral [...] get HGBA1C below 7. will order through [facility] Ordered: Lipid Panel Testosterone Level Total [...] four, # 2 tab(s), Refills(s) 1, Pharmacy: [facility], 170, cm, 09/26/24 8:58:00 EST, Height/Length [...] four, # 2 tab(s), Refills(s) 1, Pharmacy: [facility], 170, cm, 09/26/24 8:58:00 EST, Height/Length [...] DAYS, # 10 tab(s), Refills(s) 1, Pharmacy: [facility], 170, cm, 09/26/24 8:58:00 EST, Height/Length [...] 3 r (more content not included)... Normal [facility] Comment on above: Result Comment: Elec tronically Signed By: Brianna Li\.br\Date and Time Signed: 10/30/24 12:33 EST Lipid Panelon 10-30-2024 Cholesterol [Mass/Vol] 192 mg/dL Normal 120-200 [facility] Comment on above: Performed By: #### 2 [id number] #### [facility] [address] [place] [address] Cholesterol in HDL [Mass/Vol] 49 mg/dL Invalid Interpretation Code [facility] Comment on above: Result Comment: '>= 60 LOW RISK' '<= 40 HIGH RISK' Performed By: #### 2 [id number] #### [facility] [address] [place] [address] Cholesterol in LDL [Mass/Vol] 125 mg/dL Normal <=129 [facility] Comment on above: Performed By: #### 2 [id number] #### [facility] [address] [place] [address] Cholesterol in VLDL [Mass/Vol] 27 mg/dL Normal 7-40 [facility] Comment on above: Performed By: #### 2 [id number] #### [facility] [address] [place] [address] Triglyceride [Mass/Vol] 137 mg/dL Normal <=149 [facility] Comment on above: Performed By: #### 2 [id number] #### [facility] [address] [place] [address] Vitamin D 25 Hydroxyon 10-30 25-hydroxyvitamin D3 [Mass/Vol] 20.6 ng/mL Low 30.0-100.0 [facility] Comment on above: Performed By: #### 5 [id number] #### [facility] [address] [place] [address] Family Medicine Office/Clini c Noteon 09-26-2024 Family [...] four, # 2 tab(s), Refills(s) 1, Pharmacy: [facility], 170, cm, 09/26/24 8:58:00 EST, Height/Length Dosing, 158.1, kg, 09/26/24 8:58:00 EST, Weight Dosing [facility] Internal Ambulatory Referral 2. Shortness of breath [...] four, # 2 tab(s), Refills(s) 1, Pharmacy: [facility], 170, cm, 09/26/24 8:58:00 EST, Height/Length Dosing, 158.1, kg, 09/26/24 8:58:00 EST, Weight Dosing [facility] Internal Ambulatory Referral 3. BMI 50.0-59.9, adult (Z68.43: Body mass index [BMI] 50.0-59.9, adult) BMI education given Ordered: fluconazole, 150 mg = 1 tab(s), Oral, Once, take 1 tab on day one and 1 tab on day four, # 2 tab(s), Refills(s) 1, Pharmacy: [facility], 170, cm, 09/26/24 8:58:00 EST, Height/Length Dosing, 158.1, kg, 09/26/24 8:58:00 EST, Weight Dosing [facility] [place] Ambulatory Referral 4. Non-smoker (Z78.9: Other specified health status) continue not smokiing Ordered: fluconazole, 150 mg = 1 tab(s), Oral, Once, take 1 tab on day one and 1 tab on day four, # 2 tab(s), Refills(s) 1, Pharmacy: [facility], 170, cm, 09/26/24 8:58:00 EST, Height/Length Dosing, 158.1, kg, 09/26/24 8:58:00 EST, Weight Dosing [facility] Internal Ambulatory Referral Orders: nystatin topical, See Instructions, 30 gm, Refill(s) 1, APPLY TO THE AFFECTED AREA(S) topically TWICE DAILY, [facility], 178, cm, 07/09/24 8:51:00 EDT, Height/Length Dosing, 150, kg, 07/09/24 8:51:00 EDT, Weight Dosing predniSONE, See Instructions, TAKE 1 TABLET BY MOUTH TWICE DAILY FOR 5 DAYS, # 10 EA, Refills(s) 1, Pharmacy: [facility], 170, cm, 09/26/24 8:58:00 EST, Height/Length [...] History Diabetes mellitus type 2: Sister. Normal [facility] Comment on above: Result Comment: Elec [...] from the insurance for the injectables Normal [facility] Family Medicine Office/Clini c Noteon 08-30-2024 [...] 4, # 2 tab(s), Refills(s) 1, Pharmacy: [facility], 177.5, cm, 05/07/24 13:15:00 EDT, Height/Length Dosing, 152.2, kg, 05/07/24 13:15:00 EDT, Weight Dosing meloxicam, 15 mg = 1 tab(s), Oral, Daily, # 30 tab(s), Refills(s) 3, Pharmacy: [facility], 178, cm, 08/29/24 17:23:00 EDT, Height/Length Dosing, 151.2, kg, 08/29/24 17:23:00 EDT, Weight Dosing meloxicam, 15 mg = 1 tab(s), Oral, Daily, # 30 tab(s), Refills(s) 0, Pharmacy: [facility], 178, cm, 07/09/24 8:51:00 EDT, Height/Length Dosing, 150, kg, 07/09/24 8:51:00 EDT, Weight Dosing metformin, 1,000 mg = 1 tab(s), Oral, BID, # 180 tab(s), Refills(s) 0, Pharmacy: [facility], 178, cm, 07/09/24 8:51:00 EDT, Height/Length Dosing, 150, kg, 07/09/24 8:51:00 EDT, Weight Dosing metformin, 1,000 mg = 1 tab(s), Oral, BID, X 90 day(s), # 180 tab(s), Refills(s) 3, Pharmacy: [facility], 178, cm, 08/29/24 17:23:00 EDT, Height/Length Dosing, 151.2, kg, 08/29/24 17:23:00 EDT, Weight Dosing phentermine, 37.5 mg = 1 tab(s), Oral, Daily, # 30 tab(s), Refills(s) 0, Pharmacy: [facility], 178, cm, 07/09/24 8:51:00 EDT, Height/Length Dosing, 150, kg, 07/09/24 8:51:00 EDT, Weight Dosing HgbA1c 2. Body mass index [BMI] 45.0-49.9, adult (Z68.42: Body mass index [BMI] 45.0-49.9, adult) BMI education given Ordered: fluconazole, 150 mg = 1 tab(s), Oral, Once, take 1 tab on day 1 and one tab on day 4, # 2 tab(s), Refills(s) 1, Pharmacy: [facility], 177.5, cm, 05/07/24 13:15:00 EDT, Height/Length Dosing, 152.2, kg, 05/07/24 13:15:00 EDT, Weight Dosing meloxicam, 15 mg = 1 tab(s), Oral, Daily, # 30 tab(s), Refills(s) 3, Pharmacy: [facility], 178, cm, 08/29/24 17:23:00 EDT, Height/Length Dosing, 151.2, kg, 08/29/24 17:23:00 EDT, Weight Dosing meloxicam, 15 mg = 1 tab(s), Oral, Daily, # 30 tab(s), Refills(s) 0, Pharmacy: [facility], 178, cm, 07/09/24 8:51:00 EDT, Height/Length Dosing, 150, kg, 07/09/24 8:51:00 EDT, Weight Dosing metformin, 1,000 mg = 1 tab(s), Oral, BID, # 180 tab(s), Refills(s) 0, Pharmacy: [facility], 178, cm, 07/09/24 8:51:00 EDT, Height/Length Dosing, 150, kg, 07/09/24 8:51:00 EDT, Weight Dosing metformin, 1,000 mg = 1 tab(s), Oral, BID, X 90 day(s), # 180 tab(s), Refills(s) 3, Pharmacy: [facility], 178, cm, 08/29/24 17:23:00 EDT, Height/Length Dosing, 151.2, kg, 08/29/24 17:23:00 EDT, Weight Dosing phentermine, 37.5 mg = 1 tab(s), Oral, Daily, # 30 tab(s), Refills(s) 0, Pharmacy: [facility], 178, cm, 07/09/24 8:51:00 EDT, Height/Length Dosing, 150, kg, 07/09/24 8:51:00 EDT, Weight Dosing 3. Morbid obesity with BMI of 45.0-49.9, adult (E66.01: Morbid (severe) obesity due to excess calories) see above Ordered: fluconazole, 150 mg = 1 tab(s), Oral, Once, take 1 tab on day 1 and one tab on day 4, # 2 tab(s), Refills(s) 1, Pharmacy: [facility], 177.5, cm, 05/07/24 13:15:00 EDT, Height/Length Dosing, 152.2, kg, 05/07/24 13:15:00 EDT, Weight Dosing meloxicam, 15 mg = 1 tab(s), Oral, Daily, # 30 tab(s), Refills(s) 3, Pharmacy: [facility] (more content not included)... Normal [facility] Comment on above: Result Comment: Elec tronically Signed By: Brianna Li\.br\Date and Time Signed: 08/30/24 14:37 EDT [id number] 08-30-2024 HbA1c (Bld) [Mass fraction] 7.1 % High <=5.9 [facility] Comment on above: Performed By: #### 7 [id number] #### [facility] [address] [place] [address] Ambulatory Visit Summaryon 0 07-09-2024 Ambulatory Visit [...] 8:40 AM EDT With: Brianna Li Where: [place] [address]- Medications What How Much When Why Instructions [...] for choosing us for your care. Normal [facility] Family Medicine Office/Clini c Noteon 07-09-2024 [...] BID, # 180 tab(s), Refills(s) 0, Pharmacy: [facility], 178, cm, 07/09/24 8:51:00 EDT, Height/Length Dosing, 150, kg, 07/09/24 8:51:00 EDT, Weight Dosing phentermine, 37.5 mg = 1 tab(s), Oral, Daily, # 30 tab(s), Refills(s) 0, Pharmacy: [facility], 178, cm, 07/09/24 8:51:00 EDT, Height/Length Dosing, 150, kg, 07/09/24 8:51:00 EDT, Weight Dosing E&M of Est. Patient Straight Fwd 10-19 Min 32325 2. Weight gain (R63.5: Abnormal weight gain) discussed starting adipex to help with weight gain. medication agreement signed. OARRS report reviewed. RTC 4 weeks Ordered: metformin, 1,000 mg = 1 tab(s), Oral, BID, # 180 tab(s), Refills(s) 0, Pharmacy: [facility], 178, cm, 07/09/24 8:51:00 EDT, Height/Length Dosing, 150, kg, 07/09/24 8:51:00 EDT, Weight Dosing phentermine, 37.5 mg = 1 tab(s), Oral, Daily, # 30 tab(s), Refills(s) 0, Pharmacy: [facility], 178, cm, 07/09/24 8:51:00 EDT, Height/Length Dosing, 150, kg, 07/09/24 8:51:00 EDT, Weight Dosing E&M of Est. Patient Straight Fwd 10-19 Min 66841 3. BMI 45.0-49.9, adult, (Z68.42: Body mass index [BMI] 45.0-49.9, adult)Body mass index [BMI] 45.0-49.9, adult BMI education given Ordered: metformin, 1,000 mg = 1 tab(s), Oral, BID, # 180 tab(s), Refills(s) 0, Pharmacy: [facility], 178, cm, 07/09/24 8:51:00 EDT, Height/Length Dosing, 150, kg, 07/09/24 8:51:00 EDT, Weight Dosing phentermine, 37.5 mg = 1 tab(s), Oral, Daily, # 30 tab(s), Refills(s) 0, Pharmacy: [facility], 178, cm, 07/09/24 8:51:00 EDT, Height/Length Dosing, 150, kg, 07/09/24 8:51:00 EDT, Weight Dosing 4. Morbid obesity with BMI of 45.0-49.9, adult (E66.01: Morbid (severe) obesity due to excess calories) see above Ordered: metformin, 1,000 mg = 1 tab(s), Oral, BID, # 180 tab(s), Refills(s) 0, Pharmacy: [facility], 178, cm, 07/09/24 8:51:00 EDT, Height/Length Dosing, 150, kg, 07/09/24 8:51:00 EDT, Weight Dosing phentermine, 37.5 mg = 1 tab(s), Oral, Daily, # 30 tab(s), Refills(s) 0, Pharmacy: [facility], 178, cm, 07/09/24 8:51:00 EDT, Height/Length Dosing, 150, kg, 07/09/24 8:51:00 EDT, Weight Dosing 5. Non-smoker (Z78.9: Other specified health status) continue not smoking Ordered: metformin, 1,000 mg = 1 tab(s), Oral, BID, # 180 tab(s), Refills(s) 0, Pharmacy: [facility], 178, cm, 07/09/24 8:51:00 EDT, Height/Length Dosing, 150, kg, 07/09/24 8:51:00 EDT, Weight Dosing phentermine, 37.5 mg = 1 tab(s), Oral, Daily, # 30 tab(s), Refills(s) 0, Pharmacy: [facility], 178, cm, 07/09/24 8:51:00 EDT, Height/Length [...] Tobacco Use: (more content not included)... Normal [facility] Comment on above: Result Comment: Elec tronically Signed By: Brianna Li\.br\Date and Time Signed: 07/09/24 10:07 EDT Reminderson 05-11-2024 Reminders Reminders From: Brianna Li To: [facility] - Clinical; Sent: 05/08/2024 07:47:31 EDT Show [...] 20.9 % (14.0 - 50.0) 05/07/2024 13:56 [place] Auto 8.1 % (4.0 - 14.0) 05/07/2024 13:56 Eos Auto 4.8 % (0.0 - 8.0) 05/07/2024 13:56 Basophil Auto 0.5 % (0.0 - 2.0) 05/07/2024 13:56 Neutro Absolute 5.4 E9/L (2.0 - 7.5) 05/07/2024 13:56 Lymph Absolute 1.7 E9/L (1.0 - 4.0) 05/07/2024 13:56 [place] Absolute 0.7 E9/L (0.2 - 1.0) 05/07/2024 [...] like a 90 day supply sent to [facility] in [place]. Please advise if you would like for me to propose a med. From: [place] (B - Clinical) To: Brianna Li; Sent: 05/11/2024 14:28:31 EDT Show up: 05/11/2024 14:28:00 EDT Subject: RE: Ambulatory Reminder Normal [facility] UZIEL w/Reflex if POSon 2023 Nuclear Ab Ql (S) Negative Invalid Interpretation Code Negative [facility] Comment on above: Result Comment: Perf ormed at: [facility] [address] [id number] PhD Brett Thompson Performed By: #### 1 [id number] #### [facility] [address] [place] [address] [id number] 05-08-2024 HbA1c (Bld) [Mass fraction] 6.7 % High <=5.9 [facility] Comment on above: Performed By: #### 7 [id number] #### [facility] [address] [place] [address] Reminderson 05-08-2024 Reminders - From: Brianna Li To: B - Clinical; [...] 20.9 % (14.0 - 50.0) 05/07/2024 13:56 [place] Auto 8.1 % (4.0 - 14.0) 05/07/2024 13:56 Eos Auto 4.8 % (0.0 - 8.0) 05/07/2024 13:56 Basophil Auto 0.5 % (0.0 - 2.0) 05/07/2024 13:56 Neutro Absolute 5.4 E9/L (2.0 - 7.5) 05/07/2024 13:56 Lymph Absolute 1.7 E9/L (1.0 - 4.0) 05/07/2024 13:56 [place] Absolute 0.7 E9/L (0.2 - 1.0) 05/07/2024 [...] please advise patient of message below Normal [facility] CBC w/ Auto Diffon 4 Basophils/100 WBC (Bld) 0.5 % Normal 0.0-2.0 [facility] Comment on above: Performed By: #### 2 [id number] #### [facility] [address] [place] [address] Basophils/Leukocytes Auto (Bld) [Pure # fraction] 0.0 E9/L Normal 0.0-0.2 [facility] Comment on above: Performed By: #### 2 [id number] #### [facility] [address] [place] [address] Eosinophils (Bld) [#/Vol] 0.4 E9/L Normal 0.0-0.5 [facility] Comment on above: Performed By: #### 2 [id number] #### [facility] [address] [place] [address] Eosinophils/100 WBC (Bld) 4.8 % Normal 0.0-8.0 [facility] Comment on above: Performed By: #### 2 [id number] #### [facility] [address] [place] [address] Erythrocyte distribution width (RBC) [Ratio] 13.3 % Normal 10.9-14.2 [facility] Comment on above: Performed By: #### 2 [id number] #### [facility] [address] [place] [address] Hematocrit (Bld) [Volume fraction] 44.3 % Normal 37.7-49.0 [facility] Comment on above: Performed By: #### 2 [id number] #### [facility] [address] [place] [address] Hemoglobin (Bld) [Mass/Vol] 15.0 g/dL Normal 13.5-17.5 [facility] Comment on above: Performed By: #### 2 [id number] #### [facility] [address] [place] [address] Lymphocytes (Bld) [#/Vol] 1.7 E9/L Normal 1.0-4.0 [facility] Comment on above: Performed By: #### 2 [id number] #### [facility] [address] [place] [address] Lymphocytes/100 WBC (Bld) 20.9 % Normal 14.0-50.0 [facility] Comment on above: Performed By: #### 2 [id number] #### [facility] [address] [place] [address] MCH (RBC) [Entitic mass] 28.2 pg Normal 27.0-34.0 [facility] Comment on above: Performed By: #### 2 [id number] #### [facility] [address] [place] [address] MCHC (RBC) [Mass/Vol] 33.9 g/dL Normal 31.4-36.0 [facility] Comment on above: Performed By: #### 2 [id number] #### [facility] [address] [place] [address] MCV (RBC) [Entitic vol] 83.2 fL Normal 80.0-100.0 [facility] Comment on above: Performed By: #### 2 [id number] #### [facility] [address] [place] [address] Monocytes (Bld) [#/Vol] 0.7 E9/L Normal 0.2-1.0 [facility] Comment on above: Performed By: #### 2 [id number] #### [facility] [address] [place] [address] Neutrophils (Bld) [#/Vol] 5.4 E9/L Normal 2.0-7.5 [facility] Comment on above: Performed By: #### 2 [id number] #### [facility] [address] [place] [address] Neutrophils/100 WBC (Bld) 65.7 % Normal 36.0-75.0 [facility] Comment on above: Performed By: #### 2 [id number] #### [facility] [address] [place] [address] Platelet mean volume (Bld) [Entitic vol] 9.0 fL Normal 6.4-10.8 [facility] Comment on above: Performed By: #### 2 [id number] #### [facility] [address] [place] [address] Platelets (Bld) [#/Vol] 242.0 E9/L Normal 150.0-500.0 [facility] Comment on above: Performed By: #### 2 [id number] #### [facility] [address] [place] [address] RBC (Bld) [#/Vol] 5.3 E12/L Normal 4.3-5.9 [facility] Comment on above: Performed By: #### 2 [id number] #### [facility] [address] [place] [address] WBC corrected for nucl RBC Auto (Bld) [#/Vol] 8.2 E9/L Normal 4.0-11.0 [facility] Comment on above: Performed By: #### 2 [id number] #### [facility] [address] [place] [address] CHEMISTRYOrdered By: SYSTEM SYSTEM on 05-07-2024 CRP [...] used for this result was chemiluminescence using [employer]br[employer] PSA reagent. Protein [Mass/Vol] 7.0 [...] (Bld) [Mass fraction] 6.7 % High <=5.9% [facility] ChemAutoSS CMPon 05-07-2024 Albumin [Mass/Vol] 4.4 g/dL Normal 3.3-5.0 [facility] Comment on above: Performed By: #### 2 [id number] #### [facility] [address] [place] [address] Albumin/Globulin (S) [Mass conc ratio] 1.7 Normal 1.1-2.2 [facility] Comment on above: Performed By: #### 2 [id number] #### [facility] [address] [place] [address] ALP [Catalytic activity/Vol] 65 Int._Unit/L Normal 21-98 [facility] Comment on above: Performed By: #### 2 [id number] #### [facility] [address] [place] [address] ALT No additional P-5'-P [Catalytic activity/Vol] 21 Int._Unit/L Normal 6-46 [facility] Comment on above: Performed By: #### 2 [id number] #### [facility] [address] [place] [address] Anion gap [Moles/Vol] 11 mmol/L Normal 6-16 [facility] Comment on above: Performed By: #### 2 [id number] #### [facility] [address] [place] [address] AST [Catalytic activity/Vol] 17 Int._Unit/L Normal 5-43 [facility] Comment on above: Performed By: #### 2 [id number] #### [facility] [address] [place] [address] Bilirubin [Mass/Vol] 0.6 mg/dL Normal 0.0-1.1 [facility] Comment on above: Performed By: #### 2 [id number] #### [facility] [address] [place] [address] Calcium [Mass/Vol] 9.5 mg/dL Normal 8.9-11.1 [facility] Comment on above: Performed By: #### 2 [id number] #### [facility] [address] [place] [address] Chloride [Moles/Vol] 102 mmol/L Normal 101-111 [facility] Comment on above: Performed By: #### 2 [id number] #### [facility] [address] [place] [address] CO2 [Moles/Vol] 29 mmol/L Normal 21-31 [facility] Comment on above: Performed By: #### 2 [id number] #### [facility] [address] [place] [address] Creatinine [Mass/Vol] 0.8 mg/dL Normal 0.5-1.3 [facility] Comment on above: Performed By: #### 2 [id number] #### [facility] [address] [place] [address] Globulin (S) [Mass/Vol] 2.6 g/dL Normal 1.4-4.0 [facility] Comment on above: Performed By: #### 2 [id number] #### [facility] [address] [place] [address] Glucose [Mass/Vol] 174 mg/dL Normal 55-199 [facility] Comment on above: Performed By: #### 2 [id number] #### [facility] [address] [place] [address] Potassium [Moles/Vol] 4.2 mmol/L Normal 3.5-5.3 [facility] Comment on above: Performed By: #### 2 [id number] #### [facility] [address] [place] [address] Protein [Mass/Vol] 7.0 g/dL Normal 6.0-7.8 [facility] Comment on above: Performed By: #### 2 245562 #### [facility] [address] [place] [address] Sodium [Moles/Vol] 138 mmol/L Normal 135-145 [facility] Comment on above: Performed By: #### 2 [id number] #### [facility] [address] [place] [address] Urea nitrogen [Mass/Vol] 15 mg/dL Normal 5-21 [facility] Comment on above: Performed By: #### 2 [id number] #### [facility] [address] [place] [address] Urea nitrogen/Creatinine [Mass ratio] 19 No Units Normal 10-20 [facility] Comment on above: Performed By: #### 2 [id number] #### [facility] [address] [place] [address] CRPon 05-07-2024 CRP [Mass/Vol] 0.4 mg/dL Normal <=1.9 [facility] Comment on above: Performed By: #### 2 [id number] #### [facility] [address] [place] [address] Family Medicine Office/Clini c Noteon 05-07-2024 Family [...] no Acute: Current issues/complaints: Pt was in H 1.5-2 months ago Dx Rhinovirus he had [...] 4, # 2 tab(s), Refills(s) 1, Pharmacy: [facility], 177.5, cm, 05/07/24 13:15:00 EDT, Height/Length Dosing, 152.2, kg, 05/07/24 13:15:00 EDT, Weight Dosing meloxicam, 15 mg = 1 tab(s), Oral, Daily, # 30 tab(s), Refills(s) 0, Pharmacy: [facility], 177.5, cm, 05/07/24 13:15:00 EDT, Height/Length Dosing, 152.2, kg, 05/07/24 13:15:00 EDT, Weight Dosing methylPREDNISolone, = 1 packet(s), Oral, As Directed, as directed on package labeling, X 6 day(s), # 21 tab(s), Refills(s) 0, Pharmacy: [facility], 177.5, cm, 05/07/24 13:15:00 EDT, Height/Length Dosing, 152.2, kg, 05/07/24 13:15:00 EDT, Weight Dosing nystatin topical, 1 marie, Topical, BID, 30 gram, Refill(s) 1, [facility], 177.5, cm, 05/07/24 13:15:00 EDT, Height/Length Dosing, 152.2, kg, 05/07/24 13:15:00 EDT, Weight Dosing UZIEL w/Reflex if POS C-Reactive Protein CBC w/ Auto Diff Comprehensive Metabolic Panel HgbA1c Lab Specimen Collect [id number] Lipid Panel PSA Screen, Total Thyroid Stimulating [...] 4, # 2 tab(s), Refills(s) 1, Pharmacy: [facility], 177.5, cm, 05/07/24 13:15:00 EDT, Height/Length Dosing, 152.2, kg, 05/07/24 13:15:00 EDT, Weight Dosing meloxicam, 15 mg = 1 tab(s), Oral, Daily, # 30 tab(s), Refills(s) 0, Pharmacy: [facility], 177.5, cm, 05/07/24 13:15:00 EDT, Height/Length Dosing, 152.2, kg, 05/07/24 13:15:00 EDT, Weight Dosing methylPREDNISolone, = 1 packet(s), Oral, As Directed, as directed on package labeling, X 6 day(s), # 21 tab(s), Refills(s) 0, Pharmacy: [facility], 177.5, cm, 05/07/24 13:15:00 EDT, Height/Length Dosing, 152.2, kg, 05/07/24 13:15:00 EDT, Weight Dosing nystatin topical, 1 marie, Topical, BID, 30 gram, Refill(s) 1, [facility], 177.5, cm, 05/07/24 13:15:00 EDT, Height/Length Dosing, 152.2, kg, 05/07/24 13:15:00 EDT, Weight Dosing UZIEL w/Reflex if POS C-Reactive Protein CBC w/ Auto Diff Comprehensive Metabolic Panel HgbA1c Lab Specimen Collect [id number] Lipid Panel PSA Screen, Total Thyroid Stimulating [...] 4, # 2 tab(s), Refills(s) 1, Pharmacy: [facility], 177.5, cm, 05/07/24 13:15:00 EDT, Height/Length Dosing, 152.2, kg, 05/07/24 13:15:00 EDT, Weight Dosing meloxicam, 15 mg = 1 tab(s), Oral, Daily, # 30 tab(s), Refills(s) 0, Pharmacy: [facility], 177.5, cm, 05/07/24 13:15:00 EDT, Height/Length Dosing, 152.2, kg, 05/07/24 13:15:00 EDT, Weight Dosing methyl (more content not included)... Normal [facility] Comment on above: Result Comment: Elec [...] 05-07-2024 Cholesterol [Mass/Vol] 248 mg/dL High 120-200 [facility] Comment on above: Performed By: #### 2 [id number] #### [facility] [address] [place] [address] Cholesterol in HDL [Mass/Vol] 39 mg/dL Invalid Interpretation Code [facility] Comment on above: Result Comment: '>= 60 LOW RISK' '<= 40 HIGH RISK' Performed By: #### 2 [id number] #### [facility] [address] [place] [address] Cholesterol in LDL [Mass/Vol] 164 mg/dL High <=129 [facility] Comment on above: Performed By: #### 2 [id number] #### [facility] [address] [place] [address] Cholesterol in VLDL [Mass/Vol] 58 mg/dL High 7-40 [facility] Comment on above: Performed By: #### 2 [id number] #### [facility] [address] [place] [address] Triglyceride [Mass/Vol] 288 mg/dL High <=149 [facility] Comment on above: Performed By: #### 2 [id number] #### [facility] [address] [place] [address] PSA Screen, Totalon 05-07-20 Prostate specific Ag [Mass/Vol] 0.4 ng/mL Normal 0.1-3.5 [facility] Comment on above: Result Comment: The concentration of PSA determined by different manufacturers can vary due to differences in assay methods and reagent specificity. Values obtained from different assay methods cannot be used interchangeably. The methodology used for this result was chemiluminescence using [employer] Access [employer] PSA reagent. Performed By: #### 1 [id number] #### [facility] [address] [place] [address] Patient Educationon 05-07-20 Patient Education Orthopedics Shoulder [...] hands toward (more content not included)... Normal [facility] Physician Orderon 05-07-2024 Physician Order [id number]#1.00 TIFF Normal [facility] TSHon 05-07-2024 TSH Qn 1.20 m[IU]/L Normal 0.34-5.60 [facility] Comment on above: Performed By: #### 2 [id number] #### [facility] [address] [place] [address] eGFRon 05-07-2024 eGFR 105 mL/min/1.73 m2 Normal >=59 [facility] Comment on above: Order Comment: Order added by Discern Expert. Performed By: #### 1 [id number] #### [facility] [address] [place] [address] XR KNEE DE 4V or >on 2021 [...] BONES: Moderate to severe tricompartmental osteoarthritis with [id number] articulation of the medial compartment. SOFT TISSUES: Negative. No visible soft tissue swelling. OTHER: Moderate suprapatellar joint effusion IMPRESSION: RIGHT CONCLUSION: Moderate to severe osteoarthritis LEFT CONCLUSION: Moderate to severe osteoarthritis with joint effusion Electronically authenticated by: JACQUES ADAN Date: 2022-10-22 12:35 Normal [facility] CBC AUTO DIFFon 01-29-2022 BASO # 0.0 103/ul Normal 0.0-0.1 [facility] Comment on above: Performed By: #### C BC #### [facility] [address] [place] [address] Dr. Arben Marcial Basophils/100 WBC (Bld) 0.5 % Normal 0.2-2.0 [facility] Comment on above: Performed By: #### C BC #### [facility] [address] [place] [address] Dr. Arben Marcial EO # 0.3 103/ul Normal 0.0-0.7 [facility] Comment on above: Performed By: #### C BC #### [facility] [address] [place] [address] Dr. Arben Marcial Eosinophils/100 WBC (Bld) 4.0 % Normal 0.9-7.0 [facility] Comment on above: Performed By: #### C BC #### [facility] [address] [place] [address] Dr. Arben Marcial Erythrocyte distribution width (RBC) [Ratio] 13.0 % Normal 11.0-15.0 [facility] Comment on above: Performed By: #### C BC #### [facility] [address] [place] [address] Dr. Arben Marcial Hematocrit (Bld) [Volume fraction] 44.0 % Normal 42.0-54.0 [facility] Comment on above: Performed By: #### C BC #### [facility] [address] [place] [address] Dr. Arben Marcial Hemoglobin (Bld) [Mass/Vol] 14.5 g/dL Normal 14.0-18.0 [facility] Comment on above: Performed By: #### C BC #### [facility] [address] [place] [address] Dr. Arben Marcial IG # 0.03 10e3/ul Normal 0.00-0.03 [facility] Comment on above: Performed By: #### C BC #### [facility] [address] [place] [address] Dr. Arben Marcial IG % 0.4 % Normal 0.0-0.5 [facility] Comment on above: Performed By: #### C BC #### [facility] [address] [place] [address] Dr. Arben Marcial LYMPH # 1.5 103/ul Normal 1.2-3.8 [facility] Comment on above: Performed By: #### C BC #### [facility] [address] [place] [address] Dr. Arben Marcial Lymphocytes/100 WBC (Bld) 18.8 % Critically low 20.5-60.0 [facility] Comment on above: Performed By: #### C BC #### [facility] [address] [place] [address] Dr. Arben Marcial MANUAL DIFF REQ NO Normal [facility] Comment on above: Performed By: #### C BC #### [facility] [address] [place] [address] Dr. Arben Marcial MCH (RBC) [Entitic mass] 27.8 pg Normal 25.9-34.0 [facility] Comment on above: Performed By: #### C BC #### [facility] [address] [place] [address] Dr. Arben Marcial MCHC (RBC) [Mass/Vol] 33.0 g/dL Normal 29.9-35.2 [facility] Comment on above: Performed By: #### C BC #### [facility] [address] [place] [address] Dr. Arben Marcial MCV (RBC) [Entitic vol] 84.5 fL Normal 80.0-94.0 [facility] Comment on above: Performed By: #### C BC #### [facility] [address] [place] [address] Dr. Arben Marcial MONO # 0.6 103/ul Normal 0.3-0.8 [facility] Comment on above: Performed By: #### C BC #### [facility] [address] [place] [address] Dr. Arben Marcial Monocytes/100 WBC (Bld) 7.4 % Normal 1.7-12.0 [facility] Comment on above: Performed By: #### C BC #### [facility] [address] [place] [address] Dr. Arben Marcial NEUT # 5.5 103/ul Normal 1.4-6.5 [facility] Comment on above: Performed By: #### C BC #### [facility] [address] [place] [address] Dr. Arben Marcial Neutrophils/100 WBC (Bld) 68.9 % Normal 43.0-75.0 [facility] Comment on above: Performed By: #### C BC #### [facility] [address] [place] [address] Dr. Arben Marcial Platelet mean volume (Bld) [Entitic vol] 9.9 fL Normal 9.5-13.5 [facility] Comment on above: Performed By: #### C BC #### [facility] [address] [place] [address] Dr. Arben Marcial PLT 246 103/ul Normal 150-450 [facility] Comment on above: Performed By: #### C BC #### [facility] [address] [place] [address] Dr. Arben Marcial RBC 5.21 106/ul Normal 4.70-6.10 [facility] Comment on above: Performed By: #### C BC #### [facility] [address] [place] [address] Dr. Arben Marcial WBC 8.0 103/ul Normal 4.0-11.0 [facility] Comment on above: Performed By: #### C BC #### [facility] [address] [place] [address] Dr. Arben Marcial GLYCOHEMOGLOBIN A1Con 2021 ADA RECOMMENDATION ADA THERAPEUTIC TARG ET 6.0 - 7.0 ACTION SUGGESTED > 7.0 Normal [facility] Comment on above: Performed By: #### A 1C #### [facility] [address] [place] [address] Dr. Arben Marcial Glucose [Mass/Vol] 166 mg/dL Normal [facility] Comment on above: Performed By: #### A 1C #### [facility] [address] [place] [address] Dr. Arben Marcial HbA1c (Bld) [Mass fraction] 7.4 % Critically high <=6.0 [facility] Comment on above: Performed By: #### A 1C #### [facility] [address] [place] [address] Dr. Arben Marcial MICROALBUMIN, RAND URon 01-12 mALB 2.3 mg/L Normal <=30.0 [facility] Comment on above: Performed By: #### M ALBR #### [facility] [address] [place] [address] Dr. Arben Marcial PROF 14(COMP METB)on 022 Albumin [Mass/Vol] 3.9 g/dL Normal 3.4-5.0 [facility] Comment on above: Performed By: #### C MP #### [facility] [address] [place] [address] Dr. Arben Marcial Albumin/Globulin [Mass ratio] 1.1 {ratio} Normal [facility] Comment on above: Performed By: #### C MP #### [facility] [address] [place] [address] Dr. Arben Marcial ALP [Catalytic activity/Vol] 69 U/L Normal 46-116 [facility] Comment on above: Performed By: #### C MP #### [facility] [address] [address] [address] Arben Marcial ALT [Catalytic activity/Vol] 64 U/L Critically high 16-63 [facility] Comment on above: Performed By: #### C MP #### [facility] [address] [address] [address] Arben Marcial Anion gap [Moles/Vol] 12.2 mmol/L Normal [facility] Comment on above: Performed By: #### C MP #### [facility] [address] [address] [address] Arben Marcial AST [Catalytic activity/Vol] 34 U/L Normal 15-37 [facility] Comment on above: Performed By: #### C MP #### [facility] [address] [address] [address] Arben Marcial Bilirubin [Mass/Vol] 0.5 mg/dL Normal 0.2-1.3 [facility] Comment on above: Performed By: #### C MP #### [facility] [address] [address] [address] Arben Marcial Calcium [Mass/Vol] 9.2 mg/dL Normal 8.5-10.1 [facility] Comment on above: Performed By: #### C MP #### [facility] [address] [address] [address] Arben Marcial Chloride [Moles/Vol] 102 mmol/L Normal 98-107 [facility] Comment on above: Performed By: #### C MP #### [facility] [address] [address] [address] Arben Marcial CO2 [Moles/Vol] 29.6 mmol/L Normal 22.0-30.0 [facility] Comment on above: Performed By: #### C MP #### [facility] [address] [address] [address] Arben Marcial Creatinine [Mass/Vol] 1.00 mg/dL Normal 0.66-1.25 [facility] Comment on above: Performed By: #### C MP #### [facility] [address] [address] [address] Arben Marcial EGFR-AF WELSH >60 Normal >=60 [facility] Comment on above: Performed By: #### C MP #### [facility] [address] [address] [address] Arben Marcial EGFR-NON AF WELSH >60 Normal >=60 [facility] Comment on above: Performed By: #### C MP #### [facility] [address] [address] [address] Arben Marcial Globulin (S) [Mass/Vol] 3.4 g/dL Normal [facility] Comment on above: Performed By: #### C MP #### [facility] [address] [address] [address] Arben Marcial Glucose [Mass/Vol] 205 mg/dL Critically high 74-106 [facility] Comment on above: Performed By: #### C MP #### [facility] [address] [address] [address] Arben Marcial Potassium [Moles/Vol] 4.8 mmol/L Normal 3.4-5.0 [facility] Comment on above: Performed By: #### C MP #### [facility] [address] [address] [address] Arben Marcial Protein [Mass/Vol] 7.3 g/dL Normal 6.1-8.2 [facility] Comment on above: Performed By: #### C MP #### [facility] [address] [address] [address] Arben Marcial Sodium [Moles/Vol] 139 mmol/L Normal 137-145 [facility] Comment on above: Performed By: #### C MP #### [facility] [address] [address] [address] Arben Marcial Urea nitrogen [Mass/Vol] 15.0 mg/dL Normal 7.0-18.0 [facility] Comment on above: Performed By: #### C MP #### [facility] [address] [place] [address] Arben Marcial Urea nitrogen/Creatinine [Mass ratio] 15.0 mg/mg Normal [facility] Comment on above: Performed By: #### C #### [facility] [address] [place] [id number] Arben Marcial Vital Signs Date Time Vital Sign Value Performing Clinician Faci lity 02-07-2025 14:04-0400 Diastolic blood pressure 85 mm[Hg] Luis Carlos Kirnus [facility] 02-07-2025 14:04-0400 Mean blood pressure 100 mm[Hg] Luis Carlos Kirnus [facility] 02-07-2025 14:04-0400 Systolic blood pressure 130 mm[Hg] Luis Carlos Kirnus [facility] 02-07-2025 13:56-0400 Blood Pressure Location Luis Carlos Kirnus [facility] 02-07-2025 13:56-0400 Diastolic blood pressure 77 mm[Hg] Luis Carlos Kirnus [facility] 02-07-2025 13:56-0400 Heart rate 79 /min Luis Carlos Kirnus [facility] 02-07-2025 13:56-0400 Respiratory rate 16 /min Luis Carlos Kirnus [facility] 02-07-2025 13:56-0400 SaO2% (BldA) [Mass fraction] 97 % Luis Carlos Kirnus [facility] 02-07-2025 13:56-0400 Systolic blood pressure 136 mm[Hg] Luis Carlos Kirnus [facility] 12-14-2024 14:01-0500 Blood Pressure Location Luis Carlos Kirnus [facility] 12-14-2024 14:01-0500 Diastolic blood pressure 82 mm[Hg] Luis Carlos Kirnus [facility] 12-14-2024 14:01-0500 Heart rate 79 /min Luis Carlos Kirnus [facility] 12-14-2024 14:01-0500 Respiratory rate 18 /min Luis Carlos Jerrodnus [facility] 12-14-2024 14:01-0500 SaO2% (BldA) [Mass fraction] 95 % Luis Carlos Jerrodnus [facility] 12-14-2024 14:01-0500 Systolic blood pressure 138 mm[Hg] Luis Carlos Kirnus [facility] 11-25-2024 13:41-0500 Heart rate 72 /min Zeb Chau [facility] 11-25-2024 13:41-0500 SaO2% (BldA) [Mass fraction] 96 % Zeb Chau [facility] 11-25-2024 13:33-0500 Heart rate 70 /min Zeb Chau [facility] 11-25-2024 13:33-0500 Respiratory rate 16 /min Zeb Chau [facility] 11-25-2024 13:33-0500 SaO2% (BldA) [Mass fraction] 96 % Zeb Chau [facility] 11-25-2024 13:25-0500 Diastolic blood pressure 82 mm[Hg] Zeb Chau [facility] 11-25-2024 13:25-0500 Heart rate 72 /min Zeb Chau [facility] 11-25-2024 13:25-0500 Heart rate 69 /min Zeb Chau [facility] 11-25-2024 13:25-0500 Hourly Rounding Zeb Chau [facility] 11-25-2024 13:25-0500 Mean blood pressure 98 mm[Hg] Zeb Chau [facility] 11-25-2024 13:25-0500 Respiratory rate 23 /min Zeb Chau [facility] 11-25-2024 13:25-0500 Respiratory rate 16 /min Zeb Chau [facility] 11-25-2024 13:25-0500 SaO2% (BldA) [Mass fraction] 94 % Zeb Chau [facility] 11-25-2024 13:25-0500 SaO2% (BldA) [Mass fraction] 93 % Zeb Chau [facility] 11-25-2024 13:25-0500 Systolic blood pressure 130 mm[Hg] Zeb Chau [facility] 11-25-2024 12:17-0500 Respiratory rate 23 /min Zeb Chau [facility] 11-25-2024 11:45-0500 Body temperature 98.06 [degF] Zeb Chau [facility] 11-25-2024 11:45-0500 Diastolic blood pressure 94 mm[Hg] Zeb Chau [facility] 11-25-2024 11:45-0500 Heart rate 73 /min Zeb Chau [facility] 11-25-2024 11:45-0500 Respiratory rate 16 /min Zeb Chau [facility] 11-25-2024 11:45-0500 Systolic blood pressure 163 mm[Hg] Zeb Chau [facility] 11-23-2024 07:39-0500 Blood Pressure Location Luis Carlos Kirnus [facility] 11-23-2024 07:39-0500 Diastolic blood pressure 93 mm[Hg] Luis Carlos Kirnus [facility] 11-23-2024 07:39-0500 Heart rate 75 /min Luis Carlos Kirnus [facility] 11-23-2024 07:39-0500 Respiratory rate 16 /min Luis Carlos Kirnus [facility] 11-23-2024 07:39-0500 SaO2% (BldA) [Mass fraction] 97 % Luis Carlos Kirnus [facility] 11-23-2024 07:39-0500 Systolic blood pressure 151 mm[Hg] Luis Carlos Kirnus [facility] 11-02-2024 14:16-0500 Diastolic blood pressure 86 mm[Hg] Luis Carlos Kirnus [facility] 11-02-2024 14:16-0500 Heart rate 75 /min Luis Carlos Kirnus [facility] 11-02-2024 14:16-0500 Respiratory rate 16 /min Luis Carlos Kirnus [facility] 11-02-2024 14:16-0500 SaO2% (BldA) [Mass fraction] 94 % Luis Carlos Kirnus [facility] 11-02-2024 14:16-0500 Systolic blood pressure 146 mm[Hg] Luis Carlos Kirnus [facility] Encounters Encounter Date Encounter Type Care Provider Facility Start: 07-22-2025 [facility] Brianna Perla [facility] Facility: [facility] Start: 05-31-2025 End: 05-31-2025 ambulatory XXXX NONE Facility:[facility] Start: 04-22-2025 End: 04-22-2025 Lab Drop off Brianna L Brittney [facility] Start: 04-22-2025 End: 04-22-2025 ambulatory Brianna L Brittney Facility:[facility] Start: 02-07-2025 End: 02-08-2025 ambulatory Luis Carlos D Kirnus Facility:[facility] Start: 02-07-2025 End: 02-08-2025 Patient encounter procedure Luis Carlos D Kirnus [facility] Start: 01-10-2025 End: 01-10-2025 ambulatory Brianna L Brittney Facility:[facility] Start: 12-25-2024 End: 12-25-2024 Lab Drop off Brianna L Brittney [facility] Start: 12-25-2024 End: 12-25-2024 ambulatory PLANNING FEEDER Brianna L Brittney Facility:[facility] Start: 12-14-2024 End: 12-14-2024 ambulatory Luis Carlos D Kirnus Facility:[facility] Start: 12-14-2024 End: 12-14-2024 Patient encounter procedure Luis Carlos D Kirnus [facility] Start: 11-28-2024 End: 11-28-2024 ambulatory PL[employer]ING FEEDER Brianna L Brittney Facility:[facility] Start: 11-25-2024 End: 11-25-2024 Emergency department patient visit Zeb Ritchie [facility] Start: 11-23-2024 End: 11-23-2024 Admission to same day surgery center Luis Carlos D Kirnus [facility] Start: 11-23-2024 End: 11-23-2024 ambulatory Luis Carlos Pineda Facility:[facility] Start: 11-19-2024 End: 11-19-2024 Lab Drop off Brianna L Brittney [facility] Start: 11-19-2024 End: 11-19-2024 ambulatory Brianna L Brittney Facility:[facility] [place] Start: 11-02-2024 End: 11-02-2024 ambulatory MD Luis Carlos Pineda Facility:[facility] Start: 11-02-2024 End: 11-02-2024 Patient encounter procedure Luis Carlos Pineda [facility] Start: 10-30-2024 End: 10-30-2024 ambulatory Brianna L Brittney Facility:[facility] Start: 10-30-2024 End: 10-30-2024 Lab Drop off Brianna L Brittney [facility] Start: 10-30-2024 End: 10-30-2024 ambulatory Brianna L Brittney Facility:[facility] [place] Start: 10-24-2024 End: 10-24-2024 ambulatory Brianna L Brittney Facility:[facility] [place] Start: 09-26-2024 End: 09-26-2024 ambulatory Brianna L Brittney Facility:[facility] [place] Start: 08-29-2024 End: 08-29-2024 Lab Drop off Brianna L Brittney [facility] Start: 08-29-2024 End: 08-29-2024 ambulatory PLANNING FEEDER Brianna L Brittney Facility:[facility] Start: 08-13-2024 End: 08-13-2024 ambulatory PLANNING FEEDER Brianna L Brittney Facility:[facility] [place] Start: 07-09-2024 End: 07-09-2024 ambulatory PLANNING FEEDER Brianna L Brittney Facility:[facility] [place] Start: 06-29-2024 End: 06-29-2024 ambulatory PLANNING FEEDER Brianna L Brittney Facility:[facility] [place] Start: 05-07-2024 End: 05-07-2024 Lab Drop off Brianna L Brittney [facility] Start: 05-07-2024 End: 05-07-2024 ambulatory Brianna L Brittney Facility:[facility] Start: 05-01-2024 End: 05-01-2024 ambulatory PLANNING FEEDER Brianna L Brittney Facility:[facility] [place] Start: 04-26-2024 ambulatory PL[employer]ING FEEDER Brianna Brittney Facilit y:[facility] [place] Start: 10-22-2022 End: 10-23-[address] ALEJANDRA FLORES Facility:[facility] Start: 01-29-2022 End: 01-30-[address] ALEJANDRA FLORES Facility: Procedures Date Procedure Procedure Detail Performing Clinician Start: 11-23-2024 Catheterization of l eft heart Luis Carlos Kirnus Start: 11-23-2024 Coronary artery sten t (physical object) Luis Carlos Kirnus Comment on above: STent to LAD History of placement of stent in anterior descending branch of left coronary artery History of placement of stent in LAD coronary artery Luis Carlos Kirnus Surgical procedure Brianna Schw ab Immunizations Immunization Date Immunization Notes Care Provider Fa cility 07-17-2021 SARS-CoV-2 (COVID-19 ) mRNA BNT-162b2 vax Brianna Brittney [facility] 06-10-2021 SARS-CoV-2 (COVID-19 ) mRNA BNT-162b2 vax Brianna Brittney [facility] Payers Date Payer Category Payer Unknown [id number] 2024 Self-pay 2024 Unknown [id number] 2024 Private Health Insurance [id number] 1970 Unknown [id number] 2.16.84 0.1.866210.3.579.2.593 1970 Unknown [id number] 2.16.84 0.1.889022.3.579.2.593 1970 Unknown [id number] 2.16.8 40.1.923221.3.579.2.727 1970 Unknown [id number] 2.16.8 40.1.241176.3.579.2.727 1970 Unknown [id number] 2.16.8 40.1.371360.3.579.2.727 1970 Unknown [id number] 2.16.8 40.1.035828.3.579.2.727 1970 Unknown [id number] 2.16.8 40.1.156755.3.579.2.727 1970 Unknown [id number] 2.16.8 40.1.767564.3.579.2.727 1970 Unknown [id number] 2.16.8 40.1.737044.3.579.2727 1970 Unknown [id number] 2.16.8 40.1.143466.3.579.2.727 1970 Unknown [id number] 2.16.8 40.1.561985.3.579.2.727 1970 Unknown [id number] 2.16.8 40.1.186158.3.579.2.727 1970 Unknown [id number] 2.16.8 40.1.991914.3.579.2727 1970 Unknown [id number] 2.16.8 40.1.009366.3.579.2.727 1970 Unknown [id number] 2.16.8 40.1.548397.3.579.2.727 21-1970 Unknown [id number] 2.16.8 40.1.713064.3.579.272 1970 Unknown [id number] .16.8 40.1.622545.3.579.2 1970 Unknown [id number] 2.16.8 40.1.439862.3.579.2 1970 Unknown [id number] .16.8 40.1.881409.3.579.2 1970 Unknown [id number] .16.8 40.1.016330.3.579.2 1970 Unknown [id number] .16.8 40.1.478986.3.579.2 1970 Unknown [id number] .16.8 40.1.871617.3.579.2 1970 Unknown [id number] .16.8 40.1.329633.3.579.2 1970 Unknown [id number] .16.8 40.1.037550.3.579.2 1970 Unknown [id number] .16.8 40.1.207351.3.579.2 1970 Unknown [id number] .16.8 40.1.797058.3.579.2 1970 Unknown [id number] .16.8 40.1.869881.3.579.2 1970 Unknown [id number] .16.8 40.1.032445.3.579.2 1970 Unknown [id number] .16.8 40.1.739406.3.579.2 1970 Unknown [id number] 2.16.8 40.1.072055.3.579.272 1970 Unknown [id number] .16.8 40.1.734858.3.579.2.727 1970 Unknown [id number] 2.16.8 40.1.962257.3.579.2.727 1959 Private Health Insurance [id number] Social History Date Type Detail Facility Start: 05-07-2024 End: 04-22-2025 Tobacco smoking status Never smoked tobacco (finding) [facility] Sex Assigned At Male [facility] Tobacco smoking status Never [facility] Sexual Orientation [facility] Sex Male (finding) [facility] Medical Equipment Procedure Code Equipment Code Equipment [...] 11-23-2024 Functional Status Date Assessment Result Facility 02-07-2025 Functional Status N/A [facility] 12-14-2024 Functional Status N/A [facility] 11-25-2024 Functional Status N/A [facility] 11-23-2024 Functional Status No [facility] 11-02-2024 Functional Status N/A [facility] Clinical Notes 11-14-2024 to 02-07-2025 Laboratory Note Date & Type Note Facility 02-07-2025 Evaluation + Plan note Future Scheduled TestsLipid Panel 02/07/25Lipid Panel 12/27/24 [facility] 11-30-2024 Note Progress Note-Physic ye Procedure Airway Assessment: Class II: Visualization of the soft palate, fauces, uvula Airway Abnormalities: none ASA Classification: ASA 2: A patient with mild systemic disease Risks/Benefits of IV Sedation: Have been explained IV Sedation Plan: Patient agrees to IV sedation plan_ Assessment/Plan CAD (coronary artery disease) (I25.10: Atherosclerotic heart disease of [place] coronary artery without angina pectoris) HTN (hypertension) (I10: Essential (primary) hypertension) [facility] Comment on above: Result Comment: Elec tronically Signed By: Luis Carlos Pineda MD.cassie\Date and Time Signed: 11/30/24 18:26 EST 11-25-2024 Hospital Discharge instructions Patient Education 11/25/2024 [...] Follow these instructions at home: Medicines Take jwwt-pjz-zhpuxry and prescription medicines only as told by [...] provider. Document Revised: 07/01/2023 Document Reviewed: 07/01/2023 [employer] Patient Education 2023 BUILD. 11/25/2024 13:42:02 Bronchospasm, Adult Bronchospasm, Adult Bronchospasm [...] and fumes from perfume, candles, and household manager shell. Cold air. Stress or strong emotions such [...] Follow these instructions at home: Medicines Take pwru-xva-ucvyvsp and prescription medicines only as told by [...] provider. Document Revised: 05/24/2022 Document Reviewed: 05/24/2022 [employer] Patient Education 2023 BUILD. Follow Up Care 11/25/2024 11:39:05 With:Brianna Lugo Address: [address] [place] [address] Business (1) When:11/28/2024 13:35:21 [facility] 11-25-2024 Note ED Patient Education Note [...] these instructions at home: Medicines ??? Take cwwy-gtr-chuhkfz and prescription medicines only as told by [...] provider. Document Revised: 07/01/2023 Document Reviewed: 07/01/2023 [employer] Patient Education ? 2023 BUILD. Pulmonary Medicine Bronchospasm, Adult Bronchospasm is a [...] and fumes from perfume, candles, and household manager shell. ??? Cold air. ??? Stress or strong [...] irritant or t (more content not included)... [facility] 11-23-2024 Hospital Discharge instructions Patient Education 11/23/2024 12:32:21 CV - Cardiovascular PCI Discharge Instructions (Custom) [place], [place] Cardiovascular PCI DISCHARGE INSTRUCTIONS Diet: Resume [...] hours post procedure: Actoplus MetGlucophageGlucophage XR GlucovanceAvandametFortamet Kfk-dglftvcbyIseilmGzxq-zofmpxvvz GlumetzaJanumetMetaglip RiometGlycomet Minimal pain, soreness and/or discomfort is expected. 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 [phone]. In the event you are unable to reach your physician, please call [facility] at [phone] and the lap machine operator will assist you. Seek Medicare Care [...] Care 11/08/2024 14:19:09 With:Luis Carlos Pineda Address: [facility] [place] [address]- [phone] Business (1) When:12/07/2024 14:00:00 With:Brianna Lugo Address:Unknown When: Unknown [facility] 11-23-2024 Evaluation + Plan note Extrac [...] Appointment Date:11/28/2024 05:00:00 PM Scheduled Provider:Brianna Li Location:[facility] Appointment Type: Open Appointment Date:12/07/2024 02:00:00 PM Scheduled Provider:Luis Carlos Pineda MD [facility] Type:Cardiology Follow Up () Diagnostic Tests Pending * CBC w/ Indices 11/24/24 * Basic Metabolic Panel 11/24/24 * Magnesium Level 11/24/24 * Troponin 11/24/24 [facility] 01-10-2025 NoteOperative Report Procedure Left heart catheterization procedure report DATE OF PROCEDURE: 11/23/2024 SKID STRAPPER Luis Carlos Pineda MD [facility] INDICATION: Chest pain, consistent with [...] patient was brought to the Adult Cardiac Pad Hand and placed on the table. The planned puncture sites/areas were prepped and draped in usual sterile fashion and a safety time-out was performed. Moderate Sedation was given by the Cardiac Pad Hand RN. RIGHT RADIAL ARTERY ACCESS: The puncture [...] was administered via peripheral IV by the laboratory chief RN after the catheter crossed into the [...] <50cc CONTRAST ADMINISTERED: Please see Adult Cardiac Pad Hand Log for further details FINDINGS: SELECTIVE CORONARY [...] the table. We u (more content not included)...[facility] Result Comment: Electronically Signed By: Edwin RHOADES, Luis Carlos Salvador\.br\Date and Time Signed: 11/23/24 12:33 [id number] NotePatient Education - Text [place], [place] Cardiovascular PCI DISCHARGE INSTRUCTIONS Diet: ??? [...] for any reason without talking to your semiconductor packages tester Site Care: ??? Do not remove dressing [...] you are interested in smoking cessation, contact [facility] at [phone], ext. [phone]. ??? In the event you are unable to reach your physician, please call Ryanne Castro at [phone] and the lap machine operator will assist you. Seek Medicare Care [...] coagulating (clotting) and c (more content not included)...[facility]01-06-2025 NoteNurse Consultation Note Reason for Visit [...] 50,000 intl units (1.25 mg) oral capsule, 45588 International_Unit= 1 cap(s), Oral, qWeek, 3 refills Allergies penicillins (Epistaxis)[facility]01-01-2025 Evaluation + Plan note Future Appointments Appointment Date:11/23/2024 09:00:00 AM Scheduled Provider: [facility] Type:CV Heart Cath (FT) Appointment Date:11/28/2024 05:00:00 PM Scheduled Provider:Brianna Li Location:[facility] Appointment Type:FM Open Future Scheduled Tests Radiology* CV Cardiovascular 11/23/24 [facility] Evaluation + Plan note Future Appointments Appointment Date:06/15/2024 01:40:00 PM Scheduled Provider:Brianna Li Location:[facility] Appointment Type:FM Open Diagnostic Tests Pending * UZIEL w/Reflex if POS [facility]07/24 [facility] Future Appointments Appointment Date:11/28/2024 05:00:00 PM Scheduled Provider:Brianna Li Location:[facility] Appointment Type:FM Open Diagnostic Tests Pending * HgbA1c 08/29/24 [facility] evaluation + Plan note Future Appointments Appointment Date:11/02/2024 02:15:00 PM Scheduled Provider:Luis Carlos Pineda MD [facility] [place] [facility] Type:Cardiology New Patient (FT) Appointment Date:11/28/2024 05:00:00 PM Scheduled Provider:Brianna Li Location:[facility] Appointment Type:FM Open Diagnostic Tests Pending * Testosterone Level Total 10/30/24 [facility] evaluation + Plan note Future Appointments Appointment Date:11/28/2024 05:00:00 PM Scheduled Provider:Brianna Li Location:[facility] Appointment Type: Open [facility] Evaluation + Plan note Future Appointments Appointment Date:11/28/2024 05:00:00 PM Scheduled Provider:Brianna Li Location:[facility] Appointment Type: Open Appointment Date:12/07/2024 02:00:00 PM Scheduled Provider:Luis Carlos Pineda MD [facility] Type:Cardiology Follow Up (FT) [facility] Evaluation + Plan note Future Appointments Appointment Date:02/07/2025 01:45:00 PM Scheduled Provider:Luis Carlos Pineda MD [facility] Type:Cardiology Follow Up (FT) Future Scheduled Tests Laboratory* HgbA1c 11/28/24 * Basic Metabolic Panel 12/23/24 * Lipid Panel 12/23/24 [facility] evaluation + Plan note Future Appointments Appointment Date:02/07/2025 01:45:00 PM Scheduled Provider:Luis Carlos Pineda MD [facility] Type:Cardiology Follow Up (FT) [facility] evaluation + Plan note Future Appointments Appointment Date:05/31/2025 03:15:00 PM Scheduled Provider:Chau Patton PA-C [facility] [place] [facility] Type:Cardiology Follow Up (FT) Appointment Date:07/22/2025 03:00:00 PM Scheduled Provider:Brianna Li Location:[facility] Appointment Type: Open Future Scheduled Tests Laboratory* Lipid Panel 02/07/25 * Lipid Panel 12/27/24 [facility] Hospital course Narrative No data available for this section [facility] No data available for this section [facility] No data available for this section [facility] Summary Purpose Family History No Family [...] History Records FoundNo Family History Records Found Advance Directives No [...] section and content) DATE CREATED AUTHOR 11/03/2022 [facility] DATE CREATED AUTHOR AUTHOR'S ORGANIZ ATION 05/08/2024 [facility] DATE CREATED AUTHOR AUTHOR'S ORGANIZ ATION 05/09/2024 [facility] DATE CREATED AUTHOR AUTHOR'S ORGANIZ ATION 06/30/2024 [facility] DATE CREATED AUTHOR AUTHOR'S ORGANIZ ATION 11/03/2024 [facility] DATE CREATED AUTHOR AUTHOR'S ORGANIZ ATION 11/11/2024 [facility] DATE CREATED AUTHOR AUTHOR'S ORGANIZ ATION 11/25/2024 [facility] DATE CREATED AUTHOR AUTHOR'S ORGANIZ ATION 11/30/2024 [facility] DATE CREATED AUTHOR AUTHOR'S ORGANIZ ATION 12/01/2024 [facility] DATE CREATED AUTHOR AUTHOR'S ORGANIZ ATION 12/27/2024 [facility] DATE CREATED AUTHOR AUTHOR'S ORGANIZ ATION 04/10/2025 [facility] DATE CREATED AUTHOR AUTHOR'S ORGANIZ ATION 04/23/2025 [facility] DATE CREATED AUTHOR AUTHOR'S ORGANIZ ATION 04/24/2025 [facility] DATE CREATED AUTHOR AUTHOR'S ORGANIZ ATION 05/03/2025 [facility] DATE CREATED AUTHOR AUTHOR'S ORGANIZ ATION 06/04/2025 [facility] Patient Care team informatio n (unrecognized section and content) Personnel Name: Brianna Li Address: Address: [address] [place] [address]- Personnel Name: Brianna Li Address: Address: [address] [place] [address]- Personnel Name: Brianna Li Address: Address: [address] [place] [address]- Personnel Name: Brianna Li Address: Address: [address] [place] [address]- Personnel Name: Brianna Li Address: Address: [address] [place] [address]- Personnel Name: Brianna Li Address: Address: [address] [place] [address]- Personnel Name: Brianna Li Address: Address: [address] [address] [place], [place] [id number]- Personnel Name: Brianna Li Address: Address: [address] [place], [place] [id number]- Personnel Name: Brianna Li Address: Address: [address] [place] [address]- Personnel Name: Brianna Li Address: [address] [place] [address]- [employer]: Personnel Name: Brianna Li Address: [address] [place] [address]- [employer]: FOR RECORDS PERTAINING TO PATIENTS WHO ARE [...] BE BASED ON THE PRIMARY CLINICAL RECORDS. [facility] [employer] provides no warranty or guarantee of the accuracy or completeness of information in this document.
--- NOTE | 2025-06-07 11:05 | XR_ITS ---
[facility] [place] [id number] Patient Name: ANKIT BENITES MRN: [id number] date: 1970 Sex: M Assigned Patient Location: ER Current Patient Location: ER Accession/Order Number: [id number] Exam Date: 06/07/2025 11:40 Report Date: 06/07/2025 11:41 At the request of: EARLNEE SLAUGHTER MD Procedure: XR ribs LT min 3V w CXR1V PA CHEST WITH 6 VIEWS LEFT RIBS: CLINICAL HISTORY: fall COMPARISON: Chest 07/04/2024 FINDINGS: Chest images are normal in size. Mild left basilar atelectasis. No consolidation pneumothorax pleural effusion or free air. Additional views of the left ribs demonstrate no displaced rib fracture. XR/XR ribs LT min 3V w CXR1V IMPRESSION: No acute findings. Impression dictated by: Jaycob Loco Jr., D.OFloridalma 06/07/2025 11:41 AM Dictation Location: [place] [address] Electronically authenticated by: [id number] Y Date: 06/07/2025 11:41
--- NOTE | 2025-06-07 11:06 | ED.GENADUL1 ---
HPI HPI - General Adult General Chief complaint: Fall Stated complaint: FALL CHEST PAIN SOB Time Seen by Provider: 06/07/25 11:03 Source: patient Mode of arrival: walk-in History of Present Illness HPI narrative: 55-year-old male presents for left-sided rib pain. 3 days ago he fell when he stepped off of a curb any hit this area. He thinks he may have broken a rib. He has had this sharp pain since then and feels a little bit short of breath. No right-sided pain or abdominal pain and no other injury was sustained. Related Data Home Medications ?Medication ?Instructions ?Recorded ?Confirmed glimepiride 2 mg tablet 2 mg PO DAILY 03/01/24 06/07/25 amlodipine 5 mg tablet 5 mg PO DAILY 06/07/25 06/07/25 atorvastatin 40 mg tablet 40 mg PO DAILY 06/07/25 06/07/25 clopidogrel 75 mg tablet 75 mg PO DAILY 06/07/25 06/07/25 ergocalciferol (vitamin D2) 1,250 1,250 mcg PO .twice a wk 06/07/25 06/07/25 mcg (50,000 unit) capsule hydrochlorothiazide 12.5 mg capsule 12.5 mg PO DAILY 06/07/25 06/07/25 losartan 50 mg tablet 50 mg PO BID 06/07/25 06/07/25 meloxicam 15 mg tablet 15 mg PO DAILY 06/07/25 06/07/25 metformin 1,000 mg tablet 1,000 mg PO BID 06/07/25 06/07/25 metoprolol succinate 25 mg 25 mg PO DAILY 06/07/25 06/07/25 tablet,extended release 24 hr Previous Rx's ?Medication ?Instructions ?Recorded acetaminophen 300 mg-codeine 30 mg 1 tab PO Q6H PRN pain 5 days #20 06/07/25 tablet tabs ibuprofen 800 mg tablet 800 mg PO Q8H PRN pain #20 tabs 06/07/25 Allergies Allergy/AdvReac Type Severity Reaction Status Date / Time Penicillins Allergy Intermediate Hives Verified 03/01/24 21:29 Opioid HPI Opioid Management Most Recent Opioid Data: Last Pain Scale 4 03/01/24, 21:53 Review of Systems ROS Narrative A ten point review of systems is negative except as noted above. [facility] Medical History (Updated 06/07/25 @ 11:53 by Nando Alejo MD) HTN (hypertension) ?I10 - Essential (primary) hypertension (ICD-10) Diabetes ?E11.9 - Type 2 diabetes mellitus without complications (ICD-10) Surgical History (Updated 06/07/25 @ 11:43 by Cassie Barreto) H/O heart artery stent ?Z95.5 - Presence of coronary angioplasty implant and graft (ICD-10) Social History Little interest or pleasure in doing things: not at all Feeling down, depressed, or hopeless: not at all Exam Narrative Exam Narrative: Nurses note and vital signs reviewed and patient is not hypoxic. General: The patient appears well and in no apparent distress. Patient is resting comfortably on cart. Skin: Warm, dry, no pallor noted. There is no rash noted. Head: Normocephalic, atraumatic Eye: Normal conjunctiva, no drainage Ears, Nose, Mouth, and Throat: oral mucosa is moist. Nares patent. Cardiovascular: Regular Rate and Rhythm Respiratory: Patient is in no distress, no accessory muscle use, breath sounds are equal bilaterally. No crepitus on the chest wall. No bruise or abrasion. Back: non-tender GI: Soft obese and nontender Musculoskeletal: The patient has no evidence of calf tenderness, no pitting edema, symmetrical pulses noted bilaterally Neurological: A&O, normal speech Psychiatric: Cooperative Constitutional Vital Signs, click to edit/add: Last Vital Signs Temp 97.8 F 06/07/25 10:55 Pulse 75 06/07/25 11:10 Resp 19 06/07/25 11:10 BP 142/89 H 06/07/25 11:02 Pulse Ox 98 06/07/25 11:24 O2 Del Method Room Air 06/07/25 10:55 Course Vital Signs Vital signs: Vital Signs Temperature 97.8 F 06/07/25 10:55 Pulse Rate 73 06/07/25 10:55 Respiratory Rate 20 06/07/25 10:55 Blood Pressure 153/113 H 06/07/25 10:55 Pulse Oximetry 98 06/07/25 10:55 Oxygen Delivery Method Room Air 06/07/25 10:55 Temperature 97.8 F 06/07/25 10:55 Pulse Rate 75 06/07/25 11:10 Respiratory Rate 19 06/07/25 11:10 Blood Pressure 142/89 H 06/07/25 11:02 Pulse Oximetry 98 06/07/25 11:24 Oxygen Delivery Method Room Air 06/07/25 10:55 Medical Decision Making MDM Narrative Medical decision making narrative: Rib x-rays per radiologist showing no fracture or pneumothorax. He will be treated symptomatically. Treatment diagnosis and follow-up were discussed with the patient. Differential Diagnosis Differential Diagnosis: Contusion, fracture, pneumothorax Imaging Data Rib x-rays: Radiologist's impression: ITS Impressions Ribs X-Ray 06/07/25 11:05 IMPRESSION: No acute findings. Impression dictated by: Jaycob Loco Jr., D.O. 06/07/2025 11:41 AM Dictation Location: [employer] Electronically authenticated by: [id number] Y Date: 06/07/2025 11:41 Discharge Plan Discharge Chief Complaint: Fall Clinical Impression: Chest wall contusion Patient Disposition: Home, Self-Care Time of Disposition Decision: 11:53 Condition: Good Mode of Transportation: Private Vehicle Prescriptions / Home Meds: New acetaminophen-codeine 300-30 mg tablet 1 tab PO Q6H PRN (Reason: pain) 5 Days Qty: 20 0RF ibuprofen 800 mg tablet 800 mg PO Q8H PRN (Reason: pain) Qty: 20 0RF No Action glimepiride 2 mg tablet 2 mg PO DAILY amlodipine 5 mg tablet 5 mg PO DAILY atorvastatin 40 mg tablet 40 mg PO DAILY clopidogrel 75 mg tablet 75 mg PO DAILY ergocalciferol (vitamin D2) 1,250 mcg (50,000 unit) capsule 1,250 mcg PO .twice a wk hydrochlorothiazide 12.5 mg capsule 12.5 mg PO DAILY losartan 50 mg tablet 50 mg PO BID meloxicam 15 mg tablet 15 mg PO DAILY metoprolol succinate 25 mg tablet extended release 24 hr 25 mg PO DAILY metformin 1,000 mg tablet 1,000 mg PO BID Print Language: Belarusian Instructions: Rib Contusion (ED), Chest Contusion (ED) Referrals: KATERINA STONE [Primary Care Provider, SHOVEL LOADER OPERATOR] - 1 week
--- NOTE | 2025-06-07 11:59 | ECG_ITS ---
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 Measurements Intervals Perry Rate: 75 P: 33 CA: 178 QRS: 27 QRSD: 90 T: 44 QT: 330 QTc: 359 Interpretive Statements 1100 Sinus rhythm 8102 Low QRS voltage in chest leads 8305 Short QTc interval 9150 abnormal ECG Compared to ECG 10/19/2024 08:29:56 No significant changes Electronically Signed On 06-08-2025 8:18:34 EDT by FELIPE BRANDON M.D.
== END 2025-06-07 12:00 | disposition home or self-care (01) ==
PROVIDERS: Emergency Provider Emergency Medicine; PCP Nurse Practitioner
DX: S20.212A Contusion of left front wall of thorax, initial encounter (principal); W10.1XXA Fall (on)(from) sidewalk curb, initial encounter; Z95.5 Presence of coronary angioplasty implant and graft
CPT/HCPCS: 71101; 93005; 99284

== ENCOUNTER 2025-09-19 08:03 | Outpatient (OUT) | payer SELFPAY ==
--- OUTSIDE RECORDS SUMMARY | 2025-09-19 08:07 | XMS_ITS | Clinical Summary ---
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
--- OUTSIDE RECORDS SUMMARY | 2025-09-19 08:08 | XMS_ITS | CCD ---
Author Organization [facility] Care Team Providers Care Margin Analyst Name Role Phone [place], DR ROBERTS Primary Care Unavailable [place], DR JACQUES Montes Consulting Unavailable DENVER, DR ROBERTS Admitting Unavailable DENVER, DR ROBERTS Attending Unavailable DENVER, DR ROBERTS Consulting Unavailable DENVER, DR ROBERTS Primary Care Unavailable DENVER, DR ROBERTS Admitting Unavailable DENVER, DR ROBERTS Attending Unavailable HOUSE, DR ROBERTS Consulting Unavailable Brittney, Brianna Perla Primary Care Physician Brittney, Brianna Perla Attending Unavailable Brittney, Brianna Perla Admitting Unavailable Birttney, METER TESTER Brianna Perla Attending Unavailable Brittney, METER TESTER Brianna Perla Attending Unavailable Brittney, METER TESTER Brianna Perla Attending Unavailable Brittney, METER TESTER Brianna Perla Attending Unavailable Brittney, METER TESTER Brianna Perla Admitting Unavailable Brittney, Brianna Perla Attending Unavailable Brittney, Brianna Perla Admitting Unavailable Brittney, Brianna Perla Admitting Unavailable Brittney, Brianna Perla Attending Unavailable Brittney, Brianna Perla Attending Unavailable Brittney, Brianna Perla Attending Unavailable Brittney, Brianna Perla Attending Unavailable Kirnus, MD Luis Carlos Salvador Attending Unavailable Brittney, Brianna L Referring Unavailable Brittney, METER TESTER Brianna Perla Attending Unavailable Brittney, METER TESTER Brianna L Attending Unavailable Brittney, METER TESTER Brianna L Attending Unavailable Brittney, METER TESTER Brianna L Attending Unavailable Brittney, METER TESTER Brianna L Admitting Unavailable Britntey, METER TESTER Brianna Perla Attending Unavailable Brittney, Brianna Perla Admitting Unavailable Brittney, Brianna Perla Attending Unavailable Brittney, Brianna Perla Attending Unavailable KirnLuis Carlos khan Attending Unavailable KirnusLuis Carlos Admitting Unavailable NONE, XXXX Referring Unavailable Brittney, METER TESTER Brianna Perla Attending Unavailable KirnLuis Carlos khan Attending Unavailable NONE, XXXX Referring Unavailable Luis Carlos Pineda Admitting Unavailable KirLuis Carlos quinonez Admitting Unavailable Kirnus, Luis Carlos D Attending Unavailable JerrodnLuis Carlos khan D Referring Unavailable Brittney, METER TESTER Brianna L Admitting Unavailable Brittney, METER TESTER Brianna L Attending Unavailable Brittney, METER TESTER Brianna L Admitting Unavailable Brittney, METER TESTER Brianna L Attending Unavailable Chau, Zeb Attending Unavailable Kirnus, Luis Carlos Salvador Attending Unavailable Kirnus, Luis Carlos D Admitting Unavailable NONE, XXXX Referring Unavailable Brittney, Brianna L Attending Unavailable Brittney, Brianna L Admitting Unavailable Brittney, Brianna L Admitting Unavailable Brittney, Brianna L Attending Unavailable Brittney, Brianna L Attending Unavailable Brittney, Brianna L Attending Unavailable Brittney, Brianna L Attending Unavailable Brittney, Brianna L Attending Unavailable Brittney, Brianna L Admitting Unavailable Brittney, METER TESTER Brianna L Attending Unavailable Brittney, METER TESTER Brianna L Attending Unavailable Brittney, METER TESTER Brianna L Attending Unavailable NONE, XXXX Referring Unavailable JAMAL Patton Attending Unavailable Brittney, METER TESTERHarmeet Perla Admitting Unavailable Brittney, METER TESTERHarmeet Perla Attending Unavailable JAMAL Patton Attending Unavailable NONE, XXXX Referring Unavailable Allergies Allergy ClassificationReported Allergen(s)Allergy TypeDate of OnsetReaction(s) FacilityPenicillins (antibiotic) (1 source)Penicillins; Translations: [penicillins]Drug AllergyBleeding from nose (finding)[facility] (1 source)AspirinDrug [facility]44[facility]19[facility]4201[facility] (17 sources)Penicillins; Translations: [penicillins]Propensity to adverse reactions (disorder)Bleeding from nose (finding)[facility] Medications Current Medications MedicationDrug Class(es)DatesSig (Normalized)Sig (Original)120 ACTUAT albuterol 0.09 MG/ACTUAT / budesonide 0.08 MG/ACTUAT Metered Dose Inhaler [Airsupra] (8 sources)Start: 36-78-3749Lkweatoa 90 mcg-80 mcg/inh inhalation aerosol 2 inh, Inhalation, QID, 1 EA, Refill(s) 5, [facility], 170, cm, 09/26/24 8:58:00 EST, Height/Length Dosing, 158.1, kg, 09/26/24 8:58:00 EST, Weight Dosing Start Date: 10/19/24 Status: Ordered Quantity: 1.0 Unit: EA Repeat number: 6Start: 53-77-6761Bsiaqnzu 90 mcg-80 mcg/inh inhalation aerosol 2 inh, Inhalation, QID, 1 EA, Refill(s) 5, [facility] #[facility], 170, cm, 09/26/24 8:58:00 EST, Height/Length Dosing, 158.1, kg, 09/26/24 8:58:00 EST, Weight Dosing Start Date: 10/19/24 Status: OrderedAlbuterol (Eqv-ProAir HFA) 90 mcg/inh inhalation aerosol (4 sources)Start: 27-29-0999dyxb 2 puff(s) by inhalation every six hours Albuterol (Eqv-ProAir HFA) 90 mcg/inh inhalation aerosol 2 puff(s), Inhalation, q6hr Wheezing, 8.5 gm, Refill(s) 0, [facility], 170, cm, 11/25/24 11:49:00 EST, Height/Length Dosing, 154, kg, 11/25/24 11:49:00 EST, Weight Dosing Start Date: 11/25/24 Status: Ordered Quantity: 8.5 Unit:g Repeat number: 1Start: 99-02-6080aurv 2 puff(s) by inhalation every six hoursAlbuterol (Eqv-ProAir HFA) 90 mcg/inh inhalation aerosol 2 puff(s), Inhalation, q6hr Wheezing, 8.5 gm, Refill(s) 0, [facility], 170, cm, 11/25/24 11:49:00 EST, Height/Length Dosing, 154, kg, 11/25/24 11:49:00 EST, Weight Dosing Start Date: 11/25/24 Status: OrderedamLODIPine 5 mg oral tablet (5 sources)Dihydropyridine Calcium Channel BlockerStart: 60-35-1486jvzj 1 tablet by mouth once dailyamLODIPine 5 mg Tab 5 mg = 1 tab(s), Oral, Daily, # 90 tab(s), Refills(s) 3, Pharmacy: [facility] #[facility], 170, cm, 02/07/25 14:04:00 EDT, Height/Length Dosing, 151, kg, 02/07/25 14:04:00 EDT, Weight Dosing Start Date: 02/18/25 Status: Ordered Quantity: 90.0 Unit: tab(s) Repeat number: 4 Indications: Essential (primary) hypertension;Start: 22-60-4441djfe 1 tablet by mouth once dailyamLODIPine 5 mg Tab 5 mg = 1 tab(s), Oral, Daily, # 90 tab(s), Refills(s) 0, Pharmacy: [facility] #[facility], 170, cm, 11/23/24 7:51:00 EST, Height/Length Dosing, 154, kg, 11/23/24 7:51:00 EST, Weight Dosing Start Date: 11/23/24 Status: Orderedaspirin 81 mg delayed release oral tablet (6 sources)Platelet Aggregation Inhibitor, Nonsteroidal Anti-inflammatory Drug Start: 71-97-4329ynog 1 tablet by mouth once dailyaspirin 81 mg Oral EC Tab 81 mg = 1 tab(s), Oral, Daily, # 90 tab(s), Refills(s) 3, Pharmacy: [facility] #[facility], 170, cm, 11/23/24 7:51:00 EST, Height/Length Dosing, 154, kg, 11/23/24 7:51:00 EST, Weight Dosing Start Date: 11/23/24 Status: Ordered Quantity: 90.0 Unit: tab(s) Repeat number: 4 Indications: Atherosclerotic heart disease of [place] coronary artery without angina pectoris;Start: 11-08-2024 aspirin 81 mg Oral EC Tab Refills(s) 0 Start Date: 11/08/24 Status: Ordered atorvastatin 80 mg oral tablet (10 sources)HMG-CoA Reductase InhibitorStart: 60-22-7509hrzr 1 tablet by mouth once dailyatorvastatin 80 mg Tab 80 mg = 1 tab(s), Oral, Daily, Refills(s) 0 Start Date: 02/07/25 Status: Ordered Repeat number: 1Start: 57-26-6572yibq 1 tablet by mouth once dailyatorvastatin 40 mg Tab See Instructions, TAKE 1 TABLET BY MOUTH DAILY, # 90 tab(s), Refills(s) 1, Pharmacy: [facility] #[facility], 170, cm, 11/02/24 14:23:00 EST, Height/Length Dosing, 154.5, kg, 11/02/24 14:23:00 EST, Weight Dosing Start Date: 11/20/24 Status: Ordered Quantity: 90.0 Unit: tab(s) Repeat number: 1azithromycin 250 mg Tab 5-day Dose Pack (Z-Douglas) (1 source)Start: 11-25-2024 End: 28-05-7963wekmdhcyddja 250 mg Tab 5-day Dose Pack (Z-Douglas) = 1 packet(s), Oral, As Directed, as directed on package labeling, X 5 day(s), # 6 tab(s), Refills(s) 0, Pharmacy: [facility] #[facility], 170, cm,11/25/24 11:49:00 EST, Height/Length Dosing, 154, kg, 11/25/24 11:49:00 EST, Weight Dosing Start Date: 11/25/24 Stop Date: 11/30/24 Status: Orderedclopidogrel 75 mg oral tablet (5 sources)P2Y12 Platelet InhibitorStart: 02-97-8845wusm 1 tablet by mouth once dailyPlavix 75 mg Tab 75 mg = 1 tab(s), Oral, Daily, # 90 tab(s), Refills(s) 3, Pharmacy: [facility] #[facility], 170, cm, 11/23/24 7:51:00 EST, Height/Length Dosing, 154, kg, 11/23/24 7:51:00 EST, Weight Dosing Start Date: 11/23/24 Status: Ordered Quantity: 90.0 Unit: tab(s) Repeat number: 4 Indicati ons: Atherosclerotic heart disease of [place] coronary artery without angina pectoris;fluconazole 150 mg oral tablet (2 sources)Azole AntifungalStart: 66-59-3656wqfwnwihcli 150 mg Tab See Instructions, TAKE 1 TABLET BY MOUTH on day one and TAKE 1 TABLET on dayFOUR, # 2 tab(s), Refills(s) 1, Pharmacy: [facility] #[facility], 170, cm, 04/22/25 13:16:00 EDT, Height/Length Dosing, 150, kg, 04/22/25 13:16:00 EDT, Weight Dosing Start Date: 04/22/25 Status: Ordered Quantity: 2.0 Unit: tab(s) Repeat number: 2Start: 82-45-0998cwic 4 tablets by mouth onceDiflucan 150 mg Tab 150 mg = 1 tab(s), Oral, Once, take 1 tab on day 1 and one tab on day 4, # 2 tab(s), Refills(s) 1, Pharmacy: [facility] #[facility], 177.5, cm, 05/07/24 13:15:00 EDT, Height/Length Dosing, 152.2, kg, 05/07/24 13:15:00 EDT, Weight Dosing Start Date: 05/07/24 Status: Orderedglimepiride 2 mg oral tablet (10 sources)SulfonylureaStart: 49-76-0658joah 1 tablet by mouth twice daily glimepiride 2 mg Tab See Instructions, TAKE 1 TABLET BY MOUTH TWICE DAILY, # 180 tab(s), Refills(s)1, Pharmacy: [facility] #[facility], 170, cm, 11/02/24 14:23:00 EST, Height/Length Dosing, 154.5, kg, 11/02/24 14:23:00 EST, Weight Dosing Start Date: 11/20/24 Status: Ordered Quantity: 180.0 Unit:tab(s) Repeat number: 1hydroCHLOROthiazide 12.5 mg oral capsule (2 sources)Thiazide DiureticStart: 49-05-8010imvd 1 capsule by mouth once daily hydrochlorothiazide 12.5 mg Cap 12.5 mg = 1 cap(s), Oral, Daily, # 30 cap(s), Refills(s) 5, Pharmacy: [facility], 170, cm, 12/14/24 14:02:00 EST, Height/Length Dosing, 151.2, kg, 12/14/24 14:08:00 EST, Weight Dosing Start Date: 12/17/24 Status: Ordered Quantity: 30.0 Unit: cap(s) Repeat number: 6 losartan potassium 50 mg oral tablet (5 sources)Angiotensin 2 Receptor BlockerStart: 01-61-1702qfik 1 tablet by mouth twice dailylosartan 50 mg Tab 50 mg = 1 tab(s), Oral, BID, # 60 tab(s), Refills(s) 5, Pharmacy: [facility] #[facility], 170, cm, 12/14/24 14:02:00 EST, Height/Length Dosing, 151.2, kg, 12/14/24 14:08:00 EST, Weight Dosing Start Date: 12/17/24 Status: Ordered Quantity: 60.0 Unit: tab(s) Repeat number: 6 Indic ations: Essential (primary) hypertension;Start: 48-13-3721umzu 1 tablet by mouth once dailylosartan 50 mg Tab 50 mg = 1 tab(s), Oral, Daily, # 90 tab(s), Refills(s) 0, Pharmacy: [facility], 170, cm, 11/23/24 7:51:00 EST, Height/Length Dosing, 154, kg, 11/23/24 7:51:00 EST, Weight Dosing Start Date: 11/23/24 Status: OrderedmetFORMIN hydrochloride 1000 mg oral tablet (9 sources)BiguanideStart: 08-29-2024 End: 56-99-8081fexg 1 tablet by mouth twice dailymetformin 1000 mg Tab 1,000 mg = 1 tab(s), Oral, BID, X 90 day(s), # 180 tab(s), Refills(s) 3, Pharmacy: [facility], 170, cm, 02/07/25 14:04:00 EDT, Height/Length Dosing, 151, kg, 02/07/25 14:04:00 EDT, Weight Dosing Start Date: 02/18/25 Stop Date: 02/13/26 Status: Ordered Quantity: 180.0 Unit: tab(s) Repeat number: 4 Indications: Body mass index [BMI] 45.0-49.9, adult; Other specified health status; Morbid (severe) obesity due to excess calories; Type 2 diabetes mellitus without complications; Abnormal weight gain;metFORMIN hydrochloride 1000 mg / SITagliptin 50 mg oral tablet (1 source)Biguanide, Dipeptidyl Peptidase 4 InhibitorStart: 16-46-8012Lcmejks 50 mg/1000 mg oral tablet 1 tab(s), Oral, BID, 90 tab(s), Refill(s) 1, TAKE 1 TABLET BY MOUTH TWICE DAILY, [facility], 177.5, cm, 05/07/24 13:15:00 EDT, Height/Length Dosing, 152.2, kg, 05/07/24 13:15:00 EDT, Weight Dosing Start Date: 05/07/24 Status: OrderedmethylPREDNISolone 4 mg oral tablet (1 source)CorticosteroidStart: 05-07-2024 End: 22-51-6655Atpfga 4 mg Tab = 1 packet(s), Oral, As Directed, as directed on package labeling, X 6 day(s), # 21tab(s), Refills(s) 0, Pharmacy: [facility], 177.5, cm, 05/07/24 13:15:00 EDT, Height/Length Dosing, 152.2, kg, 05/07/24 13:15:00 EDT, Weight Dosing Start Date: 05/07/24 Stop Date: 05/13/24 Status: Xqmwxmw81 hr metoprolol succinate 25 mg extended release oral tablet (1 source)beta-Adrenergic BlockerStart: 03-50-4853cuzo 1 tablet by mouth once dailyToprol XL 25 mg Tab-ER 25 mg = 1 tab(s), Oral, Daily, # 30 tab(s), Refills(s) 2, Pharmacy: [facility] #[facility], 170, cm, 02/07/25 14:04:00 EDT, Height/Length Dosing, 151, kg, 02/07/25 14:04:00EDT, Weight Dosing Start Date: 02/08/25 Status: Ordered Quantity: 30.0 Unit: tab(s) Repeat number: 3 nystatin 613166 unt/ml topical cream (10 sources)Polyene AntifungalStart: 35-66-8404usknjnwo Top 100,000 units/g Crm 15 gram 1 marie, Topical, BID, 30 gm, Refill(s) 0, [facility], 170, cm, 04/22/25 13:16:00 EDT, Height/Length Dosing, 150, kg, 04/22/25 13:16:00 EDT, Weight Dosing Start Date: 04/22/25 Status: Ordered Quantity: 30.0 Unit: g Repeat number: 1Start: 63-35-2862nfztrqmg Top 100,000 units/g Crm 15 gram Refill(s) 0 Start Date: 10/24/24 Status: OrderedStart: 05-37-5012pltfpnbb Top 100,000 units/g Crm 15 gram See Instructions, 30 gm, Refill(s) 1, APPLY TO THE AFFECTED AREA(S) topically TWICE DAILY, [facility], 178, cm, 07/09/24 8:51:00 EDT, Height/Length Dosing, 150, kg, 07/09/24 8:51:00 EDT, Weight Dosing Start Date: 07/23/24 Status: OrderedStart: 75-78-2460yuibvzmm Top 100,000 units/g Crm 15 gram 1 marie, Topical, BID, 30 gram, Refill(s) 1, [facility], 177.5, cm, 05/07/24 13:15:00 EDT, Height/Length Dosing, 152.2, kg, 05/07/24 13:15:00 EDT, Weight Dosing Start Date: 05/07/24 Status: OrderedpredniSONE 20 mg oral tablet (1 source)Start: 11-25-2024 End: 38-62-0792qucb 3 tablets by mouth once dailypredniSONE 20 mg Tab 60 mg = 3 tab(s), Oral, Daily, X 5 day(s), # 15 tab(s), Refills(s) 0, Pharmacy: [facility], 170, cm, 11/25/24 11:49:00 EST, Height/Length Dosing, 154, kg, 11/25/24 11:49:00 EST, Weight Dosing Start Date: 11/25/24 Stop Date: 11/30/24 Status: OrderedrOPINIRole 2 mg oral tablet (2 sources)Nonergot Dopamine AgonistStart: 04-82-2296xrkb 1 tablet by mouth at bedtimeRequip 2 mg Tab 2 mg = 1 tab(s), Oral, Bedtime, 1 to 3 hours before bedtime, # 90 tab(s), Refills(s) 0, Pharmacy: [facility], 170, cm, 11/28/24 17:02:00 EST, Height/Length Dosing, 150.2, kg, 11/28/24 17:02:00 EST, Weight Dosing Start Date: 11/28/24 Status: Ordered Completed/Discontinued Medications MedicationDrug Class(es)DatesSig (Normalized)Sig (Original)albuterol 0.83 mg/ml inhalation solution (3 sources)beta2-Adrenergic AgonistStart: 35-09-1074akiz 1 dose by mouth every six hours as needed for wheezingalbuterol 0.083% Inh Delma 3 mL See Instructions, 60 mL, Refill(s) 0, INHALE 1 vial BY MOUTH EVERY 6 HOURS NEEDED FOR WHEEZING, [facility], 170, cm, 11/28/24 17:02:00 EST, Height/Length Dosing, 150.2, kg, 11/28/24 17:02:00 EST, Weight Dosing Start Date: 11/30/24 Status: Ordered Quantity: 60.0 Unit: mL Repeat number: 1meloxicam 15 mg oral tablet (8 sources)Nonsteroidal Anti-inflammatory DrugStart: 85-41-9171flpz 1 tablet by mouth once dailymeloxicam 15 mg Tab 15 mg = 1 tab(s), Oral, Daily, TAKE 1 TABLET BY MOUTH EVERY DAY, # 90 tab(s), Refills(s) 4, Pharmacy: [facility], 170, cm, 12/14/24 14:02:00 EST, Height/Length Dosing, 151.2, kg, 12/14/24 14:08:00 EST, Weight Dosing Start Date: 01/07/25 Status: Ordered Quantity: 90.0 Unit: tab(s) Repeat number: 5Start: 77-90-1841csry 1 tablet by mouth once daily meloxicam 15 mg Tab TAKE 1 TABLET BY MOUTH EVERY DAY Start Date: 12/14/24 Status: OrderedStart: 47-95-7587hzhj 1 tablet by mouth once dailymeloxicam 15 mg Tab 15 mg = 1 tab(s), Oral, Daily, # 30 tab(s), Refills(s) 3, Pharmacy: [facility], 178, cm, 08/29/24 17:23:00 EDT, Height/Length Dosing, 151.2, kg, 08/29/24 17:23:00 EDT, Weight Dosing Start Date: 08/29/24 Status: OrderedStart: 22-21-3131wvou 1 tablet by mouth once dailymeloxicam 15 mg Tab 15 mg = 1 tab(s), Oral, Daily, # 30 tab(s), Refills(s) 0, Pharmacy: [facility], 177.5, cm, 05/07/24 13:15:00 EDT, Height/Length Dosing, 152.2, kg, 05/07/24 13:15:00 EDT, Weight Dosing Start Date: 05/07/24 Status: OrderedVitamin D 50,000 intl units (1.25 mg) oral capsule (7 sources)Start: 18-93-0992uzek 1 capsule by mouth every weekVitamin D 50,000 intl units (1.25 mg) oral capsule 50,000 International_Unit = 1 cap(s), Oral, qWeek, # 12 cap(s), Refills(s) 3, Pharmacy: [facility], 170, cm, 10/30/24 8:55:00 EST, Height/Length Dosing, 153.8, kg, 10/30/24 8:55:00 EST, Weight Dosing Start Date: 11/01/24 Status: Ordered Quantity: 12.0 Unit: cap(s) Repeat number: 4 Indications: Other chest pain; Dizziness and giddiness; Type 2 diabetes mellitus without complications; Morbid (severe) obesity due to excess calories; Other specified health status; Body mass index [BMI] 50.0-59.9, adult; Pure hypercholesterolemia, unspecified; Other fatigue;Start: 30-26-9017nctv 1 capsule by mouth every weekVitamin D 50,000 intl units (1.25 mg) oral capsule 50,000 International_Unit = 1 cap(s), Oral, qWeek, # 12 cap(s), Refills(s) 3, Pharmacy: [facility], 170, cm, 10/30/24 8:55:00 EST, He ight/Length Dosing, 153.8, kg, 10/30/24 8:55:00 EST, Weight Dosing Start Date: 11/01/24 Status: Ordered Problems Problem ClassificationProblemDateDocumented DateEpisodic/ChronicConditions associated with dizziness or vertigo (9 sources)Iyxftnkci29-20-8358OchstkxtTpdttgpx atherosclerosis and other heart disease (3 sources)Coronary atherosclerosis; Translations: [Atherosclerotic heart disease of [place] coronary artery without angina pectoris]Onset: 12-14-2024 ChronicDiabetes mellitus without complication (20 sources)Type 2 diabetes mellitus without complications; Translations: [Type 2 diabetes mellitus]Onset: 53-89-3840BjclhsjLseksfsit of lipid metabolism (11 sources)Hypercholesterolemia; Translations: [Hyperlipidemia]Onset: 498883-88-8908VperuqcEzgkqmhsk hypertension (3 sources)Essential (primary) hypertension; Translations: [Essential hypertension]Onset: 28-16-1946IadktttYyoogkq and fatigue (9 sources)Cvxinhw66-96-3360WxvvnnfdHqjeobo (11 sources)Ibclgoxnokq37-06-7637XyysjfokEntqgoqvixr chest pain (20 sources)Chest pain; Translations: [Left sided chest pain]Onset: 11-02-2024 66-63-5807ChtxrhbrTosaquiesug deficiencies (1 source)Vitamin D jaovmmhrrw51-01-9991QyuvfxdWwehsvcztxmyex (2 sources)Bilateral primary osteoarthritis of knee; Translations: [Unspecified osteoarthritis, unspecified site]Onset: 75-56-6918YyoauyeToaxz hereditary and degenerative nervous system conditions (4 sources)Restless wcot22-29-1573KeizbacXdgtk lower respiratory disease (9 sources)Zaunvnp32-84-8885FnycyazhBmlza lower respiratory disease (1 source)Cough; Translations: [Cough, unspecified]Onset: 79-00-6155Rwkpazqg Other lower respiratory disease (4 sources)Qnpmmchh22-59-5707HdwxykgfXwmok non-traumatic joint disorders (4 sources)Pain in right knee; Translations: [PAIN IN RIGHT KNEE]Onset: 19-77-0469FmmhcfdzPcium non-traumatic joint disorders (1 source)Pain in left knee; Translations: [PAIN IN LEFT KNEE]Onset: 10-27-2022 EpisodicOther nutritional; endocrine; and metabolic disorders (20 sources)Body mass index 40+ - severely azhxe57-08-7568AeejirvZodmf nutritional; endocrine; and metabolic disorders (10 sources)Weight aejv12-40-4736UqklgzqvTcnqg skin disorders (11 sources)Tmnymzxy77-63-4721EsbxxknqKqshr upper respiratory disease (1 source)Bronchospasm; Translations: [Acute bronchospasm]Onset: 11-25-2024 EpisodicSpondylosis; intervertebral disc disorders; other back problems (2 sources)Lumbago co-occurrent with right-side rsxpgofz91-25-8360Jrliavqp Unclassified (11 sources)Pain of left shoulder -28-6677Hibbscqjvxtw (20 sources)Patient encounter drbaiv39-78-4366Fcbzgypwftfv (1 source)Pain of knee uikzrc50-04-9537 Results Test NameValueInterpretationReference RangeFacilityHeart and Vascular Office/Clinic Noteon [id number] and Vascular Office/Clinic NoteHeart and Vascular Office/Clinic Note Chief Complaint 3 month follow up History of Present Illness [...] Patient comes in for 3-month follow-up today. Reviewed prior heart cath, echo. At last visit, saw patient at which time we discontinued HCTZ as we thought it was contributing to leg cramping and told patient to monitor blood pressure closely. Otherwise, had patient continue with current medications. Patient reports that he has not been feeling great overall since last visit. Patient states that hehas had some ongoing issues with fatigue that [...] that I do believe this would be beneficial. Patient also reports that he is having significant issues with shortness of breath. He reports thathe can do mild activities with only minimal shortness of breath, but anything that is at least moderate in intensity, he feels very short of breath with. He states that he will feel completely drained and that he cannot really breathe at all with moderate intensity activities. Patient is very concerned about this and wants to make sure that is not coming from his heart. Patient states that he is compliant with aspirin, Plavix, metoprolol for CAD. Patient has resumed taking atorvastatin since last visit as leg cramping did not improve when he discontinued the medication. Patient has shortness of breath listed above, but he states he does not have any associated chest discomfort. Shortness of breath has not seemed like it is improved at all since patient had MAHENDRA placed in 11/2024. Patient has well-controlled blood pressure in the office today. He is currently taking amlodipine, losartan, metoprolol that affect his blood pressure. HCTZ was discontinued at last visit to see if it helped with leg cramping, but that has not changed per patient. Patient believes that he is on toomany blood pressure medications and is wondering if that is contributing to some of his fatigue that he has been having. Patient denies heart palpitations, dizziness/lightheadedness. REVIEWED PRIOR NOTE FROM 05/31/2025: Patient comes in for 3-month follow-up today. Patient comes in with an adult female who provides some history today. Reviewed prior heart cath, echo. At last visit, I saw patient at which time he was continued on current medications. Patient reports that he has not been feeling great overall since last visit. Patient states that hehas had some ongoing issues with fatigue that [...] metoprolol for CAD. He states that he diddiscontinue atorvastatin on his own because of leg [...] blood pressure is very well-controlled at this timeand is wondering if it has been running too low and he would like to stop all blood pressure medication possible. Patient denies heart palpitations, dizziness/lightheadedness. Review of Systems PHQ Score Initial Depressi (more content not included)...[facility] Comment on above:Result Comment: Electronically Signed By: Abdi BERRY, Chau Tsai\.br\Date and Time Signed: 09/09/25 11:20 [facility] on [id number] Medicine Office/Clinic NoteFatruesdale [facility] Office/Clinic Note HPI Staff Pt is here for Do you have any of the following symptoms? Foot Exam: no Eye Exam: no Last A1C Hgb A1C %: 6.4 % High (04/22/25 13:36:00) Statin: yes refills: no History of Present Illness pt presents today for 3 month follow up on diabetes Review of Systems PHQ Score Initial Depression Screen Score: 0 SCORE General: alert, no acute distress ENMT: oral mucosa moist, no pharyngeal erythema or exudate Cardiovascular: regular rate and rhythm, normal peripheral perfusion Respiratory: Lungs CTA, respirations non labored Extremities: no deformity, no trauma Neurological: oriented x 4, LOC appropriate for age, CN II-XII intact, motor strength equal & normal bilaterally, speech normal left foot moderate sensation all areas except heel and top of foot, right foot has no sensation except for arch of foot Physical Exam Vitals & Measurements T: 36.4 ???C(Temporal Artery) HR: 68(Peripheral) RR: 18 BP: 130/84 SpO2: 100% HT: 67 in HT: 170.0 cm WT: 330.693 lb WT: 150.0 kg BMI: 51.9 Assessment/Plan 1. Type 2 diabetes mellitus (E11.9: Type 2 diabetes mellitus without complications) pt presents today for diabetes follow up. will be due for HGBA1C today. May consider increasing semaglutide dose depending on those results. pt has not been making the best food choices recently because he is very stressed. starts divorce hearing on Tuesday. all questions answered. RTC 3 months Ordered: albuterol, 180 mcg, 2 inh, Inhalation, q6hr, 8.5 gm, Refill(s) 6, [facility] #[facility], 170, cm, 09/06/25 14:27:00 EDT, Height/Length Dosing, 150, kg, 09/06/25 14:27:00 EDT, Weight Dosing Diabetic Foot Exam E&M of Est. Patient Low 20-29 Min 14222 HgbA1c Potassium Level 2. Leg cramps (R25.2: Cramp and spasm) will check potassium. pt will have to return for potassium because blood can not be taken to lab until Tuesday. Ordered: albuterol, 180 mcg, 2 inh, Inhalation, q6hr, 8.5 gm, Refill(s) 6, [facility] #[facility], 170, cm, 09/06/25 14:27:00 EDT, Height/Length Dosing, 150, kg, 09/06/25 14:27:00 EDT, Weight Dosing Diabetic Foot Exam E&M of Est. Patient Low 20-29 Min 14385 Potassium Level 3. Short of breath on exertion (R06.02: Shortness of breath) pt feels he still gets short of breath with exertion even since having his heart cath. we discussedreferral to pulmonology a couple times. he wants to talk to cardiology first before we refer to pulm Ordered: albuterol, 180 mcg, 2 inh, Inhalation, q6hr, 8.5 gm, Refill(s) 6, [facility] #[facility], 170, cm, 09/06/25 14:27:00 EDT, Height/Length Dosing, 150, kg, 09/06/25 14:27:00 EDT, Weight Dosing Diabetic Foot Exam E&M of Est. Patient Low 20-29 Min 41296 4. Diabetic peripheral neuropathy (E11.42: Type 2 diabetes mellitus with diabetic polyneuropathy) foot exam performed in office today. right foot only has sensation on arch of foot otherwise no sensation. left foot was much better on place that did not have sensation was heel and top of foot. will send in gabapentin to take before bed. he states the pain is the worst at night Ordered: E&M of Est. Patient Low 20-29 Min 09867 5. BMI 50.0-59.9, adult, (Z68.43: Body mass index [BMI] 50.0-59.9, adult)Body mass index [BMI] 50.0-59.9, adult BMI education given Ordered: albuterol, 180 mcg, 2 inh, Inhalation, q6hr, 8.5 gm, Refill(s) 6, [facility] #[facility], 170, cm, 09/06/25 14:27:00 EDT, Height/Length Dosing, 150, kg, 09/06/25 14:27:00 EDT, Weight Dosing Diabetic Foot Exam E&M of Est. Patient Low 20-29 Min 02657 Potassium Level 6. Class 3 severe obesity due to excess calories with body mass index (BMI) of 50.0 to 59.9 in adult (E66.813: Obesity, class 3) see above Ordered: albuterol, 180 mcg, 2 inh, Inhalation, q6hr, 8.5 gm, Refill(s) 6, [facility] #[facility], 170, cm, 09/06/25 14:27:00 EDT, Height/Length Dosing, 150, kg, 09/06/25 14:27:00 EDT, Weight Dosing Diabetic Foot Exam E&M of Est. Patient Low 20-29 Min 85377 Potassium Level Follow-up No qualifying data available Problem List/Past Medical History Ongoing Bilateral knee pain Candidiasis Constricting chest pain often radiating down left arm Diabetes type 2, controlled Diabetic peripheral neuropathy Dizziness Encounter for weight management Exertional angina Fatigue History of placement of stent in LAD coronary artery Hypercholesteremia Left shoulder pain Left-sided chest pain Leg cramps Low back pain with right-sided sciatica Morbid obesity with BMI of 45.0-49.9, adult Morbid obesity with BMI of 50.0-59.9, adult Morbid obesity with BMI of 50.0-59.9, adult Prostate cancer screening Rash Restless leg Screening for hyperlipidemia Short of breath on exertion Shortness of breath Type 2 diabetes mellitus Vitamin D deficiency Weight gain Wheezing Historical No qualifying data Procedure/Surgical History Cardiac cath (more content not included)...[facility] Comment on above:Result Comment: Electronically Signed By: Brianna Li\Date and Time Signed: 09/06/25 15:45 EDTHeart and Vascular Office/Clinic Noteon [id number] and Vascular Office/Clinic NoteHeart and Vascular Office/Clinic Note Chief Complaint 3 [...] overall since last visit. Patient states that hehas had some ongoing issues with fatigue that [...] metoprolol for CAD. He states that he diddiscontinue atorvastatin on his own because of leg [...] blood pressure is very well-controlled at this timeand is wondering if it has been running too low and he would like to stop all blood pressure medication possible. Patient denies heart palpitations, dizziness/lightheadedness. REVIEWED PRIOR NOTE FROM 02/07/2025: He presents with complaints of shortness of breath, still, especially when bending over. In the endof the encounter, the patient told me that [...] no rash or concerning lesions Cardiac Diagnostics [facility] with Dr. Pineda on 11/23/2024: FINDINGS: SELECTIVE [...] disease in its proxima (more content not included)...NormalLima City HospitalComment on above: Result Comment: Electronically Signed By: Chau Patton PA-C\chitra\Date and Time Signed: 06/03/25 07:57 LMHNehH1dbn 85-94-4952KyE7v (Bld) [Mass fraction]6.4 % High<=5.9L[facility] City HospitalComment on above:Result Comment: Collection date/time has been modified to: 13:36:00. Previous collection d ate/time: 17:12:00.Performed By: #### [id number] #### [facility] [address], [place] [address]Bgvkawfuoz Visit Summaryon [id number] Visit Summary Ambulatory Visit Summary BENITES, JAMES :1970 Visit Date:04/22/2025 Ambulatory Visit Instructions Your [...] 3:00 PM EDT With: Brianna Li Where: [address] [address]- Medications What How Much When Why Instructions Unchanged albuterol (Albuterol (Eqv-ProAir HFA) 90 mcg/ inh inhalation aerosol) 2 Puffs Inhalation Every 6 hours as needed for Wheezing Unchanged albuterol (albuterol 0.083% Inh Delma 3 mL) See instructions INHALE 1 vial BY MOUTH EVERY 6HOURS NEEDED FOR WHEEZING Unchanged albuterol-budesonide (Airsupra 90 [...] Every day TAKE 1 TABLET BY MOUTH EVERYDAY Unchanged metformin (metformin 1000 mg Tab) 1 [...] you for choosing us for your care. [facility] HospitalCHEMISTRYOrdered By: SYSTEM SYSTEM on 519841-pzdfawusidsldk D3 [Mass/Vol]29.7 ng/mLLow30.0 - 100.0 ng/mLRemisol ChemCHEMISTRYOrdered By: Lucho Fenton on 05-47-1478GiE0k (Bld) [Mass fraction]6.4 %High<=5.9%[facility] ChemAutoSSFamily Medicine Office/Clinic Noteon [id number] Medicine Office/Clinic NoteFami Medicine Office/Clinic Note Chief Complaint med refill [...] 04/22/25 14:33:00 EDT HgbA1c Lab Specimen Collect 50828 Vitamin D 25 Hydroxy 2. Vitamin D deficiency (E55.9: Vitamin D deficiency, unspecified) will check Vitamin D today. Ordered: ketorolac, 60 mg = 2 mL, Injection, IntraMuscular, Once, Stop date 04/22/25 14:33:00 EDT, Routine, Start date 04/22/25 14:33:00 EDT, 04/22/25 14:33:00 EDT HgbA1c Lab Specimen Collect 94586 Vitamin D 25 Hydroxy 3. Exertional angina [...] EDT, 04/22/25 14:37:00 EDT Lab Specimen Collect 08404 4. Bilateral knee pain (M25.561: Pain in right knee) pt c/o DE knee pain. toradol and kenalog injection given in office today. 5. Nonsmoker (Z78.9: Other specified health status) continue not smoking Ordered: ketorolac, 60 mg = 2 mL, Injection, IntraMuscular, Once, Stop date 04/22/25 14:33:00 EDT, Routine, Start date 04/22/25 14:33:00 EDT, 04/22/25 14:33:00 EDT HgbA1c Lab Specimen Collect 51939 Vitamin D 25 Hydroxy 6. BMI 50.0-59.9, adult (Z68.43: Body mass index [BMI] 50.0-59.9, adult) BMI education given. ozempic increased to 1.2 mg Ordered: ketorolac, 60 mg = 2 mL, Injection, IntraMuscular, Once, Stop date 04/22/25 14:33:00 EDT, Routine, Start date 04/22/25 14:33:00 EDT, 04/22/25 14:33:00 EDT HgbA1c Lab Specimen Collect [id number] Vitamin D 25 Hydroxy Orders: fluconazole, See Instructions, TAKE 1 TABLET BY MOUTH on day one and TAKE 1 TABLET on day FOUR, # 2tab(s), Refills(s) 1, Pharmacy: [facility] #[facility], 170, cm, 04/22/25 13:16:00 EDT, Height/Length Dosing, 150, kg, 04/22/25 13:16:00 EDT, Weight Dosing nystatin topical, 1 marie, Topical, BID, 30 gm, Refill(s) 0, [facility] #[facility], 170, cm, 04/22/25 13:16:00 EDT, Height/Length [...] Instructions hydrochlorothiazide 12.5 m (more content not included)...NormalLima City HospitalComment on above:Result Comment: Electronically Signed By: Brianna Li\.br\Date and Time Signed: 04/22/25 14:49 NDVJmoU2bzz [id number] (Bld) [Mass fraction]6.4 %High<=5.9L[facility] City HospitalComment on above: Performed By: #### [id number] #### [facility] [address], [place] [address]Veppxma D 25 Hydroxyon 96-36-7215Ivfcggv D 25 Upgfjwn92.7 ng/mL Low30.0-100.0Lima City HospitalComment on above:Performed By: #### [id number] #### [facility] [address] [place], [place] [address]Ydddu and Vascular Office/Clinic Noteon [id number] and Vascular Office/Clinic NoteHeart and Vascular Office/Clinic Note Chief Complaint 2 [...] still, especially when bending over. In the endof the encounter, the patient told me that [...] catheterization procedure report DATE OF PROCEDURE: 11/23/2024 BIOLOGICS SPECIALIST Luis Carlos Pineda MD [facility] INDICATION: Chest pain, consistent with typical unstable [...] patient was brought to the Adult Cardiac Manager Roofing and placed on the table. The planned puncture sites/areas were prepped and draped in usual sterile fashion and a safety time-out was performed. Moderate Sedation was given by the Cardiac Manager Roofing RN. RIGHT RADIAL ARTERY ACCESS: The puncture [...] was administered via peripheral IV by the medical laboratory assistant RN after the catheter crossed into the [...] multiple projections were obtained. (more content not included)...[facility] HospitalComment on above:Result Comment: Electronically Signed By: Luis Carlos Pineda MD\.br\Date and Time Signed: 02/07/25 14:25 EDTAmbulatory Visit Summaryon [id number] Visit SummaryAmbulatory Visit Summary ANKIT BENITES :1970 Visit Date:01/10/2025 Ambulatory Visit Instructions Your [...] Follow-Up Appointments 2024 1:45 PM EDT With: Luis Carlos Pineda MD Where: [facility] Medications What How Much When Why Instructions Unchanged albuterol (Albuterol (Eqv-ProAir HFA) 90 mcg/ inh inhalation aerosol) 2 Puffs Inhalation Every 6 hours as needed for Wheezing Unchanged albuterol (albuterol 0.083% Inh Delma 3 mL) See instructions INHALE 1 vial BY MOUTH EVERY 6HOURS NEEDED FOR WHEEZING Unchanged albuterol-budesonide (Airsupra 90 [...] Every day TAKE 1 TABLET BY MOUTH EVERYDAY Unchanged metformin (metformin 1000 mg Tab) 1 [...] you for choosing us for your care. [facility] Medicine Office/Clinic Noteon 90-91-7035Bsfccb Medicine Office/Clinic NotePappas Rehabilitation [facility] Medicine Office/Clinic Note HPI Staff Ankit is [...] inner knee. pt almost went to ER lastnight because pain was so bad. pt has a large project he has to finish in the next five days. will give 60mg of kenalolg and toradol . will send in a couple percoet and muscle relaxers. all questionsanswered. If pain continues will order MRI through [facility] imaging self pay program. Ordered: acetaminophen-oxycodone, 1 tab(s), Oral, q6hr, 8 tab(s), Refill(s) 0, [facility], 170, cm, 01/10/25 11:38:00 EST, Height/Length Dosing, 153.1, kg, 01/10/25 11:38:00 EST, Weight Dosing cyclobenzaprine, 10 mg = 1 tab(s), Oral, TID, PRN for spasm, # 30 tab(s), Refills(s) 0, Pharmacy: [facility] #72, 170, cm, 01/10/25 11:38:00 EST, Height/Length Dosing, 153.1, kg, 01/10/2511:38:00 EST, Weight Dosing 2. Morbid obesity with BMI of 50.0-59.9, adult (E66.01: Morbid (severe) obesity due to excess calories) BMI education given Ordered: acetaminophen-oxycodone, 1 tab(s), Oral, q6hr, 8 tab(s), Refill(s) 0, [facility] #[facility], 170, cm, 01/10/25 11:38:00 EST, Height/Length Dosing, 153.1, kg, 01/10/25 11:38:00 EST, Weight Dosing cyclobenzaprine, 10 mg = 1 tab(s), Oral, TID, PRN for spasm, # 30 tab(s), Refills(s) 0, Pharmacy: [facility] #[facility], 170, cm, 01/10/25 11:38:00 EST, Height/Length Dosing, 153.1, kg, 01/10/2511:38:00 EST, Weight Dosing Body mass index [BMI] [...] 50,000 intl units (1.25 mg) oral capsule, 32652 International_Unit= 1 cap(s), Oral, qWeek, 3 refills Allergies penicillins (Epistaxis) Social History Alcohol - Denies Alcohol Use, 11/25/2024 Never., 08/29/2024 Substance Abuse - Denies Substance Abuse, 11/25/2024 Never., 08/29/2024 Tobacco - Denies Tobacco Use, 11/25/2024 Never (less than 100 (more content not included)...NormalLima City HospitalComment on above:Result Comment: Electronically Signed By: Brianna Li\Date and Time Signed: 01/10/25 12:35 ESTBMPon 41-35-5676Qfzyc gap [Moles/Vol]12 mmol/LNormal6-16L[facility] City HospitalComment on above: Performed By: #### [id number] #### [facility] [address], [place] [address]Tayazcx [Mass/Vol]9.8 mg/dLNormal8.9-11.1FAdams County HospitalComment on above:Performed By: #### [id number] #### [facility] [address], [place] [address]Daruenkg [Moles/Vol]101 mmol/HXvamgd633-734YhnpltLima City HospitalComment on above:Performed By: #### [id number] #### [facility] [address], [place] [address]BE5 [Moles/Vol]29 mmol/BLmojty08-47WxmztuLima City Hospital Comment on above:Performed By: #### [id number] #### [facility] [address], [place] [address]Hfqipouhku [Mass/Vol]0.8 mg/dLNormal0.5-1.3FAdams County HospitalComment on above:Performed By: #### [id number] #### [facility] [address] [place], [place] [address]Kegdpbj [Mass/Vol]147 mg/iFGralss57-705CojypdLima City HospitalComment on above:Performed By: #### [id number] #### [facility] [address], [place] [address]Bvvjkxnuo [Moles/Vol]4.5 mmol/LNormal3.5-5.3FAdams County HospitalComment on above:Performed By: #### [id number] #### [facility] [address], [place] [address]Vjuekl [Moles/Vol]137 mmol/DPzebmb089-230LzzquoLima City HospitalComment on above:Performed By: #### [id number] #### [facility] [address], [place] [address]Aswy nitrogen [Mass/Vol]20 mg/dLNormal5-21L[facility] City HospitalComment on above:Performed By: #### [id number] #### [facility] [address], [place] [address]Btwc nitrogen/Creatinine [Mass ratio]25 No YyqnjUgge81-22JpebuaLima City HospitalComment on above:Performed By: #### [id number] #### [facility] [address], [place] [address]DEUGKTTFENxpkltk By: SYSTEM SYSTEM on 43-19-2105Lltma gap [Moles/Vol]12 mmol/LNormal6 - 16 mEq/LRemisol ChemCalcium [Mass/Vol]9.8 mg/dL Normal8.9 - 11.1 mg/dLRemisol ChemChloride [Moles/Vol]101 mmol/UHoxchc248 - 111 mmol/LRemisol ChemCholesterol [Mass/Vol]144 mg/rZYenxij508 - 200 mg/dLRemisol ChemCholesterol in HDL [Mass/Vol]52 mg/dLInvalid Interpretation CodeRemisol Chem Comment on above:Result Comment: '>= 60 LOW RISK' '<= 40 HIGH RISK'Cholesterol in LDL [Mass/Vol]83 mg/dLNormal<=129mg/dLRemisol ChemCholesterol in VLDL [Mass/Vol]18 mg/dLNormal7 - 40 mg/dLRemisol ChemCO2 [Moles/Vol]29 mmol/MKwpwui16 - 31 mmol/LRemisol ChemCreatinine [Mass/Vol]0.8 mg/dLNormal0.5 - 1.3 mg/dLRemisol DqligMZQ442 mL/min/1.73 f8Yremak >=59mL/min/1.73 k2Xcimhee ChemGlucose [Mass/Vol]147 mg/aTMkelum20 - 199 mg/dL Remisol ChemPotassium [Moles/Vol]4.5 mmol/LNormal3.5 - 5.3 mmol/LRemisol Chem Sodium [Moles/Vol]137 mmol/MOydtmh314 - 145 mmol/LRemisol ChemTriglyceride [Mass/Vol]90 mg/dLNormal<=149mg/dLRemisol ChemUrea nitrogen [Mass/Vol]20 mg/dL Normal5 - 21 mg/dLRemisol ChemUrea nitrogen/Creatinine [Mass ratio]25 mg/mgHigh 10 - 20Remisol ChemCHEMISTRYOrdered By: Mari Sheriff on 27-08-9113SbN5r (Bld) [Mass fraction]7.4 %High<=5.9%[facility] EafrOlhhGTCylA9gzs 77-86-8708ImM5o (Bld) [Mass fraction]7.4 %High<=5.9L[facility] City HospitalComment on above: Performed By: #### [id number] #### [facility] [address], [place] [address]Fzuee Panelon 59-24-9782Ywtovxyghey [Mass/Vol]144 mg/dLNormal 120-200L[facility] City HospitalComment on above:Performed By: #### [id number] #### [facility] [address], [place] [address]Jqnectlvdcq in HDL [Mass/Vol]52 mg/dLInvalid Interpretation CodeLima City HospitalComment on above:Result Comment: '>= 60 LOW RISK' '<= 40 HIGH RISK'Performed By: #### [id number] #### [facility] [address], [place] [address]Emkrjnmjhiu in LDL [Mass/Vol]83 mg/dLNormal<=129L[facility] City HospitalComment on above:Performed By: #### [id number] #### [facility] [address], [place] [address]Hpvtvszekzb in VLDL [Mass/Vol]18 mg/dLNormal7-40L[facility] City HospitalComment on above:Performed By: #### [id number] #### [facility] [address], [place] [address]Fpvgfbwdhkph [Mass/Vol]90 mg/dLNormal<=149L[facility] City HospitalComment on above:Performed By: #### [id number] #### [facility] [address], [place] [address]tSBFlf 73-90-6615uXRL162 mL/min/1.73 x1Xvghhr>=59Lima City HospitalComment on above:Performed By: #### [id number] #### [facility] [address], [place] [address]HE Note-Physicianon [id number] Note-PhysicianED Note-Physician Basic Information Time Seen: Anthony Michele PA-C 11/25/2024 11:46 Chief Complaint Cough and congestion since . Had cath placed on Tuesday here- stent placed for 100% blockagein LAD. Wheezing, SOB as well. History of Present Illness Patient is a 54 year old male with a PMH of T2DM who presents to the ED with cough that he describes as coughing up stuff and SOB for the past 3 days. He did have a stent placement of the LAD (100%blockage) on Tuesday with Dr. Love at [facility]. He states that directly after his procedure [...] Making Patient seen and evaluated with physician reproductive healthcare assistant student. I had a ezby-rk-dtkq interaction with the patient. I personally performed the physical exam and medical decision making. I have verified the documentation by the student is accurately representing the information obtained. Patient presents for evaluation of cough and congestion. Symptom started 3 days ago cough chills and wheezing. Denies any history of tobacco use or chronic lung disease. He did note some shortness ofbreath last night with worsening wheezing. He was given an inhaler by a friend which she took and seemed to help with his symptoms. He has no acute chest pain did have recent cardiac catheterization.Patient is well-appearing nontoxic examination. He is resting comfortably. He has no increased workof breathing. He is not hypoxic. Chest x- ray with no acute infiltrates. Given his acute wheezing with harsh cough we will cover him with azithromycin as well as prednisone albuterol. He was given sean thing treatments here. He is discharged home with PCP follow-up. Patient was encouraged to return to the ED if symptoms worsen or change. Assessment/Plan Acute bronchospasm (J98.01: Acute bronchospasm) Cough (R05.9: Cough, unspecified) Orders: albuterol, 2 puff(s), Inhalation, q6hr Wheezing, 8.5 gm, Refill(s) 0, [facility] #[facility], 170, cm, 11/25/24 11:49:00 EST, Height/Length Dosing, 154, kg, 11/25/24 11:49:00 EST, Weight Dosing albuterol-ipratropium, 3 mL, Soln-Inh, Inhalation, Once, Stop date 11/25/24 13:14:00 EST, STAT, Start date 11/25/24 13:14:00 EST azithromycin, = 1 packet(s), Oral, As Directed, as directed on package labeling, X 5 day(s), # 6 tab(s), Refills(s) 0, Pharmacy: [facility], 170, cm, 11/25/24 11:49:00 EST, Height/Length Dosing, 154, kg, 11/25/24 11:49:00 EST, Weight Dosing predniSONE, 60 mg = 3 tab(s), Tab, Oral, Once, Stop date 11/25/24 13:15:00 EST, STAT, Start date 11/25/24 13:15:00 EST, 11/25/24 13:15:00 EST predniSONE, 60 mg = 3 tab(s), Oral, Daily, X 5 day(s), # 15 tab(s), Refills(s) 0, Pharmacy: [facility], 170, cm, 11/25/24 11:49:00 EST, Height/Length [...] Follow-up With When Contac (more content not included)...[facility] Comment on above:Result Comment: Electronically Signed By: Anthony Michele PA-C\.br\Date and Time Signed: 11/25/2512:38 EST\.br\Electronically Co-Signed By: Chau RHOADES, Zeb\.br\Date and Time Co-Signed: 12/21/24 16:03 ESTHeart and Vascular Office/Clinic Noteon [id number] and Vascular Office/Clinic Note Heart and Vascular [...] catheterization procedure report DATE OF PROCEDURE: 11/23/2024 BIOLOGICS SPECIALIST Luis Carlos Pineda MD [facility] INDICATION: Chest pain, consistent with typical unstable [...] patient was brought to the Adult Cardiac Manager Roofing and placed on the table. The planned puncture sites/areas were prepped and draped in usual sterile fashion and a safety time-out was performed. Moderate Sedation was given by the Cardiac Manager Roofing RN. RIGHT RADIAL ARTERY ACCESS: The puncture [...] was administered via peripheral IV by the medical laboratory assistant RN after the catheter crossed into the [...] diagnostic catheter over guide (more content not included)...[facility] HospitalComment on above: Result Comment: Electronically Signed By: Edwin RHOADES, Luis Carlos Salvador\.cassie\Date and Time Signed: 12/14/24 14:40 [facility] Medicine Office/Clinic Noteon [id number] Medicine Office/Clinic NotePappas Rehabilitation [facility] Medicine Office/Clinic Note HPI Staff Ankit is [...] tab and steroids on Tuesday. Has stent putin last Tuesday Pt states he has had [...] cough is worsening. is almost done with z douglas. will send in levofloxacin. nebulizer provided and albuterol sent to pharmacy Ordered: ropinirole, 2 mg = 1 tab(s), Oral, Bedtime, 1 to 3 hours before bedtime, # 90 tab(s), Refills(s) 0,Pharmacy: [facility], 170, cm, 11/28/24 17:02:00 EST, Height/Length [...] hours before bedtime, # 90 tab(s), Refills(s) 0,Pharmacy: [facility], 170, cm, 11/28/24 17:02:00 EST, Height/Length Dosing, 150.2, kg, 11/28/24 17:02:00 EST, Weight Dosing 5. History of placement of stent in LAD coronary artery (Z95.5: Presence of coronary angioplasty implant and graft) Dr. Pineda placed stent on 11/23 6. Body mass index [BMI] 50.0-59.9, adult (Z68.43: Body mass index [BMI] 50.0- 59.9, adult) BMI education 7. Morbid obesity with BMI of 50.0-59.9, adult (E66.01: Morbid (severe) obesity due to excess calories) see above Ordered: levofloxacin, 750 mg = 1 tab(s), Oral, Daily, X 5 day(s), # 5 tab(s), Refills(s) 0, Pharmacy: [facility], 170, cm, 11/28/24 17:02:00 EST, Height/Length Dosing, 150.2, kg, 11/28/24 17:02:00 EST, Weight Dosing ropinirole, 2 mg = 1 tab(s), Oral, Bedtime, 1 to 3 hours before bedtime, # 90 tab(s), Refills(s) 0,Pharmacy: [facility], 170, cm, 11/28/24 17:02:00 EST, Height/Length [...] day(s), # 5 tab(s), Refills(s) 0, Pharmacy: [facility], 170, cm, 11/28/24 17:02:00 EST, Height/Length Dosing, 150.2, kg, 11/28/24 17:02:00 EST, Weight Dosing ropinirole, 2 mg = 1 tab(s), Oral, Bedtime, 1 to 3 hours before bedtime, # 90 tab(s), Refills(s) 0,Pharmacy: [facility], 170, cm, 11/28/24 17:02:00 EST, Height/Length Dosing, 150.2, kg, 11/28/24 17:02:00 EST, Weight Dosing triamcinolone, 60 mg = 1.5 mL, Injection, IntraMuscular, Once, Stop date 11/28/24 17:46:00 EST, Routine, Start date 11/28/24 17:46:00 EST, 11/28/24 17:46:00 EST Orders: albuterol, See Instructions, 60 mL, Refill(s) 0, INHALE 1 vial BY MOUTH EVERY 6 HOURS NEEDED FORWHEEZING, [facility], 170, cm, 11/28/24 17:02:00 EST, Height/Length Dosing, 150.2, kg, 11/28/24 17:02:00 EST, Weight Dosing Follow-up No qualifying data available Problem List/Past Medical History Ongoing Candidiasis Constricting chest pain often radiating down left arm Diabetes type 2, controlled Dizziness Encounter for weight management Fatigue History of placement of stent in LAD coronary artery Hypercholesteremia Left shoulder pain Left-sided (more content not included)...[facility] Comment on above:Result Comment: Electronically Signed By: Brianna Li\.br\Date and Time Signed: 11/29/24 13:21 ESTED Clinical Summaryon [id number] Clinical SummaryED Clinical Summary [place] [id number] ED Clinical Summary Person Information Name: ANKIT BENITES/[facility] Age: 54 Years : 1970 Sex: Male Language: Angolan PCP: Brianna Li Marital Status: Single Visit [...] 11/25/2024 13:42:02 11/25/2024 13:42:02 11/25/2024 13:42:02 ADDRESS: [facility] [id number] PHYS DOC NOTES: MEDICAL INFORMATION: Prescriptions Given: New Medications [facility], [address] [place], [place] [id number], [phone] albuterol (Albuterol (Eqv-ProAir HFA) 90 mcg/inh inhalation aerosol) 2 Puffs Inhalation every 6 hours as needed Wheezing. Refills: 0. azithromycin (azithromycin 250 mg Tab 5-day Dose Pack (Z-Douglas)) 1 Packets By Mouth As Directed for 5Days. as directed on package labeling. Refills: 0. [...] oral capsule) 1 Capsules By Mouth every week.Refills: 3. glimepiride (glimepiride 2 mg Tab) TAKE [...] Follow up: With: Address: When: Brianna Lugo [address] [place], [place] [id number] Business (1) In 3 days 11/28/2024 DIAGNOSIS: Acute bronchospasm; [facility] Patient Summaryon [id number] Patient SummaryED Patient Summary [address] [address] Patient Discharge Instructions Person Information Name: ANKIT BENITES Age: 54 Years Arrival Date: 11/25/2024 11:38:02 Discharge Diagnosis: Acute bronchospasm; Cough Primary Care Physician: Brianna Li Provider Information Primary Provider: Zeb Ritchie MD Advanced Sanitation Worker Cleaning Machinery:Anthony Michele PA-C The exam and treatment you received in the Emergency Department were for an urgent problem and are not intended as complete care. It is important that you follow up with a doctor, nurse practitioner,or physician???s reproductive healthcare assistant for ongoing care. If your symptoms become worse or you do not improve asexpected and you are unable to reach your usual health care provider, you should return to the Emergency Department. We are available 24 hours a day. ANKIT BENITES has been given the following list of patient education materials, prescriptions andfollow-up instructions: Follow-up Instructions: With: Address: When: Brianna Lugo [address] [place], [place] [phone] Business (1) In 3 days 11/28/2024 In the event that this physician does not participate in your insurance network, please consult with your insurance company to find a nearby participating provider. Patient Education Materials: Cough, Adult; Bronchospasm, Adult A MESSAGE TO ALL PATIENTS REGARDING OPIOIDS PRESCRIPTION OPIOIDS: WHAT YOU NEED TO KNOW Prescription opioids can be used to help relieve reecykav-zp-ifqbvf pain and are often prescribed following a [...] guidance from the Food and Drug Administration (www.fda.gov/Drugs/ResourcesForYou). ??? Visit www.cdc.gov/drugoverdose to learn about the risks of opioids abuse and overdose. ??? If you believe you may be struggling with addiction, tell your health care pro (more content not included)...[facility] 2 Viewson [id number] Chest 2 ViewsExam Date/Time: 11/25/2024 12:18 EST Reason for Exam: [...] Ka,r in mGy = . DAP = .[facility] HospitalInpatient Clinical Summaryon 11-23-2024 Inpatient Clinical SummaryInpatient Clinical Summary [place] [address] Clinical Summary Person Information: Name: ANKIT BENITES Age: 54 Years : 1970 Sex: Male PCP: Brianna Li Marital Status: Unknown Race: White Ethnicity: Non- or Language: Angolan Visit Id: Visit Reason: R07.9 I20.0 Speciality: Acuity: Enc Type: Ambulatory/Same Day Surgery Med Service: Cardiovascular Arrival: 11/23/2024 07:26:40 Discharge: Dispo Type: Address: [address] [place] [phone] Provider Notes: Diagnosis: Problems Active Dizziness Fatigue [...] oral capsule) 1 Capsules By Mouth every week.Refills: 3. glimepiride (glimepiride 2 mg Tab) TAKE [...] With: Address: When: Luis Carlos Pineda [address] [place] [phone] Business (1) 12/07/2024 2:00 PM With: Address: When: Brianna Lugo Type Location Start Finish [facility] 11/28/2024 5:00 PM 11/28/2024 5:20 PM Confirmed Patient Education Information: CV - Cardiovascular PCI Discharge Instructions (Custom) Plavix 75 mg TabNormalPerson Memorial Hospitalyenifer [facility] CenterInpatient Patient Summaryon [id number] Patient SummaryInpatient Patient Summary [address] [address] Patient Discharge Instructions PERSON INFORMATION Name: ANKIT [...] up: With: Address: When: Luis Carlos Pineda [address] [place] [phone] [facility] () 12/07/2024 2:00 PM With: Address: When: Brianna Lugo In the event that this physician does not participate in your insurance network, please consult with your insurance company to find a nearby participating provider. Type Location Start [facility] 11/28/2024 5:00 PM 11/28/2024 5:20 PM Confirmed Comment: DELMIS Camacho JAMES, have received the attached patient education materials/instructions and have verbalized understanding: Patient Signature Date Clinican/Nurse Signature Date HERE ARE THE MEDICATION CHANGES THAT OCCURRED DURING YOUR HOSPITAL STAY New Medications [facility] [place], [place] [id number], [phone] amlodipine (amLODIPine 5 mg Tab) 1 Tablets By Mouth every day. Refills: 0. Last Dose: Next Dose: clopidogrel (Plavix 75 mg Tab) 1 Tablets By Mouth every day. Refills: 3. Last Dose: Next Dose: losartan (losartan 50 mg Tab) 1 Tablets By Mouth every day. Refills: 0. Last Dose: Next Dose: Medications to Continue Taking That Have Changed [facility] [address] [place], [place] [id number], [phone] START: aspirin (aspirin 81 mg Oral EC Tab) 1 Tablets By Mouth every day. Refills: 3. Last Dose: Next Dose: STOP: aspirin (aspirin 81 mg Oral EC Tab) Medications to Continue with No Changes Other Medications albuterol-budesonide (Airsupra 90 mcg-80 mcg/inh inhalation aerosol) 2 Inhalation Inhalation 4 times a day. Refills: 5. Last Dose: Next Dose: atorvastatin (atorvastatin 40 mg Tab) TAKE 1 TABLET BY MOUTH DAILY. Refills: 1. Last Dose: Next Dose: ergocalciferol (Vitamin D 50,000 intl units (1.25 mg) oral capsule) 1 Capsules By Mouth every week.Refills: 3. Last Dose: Next Dose: glimepiride (glimepiride 2 mg Tab) TAKE 1 TABLET BY MOUTH TWICE DAILY. Refills: 1. Last Dose: Next Dose: metformin (metformin 1000 mg Tab) 1 Tablets By Mouth 2 times a day for 90 Days. Refills: 3. Last Dose: Next Dose: nystatin topical (nystatin Top 100,000 units/g Crm 15 gram) Last Dose: Next Dose: No Longer Take the Following Medications meloxicam [...] oral capsule) 1 Capsules By Mouth every week.Refills: 3. glimepiride (glimepiride 2 mg Tab) TAKE 1 TABLET BY MOUTH TWICE DAILY. Refills: 1. losartan (losartan 50 mg Tab) 1 Tablets By Mouth every day. Refills: 0. metformin (metformin 1000 mg Tab) 1 Tablets By Mouth 2 times a day f (more content not included)...NormalLima City HospitalBMPon 28-49-6138Zwirh gap [Moles/Vol]12 mmol/LNormal6-16L[facility] City HospitalComment on above: Performed By: #### [id number] #### [facility] [address], [place] [address]Xlgczwa [Mass/Vol]9.4 mg/dLNormal8.9-11.1FAdams County HospitalComment on above:Performed By: #### [id number] #### [facility] [address], [place] [address]Uhrjsapn [Moles/Vol]103 mmol/KEqiqmx579-591BeepaiLima City HospitalComment on above:Performed By: #### [id number] #### [facility] [address] [place], [place] [address]IL4 [Moles/Vol]26 mmol/LVcbtbp87-54MoruduLima City Hospital Comment on above:Performed By: #### [id number] #### [facility] [address], [place] [address]Qbahmjsykc [Mass/Vol]0.8 mg/dLNormal0.5-1.3FAdams County HospitalComment on above:Performed By: #### [id number] #### [facility] [address], [place] [address]Zfjlrdo [Mass/Vol]216 mg/fQTcqr43-885HznuycLima City HospitalComment on above:Performed By: #### [id number] #### [facility] [address], [place] [address]Adtroeoid [Moles/Vol]4.4 mmol/LNormal3.5-5.3FAdams County HospitalComment on above:Performed By: #### [id number] #### [facility] [address], [place] [address]Pxezaw [Moles/Vol]137 mmol/IZykrdq052-043UtgzrwLima City HospitalComment on above:Performed By: #### [id number] #### [facility] [address], [place] [address]Jksq nitrogen [Mass/Vol]18 mg/dLNormal5-21L[facility] City HospitalComment on above:Performed By: #### [id number] #### [facility] [address], [place] [address]Sisk nitrogen/Creatinine [Mass ratio]22 No HkuggBkxm06-72TovtepLima City HospitalComment on above:Performed By: #### [id number] #### [facility] [address] [place] [address] w/ Auto Diffon 00-15-6036Ugyfgdrfq/100 WBC (Bld)0.3 %Normal 0.0-2.0L[facility] City HospitalComment on above:Performed By: #### [id number] #### [facility] [address], [place] [address]Flbjdzwkl/Leukocytes Auto (Bld) [Pure # fraction]0.0 E9/LNormal 0.0-0.2FAdams County HospitalComment on above:Performed By: #### [id number] #### [facility] [address], [place] [address]Dtjkpelipwd (Bld) [#/Vol]0.2 E9/LNormal0.0-0.5FAdams County HospitalComment on above:Performed By: #### [id number] #### [facility] [address] [place] [address]Vfyfroyxvtz/100 WBC (Bld)2.4 %Normal0.0-8.0L[facility] City HospitalComment on above:Performed By: #### [id number] #### [facility] [address] [place] [address]Ijjvjqgyohj distribution width (RBC) [Ratio]13.8 %Normal 10.9-14.2FAdams County HospitalComment on above:Performed By: #### [id number] #### [facility] [address] [place] [address]Rbmzmkxfvl (Bld) [Volume fraction]44.9 %Vsftto96.7-49.0L[facility] City HospitalComment on above:Performed By: #### [id number] #### [facility] [address] [place] [address]Neokmijcxe (Bld) [Mass/Vol]15.1 g/eVNjuwgf88.5-17.5FAdams County HospitalComment on above:Performed By: #### [id number] #### [facility] [address] [place] [address]Yzhwsrujslo (Bld) [#/Vol]1.6 E9/LNormal1.0-4.0[facility] City HospitalComment on above:Performed By: #### [id number] #### [facility] [address] [place] [address]Rvawgkwmzyl/100 WBC (Bld)21.6 %Hilkqm61.0-50.0L[facility] City HospitalComment on above:Performed By: #### [id number] #### [facility] [address] [place] [address]UII (RBC) [Entitic mass]28.7 mpDoxwjv67.0-34.0L[facility] City HospitalComment on above:Performed By: #### [id number] #### [facility] [address] [place] [address]AGIR (RBC) [Mass/Vol]33.7 g/dHWgkzbp08.4-36.0L[facility] City HospitalComment on above:Performed By: #### [id number] #### [facility] [address] [place], [place] [address]PVG (RBC) [Entitic vol]85.0 iABwlrwe62.0-100.0L[facility] City HospitalComment on above:Performed By: #### [id number] #### [facility] [address] [place] [address]Iyisdliij (Bld) [#/Vol]0.5 E9/LNormal0.2-1.0L[facility] City HospitalComment on above:Performed By: #### [id number] #### [facility] [address] [place] [address]Hehkmlnzrqn (Bld) [#/Vol]5.3 E9/LNormal2.0-7.5FAdams County HospitalComment on above:Performed By: #### [id number] #### [facility] [address] [place] [address]Imhzvevvasx/100 WBC (Bld)69.2 %Oltacz39.0-75.0L[facility] City HospitalComment on above:Performed By: #### [id number] #### [facility] [address] [place] [address]Rymcowbv mean volume (Bld) [Entitic vol]8.9 fLNormal6.4-10.8 [facility] City HospitalComment on above:Performed By: #### [id number] #### [facility] [address] [place] [address]Qduixzbiu (Bld) [#/Vol]212.0 E9/SLugznx114.0-500.0L[facility] City HospitalComment on above:Performed By: #### [id number] #### [facility] [address] [place] [address]RGA (Bld) [#/Vol]5.3 E12/LNormal4.3-5.9L[facility] City HospitalComment on above:Performed By: #### [id number] #### [facility] [address], [place] [address]QSF corrected for nucl RBC Auto (Bld) [#/Vol]7.6 E9/LNormal 4.0-11.0L[facility] City HospitalComment on above:Performed By: #### [id number] #### [facility] [address], [place] [address]FUGEEKVIEQktnpjp By: SYSTEM SYSTEM on 97-37-0387Ojgva gap [Moles/Vol]12 mmol/LNormal6 - 16 mEq/LRemisol ChemCalcium [Mass/Vol]9.4 mg/dL Normal8.9 - 11.1 mg/dLRemisol ChemChloride [Moles/Vol]103 mmol/QGrkxuw526 - 111 mmol/LRemisol ChemCO2 [Moles/Vol]26 mmol/NXhfwml35 - 31 mmol/LRemisol Chem Creatinine [Mass/Vol]0.8 mg/dLNormal0.5 - 1.3 mg/dLRemisol VmktwRLY159 mL/min/1.73 v9Hdspmv>=59mL/min/1.73 c9Dwgmjhw ChemGlucose [Mass/Vol]216 mg/dL High55 - 199 mg/dLRemisol ChemPotassium [Moles/Vol]4.4 mmol/LNormal3.5 - 5.3 mmol/LRemisol ChemSodium [Moles/Vol]137 mmol/YGfgelr532 - 145 mmol/LRemisol Chem Urea nitrogen [Mass/Vol]18 mg/dLNormal5 - 21 mg/dLRemisol ChemUrea nitrogen/Creatinine [Mass ratio]22 mg/xdPniz71 - 20Remisol ChemHEMATOLOGYOrdered By: SYSTEM SYSTEM on 94-39-4332Nhzxhzrte/100 WBC (Bld)0.3 %Normal0.0 - 2.0 % Remisol HemeBasophils/Leukocytes Auto (Bld) [Pure # fraction]0.0 E9/LNormal0.0 - 0.2 E9/LRemisol HemeEosinophils (Bld) [#/Vol]0.2 E9/LNormal0.0 - 0.5 E9/LRemisol HemeEosinophils/100 WBC (Bld)2.4 %Normal0.0 - 8.0 %Remisol HemeErythrocyte distribution width (RBC) [Ratio]13.8 %Gqqxox19.9 - 14.2 %Remisol HemeHematocrit (Bld) [Volume fraction]44.9 %Cmipyj71.7 - 49.0 %Remisol HemeHemoglobin (Bld) [Mass/Vol]15.1 g/pWJzzhcd97.5 - 17.5 gm/dLRemisol HemeLymphocytes (Bld) [#/Vol] 1.6 E9/LNormal1.0 - 4.0 E9/LRemisol HemeLymphocytes/100 WBC (Bld)21.6 %Normal 14.0 - 50.0 %Remisol HemeMCH (RBC) [Entitic mass]28.7 nrDgwgio52.0 - 34.0 pg Remisol HemeMCHC (RBC) [Mass/Vol]33.7 g/aHJkepke10.4 - 36.0 gm/dLRemisol HemeMCV (RBC) [Entitic vol]85.0 kFExgdpe61.0 - 100.0 fLRemisol HemeMonocytes (Bld) [#/Vol]0.5 E9/LNormal0.2 - 1.0 E9/LRemisol HemeMonocytes/100 WBC (Bld)6.5 % Normal4.0 - 14.0 %Remisol HemeNeutrophils (Bld) [#/Vol]5.3 E9/LNormal2.0 - 7.5 E9/LRemisol HemeNeutrophils/100 WBC (Bld)69.2 %Hxdhfk58.0 - 75.0 %Remisol Heme Platelet mean volume (Bld) [Entitic vol]8.9 fLNormal6.4 - 10.8 fLRemisol Heme Platelets (Bld) [#/Vol]212.0 E9/ZTdpvsk973.0 - 500.0 E9/LRemisol HemeRBC (Bld) [#/Vol]5.3 E12/LNormal4.3 - 5.9 E12/LRemisol HemeWBC corrected for nucl RBC Auto (Bld) [#/Vol]7.6 E9/LNormal4.0 - 11.0 E9/LRemisol HemeeGFRon 79-54-2415tFSR730 mL/min/1.73 w7Afkpmq>=59Fishyenifer [facility] CenterComment on above:Performed By: #### [id number] #### [facility] [address] [place], [place] [address]Zgipp and Vascular Office/Clinic Noteon 70-13-9227Lzyjk and Vascular Office/Clinic NoteHeart and Vascular Office/Clinic Note Chief Complaint here [...] catheterization. Risks and benefits of the procedure, withrisks including but not limited to, myocardial infarction, [...] 50,000 intl units (1.25 mg) oral capsule, [address] International_Unit= 1 cap(s), Oral, qWeek, 3 refills Allergies penicillins (Epistaxis) Social History Alcohol Never., 08/29/2024 Substance Abuse Never., 08/29/2024 Tobacco Never (less than 100 in lifetime) Tobacco Use:. Never Smokeless Tobacco Use:. Household tobacco concerns: No. Yes, 11/02/2024 Family History Diabetes mellitus type 2: Sister.[facility] HospitalComment on above:Result Comment: Electronically Signed By: Edwin RHOADES, Luis Carlos Salvador\.br\Date and Time Signed: 11/02/24 14:43 ESTRemvalerie 89-48-1042EjtjgitlzOsfdwzoyz From: Brianna Li To: [facility] - Clinical; [...] 100.0) 10/30/2024 9:53 Testoster Tot 320 ng/dL (264-706 - ) Pt has been notified.NormalLima City HospitalTestost Totalon 11-01-2024 Testosterone [Mass/Vol]320 ng/dLInvalid Interpretation Pflh271-420BuridsLima City HospitalComment on above:Result Comment: Adult male reference interval is based on a population of healthy nonobese males (BMI <30) between 19 and 39 years old. Kaycee et.al. JCEM 2017,102;9305-9947. PMID: 34461860. Performed at: [facility] [address] [id number] PhD Brett Grafformed By: #### [id number] #### [facility] [address] [place], [place] [address]Qysbwmveul Visit Summaryon 93-70-5904Akefddcxur Visit Summary Ambulatory Visit Summary BENITES, JAMES :1970 Visit Date:10/30/2024 Ambulatory Visit Instructions Your [...] RHOADES, Luis Carlos Salvador Where: [facility] Tuesday 5:00 PM EST With: Brianna Li Where: [facility] [address] [address]- Medications What How Much When Why Instructions [...] you for choosing us for your care. [facility] HospitalAmbulatory Visit Summary Ambulatory Visit Summary DELMIS ANKIT :1970 Visit Date:10/30/2024 Ambulatory Visit Instructions Your [...] RHOADES, Luis Carlos Salvador Where: [facility] Tuesday 5:00 PM EST With: Brianna Li Where: [facility] [place] [id number]- Medications What How Much When Why Instructions [...] you for choosing us for your care. [facility] HospitalCHEMISTRYOrdered By: SYSTEM SYSTEM on 638792-qdcyrwsywywbos D3 [Mass/Vol]20.6 ng/mLLow30.0 - 100.0 ng/mLRemisol ChemCholesterol [Mass/Vol]192 mg/eYKwivqf787 - 200 mg/dLRemisol ChemCholesterol in HDL [Mass/Vol]49 mg/dLInvalid Interpretation CodeRemisol Chem Comment on above:Result Comment: '>= 60 LOW RISK' '<= 40 HIGH RISK'Cholesterol in LDL [Mass/Vol]125 mg/dLNormal<=129mg/dLRemisol ChemCholesterol in VLDL [Mass/Vol]27 mg/dLNormal7 - 40 mg/dLRemisol Chem Triglyceride [Mass/Vol]137 mg/dLNormal<=149mg/dLRemisol ChemFamily Medicine Office/Clinic Noteon 71-67-6010Vaotae Medicine Office/Clinic NoteFami Medicine Office/Clinic Note Chief Complaint 1m follow [...] diagnostics to check shoulder or pectoral muscle injury.BP is slightly elevated in office today but [...] get HGBA1C below 7. will order through [facility] pharmacy Ordered: Lipid Panel Testosterone Level [...] four, # 2 tab(s), Refills(s) 1, Pharmacy: [facility], 170, cm, 09/26/24 8:58:00 EST, Height/Length [...] four, # 2 tab(s), Refills(s) 1, Pharmacy: [facility], 170, cm, 09/26/24 8:58:00 EST, Height/Length [...] DAYS, # 10 tab(s), Refills(s) 1, Pharmacy: [facility], 170, cm, 09/26/24 8:58:00 EST, Height/Length [...] Oral, Daily, 3 r (more content not included)...NormalLima City HospitalComment on above:Result Comment: Electronically Signed By: Brianna Li.br\Date and Time Signed: 10/30/24 12:33 ESTLipid Panelon 59-72-3172Dpnmawzrnre [Mass/Vol]192 mg/qFYdjhlg232-562 [facility] City HospitalComment on above:Performed By: #### [id number] #### [facility] [address] [place], [place] [address]Sdvqzhikkwt in HDL [Mass/Vol]49 mg/dLInvalid Interpretation CodeLima City HospitalComment on above:Result Comment: '>= 60 LOW RISK' '<= 40 HIGH RISK'Performed By: #### [id number] #### [facility] [address], [place] [address]Cxzainooxus in LDL [Mass/Vol]125 mg/dLNormal<=129L[facility] City HospitalComment on above:Performed By: #### [id number] #### [facility] [address], [place] [address]Xunhqapjtmn in VLDL [Mass/Vol]27 mg/dLNormal7-40L[facility] City HospitalComment on above:Performed By: #### [id number] #### [facility] [address], [place] [address]Dxwqojldhsgy [Mass/Vol]137 mg/dLNormal<=149L[facility] City HospitalComment on above:Performed By: #### [id number] #### [facility] [address] [place], [place] [address]Pzkodme D 25 Hydroxyon 378809-goifufmcdgpyxp D3 [Mass/Vol]20.6 ng/mLLow30.0-100.0K[facility] CenterComment on above: Performed By: #### [id number] #### [facility] [address] [place], [place] [address]Mrcjzu Medicine Office/Clinic Noteon 69-15-9477Tpdgac Medicine Office/Clinic NoteFatruesdale hospital Medicine Office/Clinic Note HPI Staff Ankit is [...] but this shortness of breath is nothing hehas ever experienced before. would like to discuss weight loss at next visit. Ordered: fluconazole, 150 mg = 1 tab(s), Oral, Once, take 1 tab on day one and 1 tab on day four, # 2 tab(s), Refills(s) 1, Pharmacy: [facility], 170, cm, 09/26/24 8:58:00 EST, Height/Length Dosing, 158.1, kg, 09/26/24 8:58:00 EST, Weight Dosing [facility] Internal Ambulatory Referral 2. Shortness of breath [...] four, # 2 tab(s), Refills(s) 1, Pharmacy: [facility], 170, cm, 09/26/24 8:58:00 EST, Height/Length Dosing, 158.1, kg, 09/26/24 8:58:00 EST, Weight Dosing [facility] Internal Ambulatory Referral 3. BMI 50.0-59.9, adult (Z68.43: Body mass index [BMI] 50.0-59.9, adult) BMI education given Ordered: fluconazole, 150 mg = 1 tab(s), Oral, Once, take 1 tab on day one and 1 tab on day four, # 2 tab(s), Refills(s) 1, Pharmacy: [facility], 170, cm, 09/26/24 8:58:00 EST, Height/Length Dosing, 158.1, kg, 09/26/24 8:58:00 EST, Weight Dosing [facility] Internal Ambulatory Referral 4. Non-smoker (Z78.9: Other specified health status) continue not smokiing Ordered: fluconazole, 150 mg = 1 tab(s), Oral, Once, take 1 tab on day one and 1 tab on day four, # 2 tab(s), Refills(s) 1, Pharmacy: [facility], 170, cm, 09/26/24 8:58:00 EST, Height/Length Dosing, 158.1, kg, 09/26/24 8:58:00 EST, Weight Dosing [facility] Internal Ambulatory Referral Orders: nystatin topical, See Instructions, 30 gm, Refill(s) 1, APPLY TO THE AFFECTED AREA(S) topically TWICE DAILY, [facility], 178, cm, 07/09/24 8:51:00 EDT, Height/Length Dosing, 150, kg, 07/09/24 8:51:00 EDT, Weight Dosing predniSONE, See Instructions, TAKE 1 TABLET BY MOUTH TWICE DAILY FOR 5 DAYS, # 10 EA, Refills(s) 1,Pharmacy: [facility], 170, cm, 09/26/24 8:58:00 EST, Height/Length [...] 08/29/2024 Family History Diabetes mellitus type 2: Sister.[facility] HospitalComment on above:Result Comment: Electronically Signed By: Brianna Li\.br\Date and Time Signed: 09/26/24 09:59 Paris[place] 08-17-9894AxfmxgfwdSjpdhmmkt From: Brianna Li To: B - Clinical; [...] hear back from the insurance 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 RTC3 months Ordered: fluconazole, 150 mg = 1 tab(s), Oral, Once, take 1 tab on day 1 and one tab on day 4, # 2 tab(s), Refills(s) 1, Pharmacy: [facility], 177.5, cm, 05/07/24 13:15:00 EDT, Height/Length Dosing, 152.2, kg, 05/07/24 13:15:00 EDT, Weight Dosing meloxicam, 15 mg = 1 tab(s), Oral, Daily, # 30 tab(s), Refills(s) 3, Pharmacy: [facility], 178, cm, 08/29/24 17:23:00 EDT, Height/Length Dosing, 151.2, kg, 08/29/24 17:23:00 EDT, Weight Dosing meloxicam, 15 mg = 1 tab(s), Oral, Daily, # 30 tab(s), Refills(s) 0, Pharmacy: [facility], 178, cm, 07/09/24 8:51:00 EDT, Height/Length Dosing, 150, kg, 07/09/24 8:51:00 EDT, Weight Dosing metformin, 1,000 mg = 1 tab(s), Oral, BID, # 180 tab(s), Refills(s) 0, Pharmacy: [facility], 178, cm, 07/09/24 8:51:00 EDT, Height/Length Dosing, 150, kg, 07/09/24 8:51:00 EDT, WeightDosing metformin, 1,000 mg = 1 tab(s), Oral, BID, X 90 day(s), # 180 tab(s), Refills(s) 3, Pharmacy: [facility], 178, cm, 08/29/24 17:23:00 EDT, Height/Length Dosing, 151.2, kg, 08/29/24 17:23:00 EDT, Weight Dosing phentermine, 37.5 mg = 1 tab(s), Oral, Daily, # 30 tab(s), Refills(s) 0, Pharmacy: [facility], 178, cm, 07/09/24 8:51:00 EDT, Height/Length Dosing, 150, kg, 07/09/24 8:51:00 EDT, Weight Dosing HgbA1c 2. Body mass index [BMI] 45.0-49.9, adult (Z68.42: Body mass index [BMI] 45.0- 49.9, adult) BMI education given Ordered: fluconazole, 150 mg = 1 tab(s), Oral, Once, take 1 tab on day 1 and one tab on day 4, # 2 tab(s), Refills(s) 1, Pharmacy: [facility], 177.5, cm, 05/07/24 13:15:00 EDT, Height/Length Dosing, 152.2, kg, 05/07/24 13:15:00 EDT, Weight Dosing meloxicam, 15 mg = 1 tab(s), Oral, Daily, # 30 tab(s), Refills(s) 3, Pharmacy: [facility], 178, cm, 08/29/24 17:23:00 EDT, Height/Length Dosing, 151.2, kg, 08/29/24 17:23:00 EDT, Weight Dosing meloxicam, 15 mg = 1 tab(s), Oral, Daily, # 30 tab(s), Refills(s) 0, Pharmacy: [facility], 178, cm, 07/09/24 8:51:00 EDT, Height/Length Dosing, 150, kg, 07/09/24 8:51:00 EDT, Weight Dosing metformin, 1,000 mg = 1 tab(s), Oral, BID, # 180 tab(s), Refills(s) 0, Pharmacy: [facility], 178, cm, 07/09/24 8:51:00 EDT, Height/Length Dosing, 150, kg, 07/09/24 8:51:00 EDT, WeightDosing metformin, 1,000 mg = 1 tab(s), Oral, BID, X 90 day(s), # 180 tab(s), Refills(s) 3, Pharmacy: [facility], 178, cm, 08/29/24 17:23:00 EDT, Height/Length Dosing, 151.2, kg, 08/29/24 17:23:00 EDT, Weight Dosing phentermine, 37.5 mg = 1 tab(s), Oral, Daily, # 30 tab(s), Refills(s) 0, Pharmacy: [facility], 178, cm, 07/09/24 8:51:00 EDT, Height/Length Dosing, 150, kg, 07/09/24 8:51:00 EDT, Weight Dosing 3. Morbid obesity with BMI of 45.0-49.9, adult (E66.01: Morbid (severe) obesity due to excess calories) see above Ordered: fluconazole, 150 mg = 1 tab(s), Oral, Once, take 1 tab on day 1 and one tab on day 4, # 2 tab(s), Refills(s) 1, Pharmacy: [facility], 177.5, cm, 05/07/24 13:15:00 EDT, Height/Length Dosing, 152.2, kg, 05/07/24 13:15:00 EDT, Weight Dosing meloxicam, 15 mg = 1 tab(s), Oral, Daily, # 30 tab(s), Refills(s) 3, Pharmacy: [facility] (more content not included)...NormalLima City HospitalComment on above:Result Comment: Electronically Signed By: Brianna Li\.cassie\Date and Time Signed: 08/30/24 14:37 HAEYikY3krv [id number] (Bld) [Mass fraction]7.1 %High<=5.9[facility] City HospitalComment on above:Performed By: #### [id number] #### [facility] [address] [place], [place] [address]Uybqeyzonm Visit Summaryon [id number] Visit Summary Ambulatory Visit Summary ANKIT BENITES [...] 8:40 AM EDT With: Brianna Li Where: [place] [id number]- Medications What How Much When Why Instructions Unchanged atorvastatin (atorvastatin 40 mg Tab) 1 Tablets By Mouth Every day Unchanged fluconazole (Diflucan 150 mg Tab) 1 Tablets By Mouth Once Diabetes type 2, controlled Constricting chest pain often radiating down left arm Rash Candidiasis Left shoulder pain Prostate cancer screening Screening for hyperlipidemia BMI 45.0-49.9, adult Morbid obesity with BMI of 45.0-49.9,adult Non-smoker take 1 tab on day 1 [...] tablet) 1 Tablets By Mouth 2 times aday TAKE 1 TABLET BY MOUTH TWICE DAILY [...] you for choosing us for your care. [facility] Medicine Office/Clinic Noteon [id number]/Cl[facility] NoteFatruesdale [facility]/Clinic Note Chief Complaint Med Refills [...] complications) pt is not able to afford janBetKlubt. will send in metformin. will be due for HGBA1C in 3 months. Ordered: metformin, 1,000 mg = 1 tab(s), Oral, BID, # 180 tab(s), Refills(s) 0, Pharmacy: [facility], 178, cm, 07/09/24 8:51:00 EDT, Height/Length Dosing, 150, kg, 07/09/24 8:51:00 EDT, WeightDosing phentermine, 37.5 mg = 1 tab(s), Oral, Daily, # 30 tab(s), Refills(s) 0, Pharmacy: [facility], 178, cm, 07/09/24 8:51:00 EDT, Height/Length Dosing, 150, kg, 07/09/24 8:51:00 EDT, Weight Dosing E&M of Est. Patient Straight Fwd 10-19 Min 81227 2. Weight gain (R63.5: Abnormal weight gain) discussed starting adipex to help with weight gain. medication agreement signed. OARRS report reviewed. RTC 4 weeks Ordered: metformin, 1,000 mg = 1 tab(s), Oral, BID, # 180 tab(s), Refills(s) 0, Pharmacy: [facility], 178, cm, 07/09/24 8:51:00 EDT, Height/Length Dosing, 150, kg, 07/09/24 8:51:00 EDT, WeightDosing phentermine, 37.5 mg = 1 tab(s), Oral, Daily, # 30 tab(s), Refills(s) 0, Pharmacy: [facility], 178, cm, 07/09/24 8:51:00 EDT, Height/Length Dosing, 150, kg, 07/09/24 8:51:00 EDT, Weight Dosing E&M of Est. Patient Straight Fwd 10-19 Min 28166 3. BMI 45.0-49.9, adult, (Z68.42: Body mass index [BMI] 45.0-49.9, adult)Body mass index [BMI] 45.0-49.9, adult BMI education given Ordered: metformin, 1,000 mg = 1 tab(s), Oral, BID, # 180 tab(s), Refills(s) 0, Pharmacy: [facility], 178, cm, 07/09/24 8:51:00 EDT, Height/Length Dosing, 150, kg, 07/09/24 8:51:00 EDT, WeightDosing phentermine, 37.5 mg = 1 tab(s), Oral, Daily, # 30 tab(s), Refills(s) 0, Pharmacy: [facility], 178, cm, 07/09/24 8:51:00 EDT, Height/Length Dosing, 150, kg, 07/09/24 8:51:00 EDT, Weight Dosing 4. Morbid obesity with BMI of 45.0-49.9, adult (E66.01: Morbid (severe) obesity due to excess calories) see above Ordered: metformin, 1,000 mg = 1 tab(s), Oral, BID, # 180 tab(s), Refills(s) 0, Pharmacy: [facility], 178, cm, 07/09/24 8:51:00 EDT, Height/Length Dosing, 150, kg, 07/09/24 8:51:00 EDT, WeightDosing phentermine, 37.5 mg = 1 tab(s), Oral, Daily, # 30 tab(s), Refills(s) 0, Pharmacy: [facility], 178, cm, 07/09/24 8:51:00 EDT, Height/Length Dosing, 150, kg, 07/09/24 8:51:00 EDT, Weight Dosing 5. Non-smoker (Z78.9: Other specified health status) continue not smoking Ordered: metformin, 1,000 mg = 1 tab(s), Oral, BID, # 180 tab(s), Refills(s) 0, Pharmacy: [facility], 178, cm, 07/09/24 8:51:00 EDT, Height/Length Dosing, 150, kg, 07/09/24 8:51:00 EDT, WeightDosing phentermine, 37.5 mg = 1 tab(s), Oral, Daily, # 30 tab(s), Refills(s) 0, Pharmacy: [facility], 178, cm, 07/09/24 8:51:00 EDT, Height/Length [...] lifetime) Tobacco Use: (more content not included)... [facility] HospitalComment on above:Result Comment: Electronically Signed By: Brianna Li\.br\Date and Time Signed: 07/09/24 10:07 EDT Reminderson [id number] From: Brianna Li To: [facility] - Clinical; Sent: 05/08/2024 07:47:31 EDT Show up: 05/08/2024 07:47:00 EDT Subject: Ambulatory Reminder Due Date/Time: 05/09/2024 07:46:00 EDT HGBA1C is 6.7. Cholesterol and triglycerides are elevated. should consider starting a statin. If heis ok with starting it, I will send [...] 20.9 % (14.0 - 50.0) 05/07/2024 13:56 Gentry Auto 8.1 % (4.0 - 14.0) 05/07/2024 13:56 Eos Auto 4.8 % (0.0 - 8.0) 05/07/2024 13:56 Basophil Auto 0.5 % (0.0 - 2.0) 05/07/2024 13:56 Neutro Absolute 5.4 E9/L (2.0 - 7.5) 05/07/2024 13:56 Lymph Absolute 1.7 E9/L (1.0 - 4.0) 05/07/2024 13:56 Gentry Absolute 0.7 E9/L (0.2 - 1.0) 05/07/2024 [...] like a 90 day supply sent to [facility] in [place]. Please advise if you would like for me to propose a med. From: [place] (B - Clinical) To: Brianna Li; Sent: 05/11/2024 14:28:31 EDT Show up: 05/11/2024 14:28:00 EDT Subject: RE: Ambulatory ReminderNormalFisher [facility] CenterANA w/Reflex if POSon [id number] Ab Ql (S)NegativeInvalid Interpretation CodeNegative [facility] City HospitalComment on above:Result Comment: Performed at: [facility] [address] [place], [place] [id number] PhD Brett ThompsonPerformed By: #### [id number] #### [facility] [address], [place] [address]FrxU3dga [id number] (Bld) [Mass fraction]6.7 %High<=5.9 [facility] City HospitalComment on above:Performed By: #### [id number] #### [facility] [address] [place], [place] [address]Mjwclnhrizv [id number] From: Brianna Li To: B - Clinical; Sent: 05/08/2024 07:47:31 EDT Show up: 05/08/2024 07:47:00 EDT Subject: Ambulatory Reminder Due Date/Time: 05/09/2024 07:46:00 EDT HGBA1C is 6.7. Cholesterol and triglycerides are elevated. should consider starting a statin. If heis ok with starting it, I will send [...] 20.9 % (14.0 - 50.0) 05/07/2024 13:56 Gentry Auto 8.1 % (4.0 - 14.0) 05/07/2024 13:56 Eos Auto 4.8 % (0.0 - 8.0) 05/07/2024 13:56 Basophil Auto 0.5 % (0.0 - 2.0) 05/07/2024 13:56 Neutro Absolute 5.4 E9/L (2.0 - 7.5) 05/07/2024 13:56 Lymph Absolute 1.7 E9/L (1.0 - 4.0) 05/07/2024 13:56 Gentry Absolute 0.7 E9/L (0.2 - 1.0) 05/07/2024 [...] return call, please advise patient of message belowNormal L[facility] City HospitalCBC w/ Auto Diffon [id number]/100 WBC (Bld) 0.5 %Normal0.0-2.0[facility] CenterComment on above:Performed By: #### [id number] #### [facility] [address] [place], [place] [address]Lkntqwxoq/Leukocytes Auto (Bld) [Pure # fraction]0.0 E9/LNormal 0.0-0.2[facility] CenterComment on above:Performed By: #### [id number] #### [facility] [address], [place] [address]Auddzxhnrwt (Bld) [#/Vol]0.4 E9/LNormal0.0-0.5FAdams County HospitalComment on above:Performed By: #### [id number] #### [facility] [address] [place] [address]Rlbyxlpuzae/100 WBC (Bld)4.8 %Normal0.0-8.0[facility] City HospitalComment on above:Performed By: #### [id number] #### [facility] [address] [place] [address]Ssvzfktufdm distribution width (RBC) [Ratio]13.3 %Normal 10.9-14.2FAdams County HospitalComment on above:Performed By: #### [id number] #### [facility] [address] [place] [address]Mkttarrduv (Bld) [Volume fraction]44.3 %Larqac85.7-49.0[facility] City HospitalComment on above:Performed By: #### [id number] #### [facility] [address] [place] [address]Dkliqygvbv (Bld) [Mass/Vol]15.0 g/mNAwcckx03.5-17.5FAdams County HospitalComment on above:Performed By: #### [id number] #### [facility] [address] [place] [address]Lfztxuxaxts (Bld) [#/Vol]1.7 E9/LNormal1.0-4.0[facility] HospitalComment on above:Performed By: #### [id number] #### [facility] [address] [place] [address]Kjlvvarlkcw/100 WBC (Bld)20.9 %Sieogg08.0-50.0[facility] City HospitalComment on above:Performed By: #### [id number] #### [facility] [address] [place] [address]YBY (RBC) [Entitic mass]28.2 vaRhpfbw00.0-34.0[facility] HospitalComment on above:Performed By: #### [id number] #### [facility] [address] [place] [address]IGSI (RBC) [Mass/Vol]33.9 g/eSQhppcc15.4-36.0[facility] HospitalComment on above:Performed By: #### [id number] #### [facility] [address] [place] [address]VEV (RBC) [Entitic vol]83.2 dBScrrph19.0-100.0[facility] HospitalComment on above:Performed By: #### [id number] #### [facility] [address] [place] [address]Mjwpneieh (Bld) [#/Vol]0.7 E9/LNormal0.2-1.0[facility] HospitalComment on above:Performed By: #### [id number] #### [facility] [address] [place] [address]Wtksdvtznaj (Bld) [#/Vol]5.4 E9/LNormal2.0-7.5FAdams County HospitalComment on above:Performed By: #### [id number] #### [facility] [address] [place] [address]Vbdievmsewm/100 WBC (Bld)65.7 %Wxesxt64.0-75.0[facility] HospitalComment on above:Performed By: #### [id number] #### [facility] [address] [place] [address]Bsvwqgnf mean volume (Bld) [Entitic vol]9.0 fLNormal6.4-10.8 [facility] HospitalComment on above:Performed By: #### [id number] #### [facility] [address] [place] [address]Ktxmdtjxr (Bld) [#/Vol]242.0 E9/MHzadia690.0-500.0[facility] HospitalComment on above:Performed By: #### [id number] #### [facility] [address] [place], [place] [address]LSQ (Bld) [#/Vol]5.3 E12/LNormal4.3-5.9[facility] HospitalComment on above:Performed By: #### [id number] #### [facility] [address] [place], [place] [address]TCB corrected for nucl RBC Auto (Bld) [#/Vol]8.2 E9/LNormal 4.0-11.0[facility] HospitalComment on above:Performed By: #### [id number] #### [facility] [address], [place] [address]NEKOWQVGAYvytiol By: SYSTEM SYSTEM on 96-35-6448DWQ [Mass/Vol] 0.4 mg/dLNormal<=1.9mg/dLRemisol ChemAlbumin [Mass/Vol]4.4 g/dLNormal3.3 - 5.0 gm/dLRemisol ChemAlbumin/Globulin [Mass ratio]1.7 {ratio}Normal1.1 - 2.2Remisol ChemALP [Catalytic activity/Vol]65 [iU]/zBvzfea67 - 98 Int._Unit/LRemisol Chem ALT No additional P-5'-P [Catalytic activity/Vol]21 [iU]/dNormal6 - 46 Int._Unit/LRemisol ChemAnion gap [Moles/Vol]11 mmol/LNormal6 - 16 mEq/LRemisol ChemAST [Catalytic activity/Vol]17 [iU]/dNormal5 - 43 Int._Unit/LRemisol Chem Bilirubin [Mass/Vol]0.6 mg/dLNormal0.0 - 1.1 mg/dLRemisol ChemCalcium [Mass/Vol] 9.5 mg/dLNormal8.9 - 11.1 mg/dLRemisol ChemChloride [Moles/Vol]102 mmol/LNormal 101 - 111 mmol/LRemisol ChemCholesterol [Mass/Vol]248 mg/tPEsce442 - 200 mg/dL Remisol ChemCholesterol in HDL [Mass/Vol]39 mg/dLInvalid Interpretation Code Remisol ChemComment on above:Result Comment: '>= 60 LOW RISK' '<= 40 HIGH RISK'Cholesterol in LDL [Mass/Vol]164 mg/dLHigh<=129mg/dLRemisol ChemCholesterol in VLDL [Mass/Vol]58 mg/dLHigh7 - 40 mg/dLRemisol ChemCO2 [Moles/Vol]29 mmol/DGyblsl24 - 31 mmol/LRemisol ChemCreatinine [Mass/Vol]0.8 mg/dLNormal0.5 - 1.3 mg/dLRemisol TbykwJBE805 mL/min/1.73 g1Ingnpx >=59mL/min/1.73 a3Dbygmit ChemGlobulin (S) [Mass/Vol]2.6 g/dLNormal1.4 - 4.0 gm/dLRemisol ChemGlucose [Mass/Vol]174 mg/yIWhtpep43 - 199 mg/dLRemisol Chem Potassium [Moles/Vol]4.2 mmol/LNormal3.5 - 5.3 mmol/LRemisol ChemProstate specific Ag [Mass/Vol]0.4 ng/mLNormal0.1 - 3.5 ng/mLRemisol ChemComment on above:Interpretive Data: The concentration of PSA determined by different manufacturers can vary due to differences in assay methods and reagent specificity. Values obtained from different assay methods cannot be used interchangeably. The methodology used for this result was chemiluminescence using [employer]'s [employer] PSA reagent.Protein [Mass/Vol]7.0 g/dL Normal6.0 - 7.8 gm/dLRemisol ChemSodium [Moles/Vol]138 mmol/KMnfbpi698 - 145 mmol/LRemisol ChemTriglyceride [Mass/Vol]288 mg/dLHigh<=149mg/dLRemisol ChemTSH Qn1.20 m[IU]/LNormal0.34 - 5.60 mcIU/mLRemisol ChemUrea nitrogen [Mass/Vol]15 mg/dLNormal5 - 21 mg/dLRemisol ChemUrea nitrogen/Creatinine [Mass ratio]19 mg/mg Zjpiwl91 - 20Remisol ChemCHEMISTRYOrdered By: Edmund Post on 34-02-1097OwV7f (Bld) [Mass fraction]6.7 %High<=5.9%[facility] ChemAutoSSCMPon 40-47-9469Enysaef [Mass/Vol]4.4 g/dLNormal3.3-5.0[facility] HospitalComment on above: Performed By: #### [id number] #### [facility] [address] [place], [place] [address]Xcvqofn/Globulin (S) [Mass conc ratio]1.8Xyslbs2.1-2.2FAdams County HospitalComment on above:Performed By: #### [id number] #### [facility] [address], [place] [address]MUS [Catalytic activity/Vol]65 Int._Unit/KUxnnpj82-72WwlwstLima City HospitalComment on above:Performed By: #### [id number] #### [facility] [address] [place], [place] [address]TFZ No additional P-5'-P [Catalytic activity/Vol]21 Int._Unit/L Normal6-46[facility] HospitalComment on above:Performed By: #### [id number] #### [facility] [address] [place], [place] [address]Vuhus gap [Moles/Vol]11 mmol/LNormal6-16[facility] HospitalComment on above:Performed By: #### [id number] #### [facility] [address] [place], [place] [address]WMF [Catalytic activity/Vol]17 Int._Unit/LNormal5-43[facility] HospitalComment on above:Performed By: #### [id number] #### [facility] [address] [place], [place] [address]Ymtzecwbt [Mass/Vol]0.6 mg/dLNormal0.0-1.1FAdams County HospitalComment on above:Performed By: #### [id number] #### [facility] [address] [place], [place] [address]Nroqqyi [Mass/Vol]9.5 mg/dLNormal8.9-11.1FAdams County HospitalComment on above:Performed By: #### [id number] #### [facility] [address] [place], [place] [address]Bhkrjtxh [Moles/Vol]102 mmol/RJbvakc282-787KyfknaLima City HospitalComment on above:Performed By: #### [id number] #### [facility] [address], [place] [address]TA5 [Moles/Vol]29 mmol/JVymqoa83-55YvawlpLima City Hospital Comment on above:Performed By: #### [id number] #### [facility] [address], [place] [address]Msqoyvntlj [Mass/Vol]0.8 mg/dLNormal0.5-1.3FAdams County HospitalComment on above:Performed By: #### [id number] #### [facility] [address] [place], [place] [address]Laaqddaa (S) [Mass/Vol]2.6 g/dLNormal1.4-4.0[facility] HospitalComment on above:Performed By: #### [id number] #### [facility] [address] [place] [address]Lojytah [Mass/Vol]174 mg/jDIltlbc26-722ObumlgLima City HospitalComment on above:Performed By: #### [id number] #### [facility] [address] [place], [place] [address]Hpnowlfzb [Moles/Vol]4.2 mmol/LNormal3.5-5.3FAdams County HospitalComment on above:Performed By: #### [id number] #### [facility] [address] [place], [place] [address]Iummnsq [Mass/Vol]7.0 g/dLNormal6.0-7.8[facility] HospitalComment on above:Performed By: #### [id number] #### [facility] [address] [place], [place] [address]Nvkbth [Moles/Vol]138 mmol/IQibeul319-551SivssbLima City HospitalComment on above:Performed By: #### [id number] #### [facility] [address] [place], [place] [address]Qkqj nitrogen [Mass/Vol]15 mg/dLNormal5-21[facility] HospitalComment on above:Performed By: #### [id number] #### [facility] [address] [place], [place] [address]Peln nitrogen/Creatinine [Mass ratio]19 No EbfkiQrzymm21-01 [facility] HospitalComment on above:Performed By: #### [id number] #### [facility] [address], [place] [address]RKCmj 99-18-8668WOS [Mass/Vol]0.4 mg/dLNormal<=1.9[facility] HospitalComment on above:Performed By: #### [id number] #### [facility] [address] [place], [place] [address]Hfkzpp Medicine Office/Clinic Noteon [id number] Medicine Office/Clinic NoteHPI Staff Ankit is a 54 year old male presenting to establish care Establish Care: History: Any previous diagnosis: Diabetes History of seeing any specialist: When was your last doctors visit: Last provider: Dr Dimas Any recent labs: over a year ago [...] today. pt is not sure what his dzdpLPRW4M was. BS run 120-130 at home. pt did get metformin from [place] and has been taking that for the last couple of weeks. Ordered: fluconazole, 150 mg = 1 tab(s), Oral, Once, take 1 tab on day 1 and one tab on day 4, # 2 tab(s), Refills(s) 1, Pharmacy: [facility], 177.5, cm, 05/07/24 13:15:00 EDT, Height/Length Dosing, 152.2, kg, 05/07/24 13:15:00 EDT, Weight Dosing meloxicam, 15 mg = 1 tab(s), Oral, Daily, # 30 tab(s), Refills(s) 0, Pharmacy: [facility], 177.5, cm, 05/07/24 13:15:00 EDT, Height/Length Dosing, 152.2, kg, 05/07/24 13:15:00 EDT, Weight Dosing methylPREDNISolone, = 1 packet(s), Oral, As Directed, as directed on package labeling, X 6 day(s), # 21 tab(s), Refills(s) 0, Pharmacy: [facility], 177.5, cm, 05/07/24 13:15:00 EDT, Height/Length Dosing, 152.2, kg, 05/07/24 13:15:00 EDT, Weight Dosing nystatin topical, 1 marie, Topical, BID, 30 gram, Refill(s) 1, [facility], 177.5, cm,05/07/24 13:15:00 EDT, Height/Length Dosing, 152.2, kg, 05/07/24 13:15:00 EDT, Weight Dosing UZIEL w/Reflex if POS C-Reactive Protein CBC w/ Auto Diff Comprehensive Metabolic Panel HgbA1c Lab Specimen Collect [id number] Lipid Panel PSA Screen, Total Thyroid Stimulating [...] 4, # 2 tab(s), Refills(s) 1, Pharmacy: [facility], 177.5, cm, 05/07/24 13:15:00 EDT, Height/Length Dosing, 152.2, kg, 05/07/24 13:15:00 EDT, Weight Dosing meloxicam, 15 mg = 1 tab(s), Oral, Daily, # 30 tab(s), Refills(s) 0, Pharmacy: [facility], 177.5, cm, 05/07/24 13:15:00 EDT, Height/Length Dosing, 152.2, kg, 05/07/24 13:15:00 EDT, Weight Dosing methylPREDNISolone, = 1 packet(s), Oral, As Directed, as directed on package labeling, X 6 day(s), # 21 tab(s), Refills(s) 0, Pharmacy: [facility], 177.5, cm, 05/07/24 13:15:00 EDT, Height/Length Dosing, 152.2, kg, 05/07/24 13:15:00 EDT, Weight Dosing nystatin topical, 1 marie, Topical, BID, 30 gram, Refill(s) 1, [email or web address], 177.5, cm,05/07/24 13:15:00 EDT, Height/Length Dosing, 152.2, kg, 05/07/24 13:15:00 EDT, Weight Dosing UZIEL w/Reflex if POS C-Reactive Protein CBC w/ Auto Diff Comprehensive Metabolic Panel HgbA1c Lab Specimen Collect [id number] Lipid Panel PSA Screen, Total Thyroid Stimulating [...] 4, # 2 tab(s), Refills(s) 1, Pharmacy: [facility], 177.5, cm, 05/07/24 13:15:00 EDT, Height/Length Dosing, 152.2, kg, 05/07/24 13:15:00 EDT, Weight Dosing meloxicam, 15 mg = 1 tab(s), Oral, Daily, # 30 tab(s), Refills(s) 0, Pharmacy: [facility], 177.5, cm, 05/07/24 13:15:00 EDT, Height/Length Dosing, 152.2, kg, 05/07/24 13:15:00 EDT, Weight Dosing methyl (more content not included)...[facility] HospitalComment on above:Result Comment: Electronically Signed By: Brianna Li\.br\Date and Time Signed: 05/07/24 14:27 EDTHEMATOLOGYOrdered By: SYSTEM SYSTEM on 32-88-7767Evmweenae/100 WBC (Bld)0.5 %Normal0.0 - 2.0 %Remisol Heme Basophils/Leukocytes Auto (Bld) [Pure # fraction]0.0 E9/LNormal0.0 - 0.2 E9/L Remisol HemeEosinophils (Bld) [#/Vol]0.4 E9/LNormal0.0 - 0.5 E9/LRemisol Heme Eosinophils/100 WBC (Bld)4.8 %Normal0.0 - 8.0 %Remisol HemeErythrocyte distribution width (RBC) [Ratio]13.3 %Rhwajd97.9 - 14.2 %Remisol HemeHematocrit (Bld) [Volume fraction]44.3 %Gxjgar48.7 - 49.0 %Remisol HemeHemoglobin (Bld) [Mass/Vol]15.0 g/wNIbwvjj63.5 - 17.5 gm/dLRemisol HemeLymphocytes (Bld) [#/Vol] 1.7 E9/LNormal1.0 - 4.0 E9/LRemisol HemeLymphocytes/100 WBC (Bld)20.9 %Normal 14.0 - 50.0 %Remisol HemeMCH (RBC) [Entitic mass]28.2 kiChkthh59.0 - 34.0 pg Remisol HemeMCHC (RBC) [Mass/Vol]33.9 g/dUMfwhuo13.4 - 36.0 gm/dLRemisol HemeMCV (RBC) [Entitic vol]83.2 vWFbtwlg76.0 - 100.0 fLRemisol HemeMonocytes (Bld) [#/Vol]0.7 E9/LNormal0.2 - 1.0 E9/LRemisol HemeMonocytes/100 WBC (Bld)8.1 % Normal4.0 - 14.0 %Remisol HemeNeutrophils (Bld) [#/Vol]5.4 E9/LNormal2.0 - 7.5 E9/LRemisol HemeNeutrophils/100 WBC (Bld)65.7 %Simuhk96.0 - 75.0 %Remisol Heme Platelet mean volume (Bld) [Entitic vol]9.0 fLNormal6.4 - 10.8 fLRemisol Heme Platelets (Bld) [#/Vol]242.0 E9/NQfzjxj795.0 - 500.0 E9/LRemisol HemeRBC (Bld) [#/Vol]5.3 E12/LNormal4.3 - 5.9 E12/LRemisol HemeWBC corrected for nucl RBC Auto (Bld) [#/Vol]8.2 E9/LNormal4.0 - 11.0 E9/LRemisol HemeLipid Panelon 05-07-2024 Cholesterol [Mass/Vol]248 mg/rOYayp945-855SvndmoLima City HospitalComment on above:Performed By: #### [id number] #### [facility] [address] [place] [id number] in HDL [Mass/Vol]39 mg/dLInvalid Interpretation CodeLima City HospitalComment on above:Result Comment: '>= 60 LOW RISK' '<= 40 HIGH RISK'Performed By: #### [id number] #### [facility] [address], [place] [address]Eeymkrxvbhq in LDL [Mass/Vol]164 mg/dLHigh<=129L[facility] City HospitalComment on above:Performed By: #### [id number] #### [facility] [address], [place] [address]Bwlnyqeayeo in VLDL [Mass/Vol]58 mg/dLHigh7-40L[facility] City HospitalComment on above:Performed By: #### [id number] #### [facility] [address], [place] [address]Yvrxcxxrdtvs [Mass/Vol]288 mg/dLHigh<=149L[facility] City HospitalComment on above:Performed By: #### [id number] #### [facility] [address], [place] [address]JGI Screen, Totalon [id number] specific Ag [Mass/Vol] 0.4 ng/mLNormal0.1-3.5FAdams County HospitalComment on above:Result Comment: The concentration of PSA determined by different manufacturers can vary due to differences in assay methods and reagent specificity. Values obtained from different assay methods cannot be used interchangeably. The methodology used for this result was chemiluminescence using [employer] PSA reagent.Performed By: #### [id number] #### [facility] [address], [place] [address]Djkdsqv Educationon [id number] EducationOrthopedics Shoulder Range of Motion Exercises Shoulder range of motion (ROM) exercises are done to keep the shoulder moving freely or to increasemovement. They are recommended for people who have shoulder pain or stiffness or who are recoveringfrom a shoulder surgery. Ask your health care [...] side. Bend your arm to about a 90- degree angle (right angle) at the elbow, and [...] Lift your hands toward (more content not included)...NormalLima City HospitalPhysician Orderon [id number] Order [id number]#1.00TIFFNormalLima City HospitalTSHon 15-68-6361RGR Qn1.20 m[IU]/LNormal0.34-5.60Lima City HospitalComment on above:Performed By: #### [id number] #### [facility] [address] [place], [place] [address]sQYWny 02-51-0308wNVK973 mL/min/1.73 d5Unrjfb>=59Lima City HospitalComment on above:Order Comment: Order added by Discern Expert. Performed By: #### [id number] #### [facility] [address] [place], [place] [address]W[place] KNEE DE 4V or >on 36-62-9148VD KNEE DE 4V or >EXAMINATION: XR KNEE DE 4V or > HISTORY: Pain of bilateral knee regions COMPARISON: No relevant comparison available. FINDINGS: RIGHT FINDINGS: BONES: No acute fracture or dislocation. Moderate to severe tricompartmental osteoarthropathy with marginal osteophyte formation. Moderate to severe narrowing of the medial joint space SOFT TISSUES: Negative. No visible soft tissue swelling. OTHER: Negative. LEFT FINDINGS: BONES: Moderate to severe tricompartmental osteoarthritis with lhry-rc-ibyt articulation of the medial compartment. SOFT TISSUES: Negative. No visible soft tissue swelling. OTHER: Moderate suprapatellar joint effusion IMPRESSION: RIGHT CONCLUSION: Moderate to severe osteoarthritis LEFT CONCLUSION: Moderate to severe osteoarthritis with joint effusion Electronically authenticated by: JACQUES ADAN Date: 2022-10-22 12:35No[facility] AUTO DIFFon [id number] #0.0 103/ulNormal0.0-0.1City HospitalComment on above:Performed By: #### CBC #### [facility] [address], [place] [address] Dr. Arben Parkersophils/100 WBC (Bld)0.5 %Normal0.2-2.0[facility] Comment on above:Performed By: #### CBC #### [facility] [address] [place] [address] Dr. Arben Fowler #0.3 103/ulNormal0.0-0.7The City HospitalComment on above: Performed By: #### CBC #### [facility] [address] [place] [address] Dr. Arben Mcdanielosinophils/100 WBC (Bld)4.0 %Normal0.9-7.0[facility] Comment on above:Performed By: #### CBC #### [facility] [address] [place] [address] Dr. Arben Mcdanielrythrocyte distribution width (RBC) [Ratio]13.0 %Vbrgcj78.0-15.0 The City HospitalComment on above:Performed By: #### CBC #### [facility] [address] [place] [address] Dr. Arben MarcialHematocrit (Bld) [Volume fraction]44.0 %Gkbhca63.0-54.0The City HospitalComment on above:Performed By: #### CBC #### [facility] [address] [place] [address] Dr. Arben MarcialHemoglobin (Bld) [Mass/Vol]14.5 g/tJBlpctx85.0-18.0The City HospitalComment on above:Performed By: #### CBC #### [facility] [address] [place] [address] Dr. Arben Beckham #0.03 10e3/ulNormal0.00-0.03The City HospitalComment on above:Performed By: #### CBC #### [facility] [address] [place] [address] Dr. Arben Beckham %0.4 %Normal0.0-0.5The City HospitalComment on above: Performed By: #### CBC #### [facility] [address] [place] [address] Dr. Arben Melton #1.5 103/ulNormal1.2-3.8The City HospitalComment on above:Performed By: #### CBC #### [facility] [address] [place] [address] Dr. Arben Morelosmphocytes/100 WBC (Bld)18.8 %Critically low20.5-60.0The City HospitalComment on above:Performed By: #### CBC #### [facility] [address] [place] [address] Dr. Arben Harrison DIFF REQNONormalThe City HospitalComment on above: Performed By: #### CBC #### [facility] [address] [place] [address] Dr. Arben Garza (RBC) [Entitic mass]27.8 zpGuuhvo14.9-34.0The City HospitalComment on above:Performed By: #### CBC #### [facility] [address] [place] [address] Dr. Arben Garza (RBC) [Mass/Vol]33.0 g/bNZiaslz93.9-35.2The City HospitalComment on above:Performed By: #### CBC #### [facility] [address] [place] [address] Dr. Arben Garza (RBC) [Entitic vol]84.5 rULrdssw00.0-94.0The City HospitalComment on above:Performed By: #### CBC #### [facility] [address] [place] [address] Dr. Arben Wynne #0.6 103/ulNormal0.3-0.8The City HospitalComment on above:Performed By: #### CBC #### [facility] [address] [place] [address] Dr. Arben Clementocytes/100 WBC (Bld)7.4 %Normal1.7-12.0[facility] Comment on above:Performed By: #### CBC #### [facility] [address] [place] [address] Dr. Arben ValdezUT #5.5 103/ulNormal1.4-6.5The City HospitalComment on above:Performed By: #### CBC #### [facility] [address] [place] [address] Dr. Arben Valdezutrophils/100 WBC (Bld)68.9 %Mopkds51.0-75.0The City HospitalComment on above:Performed By: #### CBC #### [facility] [address] [place] [address] Dr. Arben MarcialPlatelet mean volume (Bld) [Entitic vol]9.9 fLNormal9.5-13.5The City HospitalComment on above:Performed By: #### CBC #### [facility] [address] [place] [address] Dr. Arben MarcialPLT246 103/llOvsgqh414-885Swo City HospitalComment on above: Performed By: #### CBC #### [facility] [address] [place] [address] Dr. Arben MarcialRBC5.21 106/ulNormal4.70-6.10The City HospitalComment on above:Performed By: #### CBC #### [facility] [address] [place] [address] Dr. Arben MarcialWBC8.0 103/ulNormal4.0-11.0The City HospitalComment on above: Performed By: #### CBC #### [facility] [address] [place] [address] Dr. Arben MarcialGLYCOHEMOGLOBIN A1Con [id number] RECOMMENDATIONADA THERAPEUTIC TARGET 6.0 - 7.0 ACTION SUGGESTED > 7.0NoSelect Medical Cleveland Clinic Rehabilitation Hospital, Edwin ShawComment on above:Performed By: #### A1C #### [facility] [address] [place] [address] Dr. Arben MarcialGlucose [Mass/Vol]166 mg/dLNoSelect Medical Cleveland Clinic Rehabilitation Hospital, Edwin ShawComment on above:Performed By: #### A1C #### [facility] [address] [place] [address] [address] Arben MarcialHbA1c (Bld) [Mass fraction]7.4 %Critically high<=6.0The City HospitalComment on above:Performed By: #### A1C #### [facility] [address] [place] [address] Dr. Arben PadillaALBUMIN, RAND URon 44-51-9363dJWI5.3 mg/LNormal<=30.0The City HospitalComment on above:Performed By: #### MALBR #### [facility] [address] [place] [address] Dr. Arben MarcialPROF 14(COMP METB)on 18-02-4423Zeputrj [Mass/Vol]3.9 g/dLNormal 3.4-5.0The City HospitalComment on above:Performed By: #### CMP #### [facility] [address] [place] [address] Dr. Arben MarcialAlbumin/Globulin [Mass ratio]1.1 {ratio}NormalThe City HospitalComment on above:Performed By: #### CMP #### [facility] [address] [place] [address] Dr. Arben Griffith [Catalytic activity/Vol]69 U/IMbladp45-164Iex City HospitalComment on above:Performed By: #### CMP #### [facility] [address] [place] [address] Dr. Arben Noel [Catalytic activity/Vol]64 U/LCritically mflt62-96Bpe City HospitalComment on above:Performed By: #### CMP #### [facility] [address] [place] [address] Dr. Arben Ch gap [Moles/Vol]12.2 mmol/LNormalThe [facility] Comment on above:Performed By: #### CMP #### [facility] [address] [place] [address] Dr. Arben Shelton [Catalytic activity/Vol]34 U/YXdizbs68-21Nvd City HospitalComment on above:Performed By: #### CMP #### [facility] [address] [address] [address] Arben MarcialBilirubin [Mass/Vol]0.5 mg/dLNormal0.2-1.3[facility] Comment on above:Performed By: #### CMP #### [facility] [address] [address] [address] Arben MarcialCalcium [Mass/Vol]9.2 mg/dLNormal8.5-10.1[facility] Comment on above:Performed By: #### CMP #### [facility] [address] [address] [address] Arben MarcialChloride [Moles/Vol]102 mmol/PHlrxpr67-009Saw [facility] Comment on above:Performed By: #### CMP #### [facility] [address] [address] [address] Arben MarcialCO2 [Moles/Vol]29.6 mmol/FQmvxus93.0-30.0[facility] Comment on above:Performed By: #### CMP #### [facility] [address] [place] [address] Dr. Arben MarcialCreatinine [Mass/Vol]1.00 mg/dLNormal0.66-1.25ThWayne HospitalComment on above:Performed By: #### CMP #### [facility] [address] [place] [address] Dr. Arben McdanielGFR-AF BELGIAN>60Normal>=60The City HospitalComment on above:Performed By: #### CMP #### [facility] [address] [place] [address] Dr. Arben McdanielGFR-NON AF BELGIAN>60Normal>=60The City HospitalComment on above:Performed By: #### CMP #### [facility] [address] [address] [address] Arben MarcialGlobulin (S) [Mass/Vol]3.4 g/dLNormalThe City HospitalComment on above:Performed By: #### CMP #### [facility] [address] [place] [address] Dr. Arben MarcialGlucose [Mass/Vol]205 mg/dLCritically vckb33-702Zmb City HospitalComment on above:Performed By: #### CMP #### [facility] [address] [address] [address] Arben MarcialPotassium [Moles/Vol]4.8 mmol/LNormal3.4-5.0[facility] Comment on above:Performed By: #### CMP #### [facility] [address] [address] [address] Arben MarcialProtein [Mass/Vol]7.3 g/dLNormal6.1-8.2[facility] Comment on above:Performed By: #### CMP #### [facility] [address] [address] [address] Arben MarcialSodium [Moles/Vol]139 mmol/JSlchgj075-153Ugj [facility] Comment on above:Performed By: #### CMP #### [facility] [address] [address] [address] Arben MarcialUrea nitrogen [Mass/Vol]15.0 mg/dLNormal7.0-18.0The City HospitalComment on above:Performed By: #### CMP #### [facility] [address] [address] [address] Arben MarcialUrea nitrogen/Creatinine [Mass ratio]15.0 mg/mgNormalThe City HospitalComment on above:Performed By: #### CMP #### [facility] [address] [address] [address] Arben Marcial Vital Signs Date TimeVital SignValuePerforming UxhgfqyowLhfoiome52-10-5338 14:04-0400 Diastolic blood srjihpvv77 mm[Hg]Luis Carlos Pineda [facility]03-27-2025 14:04-0400Mean blood ywzkfkux940 mm[Hg]Luis Carlos Pineda [facility]03-27-2025 14:04-0400 Systolic blood qttfjpyy574 mm[Hg]Luis Carlos Kirnus [address] [place], [place] 2087903-27-2025 13:56-0400Blood Pressure LocationMikhail Kirnus [address] [place], [place] 2087903-27-2025 13:56-0400 Diastolic blood xnkajdyq11 mm[Hg]Luis Carlos Kirnus [address] [place], [place] 2087903-27-2025 13:56-0400Heart rate79 /minMikhail Kirnus [address] [place], [place] 2087903-27-2025 13:56-0400 Respiratory rate16 /minMikhail Kirnus [address] [place], [place] 2087903-27-2025 13:56-0285SxN6% (BldA) [Mass fraction]97 %Luis Carlos Kirnus [address] [place], [place] 2087903-27-2025 13:56-0400 Systolic blood axfccfcm754 mm[Hg]Luis Carlos Kirnus [address] [place], [place] 2087901-31-2025 14:01-0500Blood Pressure LocationMikhail Kirnus [address] [place], [place] 2087901-31-2025 14:01-0500 Diastolic blood zamaalmx73 mm[Hg]Luis Carlos Kirnus [address] [place], [place] 2087901-31-2025 14:01-0500Heart rate79 /minMikhail Kirnus [address] [place], [place] 2087901-31-2025 14:01-0500 Respiratory rate18 /minMikhail Kirnus [address] [place], [place] 2087901-31-2025 14:01-2581DkN9% (BldA) [Mass fraction]95 %Luis Carlos Kirnus [address] [place], [place] 2087901-31-2025 14:01-0500 Systolic blood cbznjluy072 mm[Hg]Luis Carlos Pineda [facility]01-12-2025 13:41-0500Heart rate72 /minTim Chau [facility]01-12-2025 13:41-5298ZzJ0% (BldA) [Mass fraction]96 %Zeb Ritchie [facility]01-12-2025 13:33-0500Heart rate70 /minTim Chau [address] [place], [place] 6123201-12-2025 13:33-0500 Respiratory rate16 /minTim Chau [facility]01-12-2025 13:33-0583UrN7% (BldA) [Mass fraction]96 %Zeb Ritchie [facility]01-12-2025 13:25-0500 Diastolic blood nlyclvfg11 mm[Hg]Zeb Ritchie [address] [place], [place] 6123201-12-2025 13:25-0500Heart rate72 /minTim Chau [facility]01-12-2025 13:25-0500Heart rate69 /minTim Chau [facility]01-12-2025 13:25-0500 Hourly RoundingTim Chau [address] [place], [place] 6123201-12-2025 13:25-0500Mean blood mm[Hg]Zeb Ritchie [address] [place], [place] 6123201-12-2025 13:25-0500 Respiratory rate23 /minTim Chau [facility]01-12-2025 13:25-0500 Respiratory rate16 /minTim Chau [address] [place], [place] 6185901-12-2025 13:25-3324IhE2% (BldA) [Mass fraction]94 %Zeb Ritchie [address] [place], [place] 4310701-12-2025 13:25-8743NyC1% (BldA) [Mass fraction]93 %Zeb Ritchie [address] [place], [place] 4310701-12-2025 13:25-0500 Systolic blood buxgulhd705 mm[Hg]Zeb Ritchie [address] [place], [place] 4310701-12-2025 12:17-0500 Respiratory rate23 /minTim Chau [address] [place], [place] 4310701-12-2025 11:45-0500Body skhindoajqr08.06 [degF]Zeb Ritchie [address] [place], [place] 4310701-12-2025 11:45-0500 Diastolic blood qmcfpucw55 mm[Hg]Zeb Ritchie [address] [place], [place] 4310701-12-2025 11:45-0500Heart rate73 /minTim Chau [address] [place], [place] 4310701-12-2025 11:45-0500 Respiratory rate16 /minTim Chau [address] [place], [place] 4310701-12-2025 11:45-0500 Systolic blood disxakph056 mm[Hg]Zeb Ritchie [address]01-10-2025 07:39-0500Blood Pressure LocationMikhail Kirnus [facility]01-10-2025 07:39-0500 Diastolic blood fkncpijp25 mm[Hg]Luis Carlos Davenportus [facility]01-10-2025 07:39-0500Heart rate75 /minMikhail Kirnus [facility]01-10-2025 07:39-0500 Respiratory rate16 /minMikhail Kirnus [address] [place], [place] 2087901-10-2025 07:39-0785RrL8% (BldA) [Mass fraction]97 %Luis Carlos Jerrodnus [address] [place], [place] 2087901-10-2025 07:39-0500 Systolic blood ndsugsju005 mm[Hg]Luis Carlos Jerrodnus [address] [place], [place] 2087912-20-2024 14:16-0500 Diastolic blood ndvxtlru16 mm[Hg]Luis Carlos Jerrodnus [address] [place], [place] 2087912-20-2024 14:16-0500Heart rate75 /minMikhail Kirnus [address] [place], [place] 2087912-20-2024 14:16-0500 Respiratory rate16 /minMikhail Kirnus [address] [place], [place] 2087912-20-2024 14:16-0402RhN0% (BldA) [Mass fraction]94 %Luis Carlos Eldernus [address] [place], [place] 2087912-20-2024 14:16-0500 Systolic blood ysadmupi891 mm[Hg]Luis Carlos Jerrodnus [address] [place] [address] Encounters Encounter DateEncounter TypeCare ProviderFacilityStart: 68-31-1367xgjfxuoinwCEA Jodi L SchwabFacility:[facility] BellevueStart: 86-60-5732xjlaroqwhgFHZ Jodi L Brittney Facility:[facility] BellevueStart: 09-06-2025 End: 53-78-6802yenlfdmghrPKQ Jodi L SchwabFacility:FTMCStart: 09-06-2025 End: 46-28-4757xziamcuolfAHT Jodi L SchwabFacility:[facility]vueStart: 07-22-2025 End: 40-73-1667zrrdmzdfguIqte L SchwabFacility:[facility] BellevueStart: 05-31-2025 End: 68-33-6286cagqdxczslDY-C Thomas A SteinFacility:FTMCStart: 04-22-2025 End: 21-90-3147Lnl Drop offJodi L Brittney [facility] Start: 04-22-2025 End: 10-10-2796kwhjvrfjktGhaa L SchwabFacility:FTMCStart: 02-07-2025 End: 29-63-9297ptfeilcgooXfmuzwf D KirnusFacility:FTMCStart: 02-07-2025 End: 27-72-1070Zbxskzt encounter procedureMidavid Pineda [facility] Start: 01-10-2025 End: 78-98-0466astgzztinvGrzs L SchwabFacility:[facility] BellevueStart: 12-25-2024 End: 41-24-7547Nib Drop offJodi L Brittney [facility] Start: 12-25-2024 End: 88-74-4335nilchnjgruOQI Brianna L SchwabFacility:[facility] BellevueStart: 12-14-2024 End: 03-37-9359uqlelmtqqiJbwdeql D KirnusFacility:FTMCStart: 12-14-2024 End: 44-21-6981Khpjpjf encounter procedureLuis Carlos Pineda [facility] Start: 11-28-2024 End: 44-26-5565spgvgnaweyHYK Brianna L SchwabFacility:[facility] BellevueStart: 11-25-2024 End: 07-12-1548Qokaxxfzg department patient visitZeb Ritchie [facility] Start: 11-23-2024 End: 26-36-0316Mpqmzrqfy to same day surgery louieGingerjosue Pineda [facility] Start: 11-23-2024 End: 63-74-3141cgyunxtksxWsbjyge Modesto PinedaFacility:FTMCStart: 11-19-2024 End: 61-09-8182Gwr Drop offJodi L Brittney [facility] Start: 11-19-2024 End: 44-44-5937irxhajcwwlYipw L SchwabFacility:[facility]vueStart: 11-02-2024 End: 64-04-0259hcievwbkibKM Luis Carlosonel PinedaFacility:FTMCStart: 11-02-2024 End: 10-93-8242Qsfltlb encounter procedureLuis Carlos Pineda [facility] Start: 10-30-2024 End: 36-54-9649wjqxdrfcfoQhlx L SchwabFacility:FTMCStart: 10-30-2024 End: 36-32-5689Ozz Drop offJodi L Brittney [facility] Start: 10-30-2024 End: 91-73-4926ozsmjutxziRmjc L SchwabFacility:[facility]vueStart: 10-24-2024 End: 01-08-0458lnavocbmxlDhka L SchwabFacility:[facility]vueStart: 09-26-2024 End: 61-77-9183bmqbjbgvyxMvph L SchwabFacility:[facility]vueStart: 08-29-2024 End: 19-03-2792Sff Drop offJodi L Brittney [facility] Start: 08-29-2024 End: 56-89-7669hdxuvuwmmyZPW Brianna L SchwabFacility:FTMCStart: 08-13-2024 End: 77-74-5862penswnkxrqSGJ Brianna L SchwabFacility:[facility]vueStart: 07-09-2024 End: 71-85-2410zbqgduhgbtPRE Brianna L SchwabFacility:[facility]vueStart: 06-29-2024 End: 45-35-0796tklfitijarQVZ Brianna L SchwabFacility:[facility]vueStart: 05-07-2024 End: 88-04-8227Cwz Drop offJodi L Brittney [facility] Start: 05-07-2024 End: 78-02-7814hxocolqvkpWjav L SchwabFacility:FTMCStart: 05-01-2024 End: 42-29-4848wqaxzcyfwsLQH Brianna L SchwabFacility:[facility]vueStart: 12-63-2943ufodkddnnjWUP Brianna SchwabFacility:[facility] BellevueStart: 10-22-2022 End: 23-67-7160hjksduhmfpZV ALEJANDRA HOUSEFacility:T6Xthyi: 01-29-2022 End: 76-77-5881kppbdoiolwFJ ALEJANDRA HOUSEFacility:H1 Procedures DateProcedureProcedure DetailPerforming ClinicianStart: 11-23-2024 Catheterization of left heartMidavid Pineda Start: 14-89-3042Nkuwycmp artery stent (physical object)Luis Carlos Pineda Comment on above:STent to LADHistory of placement of stent in anterior descending branch of left coronary arteryHistory of placement of stent in LAD coronary arteryMikhail Jerrodnus Surgical procedureJodi Brittney Immunizations Immunization DateImmunizationNotesCare KemwbjlxYsujkfbv04-48-6581ECPP-GkT-9 (COVID-19) mRNA BNT-162b2 Maciej Brittney [phone]-OqrrhSelect Medical [facility] Rehabilitation Hospital 29-63-6665SSIX-CoV-2 (COVID-19) mRNA BNT-162b2 douglasxBrianna Brittney [phone]-BnxjpSelect Medical [facility] Rehabilitation Hospital Payers DatePayer CategoryPayerPolicy [id number]-pmc [id number] Health [id number] 2..1.519096.3.579.2.593 [id number] 2..1.628962.3.57[id number] 2..1.761458.3.57[id number] 2..1.826308.3.579.2.97300-01-6683Dqckypw43575398 2..1.959011.3.57[id number] 2.0.1.085166.3.579.2.77363-69-8777Ahybrzf50886695 2..1.619943.3.579.[id number] 2..1.634743.3.579.2.20502-04-7133Uraggsv03533454 2.0.1.466711.3.579.2.38405-56-2989Lmpsbhn56995355 2.16.840.1.481819.3.579.2.20127-22-5303Mizvnha82679396 2.840.1.048206.3.579.2.83706-23-9980Faatqvi42241713 2.16840.1.749942.3.579.2.23675-75-5102Amfejwr68499558 2.840.1.100116.3.579.2.18365-72-6881Gpqyghh22346880 2..1.689526.3.579.2.24789-22-3998Zngiidj80986916 2.840.1.715243.3.579.2.60282-53-9715Oxcvghz23934876 2.0.1.589414.3.579.2.49392-58-6385Gkfaarg60922956 2..1.896107.3.579.2.43076-61-6743Prpqqvb34081000 2..1.627149.3.579.2.87248-66-4084Fmfcvjn12533223 2..1.227982.3.579.2.44278-70-7600Fjqiaon11969074 2..1.894895.3.579.2.09370-17-7063Hzbnttz66779741 2.0.1.722882.3.579.2.56248-35-3737Djclsyv26023254 2..1.651758.3.579.2.45623-10-0766Hfgzgaw19385116 2.840.1.701197.3.579.2.26649-30-1355Mwlclct14120083 2.840.1.800040.3.579.2.78554-14-7796Ehuzgyh49533244 2..840.1.307479.3.579.2.16270-03-7944Onqnalm44417712 2.16.840.1.797524.3.579.2.87246-56-9174Wbrmhpr77734270 2.840.1.772316.3.579.2.19699-43-2045Bqncloq55451362 2.840.1.357902.3.579.2.04306-27-8673Wotuqrt01121548 2.0.1.376369.3.579.2.97159-24-6285Ihxmclx39315541 2.0.1.354515.3.579.2.56563-25-9162Pzwpxst40023490 2.0.1.243454.3.579.2.00851-04-9668Ezcwopv84540803 2.0.1.705162.3.579.2.59304-22-9097Eofdegi60488214 2.840.1.674197.3.579.2.29597-18-6309Yloykab77309434 2.0.1.656646.3.579.2.26284-22-1573Velhadu00909920 2.0.1.355781.3.579.2.70075-03-2657Odicaey80381189 2.0.1.664580.3.579.2.15332-52-5980Csppmjx22386377 2.840.1.149216.3.579.2.05433-92-9302Limhwjw Health [id number] Social History DateTypeDetailFacilityStart: 05-07-2024 End: 51-76-1212Iirtadu smoking statusNever smoked tobacco (finding)[facility] BellevueSex Assigned At BirthMalAvita Health System Galion HospitalTobacco smoking statusNeverWilson [facility] BellevueSexual OrientationUpper [facility] SexMale (finding)[facility] Medical Equipment Procedure CodeEquipment CodeEquipment Original TextEquipment IdentifierDatesPTCA of LAD Unknown 11/23/24 Unknown Left Anterior Descending Coronary ArteryFDA Start: 51-40-1227SVDX of LAD Unknown 11/23/24 Unknown Left Anterior Descending Coronary ArteryFDAStart: 45-26-0342COFZ of LAD Unknown 11/23/24 Unknown Left Anterior Descending Coronary ArteryFDAStart: 31-74-3506ZCSV of LAD Unknown 11/23/24 Unknown Left Anterior Descending Coronary ArteryFDAStart: 89-24-1991RVLB of LAD Unknown 11/23/24 Unknown Left Anterior Descending Coronary ArteryFDA Start: 10-45-5350NQSX of LAD Unknown 11/23/24 Unknown Left Anterior Descending Coronary ArteryFDAStart: 11-23-2024 Functional Status XfzqLefltgtkenUsrcvtRpuwrsby53-06-6367Augjfyrbxz StatusN/[facility]01-31-2025Functional StatusN/[facility]01-12-2025 Functional StatusN/[facility]01-10-2025Functional StatusNo [facility]12-20-2024Functional StatusN/[facility] Clinical Notes 11-14-2024 to 02-07-2025 Note Date & PcwdDxlbBgkevqmz77-65-8562 Evaluation + Plan note Future Scheduled Tests Laboratory* Lipid Panel 02/07/25 * Lipid Panel 12/27/24 [facility] 01-17-2025 NoteProgress Note-Physician Procedure Airway Assessment: Class II: Visualization of the soft palate, fauces, uvula Airway Abnormalities: none ASA Classification: ASA 2: A patient with mild systemic disease Risks/Benefits of IV Sedation: Have been explained IV Sedation Plan: Patient agrees to IV sedation plan_ Assessment/Plan CAD (coronary artery disease) (I25.10: Atherosclerotic heart disease of [place] coronary artery without angina pectoris) HTN (hypertension) (I10: Essential (primary) hypertension)[facility]Result Comment: Electronically Signed By: Luis Carlos Pineda [email or web address]\Date and Time Signed: 11/30/24 18:26 [id number] Hospital Discharge instructions Patient Education 11/25/2024 13:42:02 [...] Follow these instructions at home: Medicines Take mypa-ljg-ocuwfot and prescription medicines only as told by [...] provider. Document Revised: 07/01/2023 Document Reviewed: 07/01/2023 [employer] Patient Education 2023 [employer]. 11/25/2024 13:42:02 Bronchospasm, Adult Bronchospasm, Adult Bronchospasm is a tightening of the smooth muscle that wraps around the small airways in the lungs.When the muscle tightens, the small airways narrow. Narrowed airways limit the air you breathe in or out of your lungs. Inflammation (swelling) and more mucus (sputum) than usual can further irritatethe airways. This can make it very hard to breathe. Bronchospasm can happen suddenly or over a period of time. What are the causes? Common causes of this condition include: An infection, such as a cold or sinus drainage. Exercise. Strong odors from aerosol sprays, and fumes from perfume, candles, and household gse mechanic. Cold air. Stress or strong emotions such [...] history and a physical exam. Your health careprovider may also perform tests, including: A chest [...] Follow these instructions at home: Medicines Take lylb-son-rcmczbl and prescription medicines only as told by your health care provider. If you need to use an inhaler or nebulizer to take your medicine, ask your health care provider howto use it correctly. You may be given a spacer to use with your inhaler. This makes it easier to get the medicine from the inhaler into your lungs. Lifestyle Do not use any products that contain nicotine or tobacco. These products include cigarettes, chewing tobacco, and vaping devices, such as e-cigarettes. If you need help quitting, ask your health careprovider. Keep track of things that trigger your bronchospasm. Avoid these if possible. When pollen, air pollution, or humidity levels are bad, keep windows closed and use an air conditioner or go to places that have air conditioning. Find ways to manage stress and your emotions, such as mindfulness, relaxation, or breathing exercises. Activity Some people have bronchospasm when they exercise. This is called exercise- induced bronchoconstriction (EIB). If you have this problem, [...] bronchospasm when they exercise. This is called exercise- induced bronchoconstriction (EIB). If you have this problem, talk with your health care provider about how to manage EIB. Do not use any products that contain nicotine or tobacco. These products include cigarettes, chewing tobacco, and vaping devices, such as e-cigarettes. If you need help quitting, ask your health careprovider. Get help right away if your wheezing and coughing do not get better after taking your medicine. This information is not intended to replace advice given to you by your health care provider. Make sure you discuss any questions you have with your health care provider. Document Revised: 05/24/2022 Document Reviewed: 05/24/2022 [employer] Patient Education 2023 [employer]. Follow Up Care 11/25/2024 11:39:05 With:Brianna Lugo Address: [address] [place] [address] Business (1) When:11/28/2024 13:35:21 [facility] 01-12-2025 NoteED Patient Education Note ENT Cough, Adult Coughing [...] these instructions at home: Medicines ??? Take wfts-mtw-gsrpjok and prescription medicines only as told by [...] provider. Document Revised: 07/01/2023 Document Reviewed: 07/01/2023 [employer] Patient Education ? 2023 [employer] Pulmonary Medicine Bronchospasm, Adult Bronchospasm is a tightening of the smooth muscle that wraps around the small airways in the lungs.When the muscle tightens, the small airways narrow. Narrowed airways limit the air you breathe in or out of your lungs. Inflammation (swelling) and more mucus (sputum) than usual can further irritatethe airways. This can make it very hard to breathe. Bronchospasm can happen suddenly or over a period of time. What are the causes? Common causes of this condition include: ??? An infection, such as a cold or sinus drainage. ??? Exercise. ??? Strong odors from aerosol sprays, and fumes from perfume, candles, and household gse mechanic. ??? Cold air. ??? Stress or strong [...] history and a physical exam. Your health careprovider may also perform tests, including: ??? A [...] the irritant or t (more content not included)...[facility]01-10-2025 Hospital Discharge instructions Patient Education 11/23/2024 12:32:21 CV - Cardiovascular PCI Discharge Instructions (Custom) [place], [place] Cardiovascular PCI DISCHARGE INSTRUCTIONS Diet: Resume [...] hours post procedure: Actoplus MetGlucophageGlucophage XR GlucovanceAvandametFortamet Nup-ahfqobvziUmmiazJeqt-gzuodzvnj GlumetzaJanumetMetaglip RiometGlycomet Minimal pain, soreness and/or discomfort is expected. If you are prescribed an aspirin and/or antiplatelet (such as Plavix, Brilinta or Effient) do NOT stop taking these medications for any reason without talking to your floriculture teacher Site Care: Do not remove dressing for [...] This provides information about your heart disease forany doctor who cares for you. No smoking for 24 hours as it increases the risk of developing blood clots. If you are interested in smoking cessation, contact [facility] at [phone], ext. [phone]. In the event you are unable to reach your physician, please call [facility] at [phone] and the plunger machine operator will assist you. Seek Medicare [...] Care 11/08/2024 14:19:09 With:Luis Carlos Pineda Address: [address] [place] [address] [place] [address] [phone] Business (1) When:12/07/2024 14:00:00 With:Brianna Lugo Address:Unknown When: Unknown [facility] 01-10-2025 Evaluation + Plan noteExtracted from:Title: Procedure Note Heart & VascularAuthor:Edwin RHOADES, Luis Carlos DDate:11/23/24 Ordered: acetaminophen, 325 mg = 1 tab(s), [...] Appointment Date:11/28/2024 05:00:00 PM Scheduled Provider:Brianna Li Location:[facility] Appointment Type: Open Appointment Date:12/07/2024 02:00:00 PM Scheduled Provider:Luis Carlos Pineda MD [facility] Type:Cardiology Follow Up (FT) Diagnostic Tests Pending * CBC w/ Indices 11/24/24 * Basic Metabolic Panel 11/24/24 * Magnesium Level 11/24/24 * Troponin 11/24/24 [facility] 01-10-2025 NoteOperative Report Procedure Left heart catheterization procedure report DATE OF PROCEDURE: 11/23/2024 BIOLOGICS SPECIALIST Luis Carlos Pineda MD [facility] INDICATION: Chest pain, consistent with typical unstable [...] patient was brought to the Adult Cardiac Manager Roofing and placed on the table. The planned puncture sites/areas were prepped and draped in usual sterile fashion and a safety time-out was performed. Moderate Sedation was given by the Cardiac Manager Roofing RN. RIGHT RADIAL ARTERY ACCESS: The puncture [...] was administered via peripheral IV by the medical laboratory assistant RN after the catheter crossed into the [...] <50cc CONTRAST ADMINISTERED: Please see Adult Cardiac Manager Roofing Log for further details FINDINGS: SELECTIVE CORONARY [...] the table. We u (more content not included)...[facility] Result Comment: Electronically Signed By: Edwin RHOADES, Luis Carlos Salvador\.cassie\Date and Time Signed: 11/23/24 12:33 [id number] NotePatient Education - Text [place], [place] Cardiovascular PCI DISCHARGE INSTRUCTIONS Diet: ??? 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 Do not remove dressing [...] you are interested in smoking cessation, contact [facility] at [phone], ext. [phone]. ??? In the event you are unable to reach your physician, please call Ryanne Castro at [phone] and the plunger machine operator will assist you. Seek Medicare [...] coagulating (clotting) and c (more content not included)...[facility]01-06-2025 NoteNurse Consultation Note Reason for Visit [...] 50,000 intl units (1.25 mg) oral capsule, 65547 International_Unit= 1 cap(s), Oral, qWeek, 3 refills Allergies penicillins (Epistaxis)[facility]01-01-2025 Evaluation + Plan note Future Appointments Appointment Date:11/23/2024 09:00:00 AM Scheduled Provider: [facility] Type:CV Heart Cath (FT) Appointment Date:11/28/2024 05:00:00 PM Scheduled Provider:Brianna Li Location:[facility] Appointment Type:FM Open Future Scheduled Tests Radiology* CV Cardiovascular 11/23/24 [facility] Evaluation + Plan note Future Appointments Appointment Date:06/15/2024 01:40:00 PM Scheduled Provider:Brianna Li Location:[facility] Appointment Type:FM Open Diagnostic Tests Pending * UZIEL w/Reflex if POS [facility]24 [facility] App[facility]ments Appointment Date:11/28/2024 05:00:00 PM Scheduled Provider:Brianna Li Location:[facility] Appointment Type:FM Open Diagnostic Tests Pending * HgbA1c 08/29/24 [facility] evaluation + Plan note Future Appointments Appointment Date:11/02/2024 02:15:00 PM Scheduled Provider:Luis Carlos Pineda MD [facility] [place] Appointment Type:Cardiology New Patient (FT) Appointment Date:11/28/2024 05:00:00 PM Scheduled Provider:Brianna Li Location:[facility] Appointment Type:FM Open Diagnostic Tests Pending * Testosterone Level Total 10/30/24 [facility] evaluation + Plan note Future Appointments Appointment Date:11/28/2024 05:00:00 PM Scheduled Provider:Brianna Li Location:[facility] Appointment Type:FM Open [facility] evaluation + Plan note Future Appointments Appointment Date:11/28/2024 05:00:00 PM Scheduled Provider:Brianna Li Location:[facility] Appointment Type: Open Appointment Date:12/07/2024 02:00:00 PM Scheduled Provider:Luis Carlos Pineda MD [facility] Type:Cardiology Follow Up (FT) [facility] evaluation + Plan note Future Appointments Appointment Date:02/07/2025 01:45:00 PM Scheduled Provider:Luis Carlos Pineda MD [facility] Type:Cardiology Follow Up (FT) Future Scheduled Tests Laboratory* HgbA1c 11/28/24 * Basic Metabolic Panel 12/23/24 * Lipid Panel 12/23/24 [facility] evaluation + Plan note Future Appointments Appointment Date:02/07/2025 01:45:00 PM Scheduled Provider:Luis Carlos Pineda MD [facility] Type:Cardiology Follow Up (FT) [facility] evaluation + Plan note Future Appointments Appointment Date:05/31/2025 03:15:00 PM Scheduled Provider:Chau Patton PA-C [facility] [place] Appointment Type:Cardiology Follow Up (FT) Appointment Date:07/22/2025 03:00:00 PM Scheduled Provider:Brianna Li Location:[facility] Appointment Type: Open Future Scheduled Tests Laboratory* Lipid Panel 02/07/25 * Lipid Panel 12/27/24 [facility] Hospital course Narrative No data available for this section [facility] No data available for this section [facility] No data available for this section [facility] Summary Purpose Family History No [...] section and content) DATE CREATED AUTHOR 11/03/2022 [facility] DATE CREATED AUTHOR AUTHOR'S ORGANIZ ATION 05/08/2024 [facility] DATE CREATED AUTHOR AUTHOR'S ORGANIZ ATION 05/09/2024 [facility] DATE CREATED AUTHOR AUTHOR'S ORGANIZ ATION 06/30/2024 [facility] DATE CREATED AUTHOR AUTHOR'S ORGANIZ ATION 11/03/2024 [facility] DATE CREATED AUTHOR AUTHOR'S ORGANIZ ATION 11/11/2024 [facility] DATE CREATED AUTHOR AUTHOR'S ORGANIZ ATION 11/25/2024 [facility] DATE CREATED AUTHOR AUTHOR'S ORGANIZ ATION 11/30/2024 [facility] DATE CREATED AUTHOR AUTHOR'S ORGANIZ ATION 12/01/2024 [facility] DATE CREATED AUTHOR AUTHOR'S ORGANIZ ATION 12/27/2024 [facility] DATE CREATED AUTHOR AUTHOR'S ORGANIZ ATION 04/10/2025 [facility] DATE CREATED AUTHOR AUTHOR'S ORGANIZ ATION 04/24/2025 [facility] DATE CREATED AUTHOR AUTHOR'S ORGANIZ ATION 05/03/2025 [facility] DATE CREATED AUTHOR AUTHOR'S ORGANIZ ATION 07/24/2025 [facility] DATE CREATED AUTHOR AUTHOR'S ORGANIZ ATION 09/17/2025 [facility] Patient Care team informatio n (unrecognized section and content) Personnel Name: Brianna Li Address: Address: [address] [place] [address]- Personnel Name: Brianna Li L Address: Address: [address] [place] [address]- Personnel Name: Brianna Li L Address: Address: [address] [place] [address]- Personnel Name: Sangeeta Lidi L Address: Address: [address] [place] [address]- Personnel Name: Brianna Li L Address: Address: [address] [place] [address]- Personnel Name: Sangeeta Lidi L Address: Address: [address] [place] [address]- Personnel Name: Brianna Li L Address: Address: [address] [place] [address]- Personnel Name: Brianna Li L Address: Address: [address] [place] [address]- Personnel Name: Brianna Li L Address: Address: [address] [place] [address]- Personnel Name: Brianna Li Address: [address] [place] [address]- Telecom: Personnel Name: Brianna Li Address: [address] [place] [address]- Telecom: FOR RECORDS PERTAINING TO PATIENTS WHO [...] BE BASED ON THE PRIMARY CLINICAL RECORDS. [facility]. provides no warranty or guarantee of the accuracy or completeness of information in this document.
--- NOTE | 2025-09-19 09:10 | PC.NURSE ---
Patient attempted cariolyte treadmill. Experienced SOB and unable to reach THR. Changed test to Lexiscan. Frequent PVCs, noted with couplets and a 3 beat run Vtach. Denied chest pain. Only symptom was SOB which resolved prior to leaving the stress lab.
[2025-09-19] MEDS: REGADENOSON 0.4 MG/5 ML SYRINGE IV (09:17)
--- NOTE | 2025-09-20 14:29 | PM.STRESS ---
Stress Test Stress Test Allergies Allergy/AdvReac Type Severity Reaction Status Date / Time Penicillins Allergy Intermediate Hives Verified 03/01/24 21:29 Requesting physician: Marvel Cervantes Procedure: Lexiscan nuclear stress test General Information: Reason for Stress Test: [Shortness of breath] Cardiac History and Risk Factors: [History of CAD and stent, hyperlipidemia, diabetes mellitus] Resting 12 - Lead Electrocardiogram: Resting twelve-lead EKG showed normal sinus rhythm, heart rate 82 bpm, normal EKG. Resting blood pressure 126/84 mmHg. The test was started as a treadmill stress test however the patient walked for 4 minutes and he was not able to continue due to shortness of breath therefore it was switched to Lexiscan. Lexiscan 0.4 mg IV was given intravenously and the patient was monitored for few minutes. Peak heart rate was 131 bpm which represents 79% of age-predicted maximum heart rate and peak blood pressure 204/84 mmHg. The patient had shortness of breath with exercise. No chest pain. EKGs throughout the test did not show significant T or ST changes however the patient had frequent PVCs particularly during walking on treadmill mostly isolated with few couplet Stress Test: Protocol: [Treadmill switched to Lexiscan] Exercise Capacity: [Reduced] Blood Pressure Response: [Exaggerated hypertensive response to exercise] Rhythm: [Frequent PVCs, mostly isolated with some couplets] ST - Response: [No change] Patient Response: [Shortness of breath, no chest pain] Interpretation: Negative Lexiscan EKG stress test for ischemia Frequent PVCs were noted during the initial phase when he walked on treadmill mostly in isolated fashion with few couplets The nuclear myocardial perfusion stress images result is reported separately Maricruz Mason MD, FACC
== END 2025-09-19 08:04 | disposition home or self-care (01) ==
LOC: CARD 08:05
PROVIDERS: PCP Nurse Practitioner; Visit Provider Physician Assistant
DX: R06.02 Shortness of breath (principal)
CPT/HCPCS: 78452; 93017; A9500; J2785

== ENCOUNTER 2025-09-23 07:13 | Outpatient (OUT) | payer OTHER, SELFPAY ==
--- OUTSIDE RECORDS SUMMARY | 2025-09-19 23:59 | XMS_ITS | Continuity of Care Document ---
Author Organization [facility] Address [address] [place] [id number] Care Team Providers Care Manager Health Name Role Phone Brianna Lugo Primary Care Physician Encounter _[facility] [id number] Date(s): 09/19/25 - 09/19/[address] [address]- Discharge Disposition: Home (Routine DC) Attending Physician: Brianna Li Encounter Type: Clinic Allergies, Adverse Reactions, Alerts SubstanceCriticalitySeverityReactionReaction SeverityStatuspenicillinsEpistaxis Active Treatment Plan Future Appointments Appointment Date:11/29/2025 02:20:00 PM Scheduled Provider:Brianna Li Location:[facility] Appointment Type: Open Appointment Date:11/29/2025 03:00:00 PM Scheduled Provider:Chau Patton PA-C Location[facility] [place] Appointment Type:Cardiology Follow Up (FT) Immunizations Given and Recorded VaccineDateStatusRefusal NvlobvNOIF-KhD-3 (COVID-19) mRNA BNT-162b2 vax9/02/01 PiortireHGLD-AtV-8 (COVID-19) mRNA BNT-162b2 va06/10/21Recorded Medications Albuterol (Eqv-ProAir HFA) 90 mcg/inh inhalation aerosol 180 mcg, 2 inh, Inhalation, q6hr, 8.5 gm, Refill(s) 6, [facility], 170, cm, 09/06/25 14:27:00 EDT, Height/Length Dosing, 150, kg, 09/06/25 14:27:00 EDT, Weight Dosing Start Date: 09/06/25 Status: Ordered Medication Dispense Status: Completed Quantity: 8.5 Unit: g Total Allowed Fills: 7 Fills Dispensed: 0 Indications: Shortness of breath; Obesity, class 3; Body mass index [BMI] 50.0- 59.9, adult; Type 2 diabetes mellitus without complications; Cramp and spasm; amLODIPine 5 mg Tab 5 mg = 1 tab(s), Oral, Daily, # 90 tab(s), Refills(s) 3, Pharmacy: [id number], 170,cm, 02/07/25 14:04:00 EDT, Height/Length Dosing, 151, kg, 02/07/25 14:04:00 EDT, Weight Dosing Start Date: 02/18/25 Status: Ordered Medication Dispense Status: Completed Quantity: 90.0 Unit: tab(s) Total Allowed Fills: 4 Fills Dispensed: 0 Indications: Essential (primary) hypertension; aspirin 81 mg Oral EC Tab 81 mg = 1 tab(s), Oral, Daily, # 90 tab(s), Refills(s) 3, Pharmacy: [id number], 170, cm, 11/23/24 7:51:00 EST, Height/Length Dosing, 154, kg, 11/23/24 7:51:00 EST, Weight Dosing Start Date: 11/23/24 Status: Ordered Medication Dispense Status: Completed Quantity: 90.0 Unit: tab(s) Total Allowed Fills: 4 Fills Dispensed: 0 Indications: Atherosclerotic heart disease of [place] coronary artery without angina pectoris; atorvastatin 40 mg Tab 40 mg = 1 tab(s), Oral, Daily, # 90 tab(s), Refills(s) 3, Pharmacy: [facility], 170, cm, 05/31/25 15:17:00 EDT, Height/Length Dosing, 151, kg, 05/31/25 15:34:00 EDT, Weight Dosing Start Date: 05/31/25 Status: Ordered Medication Dispense Status: Completed Quantity: 90.0 Unit: tab(s) Total Allowed Fills: 4 Fills Dispensed: 0 Indications: Atherosclerotic heart disease of [place] coronary artery without angina pectoris; fluconazole 150 mg Tab See Instructions, TAKE 1 TABLET BY MOUTH on day one and TAKE 1 TABLET on day FOUR, # 2 tab(s), Refills(s) 1, Pharmacy: [facility], 170, cm, 04/22/25 13:16:00 EDT, Height/Length Dosing, 150, kg, 04/22/25 13:16:00 EDT, Weight Dosing Start Date: 04/22/25 Status: Ordered Medication Dispense Status: Completed Quantity: 2.0 Unit: tab(s) Total Allowed Fills: 2 Fills Dispensed: 0 gabapentin 300 mg Cap 300 mg = 1 cap(s), Oral, Once a day (at bedtime), # 90 cap(s), Refills(s) 0, Pharmacy: [facility], 170, cm, 09/06/25 15:00:00 EDT, Height/Length Dosing, 150, kg, 09/06/25 15:00:00 EDT, Weight Dosing Start Date: 09/19/25 Status: Ordered Medication Dispense Status: Completed Quantity: 90.0 Unit: cap(s) Total Allowed Fills: 1 Fills Dispensed: 0 Indications: Type 2 diabetes mellitus with diabetic polyneuropathy; Shortness of breath; Obesity, class 3; Body mass index [BMI] 50.0-59.9, adult; Type 2 diabetes mellitus without complications; Cramp and spasm; glimepiride 2 mg Tab See Instructions, TAKE 1 TABLET BY MOUTH TWICE DAILY, # 180 tab(s), Refills(s) 1, Pharmacy: [facility], 170, cm, 05/31/25 15:17:00 EDT, Height/Length Dosing, 151, kg, 05/31/25 15:34:00 EDT, Weight Dosing Start Date: 08/28/25 Status: Ordered Medication Dispense Status: Completed Quantity: 180.0 Unit: tab(s) Total Allowed Fills: 1 Fills Dispensed: 0 losartan 50 mg Tab 50 mg = 1 tab(s), Oral, BID, # 60 tab(s), Refills(s) 5, Pharmacy: [facility], 170, cm, 12/14/24 14:02:00 EST, Height/Length Dosing, 151.2, kg, 12/14/24 14:08:00 EST, Weight Dosing Start Date: 12/17/24 Status: Ordered Medication Dispense Status: Completed Quantity: 60.0 Unit: tab(s) Total Allowed Fills: 6 Fills Dispensed: 0 Indications: Essential (primary) hypertension; meloxicam 15 mg Tab 15 mg = 1 tab(s), Oral, Daily, TAKE 1 TABLET BY MOUTH EVERY DAY, # 90 tab(s), Refills(s) 4, Pharmacy: [facility], 170, cm, 12/14/24 14:02:00 EST, Height/Length Dosing, 151.2, kg, 12/14/24 14:08:00 EST, Weight Dosing Start Date: 01/07/25 Status: Ordered Medication Dispense Status: Completed Quantity: 90.0 Unit: tab(s) Total Allowed Fills: 5 Fills Dispensed: 0 metformin 1000 mg Tab 1,000 mg = 1 tab(s), Oral, BID, X 90 day(s), # 180 tab(s), Refills(s) 3, Pharmacy: [facility], 170, cm, 02/07/25 14:04:00 EDT, Height/Length Dosing, 151, kg, 02/07/25 14:04:00 EDT, Weight Dosing Start Date: 02/18/25 Stop Date: 02/13/26 Status: Ordered Medication Dispense Status: Completed Quantity: 180.0 Unit: tab(s) Total Allowed Fills: 4 Fills Dispensed: 0 Indications: Body mass index [BMI] 45.0-49.9, adult; Other specified health status; Type 2 diabetesmellitus without complications; Morbid (severe) obesity due to excess calories; Abnormal weight gain; nystatin Top 100,000 units/g Crm 15 gram 1 jim, Topical, BID, 30 gm, Refill(s) 0, [facility], 170, cm, 04/22/25 13:16:00 EDT, Height/Length Dosing, 150, kg, 04/22/25 13:16:00 EDT, Weight Dosing Start Date: 04/22/25 Status: Ordered Medication Dispense Status: Completed Quantity: 30.0 Unit: g Total Allowed Fills: 1 Fills Dispensed: 0 Plavix 75 mg Tab 75 mg = 1 tab(s), Oral, Daily, # 90 tab(s), Refills(s) 3, Pharmacy: [facility], 170, cm, 11/23/24 7:51:00 EST, Height/Length Dosing, 154, kg, 11/23/24 7:51:00 EST, Weight Dosing Start Date: 11/23/24 Status: Ordered Medication Dispense Status: Completed Quantity: 90.0 Unit: tab(s) Total Allowed Fills: 4 Fills Dispensed: 0 Indications: Atherosclerotic heart disease of [place] coronary artery without angina pectoris; semaglutide 1 mg/0.5 mL (1 mg dose) subcutaneous solution (Wegovy) mg, SubCutaneous, qWeek, Refills(s) 0 Start Date: 09/06/25 Status: Ordered Medication Dispense Status: Completed Total Allowed Fills: 1 Fills Dispensed: 0 Toprol XL 25 mg Tab-ER 25 mg = 1 tab(s), Oral, Daily, # 30 tab(s), Refills(s) 2, Pharmacy: [facility], 170, cm, 02/07/25 14:04:00 EDT, Height/Length Dosing, 151, kg, 02/07/25 14:04:00 EDT, Weight Dosing Start Date: 02/08/25 Status: Ordered Medication Dispense Status: Completed Quantity: 30.0 Unit: tab(s) Total Allowed Fills: 3 Fills Dispensed: 0 Vitamin D 50,000 intl units (1.25 mg) oral capsule See Instructions, 1 cap(s) Oral twice a week, # 24 caplet(s), Refills(s) 3, Pharmacy: [facility], 170, cm, 04/22/25 13:16:00 EDT, Height/Length Dosing, 150, kg, 04/22/25 13:16:00 EDT,Weight Dosing Start Date: 04/23/25 Status: Ordered Medication Dispense Status: Completed Quantity: 24.0 Unit: caplet(s) Total Allowed Fills: 4 Fills Dispensed: 0 Indications: Dizziness and giddiness; Pure hypercholesterolemia, unspecified; Type 2 diabetes mellitus without complications; Other chest pain; Morbid (severe) obesity due to excess calories; Body mass index [BMI] 50.0-59.9, adult; Other fatigue; Other specified health status; Problem List ConditionConfirmationCourseEffective DatesStatusHealth StatusInformantMorbid obesity with BMI of 45.0-49.9, adultConfirmedActiveMorbid obesity with BMI of 50.0-59.9, adultConfirmedActiveCandidiasisConfirmedActiveConstricting chest pain often radiating down left armConfirmedActiveLeg crampsConfirmedActiveDiabetic peripheral neuropathyConfirmedActiveDizzinessConfirmedActiveShortness of breath ConfirmedActiveShort of breath on exertionConfirmedActiveRashConfirmedActive Exertional anginaConfirmedActiveFatigueConfirmedActiveHistory of placement of stent in LAD coronary arteryConfirmedActiveHypercholesteremiaConfirmedActive Left-sided chest painConfirmedActiveLow back pain with right-sided sciatica ConfirmedActiveBilateral knee painConfirmedActiveLeft shoulder painConfirmed ActiveProstate cancer screeningConfirmedActiveScreening for hyperlipidemia ConfirmedActiveEncounter for weight managementConfirmedActiveRestless leg ConfirmedActiveDiabetes type 2, controlledConfirmedActiveType 2 diabetes mellitusConfirmedActiveVitamin D deficiencyConfirmedActiveWeight gainConfirmed ActiveWheezingConfirmedActive Procedures ProcedureDateRelated DiagnosisBody SiteStatusCardiac catheterization, left heart 11/23/24CompletedCoronary artery stent09/23/25Completedright knee broken knee cap Completed 1STent to LAD Social History Social History TypeResponseSmoking StatusNever (less than 100 in lifetime);Never ; Concerns about tobacco use in household: No; Smoking Cessation Yes entered on: 09/06/25Birth SexMaleSex RepresentationMale (finding) Implantable Device List ProcedureProviderProcedure DateDevice TypeSitePTCA of LADUnknow11/23/24Unknown Left Anterior Descending Coronary ArteryDevice IdentifierSerial NumberLot or Batch NumberManufacturing DateExpiration DateDistinct Identification CodeMRI SafetyImplantable StatusAssigning AuthorityUnknownUnknownUnknownUnknownUnknown UnknownUnknownActiveUnknown Patient Care team information Care Team Personnel Name: Brianna Li Position: [facility] Ambulatory - Primary Care - JIM Member Role: Primary Care Physician [address]: [address] [place] [address]- Telecom: Care Team Related Persons Name: RISSA BENITES Insurance Providers Guarantor name: JOVANNY Health Plan Information #: 1 Payer: SELF PAY Payer Identifier: [id number] Member Number: NA Group Number: NA Subscriber Identifier: MARY Relationship to Subscriber: self Coverage Type: NA Coverage Verification Date: NA Telecom: NA Address:
--- OUTSIDE RECORDS SUMMARY | 2025-09-19 23:59 | XMS_ITS | Continuity of Care Document ---
Author Organization [facility] Address Unknown Care Team Providers Care Court Monitor Name Role Phone Brianna Lugo Primary Care Physician Encounter _[facility] [id number] Date(s): 09/19/25 - 09/19/25 [facility] [address] [place] [address]- Discharge Disposition: Home (Routine DC) Attending Physician: Brianna Li Admitting Physician: Brianna Li Encounter Type: Lab Drop off Allergies, Adverse Reactions, Alerts SubstanceCriticalitySeverityReactionReaction SeverityStatuspenicillinsEpistaxis Active Treatment Plan Future Appointments Appointment Date:11/29/2025 02:20:00 PM Scheduled Provider:Brianna Li Location:[facility] Appointment Type: Open Appointment Date:11/29/2025 03:00:00 PM Scheduled Provider:Chau Patton PA-C Location:[facility] Appointment Type:Cardiology Follow Up (FT) Diagnostic Tests Pending * Lipid Panel 09/19/25 * CBC w/ Auto Diff 09/19/25 * Comprehensive Metabolic Panel 09/19/25 * HgbA1c 09/19/25 Immunizations Given and Recorded VaccineDateStatusRefusal [id number] (COVID-19) mRNA BNT-162b2 vax9/02/01 ZjcatbicMXIM-MiF-7 (COVID-19) mRNA BNT-162b2 vax7Recorded Medications Albuterol (Eqv-ProAir HFA) 90 mcg/inh inhalation aerosol 180 mcg, 2 inh, Inhalation, q6hr, 8.5 gm, Refill(s) 6, [facility], 170, cm, 09/06/25 14:27:00 EDT, Height/Length [...] Daily, # 90 tab(s), Refills(s) 3, Pharmacy: [facility], 170,cm, 02/07/25 14:04:00 EDT, Height/Length Dosing, 151, kg, 02/07/25 14:04:00 EDT, Weight Dosing Start Date: 02/18/25 Status: Ordered Medication Dispense Status: Completed Quantity: 90.0 Unit: tab(s) Total Allowed Fills: 4 Fills Dispensed: 0 Indications: Essential (primary) hypertension; aspirin 81 mg Oral EC Tab 81 mg = 1 tab(s), Oral, Daily, # 90 tab(s), Refills(s) 3, Pharmacy: [facility], 170, cm, 11/23/24 7:51:00 EST, Height/Length Dosing, 154, kg, 11/23/24 7:51:00 EST, Weight Dosing Start Date: 11/23/24 Status: Ordered Medication Dispense Status: Completed Quantity: 90.0 Unit: tab(s) Total Allowed Fills: 4 Fills Dispensed: 0 Indications: Atherosclerotic heart disease [place] coronary artery without angina pectoris; atorvastatin 40 mg Tab 40 mg = 1 tab(s), Oral, Daily, # 90 tab(s), Refills(s) 3, Pharmacy: [facility], 170, cm, 05/31/25 15:17:00 EDT, Height/Length Dosing, 151, kg, 05/31/25 15:34:00 EDT, Weight Dosing Start Date: 05/31/25 Status: Ordered Medication Dispense Status: Completed Quantity: 90.0 Unit: tab(s) Total Allowed Fills: 4 Fills Dispensed: 0 Indications: Atherosclerotic heart disease [place] coronary artery without angina pectoris; fluconazole 150 mg Tab See Instructions, TAKE 1 TABLET BY MOUTH on day one and TAKE 1 TABLET on day FOUR, # 2 tab(s), Refills(s) 1, Pharmacy: [facility], 170, cm, 04/22/25 13:16:00 EDT, Height/Length Dosing, 150, kg, 04/22/25 13:16:00 EDT, Weight Dosing Start Date: 04/22/25 Status: Ordered Medication Dispense Status: Completed Quantity: 2.0 Unit: tab(s) Total Allowed Fills: 2 Fills Dispensed: 0 gabapentin 300 mg Cap 300 mg = 1 cap(s), Oral, Once a day (at bedtime), # 90 cap(s), Refills(s) 0, Pharmacy: [facility], 170, cm, 09/06/25 15:00:00 EDT, Height/Length [...] DAILY, # 180 tab(s), Refills(s) 1, Pharmacy: [facility], 170, cm, 05/31/25 15:17:00 EDT, Height/Length Dosing, 151, kg, 05/31/25 15:34:00 EDT, Weight Dosing Start Date: 08/28/25 Status: Ordered Medication Dispense Status: Completed Quantity: 180.0 Unit: tab(s) Total Allowed Fills: 1 Fills Dispensed: 0 losartan 50 mg Tab 50 mg = 1 tab(s), Oral, BID, # 60 tab(s), Refills(s) 5, Pharmacy: [facility], 170, cm, 12/14/24 14:02:00 EST, Height/Length Dosing, 151.2, kg, 12/14/24 14:08:00 EST, Weight Dosing Start Date: 12/17/24 Status: Ordered Medication Dispense Status: Completed Quantity: 60.0 Unit: tab(s) Total Allowed Fills: 6 Fills Dispensed: 0 Indications: Essential (primary) hypertension; meloxicam 15 mg Tab 15 mg = 1 tab(s), Oral, Daily, TAKE 1 TABLET BY MOUTH EVERY DAY, # 90 tab(s), Refills(s) 4, Pharmacy: [facility], 170, cm, 12/14/24 14:02:00 EST, Height/Length Dosing, 151.2, kg, 12/14/24 14:08:00 EST, Weight Dosing Start Date: 01/07/25 Status: Ordered Medication Dispense Status: Completed Quantity: 90.0 Unit: tab(s) Total Allowed Fills: 5 Fills Dispensed: 0 metformin 1000 mg Tab 1,000 mg = 1 tab(s), Oral, BID, X 90 day(s), # 180 tab(s), Refills(s) 3, Pharmacy: [facility], 170, cm, 02/07/25 14:04:00 EDT, Height/Length [...] jim, Topical, BID, 30 gm, Refill(s) 0, [facility], 170, cm, 04/22/25 13:16:00 EDT, Height/Length Dosing, 150, kg, 04/22/25 13:16:00 EDT, Weight Dosing Start Date: 04/22/25 Status: Ordered Medication Dispense Status: Completed Quantity: 30.0 Unit: g Total Allowed Fills: 1 Fills Dispensed: 0 Plavix 75 mg Tab 75 mg = 1 tab(s), Oral, Daily, # 90 tab(s), Refills(s) 3, Pharmacy: [facility], 170, cm, 11/23/24 7:51:00 EST, Height/Length Dosing, 154, kg, 11/23/24 7:51:00 EST, Weight Dosing Start Date: 11/23/24 Status: Ordered Medication Dispense Status: Completed Quantity: 90.0 Unit: tab(s) Total Allowed Fills: 4 Fills Dispensed: 0 Indications: Atherosclerotic heart disease [place] coronary artery without angina pectoris; semaglutide 1 mg/0.5 mL (1 mg dose) subcutaneous solution (Wegovy) mg, SubCutaneous, qWeek, Refills(s) 0 Start Date: 09/06/25 Status: Ordered Medication Dispense Status: Completed Total Allowed Fills: 1 Fills Dispensed: 0 Toprol XL 25 mg Tab-ER 25 mg = 1 tab(s), Oral, Daily, # 30 tab(s), Refills(s) 2, Pharmacy: [facility], 170, cm, 02/07/25 14:04:00 EDT, Height/Length Dosing, 151, kg, 02/07/25 14:04:00 EDT, Weight Dosing Start Date: 02/08/25 Status: Ordered Medication Dispense Status: Completed Quantity: 30.0 Unit: tab(s) Total Allowed Fills: 3 Fills Dispensed: 0 Vitamin D 50,000 intl units (1.25 mg) oral capsule See Instructions, 1 cap(s) Oral twice a week, # 24 caplet(s), Refills(s) 3, Pharmacy: [facility], 170, cm, 04/22/25 13:16:00 EDT, Height/Length [...] knee broken knee cap [facility] Social History Social History TypeResponseSmoking StatusNever (less [...] JIM Member Role: Primary Care Physician Address: [address] [place] [address]- Telecom: Care Team Related Persons Name: RISSA BENITES Insurance Providers Guarantor name: Health Plan Information #: 1 Payer: SELF PAY Payer Identifier: [id number] Member Number: NA Group Number: [id number] Subscriber Identifier: NA Relationship to Subscriber: self Coverage Type: NA Coverage Verification Date: NA Telecom: NA Address:
--- OUTSIDE RECORDS SUMMARY | 2025-09-23 07:16 | XMS_ITS | Clinical Summary ---
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
--- OUTSIDE RECORDS SUMMARY | 2025-09-23 07:17 | XMS_ITS | CCD ---
Author Organization [facility] CliniSyin Care Team Providers Care Wagon Person Name Role Phone S[place], DR ROBERTS Primary Care Unavailable TAMPA, DR JACQUES Montes Consulting Unavailable S[place], DR ROBERTS Admitting Unavailable [place], DR ROBERTS Attending Unavailable [place], DR ROBERTS Consulting Unavailable [place], DR ROBERTS Primary Care Unavailable S[place], DR ROBERTS Admitting Unavailable [place], DR ROBERTS Attending Unavailable HOUSE, DR ROBERTS Consulting Unavailable Brittney, Brianna Perla Primary Care Physician Brittney, Brianna Perla Attending Unavailable Brittney, Brianna Perla Admitting Unavailable Brittney, WAYS OPERATOR Brianna Perla Attending Unavailable Brittney, WAYS OPERATOR Brianna Perla Attending Unavailable Brittney, WAYS OPERATOR Brianna Perla Attending Unavailable Brittney, WAYS OPERATOR Brianna Perla Attending Unavailable Brittney, WAYS OPERATOR Brianna Perla Admitting Unavailable Brittney, Brianna Perla Attending Unavailable Brittney, Brianna Perla Admitting Unavailable Brittney, Brianna Perla Admitting Unavailable Brittney, Brianna Perla Attending Unavailable Brittney, Brianna Perla Attending Unavailable Brittney, Brianna Perla Attending Unavailable Brittney, Brianna Perla Attending Unavailable KirnMD Luis Carlos khan Attending Unavailable Brittney, Brianna Perla Referring Unavailable Brittney, WAYS OPERATOR Brianna Perla Attending Unavailable Brittney, WAYS OPERATOR Brianna Perla Attending Unavailable Brittney, WAYS OPERATOR Brianna L Attending Unavailable Brittney, WAYS OPERATOR Brianna L Attending Unavailable Brittney, WAYS OPERATOR Brianna L Admitting Unavailable Brittney, WAYS OPERATOR Brianna Perla Attending Unavailable Brittney, Brianna Perla Admitting Unavailable Brittney, Brianna Perla Attending Unavailable Brittney, Brianna Perla Attending Unavailable KirnLuis Carlos khan Attending Unavailable KirnLuis Carlos khan Admitting Unavailable NONE, XXXX Referring Unavailable Brittney, WAYS OPERATOR Brianna Perla Attending Unavailable Luis Carlos Pineda Attending Unavailable NONE, XXXX Referring Unavailable Luis Carlos Pineda Admitting Unavailable KirnLuis Carlos khan Admitting Unavailable Luis Carlos Pineda Attending Unavailable Luis Carlos Pineda Referring Unavailable Brittney, WAYS OPERATOR Brianna L Admitting Unavailable Brittney, WAYS OPERATOR Brianna L Attending Unavailable Brittney, WAYS OPERATOR Brianna L Admitting Unavailable Brittney, WAYS OPERATOR Brianna L Attending Unavailable Chau, Zeb Attending Unavailable Kirnus, Luis Carlos Salvador Attending Unavailable Luis Carlos Pineda Admitting Unavailable NONE, XXXX Referring Unavailable Brittney, [...] Attending Unavailable Brittney, Brianna L Admitting Unavailable Chau Patton Attending Unavailable NONE, XXXX Referring Unavailable Brittney, Brianna L Attending Unavailable Brittney, Brianna Perla Attending Unavailable Chau Patton Attending Unavailable NONE, XXXX Referring Unavailable Brittney, Brianna L Admitting Unavailable Brittney, Brianna L Attending Unavailable Allergies Allergy ClassificationReported Allergen(s)Allergy TypeDate of OnsetReaction(s) FacilityPenicillins (antibiotic) (1 source)Penicillins; Translations: [penicillins]Drug AllergyBleeding from nose (finding)[facility] (1 source)AspirinDrug Ewjqrin09-44-2082Wqt [facility] (17 sources)Penicillins; Translations: [penicillins]Propensity to adverse reactions (disorder)Bleeding from nose (finding)[facility] Repository Medications Current Medications MedicationDrug Class(es)DatesSig (Normalized)Sig (Original)120 ACTUAT albuterol 0.09 MG/ACTUAT / budesonide 0.08 MG/ACTUAT Metered Dose Inhaler [Airsupra] (8 sources)Start: 28-38-1449Wxsdxggp 90 mcg-80 mcg/inh inhalation aerosol 2 inh, Inhalation, QID, 1 EA, Refill(s) 5, [facility] #[facility], 170, cm, 09/26/24 8:58:00 EST, Height/Length Dosing, 158.1, kg, 09/26/24 8:58:00 EST, Weight Dosing Start Date: 10/19/24 Status: Ordered Quantity: 1.0 Unit: EA Repeat number: 6Start: 12-56-8483Ltdiopco 90 mcg-80 mcg/inh inhalation aerosol 2 inh, Inhalation, QID, 1 EA, Refill(s) 5, [facility] #72, 170, cm, 09/26/24 8:58:00 EST, Height/Length Dosing, 158.1, kg, 09/26/24 8:58:00 EST, Weight Dosing Start Date: 10/19/24 Status: OrderedAlbuterol (Eqv-ProAir HFA) 90 mcg/inh inhalation aerosol (4 sources)Start: 61-56-6656kbah 2 puff(s) by inhalation every six hours Albuterol (Eqv-ProAir HFA) 90 mcg/inh inhalation aerosol 2 puff(s), Inhalation, q6hr Wheezing, 8.5 gm, Refill(s) 0, [facility] #[facility], 170, cm, 11/25/24 11:49:00 EST, Height/Length Dosing, 154, kg, 11/25/24 11:49:00 EST, Weight Dosing Start Date: 11/25/24 Status: Ordered Quantity: 8.5 Unit:g Repeat number: 1Start: 39-58-6575lbph 2 puff(s) by inhalation every six hoursAlbuterol (Eqv-ProAir HFA) 90 mcg/inh inhalation aerosol 2 puff(s), Inhalation, q6hr Wheezing, 8.5 gm, Refill(s) 0, [facility] #[facility], 170, cm, 11/25/24 11:49:00 EST, Height/Length Dosing, 154, kg, 11/25/24 11:49:00 EST, Weight Dosing Start Date: 11/25/24 Status: OrderedamLODIPine 5 mg oral tablet (5 sources)Dihydropyridine Calcium Channel BlockerStart: 75-03-0743yest 1 tablet by mouth once dailyamLODIPine 5 mg Tab 5 mg = 1 tab(s), Oral, Daily, # 90 tab(s), Refills(s) 3, Pharmacy: [facility] #[facility], 170, cm, 02/07/25 14:04:00 EDT, Height/Length Dosing, 151, kg, 02/07/25 14:04:00 EDT, Weight Dosing Start Date: 02/18/25 Status: Ordered Quantity: 90.0 Unit: tab(s) Repeat number: 4 Indications: Essential (primary) hypertension;Start: 10-87-8555iuwp 1 tablet by mouth once dailyamLODIPine 5 mg Tab 5 mg = 1 tab(s), Oral, Daily, # 90 tab(s), Refills(s) 0, Pharmacy: [facility] #72, 170, cm, 11/23/24 7:51:00 EST, Height/Length Dosing, 154, kg, 11/23/24 7:51:00 EST, Weight Dosing Start Date: 11/23/24 Status: Orderedaspirin 81 mg delayed release oral tablet (6 sources)Platelet Aggregation Inhibitor, Nonsteroidal Anti-inflammatory Drug Start: 64-96-5003trik 1 tablet by mouth once dailyaspirin 81 mg Oral EC Tab 81 mg = 1 tab(s), Oral, Daily, # 90 tab(s), Refills(s) 3, Pharmacy: [facility] #72, 170, cm, 11/23/24 7:51:00 EST, Height/Length Dosing, 154, kg, 11/23/24 7:51:00 EST, Weight Dosing Start Date: 11/23/24 Status: Ordered Quantity: 90.0 Unit: tab(s) Repeat number: 4 Indications: Atherosclerotic heart disease of [place] coronary artery without angina pectoris;Start: 11-08-2024 aspirin 81 mg Oral EC Tab Refills(s) 0 Start Date: 11/08/24 Status: Ordered atorvastatin 80 mg oral tablet (10 sources)HMG-CoA Reductase InhibitorStart: 84-30-4784qxef 1 tablet by mouth once dailyatorvastatin 80 mg Tab 80 mg = 1 tab(s), Oral, Daily, Refills(s) 0 Start Date: 02/07/25 Status: Ordered Repeat number: 1Start: 66-40-1416shwo 1 tablet by mouth once dailyatorvastatin 40 mg Tab See Instructions, TAKE 1 TABLET BY MOUTH DAILY, # 90 tab(s), Refills(s) 1, Pharmacy: [facility] #72, 170, cm, 11/02/24 14:23:00 EST, Height/Length Dosing, 154.5, kg, 11/02/24 14:23:00 EST, Weight Dosing Start Date: 11/20/24 Status: Ordered Quantity: 90.0 Unit: tab(s) Repeat number: 1azithromycin 250 mg Tab 5-day Dose Pack (Z-Douglas) (1 source)Start: 11-25-2024 End: 91-79-9440updosbvwaqhl 250 mg Tab 5-day Dose Pack (Z-Douglas) = 1 packet(s), Oral, As Directed, as directed on package labeling, X 5 day(s), # 6 tab(s), Refills(s) 0, Pharmacy: [facility] #72, 170, cm,11/25/24 11:49:00 EST, Height/Length Dosing, 154, kg, 11/25/24 11:49:00 EST, Weight Dosing Start Date: 11/25/24 Stop Date: 11/30/24 Status: Orderedclopidogrel 75 mg oral tablet (5 sources)P2Y12 Platelet InhibitorStart: 45-88-1678onii 1 tablet by mouth once dailyPlavix 75 mg Tab 75 mg = 1 tab(s), Oral, Daily, # 90 tab(s), Refills(s) 3, Pharmacy: [facility] #72, 170, cm, 11/23/24 7:51:00 EST, Height/Length Dosing, 154, kg, 11/23/24 7:51:00 EST, Weight Dosing Start Date: 11/23/24 Status: Ordered Quantity: 90.0 Unit: tab(s) Repeat number: 4 Indicati ons: Atherosclerotic heart disease of [place] coronary artery without angina pectoris;fluconazole 150 mg oral tablet (2 sources)Azole AntifungalStart: 05-57-0936fnvkeqhyqoo 150 mg Tab See Instructions, TAKE 1 TABLET BY MOUTH on day one and TAKE 1 TABLET on dayFOUR, # 2 tab(s), Refills(s) 1, Pharmacy: [facility] #72, 170, cm, 04/22/25 13:16:00 EDT, Height/Length Dosing, 150, kg, 04/22/25 13:16:00 EDT, Weight Dosing Start Date: 04/22/25 Status: Ordered Quantity: 2.0 Unit: tab(s) Repeat number: 2Start: 73-95-1314gqze 4 tablets by mouth onceDiflucan 150 mg Tab 150 mg = 1 tab(s), Oral, Once, take 1 tab on day 1 and one tab on day 4, # 2 tab(s), Refills(s) 1, Pharmacy: [facility] #72, 177.5, cm, 05/07/24 13:15:00 EDT, Height/Length Dosing, 152.2, kg, 05/07/24 13:15:00 EDT, Weight Dosing Start Date: 05/07/24 Status: Orderedglimepiride 2 mg oral tablet (10 sources)SulfonylureaStart: 95-51-5108jgae 1 tablet by mouth twice daily glimepiride 2 mg Tab See Instructions, TAKE 1 TABLET BY MOUTH TWICE DAILY, # 180 tab(s), Refills(s)1, Pharmacy: [facility] #72, 170, cm, 11/02/24 14:23:00 EST, Height/Length Dosing, 154.5, kg, 11/02/24 14:23:00 EST, Weight Dosing Start Date: 11/20/24 Status: Ordered Quantity: 180.0 Unit:tab(s) Repeat number: 1hydroCHLOROthiazide 12.5 mg oral capsule (2 sources)Thiazide DiureticStart: 38-32-6901svsi 1 capsule by mouth once daily hydrochlorothiazide 12.5 mg Cap 12.5 mg = 1 cap(s), Oral, Daily, # 30 cap(s), Refills(s) 5, Pharmacy: [facility] #72, 170, cm, 12/14/24 14:02:00 EST, Height/Length Dosing, 151.2, kg, 12/14/24 14:08:00 EST, Weight Dosing Start Date: 12/17/24 Status: Ordered Quantity: 30.0 Unit: cap(s) Repeat number: 6 losartan potassium 50 mg oral tablet (5 sources)Angiotensin 2 Receptor BlockerStart: 45-32-1641uazf 1 tablet by mouth twice dailylosartan 50 mg Tab 50 mg = 1 tab(s), Oral, BID, # 60 tab(s), Refills(s) 5, Pharmacy: [facility] #72, 170, cm, 12/14/24 14:02:00 EST, Height/Length Dosing, 151.2, kg, 12/14/24 14:08:00 EST, Weight Dosing Start Date: 12/17/24 Status: Ordered Quantity: 60.0 Unit: tab(s) Repeat number: 6 Indic ations: Essential (primary) hypertension;Start: 24-99-3623skym 1 tablet by mouth once dailylosartan 50 mg Tab 50 mg = 1 tab(s), Oral, Daily, # 90 tab(s), Refills(s) 0, Pharmacy: [facility] #72, 170, cm, 11/23/24 7:51:00 EST, Height/Length Dosing, 154, kg, 11/23/24 7:51:00 EST, Weight Dosing Start Date: 11/23/24 Status: OrderedmetFORMIN hydrochloride 1000 mg oral tablet (9 sources)BiguanideStart: 08-29-2024 End: 03-48-4549bnpy 1 tablet by mouth twice dailymetformin 1000 mg Tab 1,000 mg = 1 tab(s), Oral, BID, X 90 day(s), # 180 tab(s), Refills(s) 3, Pharmacy: [facility] #[facility], 170, cm, 02/07/25 14:04:00 EDT, Height/Length [...] tablet (1 source)Biguanide, Dipeptidyl Peptidase 4 InhibitorStart: 52-59-3475Mcnshxj 50 mg/1000 mg oral tablet 1 tab(s), Oral, BID, 90 tab(s), Refill(s) 1, TAKE 1 TABLET BY MOUTH TWICE DAILY, [facility] #72, 177.5, cm, 05/07/24 13:15:00 EDT, Height/Length Dosing, 152.2, kg, 05/07/24 13:15:00 EDT, Weight Dosing Start Date: 05/07/24 Status: OrderedmethylPREDNISolone 4 mg oral tablet (1 source)CorticosteroidStart: 05-07-2024 End: 87-69-4281Ubtlew 4 mg Tab = 1 packet(s), Oral, As Directed, as directed on package labeling, X 6 day(s), # 21tab(s), Refills(s) 0, Pharmacy: [facility] #72, 177.5, cm, 05/07/24 13:15:00 EDT, Height/Length Dosing, 152.2, kg, 05/07/24 13:15:00 EDT, Weight Dosing Start Date: 05/07/24 Stop Date: 05/13/24 Status: Ksnmlpk70 hr metoprolol succinate 25 mg extended release oral tablet (1 source)beta-Adrenergic BlockerStart: 92-17-0557rymd 1 tablet by mouth once dailyToprol XL 25 mg Tab-ER 25 mg = 1 tab(s), Oral, Daily, # 30 tab(s), Refills(s) 2, Pharmacy: [facility] #72, 170, cm, 02/07/25 14:04:00 EDT, Height/Length Dosing, 151, kg, 02/07/25 14:04:00EDT, Weight Dosing Start Date: 02/08/25 Status: Ordered Quantity: 30.0 Unit: tab(s) Repeat number: 3 nystatin 054766 unt/ml topical cream (10 sources)Polyene AntifungalStart: 21-75-0157tgatoaal Top 100,000 units/g Crm 15 gram 1 marie, Topical, BID, 30 gm, Refill(s) 0, [facility] #72, 170, cm, 04/22/25 13:16:00 EDT, Height/Length Dosing, 150, kg, 04/22/25 13:16:00 EDT, Weight Dosing Start Date: 04/22/25 Status: Ordered Quantity: 30.0 Unit: g Repeat number: 1Start: 06-52-0719ctpehbdg Top 100,000 units/g Crm 15 gram Refill(s) 0 Start Date: 10/24/24 Status: OrderedStart: 93-11-2363pfitrzqh Top 100,000 units/g Crm 15 gram See Instructions, 30 gm, Refill(s) 1, APPLY TO THE AFFECTED AREA(S) topically TWICE DAILY, [facility] #72, 178, cm, 07/09/24 8:51:00 EDT, Height/Length Dosing, 150, kg, 07/09/24 8:51:00 EDT, Weight Dosing Start Date: 07/23/24 Status: OrderedStart: 69-72-7502iegqewxr Top 100,000 units/g Crm 15 gram 1 marie, Topical, BID, 30 gram, Refill(s) 1, [facility] #72, 177.5, cm, 05/07/24 13:15:00 EDT, Height/Length Dosing, 152.2, kg, 05/07/24 13:15:00 EDT, Weight Dosing Start Date: 05/07/24 Status: OrderedpredniSONE 20 mg oral tablet (1 source)Start: 11-25-2024 End: 24-84-6408icvg 3 tablets by mouth once dailypredniSONE 20 mg Tab 60 mg = 3 tab(s), Oral, Daily, X 5 day(s), # 15 tab(s), Refills(s) 0, Pharmacy: [facility] #72, 170, cm, 11/25/24 11:49:00 EST, Height/Length Dosing, 154, kg, 11/25/24 11:49:00 EST, Weight Dosing Start Date: 11/25/24 Stop Date: 11/30/24 Status: OrderedrOPINIRole 2 mg oral tablet (2 sources)Nonergot Dopamine AgonistStart: 32-24-5357bjug 1 tablet by mouth at bedtimeRequip 2 mg Tab 2 mg = 1 tab(s), Oral, Bedtime, 1 to 3 hours before bedtime, # 90 tab(s), Refills(s) 0, Pharmacy: [facility] #72, 170, cm, 11/28/24 17:02:00 EST, Height/Length Dosing, 150.2, kg, 11/28/24 17:02:00 EST, Weight Dosing Start Date: 11/28/24 Status: Ordered Completed/Discontinued Medications MedicationDrug Class(es)DatesSig (Normalized)Sig (Original)albuterol 0.83 mg/ml inhalation solution (3 sources)beta2-Adrenergic AgonistStart: 12-90-5930yenc 1 dose by mouth every six hours as needed for wheezingalbuterol 0.083% Inh Delma 3 mL See Instructions, 60 mL, Refill(s) 0, INHALE 1 vial BY MOUTH EVERY 6 HOURS NEEDED FOR WHEEZING, [facility] #72, 170, cm, 11/28/24 17:02:00 EST, Height/Length Dosing, 150.2, kg, 11/28/24 17:02:00 EST, Weight Dosing Start Date: 11/30/24 Status: Ordered Quantity: 60.0 Unit: mL Repeat number: 1meloxicam 15 mg oral tablet (8 sources)Nonsteroidal Anti-inflammatory DrugStart: 67-69-9213gyfe 1 tablet by mouth once dailymeloxicam 15 mg Tab 15 mg = 1 tab(s), Oral, Daily, TAKE 1 TABLET BY MOUTH EVERY DAY, # 90 tab(s), Refills(s) 4, Pharmacy: [facility] #[facility], 170, cm, 12/14/24 14:02:00 EST, Height/Length Dosing, 151.2, kg, 12/14/24 14:08:00 EST, Weight Dosing Start Date: 01/07/25 Status: Ordered Quantity: 90.0 Unit: tab(s) Repeat number: 5Start: 01-70-1117iodt 1 tablet by mouth once daily meloxicam 15 mg Tab TAKE 1 TABLET BY MOUTH EVERY DAY Start Date: 12/14/24 Status: OrderedStart: 83-92-2901uxhk 1 tablet by mouth once dailymeloxicam 15 mg Tab 15 mg = 1 tab(s), Oral, Daily, # 30 tab(s), Refills(s) 3, Pharmacy: [facility] #72, 178, cm, 08/29/24 17:23:00 EDT, Height/Length Dosing, 151.2, kg, 08/29/24 17:23:00 EDT, Weight Dosing Start Date: 08/29/24 Status: OrderedStart: 43-70-1398rook 1 tablet by mouth once dailymeloxicam 15 mg Tab 15 mg = 1 tab(s), Oral, Daily, # 30 tab(s), Refills(s) 0, Pharmacy: [facility] #72, 177.5, cm, 05/07/24 13:15:00 EDT, Height/Length Dosing, 152.2, kg, 05/07/24 13:15:00 EDT, Weight Dosing Start Date: 05/07/24 Status: OrderedVitamin D 50,000 intl units (1.25 mg) oral capsule (7 sources)Start: 42-33-8744pnmc 1 capsule by mouth every weekVitamin D 50,000 intl units (1.25 mg) oral capsule 50,000 International_Unit = 1 cap(s), Oral, qWeek, # 12 cap(s), Refills(s) 3, Pharmacy: [facility] #72, 170, cm, 10/30/24 8:55:00 EST, Height/Length Dosing, 153.8, kg, 10/30/24 8:55:00 EST, Weight Dosing Start Date: 11/01/24 Status: Ordered Quantity: 12.0 Unit: cap(s) Repeat number: 4 Indications: Other chest pain; Dizziness and giddiness; Type 2 diabetes mellitus without complications; Morbid (severe) obesity due to excess calories; Other specified health status; Body mass index [BMI] 50.0-59.9, adult; Pure hypercholesterolemia, unspecified; Other fatigue;Start: 43-20-9504ogdr 1 capsule by mouth every weekVitamin D 50,000 intl units (1.25 mg) oral capsule 50,000 International_Unit = 1 cap(s), Oral, qWeek, # 12 cap(s), Refills(s) 3, Pharmacy: [facility] #[facility], 170, cm, 10/30/24 8:55:00 EST, He ight/Length Dosing, 153.8, kg, 10/30/24 8:55:00 EST, Weight Dosing Start Date: 11/01/24 Status: Ordered Problems Problem ClassificationProblemDateDocumented DateEpisodic/ChronicConditions associated with dizziness or vertigo (9 sources)Zfztspvcm78-40-5424KjsufcrmTezqfhfi atherosclerosis and other heart disease (3 sources)Coronary atherosclerosis; Translations: [Atherosclerotic heart disease of [place] coronary artery without angina pectoris]Onset: 12-14-2024 ChronicDiabetes mellitus without complication (20 sources)Type 2 diabetes mellitus without complications; Translations: [Type 2 diabetes mellitus]Onset: 75-67-2238NqahsxcFkgvkemsp of lipid metabolism (11 sources)Hypercholesterolemia; Translations: [Hyperlipidemia]Onset: 917672-96-4212XbhyrcgVcqatwcyi hypertension (3 sources)Essential (primary) hypertension; Translations: [Essential hypertension]Onset: 15-78-1543YvtoefvOjbsnyx and fatigue (9 sources)Iqjtvpp00-40-2772McydmsoiNxgutqz (11 sources)Mrkmabmhare44-02-8001BjkralkhXeavkabluds chest pain (20 sources)Chest pain; Translations: [Left sided chest pain]Onset: 11-02-2024 94-37-3451DmojvvouBkwfmplmcol deficiencies (1 source)Vitamin D ojazfjlwyt75-95-5944CbuwbaoGfiqubsarmkwde (2 sources)Bilateral primary osteoarthritis of knee; Translations: [Unspecified osteoarthritis, unspecified site]Onset: 55-89-4204XxgdippGbblk hereditary and degenerative nervous system conditions (4 sources)Restless nzfo00-22-1877PnhwxkjNtycx lower respiratory disease (9 sources)Kinnjiw06-13-0045SxxtoadwAdjef lower respiratory disease (1 source)Cough; Translations: [Cough, unspecified]Onset: 85-92-2203Iyfulefi Other lower respiratory disease (4 sources)Hxbgdpqj63-23-4367UsgxkfycZynhs non-traumatic joint disorders (4 sources)Pain in right knee; Translations: [PAIN IN RIGHT KNEE]Onset: 49-62-7863BmzerjynTdfzk non-traumatic joint disorders (1 source)Pain in left knee; Translations: [PAIN IN LEFT KNEE]Onset: 10-27-2022 EpisodicOther nutritional; endocrine; and metabolic disorders (20 sources)Body mass index 40+ - severely -94-3209HfashnmFutge nutritional; endocrine; and metabolic disorders (10 sources)Weight yrud48-75-7382SzfvsemlNeacu skin disorders (11 sources)Gqnnljbt82-64-8668KmbfmgvrLiphc upper respiratory disease (1 source)Bronchospasm; Translations: [Acute bronchospasm]Onset: 11-25-2024 EpisodicSpondylosis; intervertebral disc disorders; other back problems (2 sources)Lumbago co-occurrent with right-side boobvure79-64-0322Xcktnsaj Unclassified (11 sources)Pain of left shoulder urijrl23-98-7576Rwyxdmpmuypy (20 sources)Patient encounter xjhpak00-76-6716Mwzcjaegexqr (1 source)Pain of knee tglfde68-62-7962 Results Test NameValueInterpretationReference RangeFacilityCBC w/ Auto Diffon 09-20-2025 Basophil Absolute0.1 E9/LNormal0.0-0.2FKettering Health MiamisburgComment on above:Performed By: #### [id number] #### [facility] [address], [place] [address]Kjlkvzrwk/100 WBC (Bld)0.6 %Normal0.0-2.0[facility] HospitalComment on above:Performed By: #### [id number] #### [facility] [address], [place] [address]Psr Absolute0.3 E9/LNormal0.0-0.5FK[facility] Comment on above:Performed By: #### [id number] #### [facility] [address], [place] [address]Qjtmntidiir/100 WBC (Bld)2.9 %Normal0.0-8.0[facility] HospitalComment on above:Performed By: #### [id number] #### [facility] [address], [place] [address]Aosgqdoubon distribution width (RBC) [Ratio]14.7 %High10.9-14.2 [facility] HospitalComment on above:Performed By: #### [id number] #### [facility] [address], [place] [address]Kbxcaevslu (Bld) [Volume fraction]43.1 %Ounlem00.7-49.0[facility] HospitalComment on above:Performed By: #### [id number] #### [facility] [address], [place] [address]Negxbyigjm (Bld) [Mass/Vol]14.3 g/mFDabwop02.5-17.5FKettering Health MiamisburgComment on above:Performed By: #### [id number] #### [facility] [address] [place] [address]Xmips Absolute1.4 E9/LNormal1.0-4.0[facility] Comment on above:Performed By: #### [id number] #### [facility] [address] [place] [address]Vxwvdrixkrd/100 WBC (Bld)16.0 %Tmukli75.0-50.0[facility] HospitalComment on above:Performed By: #### [id number] #### [facility] [address] [place] [address]THD (RBC) [Entitic mass]29.2 qyQkuugh82.0-34.0[facility] HospitalComment on above:Performed By: #### [id number] #### [facility] [address] [place] [address]JFDI (RBC) [Mass/Vol]33.1 g/gQPheihm32.4-36.0[facility] HospitalComment on above:Performed By: #### [id number] #### [facility] [address] [place] [address]YNT (RBC) [Entitic vol]88.2 wFOighuf24.0-100.0[facility] HospitalComment on above:Performed By: #### [id number] #### [facility] [address] [place] [address]Dqbe Absolute0.6 E9/LNormal0.2-1.0[facility] Comment on above:Performed By: #### [id number] #### [facility] [address] [place] [address] 35[address]Dddrieccl/100 WBC (Bld)6.7 %Normal4.0-14.0[facility] HospitalComment on above:Performed By: #### [id number] #### [facility] [address], [place] [address]Inftzw Absolute6.4 E9/LNormal2.0-7.5FK[facility] Comment on above:Performed By: #### [id number] #### [facility] [address], [place] [address]Euqtql Auto73.8 %Ykynij08.0-75.0[facility] Comment on above:Performed By: #### [id number] #### [facility] [address], [place] [address]Znnuqrjd301.0 E9/BLskyur729.0-500.0[facility] Comment on above:Performed By: #### [id number] #### [facility] [address] [place] [address]Titzuxdi mean volume (Bld) [Entitic vol]8.8 fLNormal6.4-10.8 [facility] HospitalComment on above:Performed By: #### [id number] #### [facility] [address] [place] [address] 469[address]SOQ2.9 E12/LNormal4.3-5.9[facility] HospitalComment on above:Performed By: #### [id number] #### [facility] [address] [place] [address] 67[address]DQP4.7 E9/LNormal4.0-11.0[facility] HospitalComment on above:Performed By: #### [id number] #### [facility] [address], [place] [address]JFAbn 10-70-6427Nasmuwa [Mass/Vol]4.3 g/dLNormal3.3-5.0[facility] HospitalComment on above:Performed By: #### [id number] #### [facility] [address] [place] [address]Qkgrbvl/Globulin [Mass ratio]1.5 {ratio}Normal1.1-2.2FKettering Health MiamisburgComment on above:Performed By: #### [id number] #### [facility] [address], [place] [address]Jch Phos65 Int._Unit/JVxuizb86-48QojcxuParkview Health Bryan Hospital Comment on above:Performed By: #### [id number] #### [facility] [address], [place] [address]DEO63 Int._Unit/LNormal6-46[facility] HospitalComment on above:Performed By: #### [id number] #### [facility] [address], [place] [address]Ftmtd gap [Moles/Vol]13 mmol/LNormal6-16[facility] HospitalComment on above:Performed By: #### [id number] #### [facility] Laboratory [address] [place] [address] [id number] Int._Unit/LNormal5-43Park[facility] Health Bryan HospitalComment on above:Performed By: #### [id number] #### [facility] [address] [place] [address] 45097Jzch Total0.6 mg/dLNormal0.0-1.1FKettering [facility] Comment on above:Performed By: #### [id number] #### [facility] Laboratory [address] [place] [address] 45341KYO/Creat Ratio22 No IndmyBxqy73-47TmqrckParkview Health Bryan Hospital Comment on above:Performed By: #### [id number] #### [facility] Laboratory [address] [place] [address] 00807Ohsdpfw [Mass/Vol]9.6 mg/dLNormal8.9-11.1FKettering Health MiamisburgComment on above:Performed By: #### [id number] #### [facility] Laboratory [address] [place], [place] [address]Yeepobcd [Moles/Vol]102 mmol/TOwmhtx076-943BzipxrParkview Health Bryan HospitalComment on above:Performed By: #### [id number] #### [facility] Laboratory [address], [place] [address]HY5 [Moles/Vol]30 mmol/MTignhi78-59AhsudgParkview Health Bryan Hospital Comment on above:Performed By: #### [id number] #### [facility] Laboratory [address] [place], [place] [address]Crugxitlky [Mass/Vol]1.0 mg/dLNormal0.5-1.3FKettering Health MiamisburgComment on above:Performed By: #### [id number] #### [facility] Laboratory [address] [place], [place] [address]Osloqhjm (S) [Mass/Vol]2.8 g/dLNormal1.4-4.0[facility] Bryan HospitalComment on above:Performed By: #### [id number] #### [facility] Laboratory [address] [place] [address] 51065Razqtbe [Mass/Vol]91 mg/zXWkfyfw39-660DfkqqzParkview Health Bryan HospitalComment on above:Performed By: #### [id number] #### [facility] Laboratory [address] [place] [address] 24567Xumxcwgsj [Moles/Vol]4.9 mmol/LNormal3.5-5.3FKettering Health MiamisburgComment on above:Performed By: #### [id number] #### [facility] Laboratory [address] [place] [address] 39[address]Euuqhfw [Mass/Vol]7.1 g/dLNormal6.0-7.8[facility] Bryan HospitalComment on above:Performed By: #### [id number] #### [facility] Laboratory [address], [place] [address]Ficstc [Moles/Vol]140 mmol/GDyebfs848-651UfhaoyParkview Health Bryan HospitalComment on above:Performed By: #### [id number] #### [facility] Laboratory [address] [place], [place] [address]Josl nitrogen [Mass/Vol]22 mg/dLHigh5-21Park[facility] Bryan HospitalComment on above:Performed By: #### [id number] #### [facility] Laboratory [address] [place] [address] 23823QpxA0jmh 29-22-3901QyY9h (Bld) [Mass fraction]6.1 %High<=5.9 [facility] Bryan HospitalComment on above:Performed By: #### [id number] #### [facility] Laboratory [address] [place], [place] [address]Hshri Panelon 45-48-7222Kbixrpzdlxu [Mass/Vol]170 mg/dLNormal 120-200[facility] Bryan HospitalComment on above:Performed By: #### [id number] #### [facility] Laboratory [address], [place] [address]Wtficmwuble in HDL [Mass/Vol]46 mg/dLInvalid Interpretation CodeParkview Health Bryan HospitalComment on above:Result Comment: '>= 60 LOW RISK' '<= 40 HIGH RISK'Performed By: #### [id number] #### [facility] Laboratory [address], [place] [address]Jzfbgwhmwpe in LDL [Mass/Vol]104 mg/dLNormal<=129[facility] Bryan HospitalComment on above:Performed By: #### [id number] #### [facility] Laboratory [address], [place] [address]Plqpysioxob in VLDL [Mass/Vol]28 mg/dLNormal7-40[facility] Bryan HospitalComment on above:Performed By: #### [id number] #### [facility] Laboratory [address], [place] [address]Pkhzkenhbwmb [Mass/Vol]142 mg/dLNormal<=149[facility] Bryan HospitalComment on above:Performed By: #### [id number] #### [facility] Laboratory [address], [place] [address]xMLNkn 63-97-3513vFGD92 mL/min/1.73 s9Sklwbi>=59Park[facility] Bryan HospitalComment on above:Performed By: #### [id number] #### [facility] Laboratory [address] [place], [place] [address]Ppgdd and Vascular Office/Clinic Noteon 95-05-7065Xxwjl and Vascular Office/Clinic NoteHeart and Vascular Office/Clinic [...] PHQ Score Initial Depressi (more content not included)...[facility] Comment on above:Result Comment: Electronically Signed By: Chau Patton PA-C\chitra\Date and Time Signed: 09/09/25 11:20 EDTFamily Medicine Office/Clinic Note on 53-04-9534Iizpnl Medicine Office/Clinic NoteFajewish healthcare center Medicine Office/Clinic Note HPI Staff Pt is [...] inh, Inhalation, q6hr, 8.5 gm, Refill(s) 6, [facility], 170, cm, 09/06/25 14:27:00 EDT, Height/Length Dosing, 150, kg, 09/06/25 14:27:00 EDT, Weight Dosing Diabetic Foot Exam E&M of Est. Patient Low 20-29 Min 05501 HgbA1c Potassium Level 2. Leg cramps (R25.2: Cramp and spasm) will check potassium. pt will have to return for potassium because blood can not be taken to lab until Tuesday. Ordered: albuterol, 180 mcg, 2 inh, Inhalation, q6hr, 8.5 gm, Refill(s) 6, [facility] #[facility], 170, cm, 09/06/25 14:27:00 EDT, Height/Length Dosing, 150, kg, 09/06/25 14:27:00 EDT, Weight Dosing Diabetic Foot Exam E&M of Est. Patient Low 20-29 Min 50818 Potassium Level 3. Short of breath on exertion (R06.02: Shortness of breath) pt feels he still gets short of breath with exertion even since having his heart cath. we discussedreferral to pulmonology a couple times. he wants to talk to cardiology first before we refer to pulm Ordered: albuterol, 180 mcg, 2 inh, Inhalation, q6hr, 8.5 gm, Refill(s) 6, [facility] #[facility], 170, cm, 09/06/25 14:27:00 EDT, Height/Length Dosing, 150, kg, 09/06/25 14:27:00 EDT, Weight Dosing Diabetic Foot Exam E&M of Est. Patient Low 20-29 Min 20947 4. Diabetic peripheral neuropathy (E11.42: Type 2 [...] E&M of Est. Patient Low 20-29 Min 68827 5. BMI 50.0-59.9, adult, (Z68.43: Body mass index [BMI] 50.0-59.9, adult)Body mass index [BMI] 50.0-59.9, adult BMI education given Ordered: albuterol, 180 mcg, 2 inh, Inhalation, q6hr, 8.5 gm, Refill(s) 6, [facility] #[facility], 170, cm, 09/06/25 14:27:00 EDT, Height/Length Dosing, 150, kg, 09/06/25 14:27:00 EDT, Weight Dosing Diabetic Foot Exam E&M of Est. Patient Low 20-29 Min 48357 Potassium Level 6. Class 3 severe obesity due to excess calories with body mass index (BMI) of 50.0 to 59.9 in adult (E66.813: Obesity, class 3) see above Ordered: albuterol, 180 mcg, 2 inh, Inhalation, q6hr, 8.5 gm, Refill(s) 6, [facility] #[facility], 170, cm, 09/06/25 14:27:00 EDT, Height/Length Dosing, 150, kg, 09/06/25 14:27:00 EDT, Weight Dosing Diabetic Foot Exam E&M of Est. Patient Low 20-29 Min 87449 Potassium Level Follow-up No qualifying data available [...] Procedure/Surgical History Cardiac cath (more content not included)...[facility] Comment on above:Result Comment: Electronically Signed By: Brianna Li\.cassie\Date and Time Signed: 09/06/25 15:45 EDTHeart and Vascular Office/Clinic Noteon 66-76-6315Hvrti and Vascular Office/Clinic NoteHeart and Vascular Office/Clinic [...] no rash or concerning lesions Cardiac Diagnostics C with Dr. Pineda on 11/23/2024: FINDINGS: SELECTIVE [...] disease in its proxima (more content not included)...NormalFisher Matthew Medical CenterComment on above: Result Comment: Electronically Signed By: Abdi BERRY, Chau Tsai\chitra\Date and Time Signed: 06/03/25 07:57 NWVDyeW8zpt 09-78-3979GlZ9s (Bld) [Mass fraction]6.4 % High<=5.9[facility] Bryan HospitalComment on above:Result Comment: Collection date/time has been modified to: 13:36:00. Previous collection d ate/time: 17:12:00.Performed By: #### [id number] #### [facility] Laboratory [address], [place] [address]Xzbcrlsiyt Visit Summaryon 05-59-6275Lqqjwturmq Visit Summary Ambulatory Visit Summary ANKIT BENITES [...] 3:00 PM EDT With: Brianna Li Where: [place] [id number]- Medications What How Much When Why Instructions [...] you for choosing us for your care. [facility] HospitalCHEMISTRYOrdered By: SYSTEM SYSTEM on [id number]-tjrytnhprbevvv D3 [Mass/Vol]29.7 ng/mLLow30.0 - 100.0 ng/mLRemisol ChemCHEMISTRYOrdered By: Lucho Fenton on 96-88-9533JjE6i (Bld) [Mass fraction]6.4 %High<=5.9%[facility] ChemAutoSSFajewish healthcare center Medicine Office/Clinic Noteon 84-08-8656Kidboo Medicine Office/Clinic NoteFajewish healthcare center Medicine Office/Clinic Note Chief Complaint med refill [...] 04/22/25 14:33:00 EDT HgbA1c Lab Specimen Collect 45447 Vitamin D 25 Hydroxy 2. Vitamin D deficiency (E55.9: Vitamin D deficiency, unspecified) will check Vitamin D today. Ordered: ketorolac, 60 mg = 2 mL, Injection, IntraMuscular, Once, Stop date 04/22/25 14:33:00 EDT, Routine, Start date 04/22/25 14:33:00 EDT, 04/22/25 14:33:00 EDT HgbA1c Lab Specimen Collect 62174 Vitamin D 25 Hydroxy 3. Exertional angina [...] EDT, 04/22/25 14:37:00 EDT Lab Specimen Collect 65397 4. Bilateral knee pain (M25.561: Pain in right knee) pt c/o DE knee pain. toradol and kenalog injection given in office today. 5. Nonsmoker (Z78.9: Other specified health status) continue not smoking Ordered: ketorolac, 60 mg = 2 mL, Injection, IntraMuscular, Once, Stop date 04/22/25 14:33:00 EDT, Routine, Start date 04/22/25 14:33:00 EDT, 04/22/25 14:33:00 EDT HgbA1c Lab Specimen Collect 85852 Vitamin D 25 Hydroxy 6. BMI 50.0-59.9, adult (Z68.43: Body mass index [BMI] 50.0-59.9, adult) BMI education given. ozempic increased to 1.2 mg Ordered: ketorolac, 60 mg = 2 mL, Injection, IntraMuscular, Once, Stop date 04/22/25 14:33:00 EDT, Routine, Start date 04/22/25 14:33:00 EDT, 04/22/25 14:33:00 EDT HgbA1c Lab Specimen Collect 42383 Vitamin D 25 Hydroxy Orders: fluconazole, See Instructions, TAKE 1 TABLET BY MOUTH on day one and TAKE 1 TABLET on day FOUR, # 2tab(s), Refills(s) 1, Pharmacy: [facility], 170, cm, 04/22/25 13:16:00 EDT, Height/Length Dosing, 150, kg, 04/22/25 13:16:00 EDT, Weight Dosing nystatin topical, 1 marie, Topical, BID, 30 gm, Refill(s) 0, [facility], 170, cm, 04/22/25 13:16:00 EDT, Height/Length [...] Instructions hydrochlorothiazide 12.5 m (more content not included)...NormalParkview Health Bryan HospitalComment on above:Result Comment: Electronically Signed By: Brianna Li\.br\Date and Time Signed: 04/22/25 14:49 AIIAxiV3bmq 43-98-3069VhU4w (Bld) [Mass fraction]6.4 %High<=5.9Park[facility] Health Bryan HospitalComment on above: Performed By: #### [id number] #### [facility] Laboratory [address], [place] [address]Lpalcie D 25 Hydroxyon 24-75-6104Extqiuf D 25 Nvygfol00.7 ng/mL Low30.0-100.0Park[facility] Health Bryan HospitalComment on above:Performed By: #### [id number] #### [facility] Laboratory [address], [place] [address]Sbqit and Vascular Office/Clinic Noteon 22-32-4166Hlkmx and Vascular Office/Clinic NoteHeart and Vascular Office/Clinic [...] catheterization procedure report DATE OF PROCEDURE: 11/23/2024 MANAGER STORE Luis Carlos Pineda MD [facility] INDICATION: Chest pain, consistent with typical unstable [...] patient was brought to the Adult Cardiac Sheep Boner and placed on the table. The planned puncture sites/areas were prepped and draped in usual sterile fashion and a safety time-out was performed. Moderate Sedation was given by the Cardiac Sheep Boner RN. RIGHT RADIAL ARTERY ACCESS: The puncture [...] administered via peripheral IV by the laboratory assistant RN after the catheter crossed [...] multiple projections were obtained. (more content not included)...[facility] HospitalComment on above:Result Comment: Electronically Signed By: Edwin RHOADES, Luis Carlos Salvador\.cassie\Date and Time Signed: 02/07/25 14:25 EDTAmbulatory Visit Summaryon 08-31-8863Ixvrlrewix Visit SummaryAmbulatory Visit Summary ANKIT BENITES :1970 [...] you for choosing us for your care. [facility] Medicine Office/Clinic Noteon 50-58-2552[place] Medicine Office/Clinic NoteChelsea [facility] Medicine Office/Clinic Note HPI Staff Ankit [...] If pain continues will order MRI through [facility] imaging self pay program. Ordered: acetaminophen-oxycodone, 1 tab(s), Oral, q6hr, 8 tab(s), Refill(s) 0, [facility], 170, cm, 01/10/25 11:38:00 EST, Height/Length Dosing, 153.1, kg, 01/10/25 11:38:00 EST, Weight Dosing cyclobenzaprine, 10 mg = 1 tab(s), Oral, TID, PRN for spasm, # 30 tab(s), Refills(s) 0, Pharmacy: [facility], 170, cm, 01/10/25 11:38:00 EST, Height/Length Dosing, 153.1, kg, 01/10/2511:38:00 EST, Weight Dosing 2. Morbid obesity with BMI of 50.0-59.9, adult (E66.01: Morbid (severe) obesity due to excess calories) BMI education given Ordered: acetaminophen-oxycodone, 1 tab(s), Oral, q6hr, 8 tab(s), Refill(s) 0, [facility] #[facility], 170, cm, 01/10/25 11:38:00 EST, Height/Length Dosing, 153.1, kg, 01/10/25 11:38:00 EST, Weight Dosing cyclobenzaprine, 10 mg = 1 tab(s), Oral, TID, PRN for spasm, # 30 tab(s), Refills(s) 0, Pharmacy: [facility] #[facility], 170, cm, 01/10/25 11:38:00 EST, Height/Length [...] 50,000 intl units (1.25 mg) oral capsule, 76341 International_Unit= 1 cap(s), Oral, qWeek, 3 refills Allergies penicillins (Epistaxis) Social History Alcohol - Denies Alcohol Use, 11/25/2024 Never., 08/29/2024 Substance Abuse - Denies Substance Abuse, 11/25/2024 Never., 08/29/2024 Tobacco - Denies Tobacco Use, 11/25/2024 Never (less than 100 (more content not included)...[facility] HospitalComment on above:Result Comment: Electronically Signed By: Brianna Li\.br\Date and Time Signed: 01/10/25 12:35 ESTBMPon 07-15-4694Dnuwa gap [Moles/Vol]12 mmol/LNormal6-16Park[facility] Bryan HospitalComment on above: Performed By: #### [id number] #### [facility] Laboratory [address], [place] [address]Wxyqcst [Mass/Vol]9.8 mg/dLNormal8.9-11.1FKettering Health MiamisburgComment on above:Performed By: #### [id number] #### [facility] Laboratory [address], [place] [address]Jgqciwhl [Moles/Vol]101 mmol/PFkcefe880-250MvemkzParkview Health Bryan HospitalComment on above:Performed By: #### [id number] #### [facility] Laboratory [address], [place] [address]WF4 [Moles/Vol]29 mmol/NWeoear58-13NrtxcyParkview Health Bryan Hospital Comment on above:Performed By: #### [id number] #### [facility] Laboratory [address], [place] [address]Axwsnaeqss [Mass/Vol]0.8 mg/dLNormal0.5-1.3FKettering Health MiamisburgComment on above:Performed By: #### [id number] #### [facility] Laboratory [address], [place] [address]Sinnwmx [Mass/Vol]147 mg/eGAovcbg23-899SqjfhdParkview Health Bryan HospitalComment on above:Performed By: #### [id number] #### [facility] Laboratory [address], [place] [address]Xbajegxel [Moles/Vol]4.5 mmol/LNormal3.5-5.3FKettering Health MiamisburgComment on above:Performed By: #### [id number] #### [facility] Laboratory [address], [place] [address]Xlgygx [Moles/Vol]137 mmol/WFbziel126-994UfvrovParkview Health Bryan HospitalComment on above:Performed By: #### [id number] #### [facility] Laboratory [address], [place] [address]Iaht nitrogen [Mass/Vol]20 mg/dLNormal5-21Park[facility] Bryan HospitalComment on above:Performed By: #### [id number] #### [facility] Laboratory [address], [place] [address]Bfil nitrogen/Creatinine [Mass ratio]25 No JfgrvMjaw84-79HvtmwkParkview Health Bryan HospitalComment on above:Performed By: #### [id number] #### [facility] Laboratory [address], [place] [address]SZUHQPTBUBldwqzx By: SYSTEM SYSTEM on 39-23-1606Wogrt gap [Moles/Vol]12 mmol/LNormal6 - 16 mEq/LRemisol ChemCalcium [Mass/Vol]9.8 mg/dL Normal8.9 - 11.1 mg/dLRemisol ChemChloride [Moles/Vol]101 mmol/KNsmeaq373 - 111 mmol/LRemisol ChemCholesterol [Mass/Vol]144 mg/uWGtshaq730 - 200 mg/dLRemisol ChemCholesterol in HDL [Mass/Vol]52 mg/dLInvalid Interpretation CodeRemisol Chem Comment on above:Result Comment: '>= 60 LOW RISK' '<= 40 HIGH RISK'Cholesterol in LDL [Mass/Vol]83 mg/dLNormal<=129mg/dLRemisol ChemCholesterol in VLDL [Mass/Vol]18 mg/dLNormal7 - 40 mg/dLRemisol ChemCO2 [Moles/Vol]29 mmol/LTkbmga97 - 31 mmol/LRemisol ChemCreatinine [Mass/Vol]0.8 mg/dLNormal0.5 - 1.3 mg/dLRemisol CmviiVDW588 mL/min/1.73 m4Grtiuk >=59mL/min/1.73 x9Dxjtrqk ChemGlucose [Mass/Vol]147 mg/tEPfoark97 - 199 mg/dL Remisol ChemPotassium [Moles/Vol]4.5 mmol/LNormal3.5 - 5.3 mmol/LRemisol Chem Sodium [Moles/Vol]137 mmol/KXnlbaf383 - 145 mmol/LRemisol ChemTriglyceride [Mass/Vol]90 mg/dLNormal<=149mg/dLRemisol ChemUrea nitrogen [Mass/Vol]20 mg/dL Normal5 - 21 mg/dLRemisol ChemUrea nitrogen/Creatinine [Mass ratio]25 mg/mgHigh 10 - 20Remisol ChemCHEMISTRYOrdered By: Mari Sheriff on 21-58-6458HeD8n (Bld) [Mass fraction]7.4 %High<=5.9%[facility] XhpfCeulRYUjwO3khw 10-58-2877GaQ4x (Bld) [Mass fraction]7.4 %High<=5.9[facility] Bryan HospitalComment on above: Performed By: #### [id number] #### [facility] Laboratory [address] [place], [place] [address]Uyeaj Panelon 31-38-4364Oqsnrgshfhj [Mass/Vol]144 mg/dLNormal 120-200Park[facility] Bryan HospitalComment on above:Performed By: #### [id number] #### [facility] Laboratory [address], [place] [address]Yslsfucrpap in HDL [Mass/Vol]52 mg/dLInvalid Interpretation CodeParkview Health Bryan HospitalComment on above:Result Comment: '>= 60 LOW RISK' '<= 40 HIGH RISK'Performed By: #### [id number] #### [facility] Laboratory [address], [place] [address]Hpgzmmhhoyq in LDL [Mass/Vol]83 mg/dLNormal<=129Park[facility] Bryan HospitalComment on above:Performed By: #### [id number] #### [facility] Laboratory [address], [place] [address]Mbsewrwovzc in VLDL [Mass/Vol]18 mg/dLNormal7-40Park[facility] Bryan HospitalComment on above:Performed By: #### [id number] #### [facility] Laboratory [address], [place] [address]Ookmpzcacghl [Mass/Vol]90 mg/dLNormal<=149Park[facility] Bryan HospitalComment on above:Performed By: #### [id number] #### [facility] Laboratory [address] [facility] [place] [address]hRJLuj 96-07-1089uRED691 mL/min/1.73 u5Zwbvci>=59[facility] Medical CenterComment on above:Performed By: #### [id number] #### [facility] Laboratory [address] [place] [address]YQ Note-Physicianon 84-15-3490ST Note-PhysicianED Note-Physician Basic Information Time Seen: Anthony [...] (100%blockage) on Tuesday with Dr. Love at [facility]. He states that directly after his procedure [...] Making Patient seen and evaluated with physician commercial escrow assistant student. I had a dhfz-ib-hawl interaction with the patient. I personally performed [...] Inhalation, q6hr Wheezing, 8.5 gm, Refill(s) 0, [facility], 170, cm, 11/25/24 11:49:00 EST, Height/Length Dosing, 154, kg, 11/25/24 11:49:00 EST, Weight Dosing albuterol-ipratropium, 3 mL, Soln-Inh, Inhalation, Once, Stop date 11/25/24 13:14:00 EST, STAT, Start date 11/25/24 13:14:00 EST azithromycin, = 1 packet(s), Oral, As Directed, as directed on package labeling, X 5 day(s), # 6 tab(s), Refills(s) 0, Pharmacy: [facility], 170, cm, 11/25/24 11:49:00 EST, Height/Length Dosing, 154, kg, 11/25/24 11:49:00 EST, Weight Dosing predniSONE, 60 mg = 3 tab(s), Tab, Oral, Once, Stop date 11/25/24 13:15:00 EST, STAT, Start date 11/25/24 13:15:00 EST, 11/25/24 13:15:00 EST predniSONE, 60 mg = 3 tab(s), Oral, Daily, X 5 day(s), # 15 tab(s), Refills(s) 0, Pharmacy: [facility], 170, cm, 11/25/24 11:49:00 EST, Height/Length [...] Follow-up With When Contac (more content not included)...[facility] Comment on above:Result Comment: Electronically Signed By: Anthony Michele PA-C\.br\Date and Time Signed: 11/25/2512:38 EST\.br\Electronically Co-Signed By: Zeb Ritchie MD\.br\Date and Time Co-Signed: 12/21/24 16:03 ESTHeart and Vascular Office/Clinic Noteon 36-94-2753Smzcj and Vascular Office/Clinic Note Heart and Vascular [...] catheterization procedure report DATE OF PROCEDURE: 11/23/2024 MANAGER STORE Luis Carlos Pineda MD [facility] INDICATION: Chest pain, consistent with typical unstable [...] patient was brought to the Adult Cardiac Sheep Boner and placed on the table. The planned puncture sites/areas were prepped and draped in usual sterile fashion and a safety time-out was performed. Moderate Sedation was given by the Cardiac Sheep Boner RN. RIGHT RADIAL ARTERY ACCESS: The puncture [...] administered via peripheral IV by the laboratory assistant RN after the catheter crossed [...] diagnostic catheter over guide (more content not included)...[facility] HospitalComment on above: Result Comment: Electronically Signed By: Edwin RHOADES, Luis Carlos D\.br\Date and Time Signed: 12/14/24 14:40 [facility] Medicine Office/Clinic Noteon 12-26-3028Kpenwh Medicine Office/Clinic NoteChelsea [facility] Medicine Office/Clinic Note HPI Staff Ankit [...] before bedtime, # 90 tab(s), Refills(s) 0,Pharmacy: [facility], 170, cm, 11/28/24 17:02:00 EST, Height/Length [...] before bedtime, # 90 tab(s), Refills(s) 0,Pharmacy: [facility], 170, cm, 11/28/24 17:02:00 EST, Height/Length [...] day(s), # 5 tab(s), Refills(s) 0, Pharmacy: [facility], 170, cm, 11/28/24 17:02:00 EST, Height/Length Dosing, 150.2, kg, 11/28/24 17:02:00 EST, Weight Dosing ropinirole, 2 mg = 1 tab(s), Oral, Bedtime, 1 to 3 hours before bedtime, # 90 tab(s), Refills(s) 0,Pharmacy: [facility], 170, cm, 11/28/24 17:02:00 EST, Height/Length [...] day(s), # 5 tab(s), Refills(s) 0, Pharmacy: [facility], 170, cm, 11/28/24 17:02:00 EST, Height/Length Dosing, 150.2, kg, 11/28/24 17:02:00 EST, Weight Dosing ropinirole, 2 mg = 1 tab(s), Oral, Bedtime, 1 to 3 hours before bedtime, # 90 tab(s), Refills(s) 0,Pharmacy: [facility], 170, cm, 11/28/24 17:02:00 EST, Height/Length Dosing, 150.2, kg, 11/28/24 17:02:00 EST, Weight Dosing triamcinolone, 60 mg = 1.5 mL, Injection, IntraMuscular, Once, Stop date 11/28/24 17:46:00 EST, Routine, Start date 11/28/24 17:46:00 EST, 11/28/24 17:46:00 EST Orders: albuterol, See Instructions, 60 mL, Refill(s) 0, INHALE 1 vial BY MOUTH EVERY 6 HOURS NEEDED FORWHEEZING, [facility], 170, cm, 11/28/24 17:02:00 EST, Height/Length Dosing, 150.2, kg, 11/28/24 17:02:00 EST, Weight Dosing Follow-up No qualifying data available Problem List/Past Medical History Ongoing Candidiasis Constricting chest pain often radiating down left arm Diabetes type 2, controlled Dizziness Encounter for weight management Fatigue History of placement of stent in LAD coronary artery Hypercholesteremia Left shoulder pain Left-sided (more content not included)...[facility] Comment on above:Result Comment: Electronically Signed By: Brianna Li\.br\Date and Time Signed: 11/29/24 13:21 ESTED Clinical Summaryon [id number] Clinical SummaryED Clinical Summary [place] [id number] ED Clinical Summary Person Information [facility] Age: 54 Years : 1970 Sex: Male Language: Guatemalan PCP: Brianna Li Marital Status: Single Visit [...] 13:42:02 11/25/2024 13:42:02 11/25/2024 13:42:02 ADDRESS: [address] [place] [id number] PHYS DOC NOTES: MEDICAL INFORMATION: Prescriptions Given: New Medications [facility], [address] [place], [place] [id number], [phone] albuterol (Albuterol (Eqv-ProAir HFA) 90 mcg/inh inhalation [...] Adult; Bronchospasm, Adult Follow up: With: Address: Eliseo: Brianna Lugo [address] [place] [address] Business (1) In 3 days 11/28/2024 DIAGNOSIS: Acute bronchospasm; CoughNormalFisher Clermont County Hospital CenterED Patient Summaryon 53-68-3103ZK Patient SummaryED Patient Summary [address] [address] Patient Discharge Instructions Person Information Name: ANKIT BENITES Age: 54 Years Arrival Date: 11/25/2024 11:38:02 Discharge Diagnosis: Acute bronchospasm; Cough Primary Care Physician: Brianna Li Provider Information Primary Provider: Zeb Ritchie MD Advanced Passenger Coach Driver:Anthony Michele PA-C The exam and treatment you received in the Emergency Department were for an urgent problem and are not intended as complete care. It is important that you follow up with a doctor, nurse practitioner,or physician???s commercial escrow assistant for ongoing care. If your symptoms become worse or you do not improve asexpected and you are unable to reach your usual health care provider, you should return to the Emergency Department. We are available 24 hours a day. ANKIT BENITES has been given the following list of patient education materials, prescriptions andfollow-up instructions: Follow-up Instructions: With: Address: When: Brianna Lugo [address] [place], [place] [id number] [facility] (1) In 3 days 11/28/2024 In the event that this physician does not participate in your insurance network, please consult with your insurance company to find a nearby participating provider. Patient Education Materials: Cough, Adult; Bronchospasm, Adult A MESSAGE TO ALL PATIENTS REGARDING OPIOIDS PRESCRIPTION OPIOIDS: WHAT YOU NEED TO KNOW Prescription opioids can be used to help relieve vnkqxuwb-tm-pwvzpu pain and are often prescribed following a [...] your health care pro (more content not included)...[facility]XR Chest 2 Viewson [id number] Chest 2 ViewsExam Date/Time: 11/25/2024 12:18 EST [...] Ka,r in mGy = . DAP = .[facility] HospitalInpatient Clinical Summaryon 11-23-2024 Inpatient Clinical SummaryInpatient Clinical Summary [place] [id number] Clinical Summary Person Information: Name: ANKIT BENITES Age: 54 Years : 1970 Sex: Male PCP: Brianna Li Marital Status: Unknown Race: White Ethnicity: Non- or Language: Guatemalan Visit Id: Visit Reason: R07.9 I20.0 Speciality: Acuity: Enc Type: Ambulatory/Same Day Surgery Med Service: Cardiovascular Arrival: 11/23/2024 07:26:40 Discharge: Dispo Type: Address: [address] [place] [address] [phone] Provider Notes: Diagnosis: Problems Active Dizziness Fatigue [...] up: With: Address: When: Luis Carlos Pineda [address] [place] [phone] Business (1) 12/07/2024 2:00 PM With: Address: When: Brianna Lugo Type [facility]28/[facility]24 5:00 PM 11/28/2024 5:20 PM Confirmed Patient Education Information: CV - Cardiovascular PCI Discharge Instructions (Custom) Plavix 75 mg JamesNormalParkview Health Bryan HospitalInpatient Patient Summaryon [id number] Patient SummaryInpatient Patient Summary [facility] [address] Patient Discharge Instructions PERSON INFORMATION Name: ANKIT [...] up: With: Address: When: Luis Carlos Pineda [address] [place], [place] [phone] [facility] () 12/07/2024 2:00 PM With: Address: When: Brianna Lugo In the event that this physician does not participate in your insurance network, please consult with your insurance company to find a nearby participating provider. Type Location [facility] 11/28/2024 5:00 PM 11/28/2024 5:20 PM Confirmed Comment: DELMIS Camacho JAMES, have received the attached patient education materials/instructions and have verbalized understanding: Patient Signature Date Clinican/Nurse Signature Date HERE ARE THE MEDICATION CHANGES THAT OCCURRED DURING YOUR HOSPITAL STAY New Medications [facility], [address] [place], [place] [id number], [phone] amlodipine (amLODIPine 5 mg Tab) 1 Tablets By Mouth every day. Refills: 0. Last Dose: Next Dose: clopidogrel (Plavix 75 mg Tab) 1 Tablets By Mouth every day. Refills: 3. Last Dose: Next Dose: losartan (losartan 50 mg Tab) 1 Tablets By Mouth every day. Refills: 0. Last Dose: Next Dose: Medications to Continue Taking That Have Changed [facility] [place], [place] [id number], [phone] START: aspirin (aspirin 81 mg Oral EC [...] times a day f (more content not included)...NormalParkview Health Bryan HospitalBMPon 16-14-7144Qsgws gap [Moles/Vol]12 mmol/LNormal6-16Park[facility] Bryan HospitalComment on above: Performed By: #### [id number] #### [facility] [address] [place], [place] [address]Iquhybk [Mass/Vol]9.4 mg/dLNormal8.9-11.1FKettering Health MiamisburgComment on above:Performed By: #### [id number] #### [facility] [address] [place], [place] [address]Iafjqvkf [Moles/Vol]103 mmol/TBbotip376-158IkrhofParkview Health Bryan HospitalComment on above:Performed By: #### [id number] #### [facility] [address] [place], [place] [address]XD5 [Moles/Vol]26 mmol/NDebsbh57-95KxyqwaParkview Health Bryan Hospital Comment on above:Performed By: #### [id number] #### [facility] [address] [place], [place] [address]Aldyrxmpah [Mass/Vol]0.8 mg/dLNormal0.5-1.3FKettering Health MiamisburgComment on above:Performed By: #### [id number] #### [facility] [address] [place], [place] [address]Cutlscx [Mass/Vol]216 mg/iILxaz18-590AgsrsjParkview Health Bryan HospitalComment on above:Performed By: #### [id number] #### [facility] [address], [place] [address]Jmgytevrn [Moles/Vol]4.4 mmol/LNormal3.5-5.3FKettering Health MiamisburgComment on above:Performed By: #### [id number] #### [facility] [address] [place] [address]Zpmqnr [Moles/Vol]137 mmol/GAshhnk716-756TsbslhParkview Health Bryan HospitalComment on above:Performed By: #### [id number] #### [facility] [address] [place] [address]Safc nitrogen [Mass/Vol]18 mg/dLNormal5-21Park[facility] Bryan HospitalComment on above:Performed By: #### [id number] #### [facility] [address] [place] [address]Mvki nitrogen/Creatinine [Mass ratio]22 No NooccXtrp52-77XjkbsiParkview Health Bryan HospitalComment on above:Performed By: #### [id number] #### [facility] [address] [place] [address]ONX w/ Auto Diffon 30-14-2081Zqwbjrjqk/100 WBC (Bld)0.3 %Normal 0.0-2.0Park[facility] Health Bryan HospitalComment on above:Performed By: #### [id number] #### [facility] [address] [place] [address]Hqvodhszq/Leukocytes Auto (Bld) [Pure # fraction]0.0 E9/LNormal 0.0-0.2FKettering Health MiamisburgComment on above:Performed By: #### [id number] #### [facility] [address] [place] [address]Uebsrlvhzce (Bld) [#/Vol]0.2 E9/LNormal0.0-0.5FKettering Health MiamisburgComment on above:Performed By: #### [id number] #### [facility] [address] [place] [address]Udqzzcvtbrm/100 WBC (Bld)2.4 %Normal0.0-8.0Park[facility] Health Bryan HospitalComment on above:Performed By: #### [id number] #### [facility] [address] [place] [address]Firjnztycci distribution width (RBC) [Ratio]13.8 %Normal 10.9-14.2FKettering Health MiamisburgComment on above:Performed By: #### [id number] #### [facility] [address] [place] [address]Yypslvnmdv (Bld) [Volume fraction]44.9 %Xqjzbs90.7-49.0Park[facility] Bryan HospitalComment on above:Performed By: #### [id number] #### [facility] [address] [place] [address]Apwnwngrmh (Bld) [Mass/Vol]15.1 g/kHKgcmqx07.5-17.5FKettering Health MiamisburgComment on above:Performed By: #### [id number] #### [facility] [address] [place] [address]Tgwtgkepjbm (Bld) [#/Vol]1.6 E9/LNormal1.0-4.0Park[facility] Bryan HospitalComment on above:Performed By: #### [id number] #### [facility] [address] [place] [address] 238[address]Zmikkamxbuj/100 WBC (Bld)21.6 %Axrlhx11.0-50.0[facility] Bryan HospitalComment on above:Performed By: #### [id number] #### [facility] [address] [place] [address]JMN (RBC) [Entitic mass]28.7 wySiikva45.0-34.0[facility] Bryan HospitalComment on above:Performed By: #### [id number] #### [facility] [address] [place] [address]YWLX (RBC) [Mass/Vol]33.7 g/jEPlolwr29.4-36.0[facility] Bryan HospitalComment on above:Performed By: #### [id number] #### [facility] [address] [place] [address]VBH (RBC) [Entitic vol]85.0 gXCimmhq33.0-100.0[facility] Bryan HospitalComment on above:Performed By: #### [id number] #### [facility] [address] [place] [address]Clbqzrtqm (Bld) [#/Vol]0.5 E9/LNormal0.2-1.0[facility] Bryan HospitalComment on above:Performed By: #### [id number] #### [facility] [address] [place] [address] 705[address]Ppnuexwmjio (Bld) [#/Vol]5.3 E9/LNormal2.0-7.5FKettering Health MiamisburgComment on above:Performed By: #### [id number] #### [facility] [address] [place] [address]110[address]Uyhmemcjcar/100 WBC (Bld)69.2 %Fjfmjl67.0-75.0[facility] Bryan HospitalComment on above:Performed By: #### [id number] #### [facility] [address] [place] [address]Acnflifl mean volume (Bld) [Entitic vol]8.9 fLNormal6.4-10.8 [facility] Bryan HospitalComment on above:Performed By: #### [id number] #### [facility] [address] [place] [address]Soidlzvao (Bld) [#/Vol]212.0 E9/RGrrqlh147.0-500.0[facility] Bryan HospitalComment on above:Performed By: #### [id number] #### [facility] [address] [place] [address]ORQ (Bld) [#/Vol]5.3 E12/LNormal4.3-5.9[facility] Bryan HospitalComment on above:Performed By: #### [id number] #### [facility] [address] [place] [address]17[address]GOU corrected for nucl RBC Auto (Bld) [#/Vol]7.6 E9/LNormal 4.0-11.0[facility] Bryan HospitalComment on above:Performed By: #### [id number] #### [facility] [address] [place] [address] 455[address]GPYJMXCBRUkhgoor By: SYSTEM SYSTEM on 31-04-2406Vhhbg gap [Moles/Vol]12 mmol/LNormal6 - 16 mEq/LRemisol ChemCalcium [Mass/Vol]9.4 mg/dL Normal8.9 - 11.1 mg/dLRemisol ChemChloride [Moles/Vol]103 mmol/OEwyfwd297 - 111 mmol/LRemisol ChemCO2 [Moles/Vol]26 mmol/LTywvck67 - 31 mmol/LRemisol Chem Creatinine [Mass/Vol]0.8 mg/dLNormal0.5 - 1.3 mg/dLRemisol SfheiKOF308 mL/min/1.73 p1Vitouv>=59mL/min/1.73 i1Kcbzswl ChemGlucose [Mass/Vol]216 mg/dL High55 - 199 mg/dLRemisol ChemPotassium [Moles/Vol]4.4 mmol/LNormal3.5 - 5.3 mmol/LRemisol ChemSodium [Moles/Vol]137 mmol/QUghtnj553 - 145 mmol/LRemisol Chem Urea nitrogen [Mass/Vol]18 mg/dLNormal5 - 21 mg/dLRemisol ChemUrea nitrogen/Creatinine [Mass ratio]22 mg/pdYslc19 - 20Remisol ChemHEMATOLOGYOrdered By: SYSTEM SYSTEM on 49-05-5851Cpsjowdib/100 WBC (Bld)0.3 %Normal0.0 - 2.0 % Remisol HemeBasophils/Leukocytes Auto (Bld) [Pure # fraction]0.0 E9/LNormal0.0 - 0.2 E9/LRemisol HemeEosinophils (Bld) [#/Vol]0.2 E9/LNormal0.0 - 0.5 E9/LRemisol HemeEosinophils/100 WBC (Bld)2.4 %Normal0.0 - 8.0 %Remisol HemeErythrocyte distribution width (RBC) [Ratio]13.8 %Pevunt88.9 - 14.2 %Remisol HemeHematocrit (Bld) [Volume fraction]44.9 %Zkxhxj63.7 - 49.0 %Remisol HemeHemoglobin (Bld) [Mass/Vol]15.1 g/cITrwlqg71.5 - 17.5 gm/dLRemisol HemeLymphocytes (Bld) [#/Vol] 1.6 E9/LNormal1.0 - 4.0 E9/LRemisol HemeLymphocytes/100 WBC (Bld)21.6 %Normal 14.0 - 50.0 %Remisol HemeMCH (RBC) [Entitic mass]28.7 evAewhpv05.0 - 34.0 pg Remisol HemeMCHC (RBC) [Mass/Vol]33.7 g/vKCfzovu95.4 - 36.0 gm/dLRemisol HemeMCV (RBC) [Entitic vol]85.0 yUOkqdun09.0 - 100.0 fLRemisol HemeMonocytes (Bld) [#/Vol]0.5 E9/LNormal0.2 - 1.0 E9/LRemisol HemeMonocytes/100 WBC (Bld)6.5 % Normal4.0 - 14.0 %Remisol HemeNeutrophils (Bld) [#/Vol]5.3 E9/LNormal2.0 - 7.5 E9/LRemisol HemeNeutrophils/100 WBC (Bld)69.2 %Jazqec61.0 - 75.0 %Remisol Heme Platelet mean volume (Bld) [Entitic vol]8.9 fLNormal6.4 - 10.8 fLRemisol Heme Platelets (Bld) [#/Vol]212.0 E9/LJpilce805.0 - 500.0 E9/LRemisol HemeRBC (Bld) [#/Vol]5.3 E12/LNormal4.3 - 5.9 E12/LRemisol HemeWBC corrected for nucl RBC Auto (Bld) [#/Vol]7.6 E9/LNormal4.0 - 11.0 E9/LRemisol HemeeGFRon 56-64-7551oKHX376 mL/min/1.73 p2Skmfeu>=59FishGrace Medical CenterComment on above:Performed By: #### [id number] #### [facility] [address] [place], [place] [address]Epbbr and Vascular Office/Clinic Noteon 74-76-8088Bzqgu and Vascular Office/Clinic NoteHeart and Vascular Office/Clinic [...] 50,000 intl units (1.25 mg) oral capsule, 60[address] International_Unit= 1 cap(s), Oral, qWeek, 3 refills Allergies penicillins (Epistaxis) Social History Alcohol Never., 08/29/2024 Substance Abuse Never., 08/29/2024 Tobacco Never (less than 100 in lifetime) Tobacco Use:. Never Smokeless Tobacco Use:. Household tobacco concerns: No. Yes, 11/02/2024 Family History Diabetes mellitus type 2: Sister.[facility] HospitalComment on above:Result Comment: Electronically Signed By: Edwin RHOADES, Luis Carlos Salvador\.cassie\Date and Time Signed: 11/02/24 14:43 ESTReminderson 09-68-6360NrszzmvydJerpcgyzg From: Brianna Li To: B - Clinical; [...] 100.0) 10/30/2024 9:53 Testoster Tot 320 ng/dL (894-796 - ) Pt has been notified.[facility] HospitalTestost Totalon 11-01-2024 Testosterone [Mass/Vol]320 ng/dLInvalid Interpretation Jhsk453-590RalmltParkview Health Bryan HospitalComment on above:Result Comment: Adult male reference interval is based on a population of healthy nonobese males (BMI <30) between 19 and 39 years old. Travison, et.al. JCEM 2017,102;9740-4319. PMID: [id number]. Performed at: [facility] [id number] PhD Brett Grafformed By: #### [id number] #### [facility] [address] [place], [place] [address]Lpslyhsopz Visit Summaryon 88-24-0034Oqdloveeem Visit Summary Ambulatory Visit Summary ANKIT BENITES [...] RHOADES, Luis Carlos Salvador Where: Cardiology Clinic [place] Tuesday 5:00 PM EST With: Brianna iL Where: [facility] [address] [address]- Medications What How Much When Why Instructions [...] you for choosing us for your care. [facility] HospitalAmbulatory Visit Summary Ambulatory Visit Summary DELMIS [...] PM EST With: Edwin RHOADES, Luis Carlos Salvdaor Where: [facility] [place] Tuesday 5:00 PM EST With: Brianna Li Where: [place] [id number]- Medications What How Much When Why Instructions [...] you for choosing us for your care. [facility] HospitalCHEMISTRYOrdered By: SYSTEM SYSTEM on 456009-kplfkfnvyjbrft D3 [Mass/Vol]20.6 ng/mLLow30.0 - 100.0 ng/mLRemisol ChemCholesterol [Mass/Vol]192 mg/hBWikrzc573 - 200 mg/dLRemisol ChemCholesterol in HDL [Mass/Vol]49 mg/dLInvalid Interpretation CodeRemisol Chem Comment on above:Result Comment: '>= 60 LOW RISK' '<= 40 HIGH RISK'Cholesterol in LDL [Mass/Vol]125 mg/dLNormal<=129mg/dLRemisol ChemCholesterol in VLDL [Mass/Vol]27 mg/dLNormal7 - 40 mg/dLRemisol Chem Triglyceride [Mass/Vol]137 mg/dLNormal<=149mg/dLRemisol ChemFami Medicine Office/Clinic Noteon 14-93-3154Xzyhiq Medicine Office/Clinic NoteFajewish healthcare center Medicine Office/Clinic Note Chief Complaint 1m follow up HPI Staff 1m follow up to Lt sided chest pain. & to discuss weight management. Referred to Cardiology @ [facility] (if cleared by cardio, then possible referral [...] get HGBA1C below 7. will order through [facility] Ordered: Lipid Panel Testosterone Level Total [...] four, # 2 tab(s), Refills(s) 1, Pharmacy: [facility], 170, cm, 09/26/24 8:58:00 EST, Height/Length [...] four, # 2 tab(s), Refills(s) 1, Pharmacy: [facility], 170, cm, 09/26/24 8:58:00 EST, Height/Length [...] DAYS, # 10 tab(s), Refills(s) 1, Pharmacy: [facility], 170, cm, 09/26/24 8:58:00 EST, Height/Length [...] Oral, Daily, 3 r (more content not included)...NormalParkview Health Bryan HospitalComment on above:Result Comment: Electronically Signed By: Brianna Li\Date and Time Signed: 10/30/24 12:33 ESTLipid Panelon 63-60-3856Ddgxtiauubu [Mass/Vol]192 mg/uWErhgvi450-732 [facility] Bryan HospitalComment on above:Performed By: #### [id number] #### [facility] [address] [place], [place] [address]Sjliultbvil in HDL [Mass/Vol]49 mg/dLInvalid Interpretation CodeParkview Health Bryan HospitalComment on above:Result Comment: '>= 60 LOW RISK' '<= 40 HIGH RISK'Performed By: #### [id number] #### [facility] [address] [place], [place] [address]Iuoernlfdil in LDL [Mass/Vol]125 mg/dLNormal<=129Park[facility] Health Bryan HospitalComment on above:Performed By: #### [id number] #### [facility] [address] [place], [place] [address]Uhsunluaqln in VLDL [Mass/Vol]27 mg/dLNormal7-40Park[facility] Health Bryan HospitalComment on above:Performed By: #### [id number] #### [facility] [address] [place], [place] [address]Xkldoscpoyub [Mass/Vol]137 mg/dLNormal<=149Park[facility] Health Bryan HospitalComment on above:Performed By: #### [id number] #### [facility] [address] [place], [place] [address]Ltcsoie D 25 Hydroxyon 88-29-826818712173-zvslmyfplhwczz D3 [Mass/Vol]20.6 ng/mLLow30.0-100.0Park[facility] Bryan HospitalComment on above: Performed By: #### [id number] #### [facility] [address] [place], [place] [address] Medicine Office/Clinic Noteon 56-85-3481Hnsaxr Medicine Office/Clinic NoteFamily Medicine Office/Clinic Note HPI Staff Ankit is [...] four, # 2 tab(s), Refills(s) 1, Pharmacy: [facility], 170, cm, 09/26/24 8:58:00 EST, Height/Length Dosing, 158.1, kg, 09/26/24 8:58:00 EST, Weight Dosing [facility] Internal Ambulatory Referral 2. Shortness of breath [...] four, # 2 tab(s), Refills(s) 1, Pharmacy: [facility], 170, cm, 09/26/24 8:58:00 EST, Height/Length Dosing, 158.1, kg, 09/26/24 8:58:00 EST, Weight Dosing [facility] Internal Ambulatory Referral 3. BMI 50.0-59.9, adult (Z68.43: Body mass index [BMI] 50.0-59.9, adult) BMI education given Ordered: fluconazole, 150 mg = 1 tab(s), Oral, Once, take 1 tab on day one and 1 tab on day four, # 2 tab(s), Refills(s) 1, Pharmacy: [facility], 170, cm, 09/26/24 8:58:00 EST, Height/Length Dosing, 158.1, kg, 09/26/24 8:58:00 EST, Weight Dosing [facility] Internal Ambulatory Referral 4. Non-smoker (Z78.9: Other specified health status) continue not smokiing Ordered: fluconazole, 150 mg = 1 tab(s), Oral, Once, take 1 tab on day one and 1 tab on day four, # 2 tab(s), Refills(s) 1, Pharmacy: [facility], 170, cm, 09/26/24 8:58:00 EST, Height/Length Dosing, 158.1, kg, 09/26/24 8:58:00 EST, Weight Dosing [facility] Internal Ambulatory Referral Orders: nystatin topical, See Instructions, 30 gm, Refill(s) 1, APPLY TO THE AFFECTED AREA(S) topically TWICE DAILY, [facility], 178, cm, 07/09/24 8:51:00 EDT, Height/Length Dosing, 150, kg, 07/09/24 8:51:00 EDT, Weight Dosing predniSONE, See Instructions, TAKE 1 TABLET BY MOUTH TWICE DAILY FOR 5 DAYS, # 10 EA, Refills(s) 1,Pharmacy: [facility], 170, cm, 09/26/24 8:58:00 EST, Height/Length [...] 08/29/2024 Family History Diabetes mellitus type 2: Sister.[facility] HospitalComment on above:Result Comment: Electronically Signed By: Brianna Li\.br\Date and Time Signed: 09/26/24 09:59 ESTRsudha 87-92-2525ClehwquwsHsxvtwxlo From: Brianna Li To: [facility] - Clinical; Sent: 08/31/2024 08:36:32 EDT Show [...] Jessica Wallace M.A. (B - Clinical) To: Brittney BARRERASangeetadi Pan; Sent: 08/31/2024 11:48:25 EDT Show up: 08/31/2024 11:45:00 EDT Subject: RE: Ambulatory Reminder Verbalizes understanding, he said he is still waiting to hear back from [facility] Office/Clinic Noteon 21-86-4112Czwdnr Medicine Office/Clinic NoteFajewish healthcare center Medicine Office/Clinic Note Chief Complaint Medication Refills [...] 4, # 2 tab(s), Refills(s) 1, Pharmacy: [facility], 177.5, cm, 05/07/24 13:15:00 EDT, Height/Length Dosing, 152.2, kg, 05/07/24 13:15:00 EDT, Weight Dosing meloxicam, 15 mg = 1 tab(s), Oral, Daily, # 30 tab(s), Refills(s) 3, Pharmacy: [facility], 178, cm, 08/29/24 17:23:00 EDT, Height/Length Dosing, 151.2, kg, 08/29/24 17:23:00 EDT, Weight Dosing meloxicam, 15 mg = 1 tab(s), Oral, Daily, # 30 tab(s), Refills(s) 0, Pharmacy: [facility], 178, cm, 07/09/24 8:51:00 EDT, Height/Length Dosing, 150, kg, 07/09/24 8:51:00 EDT, Weight Dosing metformin, 1,000 mg = 1 tab(s), Oral, BID, # 180 tab(s), Refills(s) 0, Pharmacy: [facility], 178, cm, 07/09/24 8:51:00 EDT, Height/Length Dosing, 150, kg, 07/09/24 8:51:00 EDT, WeightDosing metformin, 1,000 mg = 1 tab(s), Oral, BID, X 90 day(s), # 180 tab(s), Refills(s) 3, Pharmacy: [facility], 178, cm, 08/29/24 17:23:00 EDT, Height/Length Dosing, 151.2, kg, 08/29/24 17:23:00 EDT, Weight Dosing phentermine, 37.5 mg = 1 tab(s), Oral, Daily, # 30 tab(s), Refills(s) 0, Pharmacy: [facility], 178, cm, 07/09/24 8:51:00 EDT, Height/Length Dosing, 150, kg, 07/09/24 8:51:00 EDT, Weight Dosing HgbA1c 2. Body mass index [BMI] 45.0-49.9, adult (Z68.42: Body mass index [BMI] 45.0- 49.9, adult) BMI education given Ordered: fluconazole, 150 mg = 1 tab(s), Oral, Once, take 1 tab on day 1 and one tab on day 4, # 2 tab(s), Refills(s) 1, Pharmacy: [facility], 177.5, cm, 05/07/24 13:15:00 EDT, Height/Length Dosing, 152.2, kg, 05/07/24 13:15:00 EDT, Weight Dosing meloxicam, 15 mg = 1 tab(s), Oral, Daily, # 30 tab(s), Refills(s) 3, Pharmacy: [facility], 178, cm, 08/29/24 17:23:00 EDT, Height/Length Dosing, 151.2, kg, 08/29/24 17:23:00 EDT, Weight Dosing meloxicam, 15 mg = 1 tab(s), Oral, Daily, # 30 tab(s), Refills(s) 0, Pharmacy: [facility], 178, cm, 07/09/24 8:51:00 EDT, Height/Length Dosing, 150, kg, 07/09/24 8:51:00 EDT, Weight Dosing metformin, 1,000 mg = 1 tab(s), Oral, BID, # 180 tab(s), Refills(s) 0, Pharmacy: [facility], 178, cm, 07/09/24 8:51:00 EDT, Height/Length Dosing, 150, kg, 07/09/24 8:51:00 EDT, WeightDosing metformin, 1,000 mg = 1 tab(s), Oral, BID, X 90 day(s), # 180 tab(s), Refills(s) 3, Pharmacy: [facility], 178, cm, 08/29/24 17:23:00 EDT, Height/Length Dosing, 151.2, kg, 08/29/24 17:23:00 EDT, Weight Dosing phentermine, 37.5 mg = 1 tab(s), Oral, Daily, # 30 tab(s), Refills(s) 0, Pharmacy: [facility], 178, cm, 07/09/24 8:51:00 EDT, Height/Length Dosing, 150, kg, 07/09/24 8:51:00 EDT, Weight Dosing 3. Morbid obesity with BMI of 45.0-49.9, adult (E66.01: Morbid (severe) obesity due to excess calories) see above Ordered: fluconazole, 150 mg = 1 tab(s), Oral, Once, take 1 tab on day 1 and one tab on day 4, # 2 tab(s), Refills(s) 1, Pharmacy: [facility], 177.5, cm, 05/07/24 13:15:00 EDT, Height/Length Dosing, 152.2, kg, 05/07/24 13:15:00 EDT, Weight Dosing meloxicam, 15 mg = 1 tab(s), Oral, Daily, # 30 tab(s), Refills(s) 3, Pharmacy: [facility] (more content not included)...NormalParkview Health Bryan HospitalComment on above:Result Comment: Electronically Signed By: Brianna Li\.br\Date and Time Signed: 08/30/24 14:37 NBAFxyP9qlo 32-21-0193LwP5s (Bld) [Mass fraction]7.1 %High<=5.9Park[facility] Health Bryan HospitalComment on above:Performed By: #### [id number] #### [facility] [address] [place], [place] [address]Jjrehqephh Visit Summaryon 52-91-1224Ocqyomqnqf Visit Summary Ambulatory Visit Summary ANKIT BENITES [...] 8:40 AM EDT With: Brianna Li Where: [address] [address]- Medications What How Much When Why Instructions [...] you for choosing us for your care. [facility] Medicine Office/Clinic Noteon 33-23-7367Y[facility]exx Medicine Office/Clinic NoteChelsea [facility] Medicine Office/Clinic Note Chief Complaint Med Refills [...] BID, # 180 tab(s), Refills(s) 0, Pharmacy: [facility], 178, cm, 07/09/24 8:51:00 EDT, Height/Length Dosing, 150, kg, 07/09/24 8:51:00 EDT, WeightDosing phentermine, 37.5 mg = 1 tab(s), Oral, Daily, # 30 tab(s), Refills(s) 0, Pharmacy: [facility], 178, cm, 07/09/24 8:51:00 EDT, Height/Length Dosing, 150, kg, 07/09/24 8:51:00 EDT, Weight Dosing E&M of Est. Patient Straight Fwd 10-19 Min 41114 2. Weight gain (R63.5: Abnormal weight gain) discussed starting adipex to help with weight gain. medication agreement signed. OARRS report reviewed. RTC 4 weeks Ordered: metformin, 1,000 mg = 1 tab(s), Oral, BID, # 180 tab(s), Refills(s) 0, Pharmacy: [facility], 178, cm, 07/09/24 8:51:00 EDT, Height/Length Dosing, 150, kg, 07/09/24 8:51:00 EDT, WeightDosing phentermine, 37.5 mg = 1 tab(s), Oral, Daily, # 30 tab(s), Refills(s) 0, Pharmacy: [facility], 178, cm, 07/09/24 8:51:00 EDT, Height/Length Dosing, 150, kg, 07/09/24 8:51:00 EDT, Weight Dosing E&M of Est. Patient Straight Fwd 10-19 Min [id number] 3. BMI 45.0-49.9, adult, (Z68.42: Body mass index [BMI] 45.0-49.9, adult)Body mass index [BMI] 45.0-49.9, adult BMI education given Ordered: metformin, 1,000 mg = 1 tab(s), Oral, BID, # 180 tab(s), Refills(s) 0, Pharmacy: [facility], 178, cm, 07/09/24 8:51:00 EDT, Height/Length Dosing, 150, kg, 07/09/24 8:51:00 EDT, WeightDosing phentermine, 37.5 mg = 1 tab(s), Oral, Daily, # 30 tab(s), Refills(s) 0, Pharmacy: [facility], 178, cm, 07/09/24 8:51:00 EDT, Height/Length Dosing, 150, kg, 07/09/24 8:51:00 EDT, Weight Dosing 4. Morbid obesity with BMI of 45.0-49.9, adult (E66.01: Morbid (severe) obesity due to excess calories) see above Ordered: metformin, 1,000 mg = 1 tab(s), Oral, BID, # 180 tab(s), Refills(s) 0, Pharmacy: [facility], 178, cm, 07/09/24 8:51:00 EDT, Height/Length Dosing, 150, kg, 07/09/24 8:51:00 EDT, WeightDosing phentermine, 37.5 mg = 1 tab(s), Oral, Daily, # 30 tab(s), Refills(s) 0, Pharmacy: [facility], 178, cm, 07/09/24 8:51:00 EDT, Height/Length Dosing, 150, kg, 07/09/24 8:51:00 EDT, Weight Dosing 5. Non-smoker (Z78.9: Other specified health status) continue not smoking Ordered: metformin, 1,000 mg = 1 tab(s), Oral, BID, # 180 tab(s), Refills(s) 0, Pharmacy: [facility], 178, cm, 07/09/24 8:51:00 EDT, Height/Length Dosing, 150, kg, 07/09/24 8:51:00 EDT, WeightDosing phentermine, 37.5 mg = 1 tab(s), Oral, Daily, # 30 tab(s), Refills(s) 0, Pharmacy: [facility], 178, cm, 07/09/24 8:51:00 EDT, Height/Length [...] lifetime) Tobacco Use: (more content not included)... [facility] HospitalComment on above:Result Comment: Electronically Signed By: Brianna Li\.br\Date and Time Signed: 07/09/24 10:07 EDT Reminderson [id number] From: Brianna Li To: B - Clinical; [...] 20.9 % (14.0 - 50.0) 05/07/2024 13:56 Dickey Auto 8.1 % (4.0 - 14.0) 05/07/2024 13:56 Eos Auto 4.8 % (0.0 - 8.0) 05/07/2024 13:56 Basophil Auto 0.5 % (0.0 - 2.0) 05/07/2024 13:56 Neutro Absolute 5.4 E9/L (2.0 - 7.5) 05/07/2024 13:56 Lymph Absolute 1.7 E9/L (1.0 - 4.0) 05/07/2024 13:56 Dickey Absolute 0.7 E9/L (0.2 - 1.0) 05/07/2024 [...] like a 90 day supply sent to [facility] in [place]. Please advise if you would like for me to propose a med. From: [place] ([facility] - Clinical) To: Brianna Li; Sent: 05/11/2024 14:28:31 EDT Show up: 05/11/2024 14:28:00 EDT Subject: RE: Ambulatory ReminderNormalParkview Health Bryan HospitalANA w/Reflex if POSon [id number] Ab Ql (S)NegativeInvalid Interpretation CodeNegative [facility] Bryan HospitalComment on above:Result Comment: Performed at: [facility] [address] [id number] PhD Brett ThompsonPerformed By: #### [id number] #### [facility] [address], [place] [address]AysA6jle 00-95-5011JpA0i (Bld) [Mass fraction]6.7 %High<=5.9 [facility] Bryan HospitalComment on above:Performed By: #### [id number] #### [facility] [address], [place] [address]Awpkxszdyld 31-02-1523Ctpprkqau From: Brianna Li To: [facility] - Clinical; Sent: 05/08/2024 07:47:31 EDT [...] 20.9 % (14.0 - 50.0) 05/07/2024 13:56 Dickey Auto 8.1 % (4.0 - 14.0) 05/07/2024 13:56 Eos Auto 4.8 % (0.0 - 8.0) 05/07/2024 13:56 Basophil Auto 0.5 % (0.0 - 2.0) 05/07/2024 13:56 Neutro Absolute 5.4 E9/L (2.0 - 7.5) 05/07/2024 13:56 Lymph Absolute 1.7 E9/L (1.0 - 4.0) 05/07/2024 13:56 Dickey Absolute 0.7 E9/L (0.2 - 1.0) 05/07/2024 [...] call, please advise patient of message belowNormal [facility] Bryan HospitalCB w/ Auto Diffon 30-32-3917Dssugcdsd/100 WBC (Bld) 0.5 %Normal0.0-2.0[facility] Bryan HospitalComment on above:Performed By: #### [id number] #### [facility] [address], [place] [address]Rhaeqvdcc/Leukocytes Auto (Bld) [Pure # fraction]0.0 E9/LNormal 0.0-0.2[facility] Medical CenterComment on above:Performed By: #### [id number] #### [facility] [address], [place] [address]Rnlsluwmtsm (Bld) [#/Vol]0.4 E9/LNormal0.0-0.5[facility] Medical CenterComment on above:Performed By: #### [id number] #### [facility] [address], [place] [address]Qrhchsvqkjp/100 WBC (Bld)4.8 %Normal0.0-8.0[facility] Bryan HospitalComment on above:Performed By: #### [id number] #### [facility] [address] [place] [address]Ohbdgegtlak distribution width (RBC) [Ratio]13.3 %Normal 10.9-14.2FKettering Health MiamisburgComment on above:Performed By: #### [id number] #### [facility] [address] [place] [address]Hfgazbtprj (Bld) [Volume fraction]44.3 %Zubnrw33.7-49.0[facility] Bryan HospitalComment on above:Performed By: #### [id number] #### [facility] [address] [place] [address]Fejxxdtvfk (Bld) [Mass/Vol]15.0 g/fSBsxdcx93.5-17.5FKettering Health MiamisburgComment on above:Performed By: #### [id number] #### [facility] [address] [place] [address]Cdkrifedcci (Bld) [#/Vol]1.7 E9/LNormal1.0-4.0[facility] HospitalComment on above:Performed By: #### [id number] #### [facility] [address] [place] [address]Lfrzfyehqsx/100 WBC (Bld)20.9 %Hbzkwq10.0-50.0[facility] HospitalComment on above:Performed By: #### [id number] #### [facility] [address] [place] [address] 12479WGI (RBC) [Entitic mass]28.2 lmHkwopf96.0-34.0[facility] HospitalComment on above:Performed By: #### [id number] #### [facility] [address] [place] [address]HQAQ (RBC) [Mass/Vol]33.9 g/eLLuionm63.4-36.0[facility] HospitalComment on above:Performed By: #### [id number] #### [facility] [address] [place] [address] 17349NHJ (RBC) [Entitic vol]83.2 bZOcgqjy57.0-100.0[facility] HospitalComment on above:Performed By: #### [id number] #### [facility] [address] [place] [address] 130[address]Obnibbswf (Bld) [#/Vol]0.7 E9/LNormal0.2-1.0[facility] HospitalComment on above:Performed By: #### [id number] #### [facility] [address] [place] [address]Pubimbumclg (Bld) [#/Vol]5.4 E9/LNormal2.0-7.5FKettering Health MiamisburgComment on above:Performed By: #### [id number] #### [facility] [address] [place] [address]Xbucnnewkqo/100 WBC (Bld)65.7 %Wlkihu66.0-75.0[facility] HospitalComment on above:Performed By: #### [id number] #### [facility] [address] [place] [address]Adpdpetp mean volume (Bld) [Entitic vol]9.0 fLNormal6.4-10.8 [facility] HospitalComment on above:Performed By: #### [id number] #### [facility] [address] [place] [address]Ltwtofnls (Bld) [#/Vol]242.0 E9/KJlurjw359.0-500.0[facility] HospitalComment on above:Performed By: #### [id number] #### [facility] [address] [place] [address]97[address]ORN (Bld) [#/Vol]5.3 E12/LNormal4.3-5.9[facility] HospitalComment on above:Performed By: #### [id number] #### [facility] [address] [place] [address] [place] [address]SCU corrected for nucl RBC Auto (Bld) [#/Vol]8.2 E9/LNormal 4.0-11.0[facility] CenterComment on above:Performed By: #### [id number] #### [facility] [address], [place] [address]JLIQUTELOYdthjza By: SYSTEM SYSTEM on 93-56-4597KYU [Mass/Vol] 0.4 mg/dLNormal<=1.9mg/dLRemisol ChemAlbumin [Mass/Vol]4.4 g/dLNormal3.3 - 5.0 gm/dLRemisol ChemAlbumin/Globulin [Mass ratio]1.7 {ratio}Normal1.1 - 2.2Remisol ChemALP [Catalytic activity/Vol]65 [iU]/fKgpocf50 - 98 Int._Unit/LRemisol Chem ALT No additional P-5'-P [Catalytic activity/Vol]21 [iU]/dNormal6 - 46 Int._Unit/LRemisol ChemAnion gap [Moles/Vol]11 mmol/LNormal6 - 16 mEq/LRemisol ChemAST [Catalytic activity/Vol]17 [iU]/dNormal5 - 43 Int._Unit/LRemisol Chem Bilirubin [Mass/Vol]0.6 mg/dLNormal0.0 - 1.1 mg/dLRemisol ChemCalcium [Mass/Vol] 9.5 mg/dLNormal8.9 - 11.1 mg/dLRemisol ChemChloride [Moles/Vol]102 mmol/LNormal 101 - 111 mmol/LRemisol ChemCholesterol [Mass/Vol]248 mg/mSRtsz724 - 200 mg/dL Remisol ChemCholesterol in HDL [Mass/Vol]39 mg/dLInvalid Interpretation Code Remisol ChemComment on above:Result Comment: '>= 60 LOW RISK' '<= 40 HIGH RISK'Cholesterol in LDL [Mass/Vol]164 mg/dLHigh<=129mg/dLRemisol ChemCholesterol in VLDL [Mass/Vol]58 mg/dLHigh7 - 40 mg/dLRemisol ChemCO2 [Moles/Vol]29 mmol/BGrifui53 - 31 mmol/LRemisol ChemCreatinine [Mass/Vol]0.8 mg/dLNormal0.5 - 1.3 mg/dLRemisol WnvqoHAH489 mL/min/1.73 p8Hhtxfg >=59mL/min/1.73 p0Edlmlww ChemGlobulin (S) [Mass/Vol]2.6 g/dLNormal1.4 - 4.0 gm/dLRemisol ChemGlucose [Mass/Vol]174 mg/nXDsbafc53 - 199 mg/dLRemisol Chem Potassium [Moles/Vol]4.2 mmol/LNormal3.5 - 5.3 mmol/LRemisol ChemProstate specific Ag [Mass/Vol]0.4 ng/mLNormal0.1 - 3.5 ng/mLRemisol ChemComment on above:Interpretive Data: The concentration of PSA determined by different manufacturers can vary due to differences in assay methods and reagent specificity. Values obtained from different assay methods cannot be used interchangeably. The methodology used for this result was chemiluminescence using [employer]'s Access Hybritech PSA reagent.Protein [Mass/Vol]7.0 g/dL Normal6.0 - 7.8 gm/dLRemisol ChemSodium [Moles/Vol]138 mmol/TWzuegk332 - 145 mmol/LRemisol ChemTriglyceride [Mass/Vol]288 mg/dLHigh<=149mg/dLRemisol ChemTSH Qn1.20 m[IU]/LNormal0.34 - 5.60 mcIU/mLRemisol ChemUrea nitrogen [Mass/Vol]15 mg/dLNormal5 - 21 mg/dLRemisol ChemUrea nitrogen/Creatinine [Mass ratio]19 mg/mg Vdmsto45 - 20Remisol ChemCHEMISTRYOrdered By: Edmund Post on 41-43-5895TsP9a (Bld) [Mass fraction]6.7 %High<=5.9%[facility] ChemAutoSSCMPon 57-27-5409Jqvfbbp [Mass/Vol]4.4 g/dLNormal3.3-5.0[facility] Centerer [facility] Medical CenterComment on above: Performed By: #### [id number] #### [facility] [address] [place] [address]Zraggkv/Globulin (S) [Mass conc ratio]1.0Nmycgy0.1-2.2FKettering Health MiamisburgComment on above:Performed By: #### [id number] #### [facility] [address], [place] [address]BCO [Catalytic activity/Vol]65 Int._Unit/RIbskim72-40HaoguuParkview Health Bryan HospitalComment on above:Performed By: #### [id number] #### [facility] [address], [place] [address]JBC No additional P-5'-P [Catalytic activity/Vol]21 Int._Unit/L Normal6-46[facility] HospitalComment on above:Performed By: #### [id number] #### [facility] [address], [place] [address]Zlnyz gap [Moles/Vol]11 mmol/LNormal6-16[facility] HospitalComment on above:Performed By: #### [id number] #### [facility] [address], [place] [address]PWR [Catalytic activity/Vol]17 Int._Unit/LNormal5-43[facility] HospitalComment on above:Performed By: #### [id number] #### [facility] [address], [place] [address]Giwpcnnat [Mass/Vol]0.6 mg/dLNormal0.0-1.1FKettering Health MiamisburgComment on above:Performed By: #### [id number] #### [facility] [address], [place] [address]Fqkpjsl [Mass/Vol]9.5 mg/dLNormal8.9-11.1FKettering Health MiamisburgComment on above:Performed By: #### [id number] #### [facility] [address], [place] [address]Gyilswij [Moles/Vol]102 mmol/KZzpwge537-958ChaftlParkview Health Bryan HospitalComment on above:Performed By: #### [id number] #### [facility] [address], [place] [address]XT2 [Moles/Vol]29 mmol/LMcuwkq61-51WsrndyParkview Health Bryan Hospital Comment on above:Performed By: #### [id number] #### [facility] [address], [place] [address]Jttiutemtg [Mass/Vol]0.8 mg/dLNormal0.5-1.3FKettering Health MiamisburgComment on above:Performed By: #### [id number] #### [facility] [address], [place] [address]Brrayiea (S) [Mass/Vol]2.6 g/dLNormal1.4-4.0[facility] Bryan HospitalComment on above:Performed By: #### [id number] #### [facility] [address], [place] [address]Igwffxt [Mass/Vol]174 mg/eVAosoau05-871TfpsrdParkview Health Bryan HospitalComment on above:Performed By: #### [id number] #### [facility] [address], [place] [address]Jtbuoraio [Moles/Vol]4.2 mmol/LNormal3.5-5.3FKettering Health MiamisburgComment on above:Performed By: #### [id number] #### [facility] [address], [place] [address]Gfdxyts [Mass/Vol]7.0 g/dLNormal6.0-7.8[facility] Bryan HospitalComment on above:Performed By: #### [id number] #### [facility] [address], [place] [address]Zhasej [Moles/Vol]138 mmol/SDaiton690-118BuxtclParkview Health Bryan HospitalComment on above:Performed By: #### [id number] #### [facility] [address], [place] [address]Ynya nitrogen [Mass/Vol]15 mg/dLNormal5-21[facility] Bryan HospitalComment on above:Performed By: #### [id number] #### [facility] [address], [place] [address]Qfyu nitrogen/Creatinine [Mass ratio]19 No QysgqHytqqp04-05 [facility] HospitalComment on above:Performed By: #### [id number] #### [facility] [address], [place] [address]CPKmv 66-53-4873DYC [Mass/Vol]0.4 mg/dLNormal<=1.9[facility] Bryan HospitalComment on above:Performed By: #### [id number] #### [facility] [address], [place] [address]Mvtvrm Medicine Office/Clinic Noteon 32-11-5311Wmilsn Medicine Office/Clinic NoteHPI Staff Ankit is a [...] today. pt is not sure what his mjclMEQS1Q was. BS run 120-130 at home. pt did get metformin from [place] and has been taking that for the last couple of weeks. Ordered: fluconazole, 150 mg = 1 tab(s), Oral, Once, take 1 tab on day 1 and one tab on day 4, # 2 tab(s), Refills(s) 1, Pharmacy: [facility], 177.5, cm, 05/07/24 13:15:00 EDT, Height/Length Dosing, 152.2, kg, 05/07/24 13:15:00 EDT, Weight Dosing meloxicam, 15 mg = 1 tab(s), Oral, Daily, # 30 tab(s), Refills(s) 0, Pharmacy: [facility], 177.5, cm, 05/07/24 13:15:00 EDT, Height/Length Dosing, 152.2, kg, 05/07/24 13:15:00 EDT, Weight Dosing methylPREDNISolone, = 1 packet(s), Oral, As Directed, as directed on package labeling, X 6 day(s), # 21 tab(s), Refills(s) 0, Pharmacy: [facility], 177.5, cm, 05/07/24 13:15:00 EDT, Height/Length Dosing, 152.2, kg, 05/07/24 13:15:00 EDT, Weight Dosing nystatin topical, 1 marie, Topical, BID, 30 gram, Refill(s) 1, [facility], 177.5, cm,05/07/24 13:15:00 EDT, Height/Length Dosing, 152.2, kg, 05/07/24 13:15:00 EDT, Weight Dosing UZIEL w/Reflex if POS C-Reactive Protein CBC w/ Auto Diff Comprehensive Metabolic Panel HgbA1c Lab Specimen Collect [id number] Lipid Panel PSA Screen, Total Thyroid Stimulating [...] 4, # 2 tab(s), Refills(s) 1, Pharmacy: [facility], 177.5, cm, 05/07/24 13:15:00 EDT, Height/Length Dosing, 152.2, kg, 05/07/24 13:15:00 EDT, Weight Dosing meloxicam, 15 mg = 1 tab(s), Oral, Daily, # 30 tab(s), Refills(s) 0, Pharmacy: [facility], 177.5, cm, 05/07/24 13:15:00 EDT, Height/Length Dosing, 152.2, kg, 05/07/24 13:15:00 EDT, Weight Dosing methylPREDNISolone, = 1 packet(s), Oral, As Directed, as directed on package labeling, X 6 day(s), # 21 tab(s), Refills(s) 0, Pharmacy: [facility], 177.5, cm, 05/07/24 13:15:00 EDT, Height/Length Dosing, 152.2, kg, 05/07/24 13:15:00 EDT, Weight Dosing nystatin topical, 1 marie, Topical, BID, 30 gram, Refill(s) 1, [facility], 177.5, cm,05/07/24 13:15:00 EDT, Height/Length Dosing, 152.2, kg, 05/07/24 13:15:00 EDT, Weight Dosing UZIEL w/Reflex if POS C-Reactive Protein CBC w/ Auto Diff Comprehensive Metabolic Panel HgbA1c Lab Specimen Collect 75054 Lipid Panel PSA Screen, Total Thyroid Stimulating [...] 4, # 2 tab(s), Refills(s) 1, Pharmacy: [facility], 177.5, cm, 05/07/24 13:15:00 EDT, Height/Length Dosing, 152.2, kg, 05/07/24 13:15:00 EDT, Weight Dosing meloxicam, 15 mg = 1 tab(s), Oral, Daily, # 30 tab(s), Refills(s) 0, Pharmacy: [facility], 177.5, cm, 05/07/24 13:15:00 EDT, Height/Length Dosing, 152.2, kg, 05/07/24 13:15:00 EDT, Weight Dosing methyl (more content not included)...[facility] HospitalComment on above:Result Comment: Electronically Signed By: Brianna Li\.br\Date and Time Signed: 05/07/24 14:27 EDTHEMATOLOGYOrdered By: SYSTEM SYSTEM on 91-75-2896Ckujhaebs/100 WBC (Bld)0.5 %Normal0.0 - 2.0 %Remisol Heme Basophils/Leukocytes Auto (Bld) [Pure # fraction]0.0 E9/LNormal0.0 - 0.2 E9/L Remisol HemeEosinophils (Bld) [#/Vol]0.4 E9/LNormal0.0 - 0.5 E9/LRemisol Heme Eosinophils/100 WBC (Bld)4.8 %Normal0.0 - 8.0 %Remisol HemeErythrocyte distribution width (RBC) [Ratio]13.3 %Vvzkgt57.9 - 14.2 %Remisol HemeHematocrit (Bld) [Volume fraction]44.3 %Reiwqo35.7 - 49.0 %Remisol HemeHemoglobin (Bld) [Mass/Vol]15.0 g/eKFspowt97.5 - 17.5 gm/dLRemisol HemeLymphocytes (Bld) [#/Vol] 1.7 E9/LNormal1.0 - 4.0 E9/LRemisol HemeLymphocytes/100 WBC (Bld)20.9 %Normal 14.0 - 50.0 %Remisol HemeMCH (RBC) [Entitic mass]28.2 dlNioumb18.0 - 34.0 pg Remisol HemeMCHC (RBC) [Mass/Vol]33.9 g/dTSpwmpg39.4 - 36.0 gm/dLRemisol HemeMCV (RBC) [Entitic vol]83.2 nFZrhsjq10.0 - 100.0 fLRemisol HemeMonocytes (Bld) [#/Vol]0.7 E9/LNormal0.2 - 1.0 E9/LRemisol HemeMonocytes/100 WBC (Bld)8.1 % Normal4.0 - 14.0 %Remisol HemeNeutrophils (Bld) [#/Vol]5.4 E9/LNormal2.0 - 7.5 E9/LRemisol HemeNeutrophils/100 WBC (Bld)65.7 %Nulhdj85.0 - 75.0 %Remisol Heme Platelet mean volume (Bld) [Entitic vol]9.0 fLNormal6.4 - 10.8 fLRemisol Heme Platelets (Bld) [#/Vol]242.0 E9/NAqpxow206.0 - 500.0 E9/LRemisol HemeRBC (Bld) [#/Vol]5.3 E12/LNormal4.3 - 5.9 E12/LRemisol HemeWBC corrected for nucl RBC Auto (Bld) [#/Vol]8.2 E9/LNormal4.0 - 11.0 E9/LRemisol HemeLipid Panelon 05-07-2024 Cholesterol [Mass/Vol]248 mg/mDBgim362-141ObkkliParkview Health Bryan HospitalComment on above:Performed By: #### [id number] #### [facility] [address], [place] [address]Jhtylaaurrt in HDL [Mass/Vol]39 mg/dLInvalid Interpretation CodeParkview Health Bryan HospitalComment on above:Result Comment: '>= 60 LOW RISK' '<= 40 HIGH RISK'Performed By: #### [id number] #### [facility] [address], [place] [address]Zvjgecnemdg in LDL [Mass/Vol]164 mg/dLHigh<=129Park[facility] Bryan HospitalComment on above:Performed By: #### [id number] #### [facility] [address], [place] [address]Dufzyfxhxah in VLDL [Mass/Vol]58 mg/dLHigh7-40[facility] Bryan HospitalComment on above:Performed By: #### [id number] #### [facility] [address], [place] [address]Skidbiizgudo [Mass/Vol]288 mg/dLHigh<=149FishGrace Medical CenterComment on above:Performed By: #### [id number] #### [facility] [address], [place] [address]DRD Screen, Totalon 82-29-8983Lbxqgeop specific Ag [Mass/Vol] 0.4 ng/mLNormal0.1-3.5FKettering Health MiamisburgComment on above:Result Comment: The concentration of PSA determined by different manufacturers can vary due to differences in assay methods and reagent specificity. Values obtained from different assay methods cannot be used interchangeably. The methodology used for this result was chemiluminescence using [employer]'s Access Hybritech PSA reagent.Performed By: #### [id number] #### [facility] [address], [place] [address]Twsbmuw Educationon 03-40-7003Boyvcet EducationOrthopedics Shoulder Range of Motion Exercises Shoulder [...] Lift your hands toward (more content not included)...NormalParkview Health Bryan HospitalPhysician Orderon [id number] Order [id number]#1.00TIFFNormalParkview Health Bryan HospitalTSHon 45-99-9216FOE Qn1.20 m[IU]/LNormal0.34-5.60[facility] Bryan HospitalComment on above:Performed By: #### [id number] #### [facility] [address], [place] [address]sUXQny 06-15-8446gRMJ861 mL/min/1.73 b4Nectfo>=59Park[facility] Bryan HospitalComment on above:Order Comment: Order added by Discern Expert. Performed By: #### [id number] #### [facility] [address], [place] [address]GS KNEE DE 4V or >on [id number] KNEE DE 4V or >EXAMINATION: XR KNEE [...] BONES: Moderate to severe tricompartmental osteoarthritis with qagz-at-qqvo articulation of the medial compartment. SOFT TISSUES: Negative. No visible soft tissue swelling. OTHER: Moderate suprapatellar joint effusion IMPRESSION: RIGHT CONCLUSION: Moderate to severe osteoarthritis LEFT CONCLUSION: Moderate to severe osteoarthritis with joint effusion Electronically authenticated by: JACQUES ADAN Date: 2022-10-22 12:35[facility] AUTO DIFFon [id number] #0.0 103/ulNormal0.0-0.1Madison HealthComment on above:Performed By: #### CBC #### [facility] [address] [place] [address] Dr. Arben Boonephils/100 WBC (Bld)0.5 %Normal0.2-2.0[facility] Comment on above:Performed By: #### CBC #### [facility] [address] [place] [address] Dr. Arben Fowler #0.3 103/ulNormal0.0-0.7The [facility] HospitalComment on above: Performed By: #### CBC #### [facility] [address] [place], [place] [id number] Dr. Arben Mcdanielosinophils/100 WBC (Bld)4.0 %Normal0.9-7.0The [facility] Comment on above:Performed By: #### CBC #### [facility] [address] [place] [address] Dr. Arben Mcdanielrythrocyte distribution width (RBC) [Ratio]13.0 %Vyqgwv96.0-15.0 The [facility] HospitalComment on above:Performed By: #### CBC #### [facility] [address] [place] [address] Dr. Arben MarcialHematocrit (Bld) [Volume fraction]44.0 %Pkfijb97.0-54.0The [facility] HospitalComment on above:Performed By: #### CBC #### [facility] [address] [place] [address] Dr. Arben MarcialHemoglobin (Bld) [Mass/Vol]14.5 g/hIEddfen58.0-18.0The [facility] HospitalComment on above:Performed By: #### CBC #### [facility] [address] [place] [address] Dr. Arben Beckham #0.03 10e3/ulNormal0.00-0.03The [facility] HospitalComment on above:Performed By: #### CBC #### [facility] [address] [place] [address] Dr. Arben MarcialIG %0.4 %Normal0.0-0.5The [facility] HospitalComment on above: Performed By: #### CBC #### [facility] [address] [place] [address] Dr. Arben LanceMPH #1.5 103/ulNormal1.2-3.8The [facility] HospitalComment on above:Performed By: #### CBC #### [facility] [address] [place] [address] Dr. Arben Lancemphocytes/100 WBC (Bld)18.8 %Critically low20.5-60.0The [facility] HospitalComment on above:Performed By: #### CBC #### [facility] [address] [place] [address] Dr. Arben Harrison DIFF REQNONormalThe [facility] HospitalComment on above: Performed By: #### CBC #### [facility] [address] [place] [address] Dr. Arben Garza (RBC) [Entitic mass]27.8 czUhvsyd73.9-34.0[facility] Methodist HospitalComment on above:Performed By: #### CBC #### [facility] [address] [place] [address] Dr. Arben Garza (RBC) [Mass/Vol]33.0 g/vHDqttkk64.9-35.2The [facility] HospitalComment on above:Performed By: #### CBC #### [facility] [address] [place] [address] Dr. Arben Garza (RBC) [Entitic vol]84.5 nCOxpbzs48.0-94.0The [facility] HospitalComment on above:Performed By: #### CBC #### [facility] [address] [place] [address] Dr. Arben Wynne #0.6 103/ulNormal0.3-0.8The [facility] HospitalComment on above:Performed By: #### CBC #### [facility] [address] [place] [address] Dr. Arben Clementocytes/100 WBC (Bld)7.4 %Normal1.7-12.0The [facility] Comment on above:Performed By: #### CBC #### [facility] [address] [place] [address] Dr. Arben Trammell #5.5 103/ulNormal1.4-6.5The [facility] HospitalComment on above:Performed By: #### CBC #### [facility] [address] [place] [address] Dr. Arben Valdezutrophils/100 WBC (Bld)68.9 %Ozlyku27.0-75.0The [facility] HospitalComment on above:Performed By: #### CBC #### [facility] [address] [address] [address] Arben MarcialPlatelet mean volume (Bld) [Entitic vol]9.9 fLNormal9.5-13.5The [facility] HospitalComment on above:Performed By: #### CBC #### [facility] [address] [address] [address] Arben MarcialPLT246 103/bcQyrvco710-889Hme [facility] HospitalComment on above: Performed By: #### CBC #### [facility] [address] [address] [address] Arben MarcialRBC5.21 106/ulNormal4.70-6.10The [facility] HospitalComment on above:Performed By: #### CBC #### [facility] [address] [place] [address] Dr. Arben MarcialWBC8.0 103/ulNormal4.0-11.0The [facility] HospitalComment on above: Performed By: #### CBC #### [facility] [address] [address] [address] Arben MarcialGLYCOHEMOGLOBIN A1Con 25-21-9636YNA RECOMMENDATIONADA THERAPEUTIC TARGET 6.0 - 7.0 ACTION SUGGESTED > 7.0NormDiley Ridge Medical CenterComgarden city hospital on above:Performed By: #### A1C #### [facility] [address] [address] [address] Arben MarcialGlucose [Mass/Vol]166 mg/dLNormDiley Ridge Medical CenterComment on above:Performed By: #### A1C #### [facility] [address] [place] [address] Dr. Arben MarcialHbA1c (Bld) [Mass fraction]7.4 %Critically high<=6.0The [facility] HospitalComg[facility] city hospital on above:Performed By: #### A1C #### [facility] [address] [place] [address] Dr. Arben MarcialMICROALBUMIN, RAND URon 89-34-1254zHUI6.3 mg/LNormal<=30.0The [facility] HospitalComment on above:Performed By: #### MALBR #### [facility] [address] [address] [address] Arben Iriwn 14(COMP METB)on 24-72-2670Jpfhszb [Mass/Vol]3.9 g/dLNormal 3.4-5.0The [facility] HospitalComment on above:Performed By: #### CMP #### [facility] [address] [place] [address] Dr. Arben MarcialAlbumin/Globulin [Mass ratio]1.1 {ratio}NormalThe [facility] HospitalComment on above:Performed By: #### CMP #### [facility] [address] [place] [address] Dr. Arben Griffith [Catalytic activity/Vol]69 U/ERjwmnr39-379Dba [facility] HospitalComment on above:Performed By: #### CMP #### [facility] [address] [place] [address] Dr. Arben Noel [Catalytic activity/Vol]64 U/LCritically hsqm57-37Zjh [facility] HospitalComment on above:Performed By: #### CMP #### [facility] [address] [place] [address] Dr. Arben Ch gap [Moles/Vol]12.2 mmol/LNormalThe [facility] Comment on above:Performed By: #### CMP #### [facility] [address] [place] [address] Dr. Arben MarcialAST [Catalytic activity/Vol]34 U/HMmutlm51-30Nlv [facility] Troyment on above:Performed By: #### CMP #### [facility] [address] [place] [address] Dr. Arben MarcialBilirubin [Mass/Vol]0.5 mg/dLNormal0.2-1.3The [facility] Comment on above:Performed By: #### CMP #### [facility] [address] [place] [address] Dr. Arben MarcialCalcium [Mass/Vol]9.2 mg/dLNormal8.5-10.1[facility] Comment on above:Performed By: #### CMP #### [facility] [address] [address] [address] Arben MarcialChloride [Moles/Vol]102 mmol/AMioibn64-478Plo [facility] Comment on above:Performed By: #### CMP #### [facility] [address] [address] [address] Arben MarcialCO2 [Moles/Vol]29.6 mmol/IZnjbfv11.0-30.0The [facility] Comment on above:Performed By: #### CMP #### [facility] [address] [address] [address] Arben MarcialCreatinine [Mass/Vol]1.00 mg/dLNormal0.66-1.25The [facility] HospitalComment on above:Performed By: #### CMP #### [facility] [address] [address] [address] Arben McdanielGFR-AF THAI>60Normal>=60The [facility] HospitalComment on above:Performed By: #### CMP #### [facility] [address] [address] [address] Arben McdanielGFR-NON AF THAI>60Normal>=60Mad[facility] HealthComment on above:Performed By: #### CMP #### [facility] [address] [address] [address] Arben MarcialGlobulin (S) [Mass/Vol]3.4 g/dLNormalThe [facility] HospitalComment on above:Performed By: #### CMP #### [facility] [address] [address] [address] Arben MarcialGlucose [Mass/Vol]205 mg/dLCritically yqpy75-468PocMadison HealthComment on above:Performed By: #### CMP #### [facility] [address] [address] [address] Arben MarcialPotassium [Moles/Vol]4.8 mmol/LNormal3.4-5.0[facility] Comment on above:Performed By: #### CMP #### [facility] [address] [address] [address] Arben MarcialProtein [Mass/Vol]7.3 g/dLNormal6.1-8.2The [facility] Comment on above:Performed By: #### CMP #### [facility] [address] [address] [address] Arben MarcialSodium [Moles/Vol]139 mmol/ZRehmeo003-059Yma [facility] Comment on above:Performed By: #### CMP #### [facility] [address] [address] [address] Arben MarcialUrea nitrogen [Mass/Vol]15.0 mg/dLNormal7.0-18.0Mad[facility] HealthComment on above:Performed By: #### CMP #### [facility] [address] [address] [address] Arben Cat nitrogen/Creatinine [Mass ratio]15.0 mg/mgNormalThe [facility] HospitalComment on above:Performed By: #### CMP #### [facility] [address] [address] [address] Arben Marcial Vital Signs Date TimeVital SignValuePerforming DfmgcoodiTochzlja00-27-0995 14:04-0400 Diastolic blood jkprwmyj34 mm[Hg]Luis Carlos Davenportus [address] [place], [place] 1931603-27-2025 14:04-0400Mean blood oodffhsm623 mm[Hg]Luis Carlos Eldernus [address] [place], [place] 1931603-27-2025 14:04-0400 Systolic blood znhwfzho283 mm[Hg]Luis Carlos Pineda [address] [place], [place] 1931603-27-2025 13:56-0400Blood Pressure LocationLuis Carlos Pineda [facility]03-27-2025 13:56-0400 Diastolic blood xfhavmgt74 mm[Hg]Luis Carlos Eldernus [address] [place], [place] 1931603-27-2025 13:56-0400Heart rate79 /minMikhail Kirnus [address] [place], [place] 7240403-27-2025 13:56-0400 Respiratory rate16 /minMikhail Kirnus [address] [place], [place] 7240403-27-2025 13:56-9017BxS9% (BldA) [Mass fraction]97 %Luis Carlos Jerrodnus [address] [place], [place] 7240403-27-2025 13:56-0400 Systolic blood bmkjexaw535 mm[Hg]Luis Carlos Jerrodnus [address] [place], [place] 7240401-31-2025 14:01-0500Blood Pressure LocationMikhail Kirnus [address] [place], [place] 7240401-31-2025 14:01-0500 Diastolic blood xzzlwmyh18 mm[Hg]Luis Carlos Jerrodnus [address] [place], [place] 7240401-31-2025 14:01-0500Heart rate79 /minMikhail Kirnus [address] [place], [place] 7240401-31-2025 14:01-0500 Respiratory rate18 /minMikhail Kirnus [address] [place], [place] 7240401-31-2025 14:01-6866DnI1% (BldA) [Mass fraction]95 %Luis Carlos Jerrodnus [address] [place], [place] 7240401-31-2025 14:01-0500 Systolic blood zfmboszj342 mm[Hg]Luis Carlos Kirnus [address] [place], [place] 7240401-12-2025 13:41-0500Heart rate72 /minTim Chau [facility]01-12-2025 13:41-8560HcB0% (BldA) [Mass fraction]96 %Zeb Chau [address]01-12-2025 13:33-0500Heart rate70 /minTim Chau [address] [place], [place] 2067001-12-2025 13:33-0500 Respiratory rate16 /minTim Chau [address] [place], [place] 2067001-12-2025 13:33-5308BxO5% (BldA) [Mass fraction]96 %Zeb Ritchie [address] [place], [place] 2067001-12-2025 13:25-0500 Diastolic blood evvyfoom27 mm[Hg]Zeb Ritchie [address] [place], [place] 2067001-12-2025 13:25-0500Heart rate72 /minTim Chau [address] [place], [place] 2067001-12-2025 13:25-0500Heart rate69 /minTim Chau [address] [place], [place] 2067001-12-2025 13:25-0500 Hourly RoundingTim Chau [address] [place], [place] 2067001-12-2025 13:25-0500Mean blood mm[Hg]Zeb Ritchie [address] [place], [place] 2067001-12-2025 13:25-0500 Respiratory rate23 /minTim Chau [address] [place], [place] 2067001-12-2025 13:25-0500 Respiratory rate16 /minTim Chau [address] [place], [place] 2067001-12-2025 13:25-1717XlM4% (BldA) [Mass fraction]94 %Zeb Ritchie [address] [place], [place] 2067001-12-2025 13:25-5074ZpD7% (BldA) [Mass fraction]93 %Zeb Ritchie [address] [place], [place] 2067001-12-2025 13:25-0500 Systolic blood mszehkjp795 mm[Hg]Zeb Ritchie [address] [place], [place] 3056201-12-2025 12:17-0500 Respiratory rate23 /minZeb Ritchie [address] [place], [place] 3056201-12-2025 11:45-0500Body ciajlnjygym20.06 [degF]Zeb Ritchie [address] [place], [place] 3056201-12-2025 11:45-0500 Diastolic blood xdqebbbn15 mm[Hg]Zeb Ritchie [address] [place], [place] 3056201-12-2025 11:45-0500Heart rate73 /minZeb Ritchie [address] [place], [place] 3056201-12-2025 11:45-0500 Respiratory rate16 /minTim Chau [address] [place], [place] 3056201-12-2025 11:45-0500 Systolic blood cgikrufj719 mm[Hg]Zeb Ritchie [address] [place], [place] 3056201-10-2025 07:39-0500Blood Pressure LocationLuis Carlos Eldern [facility]01-10-2025 07:39-0500 Diastolic blood kojswktf58 mm[Hg]Luis Carlos Eledrnus [facility]01-10-2025 07:39-0500Heart rate75 /minMikhail Kirnus [facility]01-10-2025 07:39-0500 Respiratory rate16 /minMikhail Kirnus [facility]01-10-2025 07:39-7921ObC6% (BldA) [Mass fraction]97 %Luis Carlos Kirnus [facility]01-10-2025 07:39-0500 Systolic blood mm[Hg]Luis Carlos Pineda [facility]12-20-2024 14:16-0500 Diastolic blood thaurbzn18 mm[Hg]Luis Carlos Pineda [facility]12-20-2024 14:16-0500Heart rate75 /minLuis Carlos Pineda [facility]12-20-2024 14:16-0500 Respiratory rate16 /minMijuneail Edwin [facility]12-20-2024 14:16-7000WrF6% (BldA) [Mass fraction]94 %Luis Carlos Pineda [facility]12-20-2024 14:16-0500 Systolic blood oekvacnm912 mm[Hg]Luis Carlospetty Pineda [facility] Encounters Encounter DateEncounter TypeCare ProviderFacilityStart: 09-19-2025 End: 76-71-1009fnndjofgrtNzjf L SchwabFacility:FTMCStart: 09-06-2025 End: 75-76-2178dfkftvdhzjZvyz L SchwabFacility:FTMCStart: 09-06-2025 End: 70-18-3311arzrlvqkrfVidj L SchwabFacility:[facility] [place]Start: 07-22-2025 End: 87-01-8233arpgbiuqmlKjwl L SchwabFacility:[facility] [place]vueStart: 05-31-2025 End: 87-35-9761qwrnueoiikBzikpq A SteinFacility:FTMCStart: 04-22-2025 End: 46-82-2407Apu Drop offJodi L Brittney [facility] Start: 04-22-2025 End: 96-70-5271ixoyeguudaZsiv L SchwabFacility:FTMCStart: 02-07-2025 End: 27-34-3012vqvkxkyveyBjmnddi D KirnusFacility:FTMCStart: 02-07-2025 End: 66-09-7060Vgoakfq encounter procedureLuis Carlos Pineda [facility] Start: 01-10-2025 End: 57-59-2564sndkmztvwdSobi L SchwabFacility:[facility] BellevueStart: 12-25-2024 End: 05-43-1302Dtn Drop offJodi L Brittney [facility] Start: 12-25-2024 End: 41-30-3517ptyeijbdrcFOW Brianna L SchwabFacility:[facility] BellevueStart: 12-14-2024 End: 45-30-3264vmsihysbepJtbunmh D KirnusFacility:FTMCStart: 12-14-2024 End: 15-91-0447Qgvvudt encounter procedureLuis Carlos Pineda [facility] Start: 11-28-2024 End: 65-73-0282inxxcmtirgIPN Brianna L SchwabFacility:FT BellevueStart: 11-25-2024 End: 65-69-3460Islwymxdw department patient visitTim Chau [facility] Start: 11-23-2024 End: 25-42-6088Fbbhyjzvp to same day surgery Casimiro Pineda [facility] start: 11-23-2024 End: 17-32-6411xdovsjmdavZkukwen D KirnusFacility:FTMCStart: 11-19-2024 End: 94-34-0194Jsa Drop offJodi L Brittney [facility] Start: 11-19-2024 End: 65-79-2994pmxlmauylpCflf L SchwabFacility:[facility] BellevueStart: 11-02-2024 End: 09-33-1733vripuocsdlQN Luis Carlos PinedaFacility:FTMCStart: 11-02-2024 End: 16-48-0160Cppmelv encounter procedureLuis Carlos Pineda [facility] Start: 10-30-2024 End: 95-14-3637iuhfsnyxwlMabv L SchwabFacility:FTMCStart: 10-30-2024 End: 78-45-4227Uqh Drop offJodi L Brittney [facility] start: 10-30-2024 End: 23-95-1247fvdgpjqhxmSobg L SchwabFacility:[facility] BellevueStart: 10-24-2024 End: 68-47-0448syqulirypkFonq L SchwabFacility:[facility] BellevueStart: 09-26-2024 End: 82-67-1915hjoiuzfevkLorz L SchwabFacility:[facility] BellevueStart: 08-29-2024 End: 09-51-4944Khp Drop offJodi L Brittney [facility] Start: 08-29-2024 End: 88-20-7963xvuiscwrzoVOG Brianna L SchwabFacility:FTMCStart: 08-13-2024 End: 40-12-9244ilydjduulhHGA Brianna L SchwabFacility:[facility] [place]vueStart: 07-09-2024 End: 06-86-4262vspeyaezyxQUR Brianna L SchwabFacility:[facility] BellevueStart: 06-29-2024 End: 56-81-3812rvtuytabedBXT Brianna L SchwabFacility:FT [place]vueStart: 05-07-2024 End: 73-29-4209Gxc Drop offJodi L Brittney [facility] Start: 05-07-2024 End: 22-78-4773prppttnswgOudg L SchwabFacility:FTMCStart: 05-01-2024 End: 51-01-4021drnlhszjekXQI Brianna L SchwabFacility:[facility] BellevueStart: 38-36-3678jhthhrffrmIRY Brianna SchwabFacility:FT BellevueStart: 10-22-2022 End: 55-14-2874ufwaubpfapEH ALEJANDRA HOUSEFacility:M8Tvogn: 01-29-2022 End: 80-70-7788bhwjghmjgbGN ALEJANDRA SOUTH KENTFacility:H1 Procedures DateProcedureProcedure DetailPerforming ClinicianStart: 11-23-2024 Catheterization of left heartMikhail Edwin Start: 06-56-6802[place] artery stent (physical object)Luis Carlos Edwin Comment on above:STent to LADHistory of placement of stent in anterior descending branch of left coronary arteryHistory of placement of stent in LAD coronary arteryMikhail Jerrodnus Surgical procedureJodi Brittney Plan of Treatment DateCare ActivityDetailAuthorStart: 12-29-1384vngmakiemoBekfvxcmbjRfxbkoje:FT [place] Immunizations Immunization DateImmunizationNotesCare JksybfscHhqxzirp97-09-7336ZPAY-OdP-3 (COVID-19) mRNA BNT-162b2 vaxJodi Brittney 152-9354Gxpryv-QsgwlParkview Health [facility] 08-74-6445IKYE-CoV-2 (COVID-19) mRNA BNT-162b2 vaxJodi Brittney [phone]-AsfsiParkview Health [facility]pel[facility] Payers DatePayer CategoryPayerPolicy [id number]-[id number] Health [id number] 2.16.840.1.160410.3.579.2.593 [id number] 2.16.840.1.292229.3.57[id number] 2.840.1.361041.3.57[id number] 2.840.1.378402.3.57[id number] 2.16840.1.259806.3.57[id number] 2.16.840.1.060229.3.57[id number] 2.16.840.1.275269.3.57[id number] 2.16840.1.964200.3.57[id number] 2.16840.1.053376.3.57[id number] 2.16840.1.125688.3.579.[id number] 2.16840.1.530287.3.579.2.[id number] 2.16840.1.896228.3.57[id number] 2.840.1.077611.3.579.[id number] 2.840.1.172254.3.57[id number] 2.840.1.440149.3.579.[id number] 2.840.1.975136.3.579.[id number] 2.0.1.508846.3.579.2.[id number] 2..1.639405.3.57[id number] 2.0.1.935805.3.57[id number] 2..1.429682.3.57[id number] 2..1.770494.3.579.2.2[id number] 2..1.626072.3.579.[id number] 2..1.820774.3.579.[id number] 2..1.639166.3.579.2.82920-71-6679Yxgqvod29001355 2.0.1.499807.3.579.2.58305-42-7977Miihhek13613549 2.840.1.861090.3.579.2.29798-36-3788Tuhleew20904638 2.16.840.1.726483.3.579.2.21524-92-8481Fwabrnt41504304 2.16.840.1.591232.3.579.2.[id number] 2.16.840.1.262433.3.579.2.[id number] 2.16.840.1.097880.3.57[id number] 2.16.840.1.860578.3.579.2.47068-05-1948Cprrfuq43281233 2..840.1.892117.3.579.2.18038-48-2663Jluhaff09744058 2..840.1.835194.3.579.2.7[id number] 2..0.1.683021.3.579.[id number] 2..0.1.376919.3.579.2.63044-53-4280Giztfmn20884124 2..840.1.992282.3.579.2.41816-37-7526Gupfgos18626144 2.0.1.290177.3.579.2.47313-83-6898Yrydrka12303023 2.0.1.806145.3.579.2.39259-52-0212Gkgxope Health [id number] Social History DateTypeDetailFacilityStart: 05-07-2024 End: 22-85-3921Vskjnlz smoking statusNever smoked tobacco (finding)[facility] DaytonKimberlyex Assigned At BirthMalSelect Medical [facility] - DublinTobacco smoking statusNeverLakehealth [facility] Medicine BellevueSexual OrientationPrem[facility] SexMale (finding)[facility] Medical Equipment Procedure CodeEquipment CodeEquipment Original TextEquipment IdentifierDatesPTCA of LAD Unknown 11/23/24 Unknown Left Anterior Descending Coronary ArteryFDA Start: 39-80-6947DNDW of LAD Unknown 11/23/24 Unknown Left Anterior Descending Coronary ArteryFDAStart: 66-01-4405LAHX of LAD Unknown 11/23/24 Unknown Left Anterior Descending Coronary ArteryFDAStart: 02-11-9636PUPU of LAD Unknown 11/23/24 Unknown Left Anterior Descending Coronary ArteryFDAStart: 38-05-1321QVXW of LAD Unknown 11/23/24 Unknown Left Anterior Descending Coronary ArteryFDA Start: 79-48-2158LQSH of LAD Unknown 11/23/24 Unknown Left Anterior Descending Coronary ArteryFDAStart: 11-23-2024 Functional Status GpjjSlvfbhtchlCbirhqUzxispni66-71-0606Rmfvsmsxch StatusN/[facility]01-31-2025Functional StatusN/[facility]01-12-2025 Functional StatusN/[facility]01-10-2025Functional StatusNo [facility]12-20-2024Functional StatusN/[facility] Clinical Notes 11-14-2024 to 09-19-2025 Note Date & RoalEfvqQzexxbsj55-73-3061 NoteNurse Consultation Note Reason for Visit Patient came into office for lab draw Assessment/Plan Wellness examination (Z00.00: Encounter for general adult medical examination without abnormal findings) Medications Albuterol (Eqv-ProAir HFA) 90 mcg/inh inhalation aerosol, 180 mcg= 2 inh, Inhalation, q6hr, 6 refills amLODIPine 5 mg Tab, 5 mg= 1 tab(s), Oral, Daily, 3 refills aspirin 81 mg Oral EC Tab, 81 mg= 1 tab(s), Oral, Daily, 3 refills atorvastatin 40 mg Tab, 40 mg= 1 tab(s), Oral, Daily, 3 refills fluconazole 150 mg Tab, See Instructions, 1 refills gabapentin 300 mg Cap, 300 mg= 1 cap(s), Oral, Once a day (at bedtime) glimepiride 2 mg Tab, See Instructions losartan 50 mg Tab, 50 mg= 1 tab(s), Oral, BID, 5 refills meloxicam 15 mg Tab, 15 mg= 1 tab(s), Oral, Daily, 4 refills metformin 1000 mg Tab, 1000 mg= 1 tab(s), Oral, BID, 3 refills nystatin Top 100,000 units/g Crm 15 gram, 1 marie, Topical, BID Plavix 75 mg Tab, 75 mg= 1 tab(s), Oral, Daily, 3 refills semaglutide 1 mg/0.5 mL (1 mg dose) subcutaneous solution (Wegovy), SubCutaneous, qWeek Toprol XL 25 mg Tab-ER, 25 mg= 1 tab(s), Oral, Daily, 2 refills Vitamin D 50,000 intl units (1.25 mg) oral capsule, See Instructions, 3 refills Allergies penicillins (Epistaxis) Immunizations Vaccine Date Status SARS-CoV-2 (COVID-19) mRNA BNT-162b2 vax 07/17/2021 Recorded SARS-CoV-2 (COVID-19) mRNA BNT-162b2 vax 06/10/2021 [facility] Evaluation + Plan note Future Scheduled Tests Laboratory* Lipid Panel 02/07/25 * Lipid Panel 12/27/24 [facility] 01-17-2025 NoteProgress Note-Physician Procedure Airway Assessment: Class II: Visualization of the soft palate, fauces, uvula Airway Abnormalities: none ASA Classification: ASA 2: A patient with mild systemic disease Risks/Benefits of IV Sedation: Have been explained IV Sedation Plan: Patient agrees to IV sedation plan_ Assessment/Plan CAD (coronary artery disease) (I25.10: Atherosclerotic heart disease of citizen [place] coronary artery without angina pectoris) HTN (hypertension) (I10: Essential (primary) hypertension)[facility] HospitalComment on above:Result Comment: Electronically Signed By: Edwin RHOADES, Luis Carlos Salvador\.cassie\Date and Time Signed: 11/30/24 18:26 [id number] Hospital Discharge instructions Patient Education 11/25/2024 13:42:02 [...] Follow these instructions at home: Medicines Take mrcu-zle-uzsnvfq and prescription medicines only as told by [...] provider. Document Revised: 07/01/2023 Document Reviewed: 07/01/2023 [employer] Patient Education 2023 Collective IP. 11/25/2024 13:42:02 Bronchospasm, Adult Bronchospasm, Adult Bronchospasm [...] and fumes from perfume, candles, and household airplane flight attendant. Cold air. Stress or strong emotions such [...] Follow these instructions at home: Medicines Take jjod-dnv-yvimuqm and prescription medicines only as told by [...] provider. Document Revised: 05/24/2022 Document Reviewed: 05/24/2022 [employer] Patient Education 2023 Collective IP. Follow Up Care 11/25/2024 11:39:05 With:Brianna Lugo Address: [address] [place], [place] [id number] Business (1) When:11/28/2024 13:35:21 [facility] 01-12-2025 NoteED Patient Education Note ENT Cough, [...] these instructions at home: Medicines ??? Take rnmg-flc-konbztn and prescription medicines only as told by [...] provider. Document Revised: 07/01/2023 Document Reviewed: 07/01/2023 [employer] Patient Education ? 2023 Collective IP. Pulmonary Medicine Bronchospasm, Adult Bronchospasm is a [...] and fumes from perfume, candles, and household airplane flight attendant. ??? Cold air. ??? Stress or strong [...] the irritant or t (more content not included)...[facility]01-10-2025 Hospital Discharge instructions Patient Education 11/23/2024 12:32:21 CV - Cardiovascular PCI Discharge Instructions (Custom) [place], [place] Cardiovascular PCI DISCHARGE INSTRUCTIONS Diet: Resume [...] hours post procedure: Actoplus MetGlucophageGlucophage XR GlucovanceAvandametFortamet Qko-cxzxybgfpCdmsmuUzov-huamrrtdg GlumetzaJanumetMetaglip RiometGlycomet Minimal pain, soreness and/or discomfort is expected. If you are prescribed an aspirin and/or antiplatelet (such as Plavix, Brilinta or Effient) do NOT stop taking these medications for any reason without talking to your out of school hours care worker Site Care: Do not remove dressing for [...] you are interested in smoking cessation, contact [facility] at [phone], ext. [phone]. In the event you are unable to reach your physician, please call [employer] at [phone] and the electric shipyard operator will assist you. Seek Medicare Care [...] Care 11/08/2024 14:19:09 With:Luis Carlos Pineda Address: [address] [place] [address] [place] [address]- [phone] Business (1) When:12/07/2024 14:00:00 With:Brianna Brittney Address:Unknown When: Unknown [facility] 01-10-2025 Evaluation + Plan noteExtracted from:Title: Procedure Note Heart & VascularAuthor:Luis Carlos Pineda MD DDate:11/23/24 Ordered: acetaminophen, 325 mg = 1 [...] Appointment Date:11/28/2024 05:00:00 PM Scheduled Provider:Brianna Li Location:[facility] [place] Appointment Type: Open Appointment Date:12/07/2024 02:00:00 PM Scheduled Provider:Luis Carlos Pineda MD [facility]:Card[facility] Follow Up (FT) Diagnostic Tests Pending * CBC w/ Indices 11/24/24 * Basic Metabolic Panel 11/24/24 * Magnesium Level 11/24/24 * Troponin 11/24/24 [facility] 01-10-2025 NoteOperative Report Procedure Left heart catheterization procedure report DATE OF PROCEDURE: 11/23/2024 MANAGER STORE Luis Carlos Pineda MD [facility] INDICATION: Chest pain, consistent with typical unstable [...] patient was brought to the [facility] and placed on the table. The planned puncture sites/areas were prepped and draped in usual sterile fashion and a safety time-out was performed. Moderate Sedation was given by the [facility] RN. RIGHT RADIAL ARTERY ACCESS: The puncture [...] administered via peripheral IV by the laboratory assistant RN after the catheter crossed [...] <50cc CONTRAST ADMINISTERED: Please see [facility] Log for further details FINDINGS: SELECTIVE CORONARY [...] the table. We u (more content not included)...[facility]: Result Comment: Electronically Signed By: Edwin RHOADES, Luis Carlos Salvador\.cassie\Date and Time Signed: 11/23/24 12:33 [id number] NotePatient Education - Text [place], [place] Cardiovascular PCI DISCHARGE INSTRUCTIONS Diet: ??? [...] for any reason without talking to your out of school hours care worker Site Care: ??? Do not remove dressing [...] you are interested in smoking cessation, contact [facility] at [phone], ext. [phone]. ??? In the event you are unable to reach your physician, please call Ryanne Castro at [phone] and the electric shipyard operator will assist you. Seek Medicare Care [...] coagulating (clotting) and c (more content not included)...[facility]01-06-2025 NoteNurse Consultation Note Reason for Visit [...] 50,000 intl units (1.25 mg) oral capsule, 05834 International_Unit= 1 cap(s), Oral, qWeek, 3 refills Allergies penicillins (Epistaxis)[facility]01-01-2025 Evaluation + Plan note Future Appointments Appointment Date:11/23/2024 09:00:00 AM Scheduled [facility] () Appointment Date:11/28/2024 05:00:00 PM Scheduled Provider:Brianna Li Location:[facility] Appointment Type: Open Future Scheduled Tests Radiology* CV Cardiovascular 11/23/24 [facility] Evaluation + Plan note Future Appointments Appointment Date:06/15/2024 01:40:00 PM Scheduled Provider:Brianna Li Location:[facility] Appointment Type:FM Open Diagnostic Tests Pending * UZIEL w/Reflex if POS [facility]07/24 [facility] Future Appointments Appointment Date:11/28/2024 05:00:00 PM Scheduled Provider:Brianna Li Location:[facility] Appointment Type:FM Open Diagnostic Tests Pending * HgbA1c 08/29/24 [facility] evaluation + Plan note Future Appointments Appointment Date:11/02/2024 02:15:00 PM Scheduled Provider:Luis Carlos Pineda MD [facility] [place] [facility] Type:Cardiology New Patient (FT) Appointment Date:11/28/2024 05:00:00 PM Scheduled Provider:Brianna Li Location:[facility] Appointment Type:FM Open Diagnostic Tests Pending * Testosterone Level Total 10/30/24 [facility] Evaluation + Plan note Future Appointments Appointment Date:11/28/2024 05:00:00 PM Scheduled Provider:Brianna Li Location:[facility] Appointment Type:FM Open [facility] Evaluation + Plan note Future Appointments Appointment Date:11/28/2024 05:00:00 PM Scheduled Provider:Brianna Li Location:[facility] Appointment Type:FM Open Appointment Date:12/07/2024 02:00:00 PM Scheduled Provider:Luis Carlos Pineda MD [facility] Type:Cardiology Follow Up (FT) [facility] evaluation + Plan note Future Appointments Appointment Date:02/07/2025 01:45:00 PM Scheduled Provider:Luis Carlos Pineda MD [facility] Appointment Type:Cardiology Follow Up (FT) Future Scheduled Tests Laboratory* HgbA1c 11/28/24 * Basic Metabolic Panel 12/23/24 * Lipid Panel 12/23/24 [facility] evaluation + Plan note Future Appointments Appointment Date:02/07/2025 01:45:00 PM Scheduled Provider:Luis Carlos Pineda MD [facility]Cardiology Follow Up (FT) [facility] Evaluation + Plan note Future Appointments Appointment Date:05/31/2025 03:15:00 PM Scheduled Provider:Chau Patton PA-C [facility] [place] Type:Cardiology Follow Up (FT) Appointment Date:07/22/2025 03:00:00 PM Scheduled Provider:Brianna Li Location:[facility] Appointment Type: Open Future Scheduled Tests Laboratory* Lipid Panel 02/07/25 * Lipid Panel 12/27/24 [facility] Hospital course Narrative No data available for this section [facility] No data available for this section [facility] No data available for this section [facility] Summary Purpose Family History No Family History [...] section and content) DATE CREATED AUTHOR 11/03/2022 [facility] DATE CREATED AUTHOR AUTHOR'S ORGANIZ ATION 05/08/2024 [facility] DATE CREATED AUTHOR AUTHOR'S ORGANIZ ATION 05/09/2024 [facility] DATE CREATED AUTHOR AUTHOR'S ORGANIZ ATION 06/30/2024 [facility] DATE CREATED AUTHOR AUTHOR'S ORGANIZ ATION 11/03/2024 [facility] DATE CREATED AUTHOR AUTHOR'S ORGANIZ ATION 11/11/2024 [facility] DATE CREATED AUTHOR AUTHOR'S ORGANIZ ATION 11/25/2024 [facility] DATE CREATED AUTHOR AUTHOR'S ORGANIZ ATION 11/30/2024 [facility] DATE CREATED AUTHOR AUTHOR'S ORGANIZ ATION 12/01/2024 [facility] DATE CREATED AUTHOR AUTHOR'S ORGANIZ ATION 12/27/2024 [facility] DATE CREATED AUTHOR AUTHOR'S ORGANIZ ATION 04/10/2025 [facility] DATE CREATED AUTHOR AUTHOR'S ORGANIZ ATION 04/24/2025 [facility] DATE CREATED AUTHOR AUTHOR'S ORGANIZ ATION 05/03/2025 [facility] DATE CREATED AUTHOR AUTHOR'S ORGANIZ ATION 07/24/2025 [facility] DATE CREATED AUTHOR AUTHOR'S ORGANIZ ATION 09/20/2025 [facility] DATE CREATED AUTHOR AUTHOR'S ORGANIZ ATION 09/22/2025 [facility] Patient Care team informatio n (unrecognized section and content) Personnel Name: Brianna Li Address: Address: [address] [place] [address]- Personnel Name: Brianna Li L Address: Address: [address] [place] [address]- Personnel Name: Brianna Li L Address: Address: [address] [place] [address]- Personnel Name: Sangeeta Lidi L Address: Address: [address] [place] [address]- Personnel Name: Sangeeta Lidi L Address: Address: [address] [place] [address]- Personnel Name: Sangeeta Lidi L Address: Address: [address] [place] [address]- Personnel Name: Sangeeta Lidi L Address: Address: [address] [place] [address]- Personnel Name: Sangeeta Lidi L Address: Address: [address] [place] [address]- Personnel Name: Sangeeta Lidi L Address: Address: [address] [place] [address]- Personnel Name: Brianna Li Address: [address] [place] [address]- [employer]: Personnel Name: Brianna Li Address: [address] [place] [address]- [employer]: FOR RECORDS PERTAINING TO PATIENTS WHO [...] BE BASED ON THE PRIMARY CLINICAL RECORDS. [facility] provides no warranty or guarantee of the accuracy or completeness of information in this document.
== END 2025-09-23 07:14 | disposition home or self-care (01) ==
LOC: NM 07:13
PROVIDERS: PCP Nurse Practitioner; Visit Provider Physician Assistant
DX: R06.02 Shortness of breath (principal)